=== PATIENT | female | born 1945 | race Caucasian/White ===

== ENCOUNTER → 2018-02-10 10:39 | Outpatient (CLI) | payer MEDICARE, SELFPAY ==
--- NOTE | 2018-02-10 10:42 | DI.RAD.S_ITS ---
PROCEDURE: XR HIP W PEL IF DONE RT 2V INDICATIONS: right hip pain TECHNIQUE: AP pelvis with lateral view(s) of the right hip(s). COMPARISON: [facility], CR, ABD ACUTE SERIES, 11/08/2012, 10:49. FINDINGS: Bones: No fractures or dislocations. Pelvic ring appears intact. No suspicious bony lesions. There is degenerative hip joint disease bilaterally, right greater than left, initiated with sclerosis, mild marginal lipping and subcortical cystic changes. Appearance is essentially unchanged from last study. Soft tissues: The visualized bowel gas pattern is normal. No suspicious soft tissue calcifications. IMPRESSION: 1. No acute bony abnormality. 2. Degenerative hip joint disease right greater than left. Dictated by: Nathaniel Livingston M.D. on 02/10/2018 at 10:58 Approved by: Nathaniel Livingston M.D. on 02/10/2018 at 11:01
== END ==
PROVIDERS: PCP Family Medicine
DX: M16.0 Bilateral primary osteoarthritis of hip (principal); M25.551 Pain in right hip
CPT/HCPCS: 73502

== ENCOUNTER → 2018-11-08 16:04 | Outpatient (CLI) | payer MEDICARE, SELFPAY ==
[2018-11-08 17:09] LABS: Hemoglobin 9.5 g/dL (12.0-16.0)
[2018-11-08 17:31] LABS: HEMOLYSIS < 15 (0-50); Iron 18 ug/dL (37-170)
[2018-11-08 17:41] LABS: Percent Iron Saturation 4 % (15-50); Total Iron Binding Capacity 454 ug/dL (265-497); Transferrin 369 mg/dL (206-381)
== END ==
PROVIDERS: PCP Physician Assistant; Visit Provider Physician Assistant
DX: R53.1 Weakness (principal); Z86.2 Personal history of diseases of the blood and blood-forming organs and certain disorders involving the immune mechanism
CPT/HCPCS: 36415; 83540; 83550; 85014; 85018

== ENCOUNTER → 2019-02-06 16:21 | Outpatient (CLI) | payer MEDICARE, SELFPAY | PROVIDERS: PCP Physician Assistant; Visit Provider Physician Assistant ==

== ENCOUNTER → 2019-02-08 09:57 | Outpatient (CLI) | payer MEDICARE, SELFPAY ==
[2019-02-08 10:20] LABS: Add Manual Diff / Slide Review NO; Basophils Absolute Auto 100 /uL (0-100); Basophils Percent Auto 1.4 % (0-2); Eosinophils Absolute Auto 300 /uL (0-450); Eosinophils Percent Auto 3.1 % (2-4); Hematocrit 31.1 % (36-46); Lymphocytes Absolute Auto 2500 /uL (1100-4500); Lymphocytes Percent Auto 27.4 % (25-40); Mean Corpuscular HGB Conc 32.1 % (30-36); Mean Corpuscular Hemoglobin 24.4 PG (26-34); Mean Corpuscular Volume 76.1 fL (80-100); Monocytes Absolute Auto 800 /uL (0-900); Monocytes Percent Auto 9.1 % (3-14); Neutrophils Absolute Auto 5400 /uL (1500-7000); Platelet Count 354 X10^3/uL (150-400); Red Blood Cell Count 4.09 X10^6/uL (4.0-5.2); Red Cell Distribution Width 17.6 % (11.6-14.8); White Blood Cell Count 9.2 X10^3/uL (4.5-11.0)
[2019-02-08 10:36] LABS: HEMOLYSIS < 15 (0-50); Iron 15 ug/dL (37-170)
[2019-02-08 10:38] LABS: Alanine Aminotransferase 18 IU/L (9-52); Albumin 4.4 g/dL (3.5-5.0); Albumin Globulin Ratio 1.4 (1.0-2.8); Alkaline Phosphatase 104 U/L (38-126); Aspartate Aminotransferase 24 IU/L (14-36); BUN Creatinine Ratio 23.3 (6-22); Bilirubin Total 0.3 mg/dL (0.2-1.3); Blood Urea Nitrogen 14 mg/dL (7-17); Carbon Dioxide 28 mmol/L (22-32); Chloride 104 mmol/L (98-107); Estimated Glomerular Filt Rate > 60.0 mL/min (>60); Globulin 3.2 g/dL (1.7-4.1); Glucose 118 mg/dL (80-110); HEMOLYSIS < 15 (0-50); Hemoglobin A1C% w Est Avg Glu 5.6 % (4.0-6.0); Potassium 4.1 mmol/L (3.4-5.1); Sodium 141 mmol/L (137-145); Total Protein 7.6 g/dL (6.3-8.2)
[2019-02-08 10:47] LABS: Percent Iron Saturation 3 % (15-50); Total Iron Binding Capacity 442 ug/dL (265-497); Transferrin 386 mg/dL (206-381)
[2019-02-08 10:55] LABS: Vitamin D 25 Hydroxy (D3) 27.9 ng/mL (30.0-100.0)
[2019-02-08 11:11] LABS: Thyroid Stimulating Hormone 2.78 uIU/mL (0.47-4.68)
[2019-02-08 11:12] LABS: Ferritin 5.7 ng/mL (11.1-264)
[2019-02-08 11:26] LABS: Vitamin B12 > 1000 pg/mL (239-931)
== END ==
PROVIDERS: PCP Physician Assistant; Visit Provider Physician Assistant
DX: D50.8 Other iron deficiency anemias (principal); K22.2 Esophageal obstruction; R11.2 Nausea with vomiting, unspecified; R26.89 Other abnormalities of gait and mobility; R53.83 Other fatigue; Z13.1 Encounter for screening for diabetes mellitus
CPT/HCPCS: 36415; 80053; 82306; 82607; 82728; 83036; 83540; 83550; 84443; 85025

== ENCOUNTER 2019-02-20 17:11 | Emergency (ER) | payer MEDICARE, SELFPAY ==
[2019-02-20 17:15] VITALS: BP 132/62; PULSE 79; RESP 18; TEMP 36.7; O2SAT 98
[2019-02-20 17:30] VITALS: BP 126/55; PULSE 77; RESP 17; O2SAT 96
[2019-02-20 17:41] LABS: Add Manual Diff / Slide Review NO; Basophils Absolute Auto 100 /uL (0-100); Basophils Percent Auto 0.7 % (0-2); Eosinophils Absolute Auto 200 /uL (0-450); Eosinophils Percent Auto 1.2 % (2-4); Hematocrit 31.4 % (36-46); Hemoglobin 9.9 g/dL (12.0-16.0); Lymphocytes Absolute Auto 2500 /uL (1100-4500); Lymphocytes Percent Auto 19.9 % (25-40); Mean Corpuscular HGB Conc 31.5 % (30-36); Mean Corpuscular Hemoglobin 23.5 PG (26-34); Mean Corpuscular Volume 74.7 fL (80-100); Monocytes Absolute Auto 1200 /uL (0-900); Monocytes Percent Auto 9.4 % (3-14); Neutrophils Absolute Auto 8700 /uL (1500-7000); Neutrophils Percent Auto 68.8 % (50-75); Platelet Count 346 X10^3/uL (150-400); Red Blood Cell Count 4.21 X10^6/uL (4.0-5.2); Red Cell Distribution Width 16.7 % (11.6-14.8); White Blood Cell Count 12.7 X10^3/uL (4.5-11.0)
[2019-02-20 17:51] LABS: PTT Partial Thromboplastin Tim 35 SECONDS (26.4-36.2)
[2019-02-20] MEDS: SODIUM CHLORIDE 0.9% 1,000 ML 1000 ML IV (18:00)
[2019-02-20 18:01] LABS: Alanine Aminotransferase 16 IU/L (9-52); Albumin 4.3 g/dL (3.5-5.0); Albumin Globulin Ratio 1.3 (1.0-2.8); Alkaline Phosphatase 102 U/L (38-126); Aspartate Aminotransferase 21 IU/L (14-36); Bilirubin Total 0.2 mg/dL (0.2-1.3); Blood Urea Nitrogen 21 mg/dL (7-17); Calcium 9.9 mg/dL (8.4-10.2); Carbon Dioxide 26 mmol/L (22-32); Chloride 102 mmol/L (98-107); Creatine Kinase 50 U/L (30-135); Estimated Glomerular Filt Rate > 60.0 mL/min (>60); Globulin 3.3 g/dL (1.7-4.1); Glucose 92 mg/dL (80-110); HEMOLYSIS < 15 (0-50); Lipase 91 U/L (23-300); Potassium 4.6 mmol/L (3.4-5.1); Sodium 137 mmol/L (137-145); Total Protein 7.6 g/dL (6.3-8.2)
[2019-02-20 18:12] LABS: Troponin I < 0.012 ng/mL (0.01-0.034)
[2019-02-20 18:49] LABS: Iron 18 ug/dL (37-170)
[2019-02-20 18:58] LABS: Percent Iron Saturation 4 % (15-50); Total Iron Binding Capacity 446 ug/dL (265-497)
--- NOTE | 2019-02-20 19:09 | CM.MNRNOTE ---
Per verbal order from provider, only infuse 500mL NaCl.
[2019-02-20 19:26] LABS: Ferritin 5.3 ng/mL (11.1-264)
[2019-02-20 19:50] VITALS: BP 122/60; PULSE 70; RESP 13; O2SAT 96
--- NOTE | 2019-02-20 21:45 | ED_ITS ---
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 Patient and daughter states the patient has frequent knee unable to tolerate p.o. and has frequent emesis due to duodenal stenosis. The daughter reports that patient had several surgical procedures to dilate the stenosis in the past but had complications and ended up having GI bleed. The daughter reports she had a gastric ulcer in 1985 and had an surgical intervention by removing 1.5 ft of duodenum. When the small intestine was anastomosis, the duodenum stenosis occurred. She reports she feels fatigued, feels dizzy, disoriented (meant slower to converse), and generalized body aches. She denies chest pain, breathing difficulty. According to daughter the patient has been taking small intakes of milk, chicken broth. Add last solid food of pasta and mashed potato 3 days ago. Patient is scheduled for IV iron infusion on 02/26/19 and has on appointment with GI specialist on 03/01/19. The patient and mother states something needs to be done today for her symptoms such as IV iron infusion since her iron count is very low as 15. Related Data Home Medications Medication Instructions Recorded Confirmed cholecalciferol (vitamin D3) 1 tab PO DAILY #0 12/16/16 02/20/19 [Vitamin D3] melatonin 5 mg tablet 5 mg PO BEDTIME PRN 11/08/18 02/20/19 multivitamin tablet 1 tab PO DAILY 11/08/18 02/20/19 CBD Oil See Rx Instructions .ROUTE .COMPLEX 02/06/19 02/20/19 Potassium See Rx Instructions .ROUTE .COMPLEX 02/06/19 02/20/19 Vitamin E 1 cap PO DAILY 02/06/19 02/20/19 cyanocobalamin (vitamin B-12) 2,500 mcg PO DAILY 02/06/19 02/20/19 2,500 mcg tablet loratadine 10 mg tablet 10 mg PO DAILY PRN 02/06/19 02/20/19 wwyguha-czvxskqfnefrs-biexwvns 1 dose PO PRN PRN 02/20/19 02/20/19 [Excedrin Extra Strength] gabapentin 100 - 300 mg PO TID 02/20/19 02/20/19 lidocaine HCl-menthol 1 patch TOPICAL DAILY 02/20/19 02/20/19 Allergies Allergy/AdvReac Type Severity Reaction Status Date / Time aspirin [ASPIRIN] AdvReac Severe bleeding Verified 02/20/19 17:29 stomach codeine [CODEINE] AdvReac Severe Hallucinati Verified 02/20/19 17:29 ons fluconazole [From Diflucan] AdvReac Severe I threw Verified 02/20/19 17:29 up all night long. morphine [MORPHINE] AdvReac Severe Hallucinati Verified 02/20/19 17:29 ons oxycodone [OXYCODONE] AdvReac Severe Hallucinations Verified 02/20/19 17:29 and itchy skin prednisone [PREDNISONE] AdvReac Severe Feels Verified 02/20/19 17:29 high and gets very angry zolpidem [ZOLPIDEM] AdvReac Severe turned me Verified 02/20/19 17:29 into a night walker and felt really high. Review of Systems <LUDY Castrejon - Last Filed: 02/20/19 22:25> Review of Systems General: See HPI HEENT: Denies sinus pain, ear pain, sore throat, difficulty swallowing, dizziness. Respiratory: Denies dyspnea, cough, wheezing, hemoptysis, sputum. Cardiovascular: Denies chest pain, palpitations, orthopnea, edema. Gastrointestinal: See HPI : Denies dysuria, frequency, incontinence, hematuria, urinary retention. Musculoskeletal: See HPI Skin: Denies rash, skin lesions, or other. Neurologic: Reports weakness and disorientation. Denies headache, numbness, confusion, seizures, incoordination. Psychiatric: No concerning psychosocial issues. 12-point review of systems is negative except for those stated above. PFSH <LUDY Castrejon - Last Filed: 02/20/19 22:25> Medical History Cataracts, bilateral (Acute 2010) Peptic ulcer disease (Acute 1979) Allergic rhinitis (Chronic 1959) Chronic back pain (Chronic) Fibromyalgia (Chronic ~1989) Generalized headaches (Chronic) Lupus (Chronic 1989) Migraines (Chronic) Shoulder pain (Chronic) Tinnitus of both ears (Chronic 2005) Vertigo (Chronic 2010) Anemia (Resolved 2013) Chickenpox (Resolved) Fibroids (Resolved) Foot pain (Resolved 2000) Fractures (Resolved 1999) Heavy menstrual period (Resolved) Mumps (Resolved) Ovarian cyst (Resolved) Painful menstrual periods (Resolved) Rheumatic fever (Resolved 1966) Surgical History History of surgery on arm (Resolved) Hx of abdominal surgery (Resolved ~1985) Hx of appendectomy (Resolved 1958) Status post cholecystectomy Status post hysterectomy (1988) Family History (Updated 03/20/18 @ 11:54 by Марина Resendiz LPN) Father Cancer Mother No problems noted. Grandfather No problems noted. Grandmother No problems noted. Social History Smoking Status: Former smoker Tobacco: How many years used: 30 (off and on. I quit for 10 years and then started up again.) second hand exposure: No alcohol intake: former (I only drank socially, but I don't anymore. I drank a glass of wine once in a while.) substance use type: does not use Family History Father Cancer Mother No problems noted. Grandfather No problems noted. Grandmother No problems noted. Social History Smoking Status: Former smoker Tobacco: How many years used: 30 (off and on. I quit for 10 years and then started up again.) second hand exposure: No alcohol intake: former (I only drank socially, but I don't anymore. I drank a glass of wine once in a while.) substance use type: does not use Exam <LUDY Castrejon - Last Filed: 02/20/19 22:25> Narrative Exam Narrative: GEN: Alert, oriented x 3, well appearing and nourished, and in no acute distress. Head: Normal cephalic, atraumatic. No scalp or temporal tenderness, palpable mass or rash. EYES: Pupils are equal, round, and reactive to light and accommodation. Extraocular muscles are intact bilaterally. There is no subconjunctival hemorrhage, exudate and sclera non-icteric. Palpebral conjunctiva with mild pink. ENT: Hearing grossly intact. Nose without bleeding, purulent discharge. Mucous membrane moist, no mucosal lesion. Throat without erythema, tonsillar hypertrophy or exudate. Uvula in midline, airway patent. Neck: Trachea in midline. No JVD, non-tender without lymphadenopathy. No masses or thyroid megaly. Supple, non-tender and no meningeal signs. CARDIAC: Normal regular rate and rhythm without murmurs, gallops, or rubs. No chest wall tenderness. No peripheral edema, cyanosis or pallor. Capillary refill is less than 2 seconds. RESPIRATORY: Lungs are cleat to auscultate bilaterally. No cough, wheezes, rales, or rhonchi. No stridor, respiratory distress, increase work of breathing, or accessary muscle used. ABD: Abdomen soft, nontender and non-distended. No guarding or rebound tenderness to palpate. Bowel sounds are normal in all 4 quadrants. There is no palpable masses or organomegaly. EXT: Full painless ROM of all extremities with no loss of sensation, strength, effusion or edema. Patient was able to move herself from bedside commode to bed independently. SKIN: Warm, dry, normal color for patient. No erythema, lesions or rash over visible areas. BACK: Nontender without deformity or crepitance. No flank tenderness. NEUROLOGICAL: Alert and oriented to place, time and person. Sensation and motor function intact bilaterally. No facial droops, dysphasia. PSYCHIATRIC: Good judgement and reason, without hallucinations, abnormal affect or abnormal behaviors during the examination. Initial Vital Signs Initial Vital Signs: Vital Signs Temperature 98.1 F 02/20/19 17:15 Pulse Rate 79 02/20/19 17:15 Respiratory Rate 18 02/20/19 17:15 Blood Pressure 132/62 02/20/19 17:15 Pulse Oximetry 98 02/20/19 17:15 <Ben Webb, DO - Last Filed: 02/20/19 23:56> Initial Vital Signs Initial Vital Signs: Vital Signs Temperature 98.1 F 02/20/19 17:15 Pulse Rate 79 02/20/19 17:15 Respiratory Rate 18 02/20/19 17:15 Blood Pressure 132/62 02/20/19 17:15 Pulse Oximetry 98 02/20/19 17:15 Course <LUDY Castrejon - Last Filed: 02/20/19 22:25> Orders Ordered: ED Orders 02/20/19 17:34 Complete Blood Count AUTO DIFF Stat Comprehensive Metabolic Panel Stat Ferritin Stat Iron Stat Lipase Stat Partial Thromboplastin Time Stat Prothrombin Time INR Stat Total Iron Binding Capacity Stat Troponin & CK Cardiac Panel Stat Type and Screen Stat Discontinued Medications Sodium Chloride (Normal Saline 0.9%) 1,000 mls @ 1,000 mls/hr IV BOLUS ONE Stop: 02/20/19 18:52 Last Infusion: 02/20/19 18:30 Dose: 0 mls/hr Admin: 02/20/19 18:00 Dose: 1,000 mls/hr Vital Signs - 8 hr 02/20/19 17:15 02/20/19 17:30 02/20/19 19:50 Temperature 98.1 F Pulse Rate 79 77 70 Respiratory Rate 18 17 13 Blood Pressure 132/62 Blood Pressure [Right Arm] 126/55 L 122/60 Pulse Oximetry 98 96 96 <Ben Webb DO - Last Filed: 02/20/19 23:56> Orders Ordered: ED Orders 02/20/19 17:34 Complete Blood Count AUTO DIFF Stat Comprehensive Metabolic Panel Stat Ferritin Stat Iron Stat Lipase Stat Partial Thromboplastin Time Stat Prothrombin Time INR Stat Total Iron Binding Capacity Stat Troponin & CK Cardiac Panel Stat Type and Screen Stat Discontinued Medications Sodium Chloride (Normal Saline 0.9%) 1,000 mls @ 1,000 mls/hr IV BOLUS ONE Stop: 02/20/19 18:52 Last Infusion: 02/20/19 18:30 Dose: 0 mls/hr Admin: 02/20/19 18:00 Dose: 1,000 mls/hr Vital Signs - 8 hr 02/20/19 17:15 02/20/19 17:30 02/20/19 19:50 Temperature 98.1 F Pulse Rate 79 77 70 Respiratory Rate 18 17 13 Blood Pressure 132/62 Blood Pressure [Right Arm] 126/55 L 122/60 Pulse Oximetry 98 96 96 MDM - Weakness <LUDY Castrejon Last Filed: 02/20/19 22:25> Differential Diagnosis Differential diagnosis: Likely anemia and dehydration Medical Records Attestation: I reviewed the patient's medical records. Lab Data Attestation: I reviewed the patient's lab results. Result diagrams: 02/20/19 17:34 02/20/19 17:34 Lab Results 02/20/19 02/20/19 02/20/19 Range/Units 17:34 17:34 17:34 WBC 12.7 H (4.5-11.0) X10^3/uL RBC 4.21 (4.0-5.2) X10^6/uL Hgb 9.9 L (12.0-16.0) g/dL Hct 31.4 L (36-46) % MCV 74.7 L (80-100) fL MCH 23.5 L (26-34) PG MCHC 31.5 (30-36) % RDW 16.7 H (11.6-14.8) % Plt Count 346 (150-400) X10^3/uL Neut % (Auto) 68.8 (50-75) % Lymph % (Auto) 19.9 L (25-40) % [place] % (Auto) 9.4 (3-14) % Eos % (Auto) 1.2 L (2-4) % Baso % (Auto) 0.7 (0-2) % Neut # (Auto) 8700 H (4912-9487) /uL Lymph # (Auto) 2500 (6318-6436) /uL [place] # (Auto) 1200 H (0-900) /uL Eos # (Auto) 200 (0-450) /uL Baso # (Auto) 100 (0-100) /uL PT 12.0 (10.1-12.7) SECONDS INR 1.0 (0.9-1.3) APTT 35 (26.4-36.2) SECONDS Sodium 137 (137-145) mmol/L Potassium 4.6 (3.4-5.1) mmol/L Chloride 102 (98-107) mmol/L Carbon Dioxide 26 (22-32) mmol/L BUN 21 H (7-17) mg/dL Creatinine 0.70 (0.52-1.04) mg/dL Estimated GFR > 60.0 (>60) mL/min BUN/Creatinine Ratio 30.0 H (6-22) Glucose 92 (80-110) mg/dL Calcium 9.9 (8.4-10.2) mg/dL Iron (37-170) ug/dL TIBC (265-497) ug/dL % Saturation (15-50) % Ferritin (11.1-264) ng/mL Total Bilirubin 0.2 (0.2-1.3) mg/dL AST 21 (14-36) IU/L ALT 16 (9-52) IU/L Alkaline Phosphatase 102 (38-126) U/L Total Creatine Kinase 50 (30-135) U/L CK-MB (CK-2) TNP CK-MB (CK-2) Rel Index TNP Troponin I < 0.012 (0.01-0.034) ng/mL Total Protein 7.6 (6.3-8.2) g/dL Albumin 4.3 (3.5-5.0) g/dL Globulin 3.3 (1.7-4.1) g/dL Albumin/Globulin Ratio 1.3 (1.0-2.8) Lipase 91 (23-300) U/L Blood Type Antibody Screen 02/20/19 02/20/19 02/20/19 Range/Units 17:34 17:34 17:34 WBC (4.5-11.0) X10^3/uL RBC (4.0-5.2) X10^6/uL Hgb (12.0-16.0) g/dL Hct (36-46) % MCV (80-100) fL MCH (26-34) PG MCHC (30-36) % RDW (11.6-14.8) % Plt Count (150-400) X10^3/uL Neut % (Auto) (50-75) % Lymph % (Auto) (25-40) % [place] % (Auto) (3-14) % Eos % (Auto) (2-4) % Baso % (Auto) (0-2) % Neut # (Auto) (7783-8211) /uL Lymph # (Auto) (4321-7925) /uL [place] # (Auto) (0-900) /uL Eos # (Auto) (0-450) /uL Baso # (Auto) (0-100) /uL PT (10.1-12.7) SECONDS INR (0.9-1.3) APTT (26.4-36.2) SECONDS Sodium (137-145) mmol/L Potassium (3.4-5.1) mmol/L Chloride (98-107) mmol/L Carbon Dioxide (22-32) mmol/L BUN (7-17) mg/dL Creatinine (0.52-1.04) mg/dL Estimated GFR (>60) mL/min BUN/Creatinine Ratio (6-22) Glucose (80-110) mg/dL Calcium (8.4-10.2) mg/dL Iron 18 L (37-170) ug/dL TIBC 446 (265-497) ug/dL % Saturation 4 L (15-50) % Ferritin 5.3 L (11.1-264) ng/mL Total Bilirubin (0.2-1.3) mg/dL AST (14-36) IU/L ALT (9-52) IU/L Alkaline Phosphatase (38-126) U/L Total Creatine Kinase (30-135) U/L CK-MB (CK-2) CK-MB (CK-2) Rel Index Troponin I (0.01-0.034) ng/mL Total Protein (6.3-8.2) g/dL Albumin (3.5-5.0) g/dL Globulin (1.7-4.1) g/dL Albumin/Globulin Ratio (1.0-2.8) Lipase (23-300) U/L Blood Type O Positive Antibody Screen Negative Urine Dip Bedside Urine Glucose Negative Bedside Urine Bilirubin - Negative Bedside Urine Ketone - Negative Urine Specific [place] 1.010 Bedside Urine Occult Blood - Negative Bedside Urine pH 7.0 Bedside Urine Protein - Negative Bedside Urine Urobilinogen - Negative Bedside Urine Nitrite - Negative Bedside Urine Leukocytes - Negative Esterase MDM Narrative Medical decision making narrative: This is a 74-year-old female who presents wi th her daughter with chief complain of chronic iron deficiency anemia from poor nutrition due to pre-existing duodenal stenosis. The patient and daughter are requesting iron infusion should be done today due to patient's symptoms such as fatigue, generalized body aches, and dizziness. Patient and daughter shared extensive her medical history such as gastric also, duodenal stenosis with multiple dilation procedure via EGD which have been resulted in further GI bleed and possible perforation. The daughter states patient goes through stage of not being able to tolerate p.o. intake adequately with nausea and vomiting. The patient reports she is unable to tolerate iron supplements due to her stomach irritation. The patient reports she declines to take Reglan despite this medication helps with her symptoms due to her neighbor had tremors as its side effects. The patient has a follow-up appointment with infusion clinic of IV iron infusion on 02/26 and with the GI specialist on 03/01 to consider another dilation of her duodenum. The blood test shows no significant changes in her H&H as 9.9/31.4 today as compared to the last blood drawn on 02/08/19. When the findings were shared with the patient and the daughter, they both got upset and states I'm done with this Hospital and I'm gonna go to [place]. The daughter and patient strongly and repeatedly expressed that something has to be done today such as IV infusion tonight to help patient with symptoms. The patient and the daughter assured repeatedly that the lab test does not indicate transfusion tonight. The iron level, TIBC, and saturation have actually was improved from last time. Patient was hydrated with normal saline 500 mL her DC to home as requested for dehydration and consistent with elevated BUN result. I re-evaluated patient several times during her stay in ED. I discussed in length of return precautions. Informed the patient and daughter that [facility] will be contacted tomorrow morning to inform the patient's visit to assist expedite her next appointment with lorena Barker and possible IV iron infusion at [facility]. The patient and the daughter agree with the treatment plan and no further questions were expressed at this time. <Ben Webb, DO - Last Filed: 02/20/19 23:56> Lab Data Lab Results 02/20/19 02/20/19 02/20/19 Range/Units 17:34 17:34 17:34 WBC 12.7 H (4.5-11.0) X10^3/uL RBC 4.21 (4.0-5.2) X10^6/uL Hgb 9.9 L (12.0-16.0) g/dL Hct 31.4 L (36-46) % MCV 74.7 L (80-100) fL MCH 23.5 L (26-34) PG MCHC 31.5 (30-36) % RDW 16.7 H (11.6-14.8) % Plt Count 346 (150-400) X10^3/uL Neut % (Auto) 68.8 (50-75) % Lymph % (Auto) 19.9 L (25-40) % [place] % (Auto) 9.4 (3-14) % Eos % (Auto) 1.2 L (2-4) % Baso % (Auto) 0.7 (0-2) % Neut # (Auto) 8700 H (0349-6349) /uL Lymph # (Auto) 2500 (7481-4693) /uL [place] # (Auto) 1200 H (0-900) /uL Eos # (Auto) 200 (0-450) /uL Baso # (Auto) 100 (0-100) /uL PT 12.0 (10.1-12.7) SECONDS INR 1.0 (0.9-1.3) APTT 35 (26.4-36.2) SECONDS Sodium 137 (137-145) mmol/L Potassium 4.6 (3.4-5.1) mmol/L Chloride 102 (98-107) mmol/L Carbon Dioxide 26 (22-32) mmol/L BUN 21 H (7-17) mg/dL Creatinine 0.70 (0.52-1.04) mg/dL Estimated GFR > 60.0 (>60) mL/min BUN/Creatinine Ratio 30.0 H (6-22) Glucose 92 (80-110) mg/dL Calcium 9.9 (8.4-10.2) mg/dL Iron (37-170) ug/dL TIBC (265-497) ug/dL % Saturation (15-50) % Ferritin (11.1-264) ng/mL Total Bilirubin 0.2 (0.2-1.3) mg/dL AST 21 (14-36) IU/L ALT 16 (9-52) IU/L Alkaline Phosphatase 102 (38-126) U/L Total Creatine Kinase 50 (30-135) U/L CK-MB (CK-2) TNP CK-MB (CK-2) Rel Index TNP Troponin I < 0.012 (0.01-0.034) ng/mL Total Protein 7.6 (6.3-8.2) g/dL Albumin 4.3 (3.5-5.0) g/dL Globulin 3.3 (1.7-4.1) g/dL Albumin/Globulin Ratio 1.3 (1.0-2.8) Lipase 91 (23-300) U/L Blood Type Antibody Screen 02/20/19 02/20/19 02/20/19 Range/Units 17:34 17:34 17:34 WBC (4.5-11.0) X10^3/uL RBC (4.0-5.2) X10^6/uL Hgb (12.0-16.0) g/dL Hct (36-46) % MCV (80-100) fL MCH (26-34) PG MCHC (30-36) % RDW (11.6-14.8) % Plt Count (150-400) X10^3/uL Neut % (Auto) (50-75) % Lymph % (Auto) (25-40) % [place] % (Auto) (3-14) % Eos % (Auto) (2-4) % Baso % (Auto) (0-2) % Neut # (Auto) (1368-2698) /uL Lymph # (Auto) (3326-3069) /uL [place] # (Auto) (0-900) /uL Eos # (Auto) (0-450) /uL Baso # (Auto) (0-100) /uL PT (10.1-12.7) SECONDS INR (0.9-1.3) APTT (26.4-36.2) SECONDS Sodium (137-145) mmol/L Potassium (3.4-5.1) mmol/L Chloride (98-107) mmol/L Carbon Dioxide (22-32) mmol/L BUN (7-17) mg/dL Creatinine (0.52-1.04) mg/dL Estimated GFR (>60) mL/min BUN/Creatinine Ratio (6-22) Glucose (80-110) mg/dL Calcium (8.4-10.2) mg/dL Iron 18 L (37-170) ug/dL TIBC 446 (265-497) ug/dL % Saturation 4 L (15-50) % Ferritin 5.3 L (11.1-264) ng/mL Total Bilirubin (0.2-1.3) mg/dL AST (14-36) IU/L ALT (9-52) IU/L Alkaline Phosphatase (38-126) U/L Total Creatine Kinase (30-135) U/L CK-MB (CK-2) CK-MB (CK-2) Rel Index Troponin I (0.01-0.034) ng/mL Total Protein (6.3-8.2) g/dL Albumin (3.5-5.0) g/dL Globulin (1.7-4.1) g/dL Albumin/Globulin Ratio (1.0-2.8) Lipase (23-300) U/L Blood Type O Positive Antibody Screen Negative Urine Dip Bedside Urine Glucose Negative Bedside Urine Bilirubin - Negative Bedside Urine Ketone - Negative Urine Specific [place] 1.010 Bedside Urine Occult Blood - Negative Bedside Urine pH 7.0 Bedside Urine Protein - Negative Bedside Urine Urobilinogen - Negative Bedside Urine Nitrite - Negative Bedside Urine Leukocytes - Negative Esterase Discharge Plan Departure Patient Disposition: Home Clinical Impression: Iron deficiency anemia due to dietary causes Discharge Date/Time: 02/20/19 20:02 Interventions: ED Discharge Assessment Last Done: 02/20/19 20:01 Instructions: DI for Anemia of Chronic Disease Activity Restrictions/Additional Instructions: You have been diagnosed with [chronic iron-deficiency anemia. Despite your symptoms such as fatigue, dizziness, generalized body aches, the blood tests such as H&H, iron level is either same or improved since last blood draw on 02/08/19. She had these findings are ensuring us that you do not need emergent blood tranfusion at this time and could probably follow the iron infusion via outpatient. I will leave a message to our charge nurse to contact [facility] tomorrow if they can expedite you're appointment with LULU Garcia and possibly could arrange sooner appointment at [facility]fusion [facility].]. What to do: *Take your medications as directed. Please continue doing a great job with oral hydration, small and frequent p.o. intake with iron rich foods. *Follow up with your primary care provider in next 1-2 days, call for an appointment. Let them know you were seen in the ED and that we asked you to be seen in follow up. *Return to ED if you have any new, worsening, or concerning symptoms, such as [chest pain, breathing difficulty, increasing dizziness, fainting, fever/chills, unable to tolerate fluids, any acute concerns]. Prescriptions: No Action cholecalciferol (vitamin D3) [Vitamin D3] 2,000 UNIT tablet 1 tab PO DAILY Qty: 0 RF: 0 multivitamin tablet 1 tab PO DAILY RF: 0 melatonin 5 mg tablet 5 mg PO BEDTIME PRN (Reason: Sleep) RF: 0 cyanocobalamin (vitamin B-12) 2,500 mcg tablet 2,500 mcg PO DAILY RF: 0 CBD Oil See Patient Comments .ROUTE .COMPLEX RF: 0 Potassium See Patient Comments .ROUTE .COMPLEX RF: 0 Vitamin E 1 cap PO DAILY RF: 0 loratadine [Claritin] 10 mg tablet 10 mg PO DAILY PRN (Reason: Allergy Symptoms) RF: 0 gabapentin 100 mg capsule 100 - 300 mg PO TID RF: 0 Excedrin Extra Strength 250-250-65 mg Tablet 1 dose PO PRN PRN (Reason: pain) RF: 0 lidocaine HCl-menthol 4-1 % Adhesive Patch,Medicated 1 patch topical DAILY RF: 0 Referrals: Gianna Barker PA-C [Primary Care Provider] - <Ben Webb DO - Last Filed: 02/20/19 23:56> Cosign ED Attending Cosignature Attestation: I was available for consultation during this patient's emergency department encounter
== END 2019-02-20 20:02 | disposition home or self-care (01) ==
PROVIDERS: Emergency Medicine; Emergency Provider Nurse Practitioner Family; Family Provider Physician Assistant; PCP Physician Assistant
DX: D50.8 Other iron deficiency anemias (principal)
CPT/HCPCS: 36591; 80053; 81003; 82550; 82728; 83540; 83550; 83690; 84484; 85025; 85610; 85730; 86850; 86900; 86901; 99283; 99284

== ENCOUNTER 2019-02-22 05:39 | Inpatient (IN) | payer MEDICARE, SELFPAY ==
[2019-02-22] VITALS (11 sets, daily range): BP systolic 117–151; BP diastolic 52–74; PULSE 84–109; RESP 12–24; TEMP 36.8–37.7; O2SAT 93–99; BMI 29.0
--- NOTE | 2019-02-22 05:49 | ED.GENADULT ---
HPI - General Adult <Ben Webb DO - Last Filed: 02/22/19 19:09> General Chief complaint: Abdominal Pain Stated complaint: Abd pain, N/V/D Time Seen by Provider: 02/22/19 05:42 Source: patient and EMS Mode of arrival: EMS Limitations: no limitations History of Present Illness HPI narrative: Patient is a 74-year-old female here for evaluation of nausea and vomiting and diarrhea and abdominal pain. She was seen here in the emergency department several days ago for vomiting. She states that she has ?duodenal stenosis ?however some of the notes that I have reviewed also lists ?esophageal stenosis patient was given fluids the last time she was here. Unsure if she was sent home with nausea medication. She stated that she needed an iron infusion during that visit however this was not performed as this is not an emergent procedure. She does have a scheduled appointment with [facility] in a couple days to have this done. She also states that she has an appointment to the end of the month with the GI provider to discuss of potential dilation for her stenosis. She is now having diarrhea. EMS brought her in. They stated that she was sitting on the toilet when they arrived at the patient's house. They stated that she did ambulate to the EMS gurney without problems. Was talkative and alert oriented. Related Data Home Medications Medication Instructions Recorded Confirmed cholecalciferol (vitamin D3) 1 tab PO DAILY #0 12/16/16 02/22/19 [Vitamin D3] melatonin 5 mg tablet 5 mg PO BEDTIME PRN 11/08/18 02/22/19 multivitamin tablet 1 tab PO DAILY 11/08/18 02/22/19 CBD Oil See Rx Instructions .ROUTE .COMPLEX 02/06/19 02/22/19 Potassium See Rx Instructions .ROUTE .COMPLEX 02/06/19 02/22/19 Vitamin E 1 cap PO DAILY 02/06/19 02/22/19 cyanocobalamin (vitamin B-12) 2,500 mcg PO DAILY 02/06/19 02/22/19 2,500 mcg tablet loratadine 10 mg tablet 10 mg PO DAILY PRN 02/06/19 02/22/19 gljcesy-obfaklweyngxn-oqnbajai 1 dose PO PRN PRN 02/20/19 02/22/19 [Excedrin Extra Strength] gabapentin 100 - 300 mg PO TID 02/20/19 02/22/19 lidocaine HCl-menthol 1 patch TOPICAL DAILY 02/20/19 02/22/19 Allergies Allergy/AdvReac Type Severity Reaction Status Date / Time aspirin [ASPIRIN] AdvReac Severe bleeding Verified 02/20/19 17:29 stomach codeine [CODEINE] AdvReac Severe Hallucinati Verified 02/20/19 17:29 ons fluconazole [From Diflucan] AdvReac Severe I threw Verified 02/20/19 17:29 up all night long. morphine [MORPHINE] AdvReac Severe Hallucinati Verified 02/20/19 17:29 ons oxycodone [OXYCODONE] AdvReac Severe Hallucinations Verified 02/20/19 17:29 and itchy skin prednisone [PREDNISONE] AdvReac Severe Feels Verified 02/20/19 17:29 high and gets very angry zolpidem [ZOLPIDEM] AdvReac Severe turned me Verified 02/20/19 17:29 into a night walker and felt really high. Review of Systems <Ben Webb DO - Last Filed: 02/22/19 19:09> Review of Systems Very difficult to obtain review of systems from the patient due to her willingness to answer questions. She kept answering ?tunnel feel good? 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) IBS (irritable bowel syndrome) (Acute) Iron deficiency anemia (Acute) Legg-Perthes disease (Acute) Osteoarthritis (Acute) Perforated ulcer (Acute) Fibromyalgia (Chronic ~1989) Cataracts, bilateral (Acute 2010) Peptic ulcer disease (Acute 1979) Allergic rhinitis (Chronic 1959) Chronic back pain (Chronic) Generalized headaches (Chronic) Lupus (Chronic 1989) Migraines (Chronic) Shoulder pain (Chronic) Tinnitus of both ears (Chronic 2005) Vertigo (Chronic 2010) Anemia (Resolved 2013) Chickenpox (Resolved) Fibroids (Resolved) Foot pain (Resolved 2000) Fractures (Resolved 1999) Heavy menstrual period (Resolved) Mumps (Resolved) Ovarian cyst (Resolved) Painful menstrual periods (Resolved) Rheumatic fever (Resolved 1966) Surgical History S/P BSO (bilateral salpingo-oophorectomy) (Acute) History of surgery on arm (Resolved) Hx of abdominal surgery (Resolved ~1985) Hx of appendectomy (Resolved 1958) Status post cholecystectomy Status post hysterectomy (1988) Family History (Updated 02/22/19 @ 16:39 by Shavon Wolf DO) Father Cancer Mother Diabetes mellitus Osteoarthritis Grandfather No problems noted. Grandmother No problems noted. Social History household members: children Smoking Status: Former smoker Tobacco: How many years used: 30 (off and on. I quit for 10 years and then started up again.) second hand exposure: No alcohol intake: former substance use type: does not use Social History household members: children Smoking Status: Former smoker Tobacco: How many years used: 30 (off and on. I quit for 10 years and then started up again.) second hand exposure: No alcohol intake: former substance use type: does not use Exam <Ben Webb DO - Last Filed: 02/22/19 19:09> Initial Vital Signs Initial Vital Signs: Vital Signs Temperature 98.6 F 02/22/19 05:52 Pulse Rate 109 H 02/22/19 05:52 Respiratory Rate 24 02/22/19 05:52 Blood Pressure 148/53 H 02/22/19 05:52 Pulse Oximetry 96 02/22/19 05:52 Const General: No acute distress Orientation: alert and awake Other: Patient limited in her willingness to participate in the exam Resp Effort & Inspection: normal respiratory effort Cardio Rate: tachycardic GI Inspection: non-distended Palpation: soft and tender (Diffusely tender) Neuro Other: Patient with her eyes closed. Did move all 4 extremities spontaneously. Extrem General: capillary refill normal and No edema Psych Appearance: grossly normal and well kempt Speech and Movement: agitated and restless Affect: blunted Attitude: cooperative (Minimally cooperative) Other: Flat affect, <Mally C Yuriyleslie, DO - Last Filed: 02/22/19 19:09> Initial Vital Signs Initial Vital Signs: Vital Signs Temperature 98.6 F 02/22/19 05:52 Pulse Rate 109 H 02/22/19 05:52 Respiratory Rate 24 02/22/19 05:52 Blood Pressure 148/53 H 02/22/19 05:52 Pulse Oximetry 96 02/22/19 05:52 Course <Ben Webb, DO - Last Filed: 02/22/19 19:09> Orders Ordered: ED Orders 02/22/19 10:48 MRSA PCR Stat 02/22/19 10:58 Urine Microscopic Stat 02/22/19 11:00 Urinalysis and Microscopic Stat Urine Culture Stat 02/22/19 15:00 GI Panel (Film Array) Stat 02/22/19 17:20 Lactate (Lactic Acid) Stat 02/23/19 05:00 CMP [Comprehensive Metabolic Panel] Routine Complete Blood Count AUTO DIFF Routine Magnesium Routine Procalcitonin Routine Acetaminophen (Tylenol) 650 mg PO Q6HR PRN PRN Reason: As Needed for Fever/Mild Pain Last Admin: 02/22/19 12:42 Dose: 650 mg Bisacodyl (Dulcolax) 10 mg [place] DAILY PRN PRN Reason: Constipation Calcium Carbonate (Tums) 1,000 mg PO Q4HR PRN PRN Reason: Dyspepsia Docusate Sodium (Colace) 100 mg PO BID JOSE Gabapentin (Neurontin) 300 mg PO TID [facility] Heparin Sodium (Porcine) (Heparin) 5,000 unit SUBCUT BID [facility] Sodium Chloride (Normal Saline 0.9%) 1,000 mls @ 100 mls/hr IV CONT [facility] Last Admin: 02/22/19 12:43 Dose: 100 mls/hr Ceftriaxone Sodium/Dextrose (Rocephin) 2 gm in 50 mls @ 100 mls/hr IV Q24H [facility] Magnesium Citrate (Magnesium Citrate) 150 ml PO DAILY JOSE Magnesium Hydroxide (Milk Of Magnesia) 30 ml PO DAILY PRN PRN Reason: Constipation Melatonin (Melatonin) 6 mg PO BEDTIME PRN PRN Reason: Sleep Ondansetron HCl (Zofran) 4 mg IV Q4HR PRN PRN Reason: Nausea And Vomiting Sennosides (Senna) 17.2 mg PO DAILY PRN PRN Reason: Constipation Discontinued Medications Sodium Chloride (Normal Saline 0.9%) 1,000 mls @ 1,000 mls/hr IV BOLUS ONE Stop: 02/22/19 06:45 Last Infusion: 02/22/19 10:56 Dose: 0 mls/hr Admin: 02/22/19 06:01 Dose: 1,000 mls/hr Sodium Chloride (Normal Saline 0.9%) 1,000 mls @ 150 mls/hr IV CONT JOSE Last Admin: 02/22/19 10:55 Dose: Not Given Ceftriaxone Sodium/Dextrose (Rocephin) 1 gm in 50 mls @ 100 mls/hr IV NOW ONE Stop: 02/22/19 07:08 Last Infusion: 02/22/19 07:10 Dose: 0 mls/hr Admin: 02/22/19 06:42 Dose: 100 mls/hr Ceftriaxone Sodium/Dextrose (Rocephin) 1 gm in 50 mls @ 100 mls/hr IV NOW ONE Stop: 02/22/19 16:59 Last Admin: 02/22/19 17:33 Dose: 100 mls/hr Metoclopramide HCl (Reglan) 10 mg IV NOW ONE Stop: 02/22/19 06:31 Last Admin: 02/22/19 06:34 Dose: 10 mg Ondansetron HCl (Zofran) 4 mg IV NOW ONE Stop: 02/22/19 05:47 Last Admin: 02/22/19 06:13 Dose: 4 mg Vital Signs - 8 hr 02/22/19 13:11 02/22/19 15:23 Temperature 99.8 F H 99.0 F Pulse Rate 92 H 86 Respiratory Rate 12 12 Blood Pressure 135/71 117/52 L Pulse Oximetry 99 93 <Mally Davalos, - Last Filed: 02/22/19 19:09> Orders Ordered: ED Orders 02/22/19 10:48 MRSA PCR Stat 02/22/19 10:58 Urine Microscopic Stat 02/22/19 11:00 Urinalysis and Microscopic Stat Urine Culture Stat 02/22/19 15:00 GI Panel (Film Array) Stat 02/22/19 17:20 Lactate (Lactic Acid) Stat 02/23/19 05:00 CMP [Comprehensive Metabolic Panel] Routine Complete Blood Count AUTO DIFF Routine Magnesium Routine Procalcitonin Routine Acetaminophen (Tylenol) 650 mg PO Q6HR PRN PRN Reason: As Needed for Fever/Mild Pain Last Admin: 02/22/19 12:42 Dose: 650 mg Bisacodyl (Dulcolax) 10 mg [place] DAILY PRN PRN Reason: Constipation Calcium Carbonate (Tums) 1,000 mg PO Q4HR PRN PRN Reason: Dyspepsia Docusate Sodium (Colace) 100 mg PO BID [facility] Gabapentin (Neurontin) 300 mg PO TID [facility] Heparin Sodium (Porcine) (Heparin) 5,000 unit SUBCUT BID JOSE Sodium Chloride (Normal Saline 0.9%) 1,000 mls @ 100 mls/hr IV CONT JOSE Last Admin: 02/22/19 12:43 Dose: 100 mls/hr Ceftriaxone Sodium/Dextrose (Rocephin) 2 gm in 50 mls @ 100 mls/hr IV Q24H JOSE Magnesium Citrate (Magnesium Citrate) 150 ml PO DAILY JOSE Magnesium Hydroxide (Milk Of Magnesia) 30 ml PO DAILY PRN PRN Reason: Constipation Melatonin (Melatonin) 6 mg PO BEDTIME PRN PRN Reason: Sleep Ondansetron HCl (Zofran) 4 mg IV Q4HR PRN PRN Reason: Nausea And Vomiting Sennosides (Senna) 17.2 mg PO DAILY PRN PRN Reason: Constipation Discontinued Medications Sodium Chloride (Normal Saline 0.9%) 1,000 mls @ 1,000 mls/hr IV BOLUS ONE Stop: 02/22/19 06:45 Last Infusion: 02/22/19 10:56 Dose: 0 mls/hr Admin: 02/22/19 06:01 Dose: 1,000 mls/hr Sodium Chloride (Normal Saline 0.9%) 1,000 mls @ 150 mls/hr IV CONT JOSE Last Admin: 02/22/19 10:55 Dose: Not Given Ceftriaxone Sodium/Dextrose (Rocephin) 1 gm in 50 mls @ 100 mls/hr IV NOW ONE Stop: 02/22/19 07:08 Last Infusion: 02/22/19 07:10 Dose: 0 mls/hr Admin: 02/22/19 06:42 Dose: 100 mls/hr Ceftriaxone Sodium/Dextrose (Rocephin) 1 gm in 50 mls @ 100 mls/hr IV NOW ONE Stop: 02/22/19 16:59 Last Admin: 02/22/19 17:33 Dose: 100 mls/hr Metoclopramide HCl (Reglan) 10 mg IV NOW ONE Stop: 02/22/19 06:31 Last Admin: 02/22/19 06:34 Dose: 10 mg Ondansetron HCl (Zofran) 4 mg IV NOW ONE Stop: 02/22/19 05:47 Last Admin: 02/22/19 06:13 Dose: 4 mg Vital Signs - 8 hr 02/22/19 13:11 02/22/19 15:23 Temperature 99.8 F H 99.0 F Pulse Rate 92 H 86 Respiratory Rate 12 12 Blood Pressure 135/71 117/52 L Pulse Oximetry 99 93 Medical Decision Making <Ben Webb DO - Last Filed: 02/22/19 19:09> Medical Records Medical records reviewed: Yes I reviewed the patient's medical records. Lab Data Lab results reviewed: Yes I reviewed the patient's lab results. Result diagrams: 02/22/19 06:05 02/22/19 06:05 Lab Results 02/22/19 02/22/19 02/22/19 Range/Units 05:45 06:05 06:05 WBC 22.5 H D (4.5-11.0) X10^3/uL RBC 4.17 (4.0-5.2) X10^6/uL Hgb 9.9 L (12.0-16.0) g/dL Hct 30.7 L (36-46) % MCV 73.6 L (80-100) fL MCH 23.7 L (26-34) PG MCHC 32.2 (30-36) % RDW 16.5 H (11.6-14.8) % Plt Count 361 (150-400) X10^3/uL Neut % (Auto) 79.4 H (50-75) % Lymph % (Auto) 8.6 L (25-40) % Kimble % (Auto) 10.9 (3-14) % Eos % (Auto) 0.5 L (2-4) % Baso % (Auto) 0.6 (0-2) % Neut # (Auto) 29184 H (1043-2933) /uL Lymph # (Auto) 1900 (2888-3880) /uL Kimble # (Auto) 2500 H (0-900) /uL Eos # (Auto) 100 (0-450) /uL Baso # (Auto) 100 (0-100) /uL Sodium 141 (137-145) mmol/L Potassium 3.7 (3.4-5.1) mmol/L Chloride 98 (98-107) mmol/L Carbon Dioxide 27 (22-32) mmol/L BUN 29 H (7-17) mg/dL Creatinine 1.20 H (0.52-1.04) mg/dL Estimated GFR 43.8 L (>60) mL/min BUN/Creatinine Ratio 24.2 H (6-22) Glucose 150 H (80-110) mg/dL Lactate (0.7-2.1) mmol/L Calcium 10.3 H (8.4-10.2) mg/dL Magnesium 2.1 (1.6-2.3) mg/dL Total Bilirubin 0.4 (0.2-1.3) mg/dL AST 27 (14-36) IU/L ALT 14 (9-52) IU/L Alkaline Phosphatase 117 (38-126) U/L Total Protein 7.9 (6.3-8.2) g/dL Albumin 4.6 (3.5-5.0) g/dL Globulin 3.3 (1.7-4.1) g/dL Albumin/Globulin Ratio 1.4 (1.0-2.8) Lipase 82 (23-300) U/L Procalcitonin (<0.5) ng/mL Urine Color Urine Appearance Urine pH (4.5-8.0) Ur Specific [place] (1.000-1.035) Urine Protein (Negative) Urine Glucose (UA) (Negative) g/dL Urine Ketones (NEGATIVE) Urine Occult Blood (Negative) Urine Nitrate (Negative) Urine Bilirubin (NEGATIVE) Urine Urobilinogen (0.2) E.U./dL Ur Leukocyte Esterase (NEGATIVE) Urine RBC (0-5/HPF) Urine WBC (0-5/HPF) Ur Squamous Epith Cells (0-5/HPF) Amorphous Sediment Urine Bacteria (None) Ur Culture Indicated? Nasal Screen MRSA (PCR) (Negative) Stl C. cayetanensis PCR (Not Detect) Stool Rotavirus (PCR) (Not Detect) Stool Adenovirus (PCR) (Not Detect) Stool Astrovirus (PCR) (Not Detect) Stool Cryptosporidium PCR (Not Detect) Stl E.coli Shiga Tox PCR (Not Detect) St Sh/Enteroin Ecoli PCR (Not Detect) Stool E coli O157 PCR (Not Detect) Stl Enterotoxigenic E PCR (Not Detect) Stool EPEC (PCR) (Not Detect) Stl E. histolytica PCR (Not Detect) Stool Giardia Lamblia PCR (Not Detect) Stl P. shigelloides PCR (Not Detect) St Y.enterocolitica PCR (Not Detect) Stool Vibrio (PCR) (Not Detect) Stl Vibrio cholerae PCR (Not Detect) Stl Enteroaggr Ecoli PCR (Not Detect) Stl Norovirus GI/GII PCR (Not Detect) Campylobacter (PCR) (Not Detect) C. difficile Tox (PCR) (Not Detect) Salmonella (PCR) (Not Detect) 02/22/19 02/22/19 02/22/19 Range/Units 06:05 06:05 08:35 WBC (4.5-11.0) X10^3/uL RBC (4.0-5.2) X10^6/uL Hgb (12.0-16.0) g/dL Hct (36-46) % MCV (80-100) fL MCH (26-34) PG MCHC (30-36) % RDW (11.6-14.8) % Plt Count (150-400) X10^3/uL Neut % (Auto) (50-75) % Lymph % (Auto) (25-40) % Kimble % (Auto) (3-14) % Eos % (Auto) (2-4) % Baso % (Auto) (0-2) % Neut # (Auto) (0086-1309) /uL Lymph # (Auto) (6700-1478) /uL Kimble # (Auto) (0-900) /uL Eos # (Auto) (0-450) /uL Baso # (Auto) (0-100) /uL Sodium (137-145) mmol/L Potassium (3.4-5.1) mmol/L Chloride (98-107) mmol/L Carbon Dioxide (22-32) mmol/L BUN (7-17) mg/dL Creatinine (0.52-1.04) mg/dL Estimated GFR (>60) mL/min BUN/Creatinine Ratio (6-22) Glucose (80-110) mg/dL Lactate 3.1 H 2.6 H (0.7-2.1) mmol/L Calcium (8.4-10.2) mg/dL Magnesium (1.6-2.3) mg/dL Total Bilirubin (0.2-1.3) mg/dL AST (14-36) IU/L ALT (9-52) IU/L Alkaline Phosphatase (38-126) U/L Total Protein (6.3-8.2) g/dL Albumin (3.5-5.0) g/dL Globulin (1.7-4.1) g/dL Albumin/Globulin Ratio (1.0-2.8) Lipase (23-300) U/L Procalcitonin < 0.05 (<0.5) ng/mL Urine Color Urine Appearance Urine pH (4.5-8.0) Ur Specific [place] (1.000-1.035) Urine Protein (Negative) Urine Glucose (UA) (Negative) g/dL Urine Ketones (NEGATIVE) Urine Occult Blood (Negative) Urine Nitrate (Negative) Urine Bilirubin (NEGATIVE) Urine Urobilinogen (0.2) E.U./dL Ur Leukocyte Esterase (NEGATIVE) Urine RBC (0-5/HPF) Urine WBC (0-5/HPF) Ur Squamous Epith Cells (0-5/HPF) Amorphous Sediment Urine Bacteria (None) Ur Culture Indicated? Nasal Screen MRSA (PCR) (Negative) Stl C. cayetanensis PCR (Not Detect) Stool Rotavirus (PCR) (Not Detect) Stool Adenovirus (PCR) (Not Detect) Stool Astrovirus (PCR) (Not Detect) Stool Cryptosporidium PCR (Not Detect) Stl E.coli Shiga Tox PCR (Not Detect) St Sh/Enteroin Ecoli PCR (Not Detect) Stool E coli O157 PCR (Not Detect) Stl Enterotoxigenic E PCR (Not Detect) Stool EPEC (PCR) (Not Detect) Stl E. histolytica PCR (Not Detect) Stool Giardia Lamblia PCR (Not Detect) Stl P. shigelloides PCR (Not Detect) St Y.enterocolitica PCR (Not Detect) Stool Vibrio (PCR) (Not Detect) Stl Vibrio cholerae PCR (Not Detect) Stl Enteroaggr Ecoli PCR (Not Detect) Stl Norovirus GI/GII PCR (Not Detect) Campylobacter (PCR) (Not Detect) C. difficile Tox (PCR) (Not Detect) Salmonella (PCR) (Not Detect) 02/22/19 02/22/19 02/22/19 Range/Units 10:48 10:58 11:00 WBC (4.5-11.0) X10^3/uL RBC (4.0-5.2) X10^6/uL Hgb (12.0-16.0) g/dL Hct (36-46) % MCV (80-100) fL MCH (26-34) PG MCHC (30-36) % RDW (11.6-14.8) % Plt Count (150-400) X10^3/uL Neut % (Auto) (50-75) % Lymph % (Auto) (25-40) % Kimble % (Auto) (3-14) % Eos % (Auto) (2-4) % Baso % (Auto) (0-2) % Neut # (Auto) (9004-4337) /uL Lymph # (Auto) (8429-5351) /uL Kimble # (Auto) (0-900) /uL Eos # (Auto) (0-450) /uL Baso # (Auto) (0-100) /uL Sodium (137-145) mmol/L Potassium (3.4-5.1) mmol/L Chloride (98-107) mmol/L Carbon Dioxide (22-32) mmol/L BUN (7-17) mg/dL Creatinine (0.52-1.04) mg/dL Estimated GFR (>60) mL/min BUN/Creatinine Ratio (6-22) Glucose (80-110) mg/dL Lactate (0.7-2.1) mmol/L Calcium (8.4-10.2) mg/dL Magnesium (1.6-2.3) mg/dL Total Bilirubin (0.2-1.3) mg/dL AST (14-36) IU/L ALT (9-52) IU/L Alkaline Phosphatase (38-126) U/L Total Protein (6.3-8.2) g/dL Albumin (3.5-5.0) g/dL Globulin (1.7-4.1) g/dL Albumin/Globulin Ratio (1.0-2.8) Lipase (23-300) U/L Procalcitonin (<0.5) ng/mL Urine Color Yellow Urine Appearance Clear Urine pH 7.5 (4.5-8.0) Ur Specific [place] <=1.005 (1.000-1.035) Urine Protein Negative (Negative) Urine Glucose (UA) Negative (Negative) g/dL Urine Ketones Negative (NEGATIVE) Urine Occult Blood 3+ H (Negative) Urine Nitrate Negative (Negative) Urine Bilirubin Negative (NEGATIVE) Urine Urobilinogen 0.2 (0.2) E.U./dL Ur Leukocyte Esterase Negative (NEGATIVE) Urine RBC 0-1/hpf 0-1/hpf (0-5/HPF) Urine WBC None seen 0-1/hpf (0-5/HPF) Ur Squamous Epith Cells 0-1 /hpf (0-5/HPF) Amorphous Sediment 1+ 2+ Urine Bacteria None seen Moderate (10-30) H (None) Ur Culture Indicated? Cult not indicated Specimen cultured Nasal Screen MRSA (PCR) Negative for mrsa (Negative) Stl C. cayetanensis PCR (Not Detect) Stool Rotavirus (PCR) (Not Detect) Stool Adenovirus (PCR) (Not Detect) Stool Astrovirus (PCR) (Not Detect) Stool Cryptosporidium PCR (Not Detect) Stl E.coli Shiga Tox PCR (Not Detect) St Sh/Enteroin Ecoli PCR (Not Detect) Stool E coli O157 PCR (Not Detect) Stl Enterotoxigenic E PCR (Not Detect) Stool EPEC (PCR) (Not Detect) Stl E. histolytica PCR (Not Detect) Stool Giardia Lamblia PCR (Not Detect) Stl P. shigelloides PCR (Not Detect) St Y.enterocolitica PCR (Not Detect) Stool Vibrio (PCR) (Not Detect) Stl Vibrio cholerae PCR (Not Detect) Stl Enteroaggr Ecoli PCR (Not Detect) Stl Norovirus GI/GII PCR (Not Detect) Campylobacter (PCR) (Not Detect) C. difficile Tox (PCR) (Not Detect) Salmonella (PCR) (Not Detect) 02/22/19 02/22/19 Range/Units 15:00 17:20 WBC (4.5-11.0) X10^3/uL RBC (4.0-5.2) X10^6/uL Hgb (12.0-16.0) g/dL Hct (36-46) % MCV (80-100) fL MCH (26-34) PG MCHC (30-36) % RDW (11.6-14.8) % Plt Count (150-400) X10^3/uL Neut % (Auto) (50-75) % Lymph % (Auto) (25-40) % Kimble % (Auto) (3-14) % Eos % (Auto) (2-4) % Baso % (Auto) (0-2) % Neut # (Auto) (0621-6558) /uL Lymph # (Auto) (9406-4404) /uL Kimble # (Auto) (0-900) /uL Eos # (Auto) (0-450) /uL Baso # (Auto) (0-100) /uL Sodium (137-145) mmol/L Potassium (3.4-5.1) mmol/L Chloride (98-107) mmol/L Carbon Dioxide (22-32) mmol/L BUN (7-17) mg/dL Creatinine (0.52-1.04) mg/dL Estimated GFR (>60) mL/min BUN/Creatinine Ratio (6-22) Glucose (80-110) mg/dL Lactate 2.5 H (0.7-2.1) mmol/L Calcium (8.4-10.2) mg/dL Magnesium (1.6-2.3) mg/dL Total Bilirubin (0.2-1.3) mg/dL AST (14-36) IU/L ALT (9-52) IU/L Alkaline Phosphatase (38-126) U/L Total Protein (6.3-8.2) g/dL Albumin (3.5-5.0) g/dL Globulin (1.7-4.1) g/dL Albumin/Globulin Ratio (1.0-2.8) Lipase (23-300) U/L Procalcitonin (<0.5) ng/mL Urine Color Urine Appearance Urine pH (4.5-8.0) Ur Specific [place] (1.000-1.035) Urine Protein (Negative) Urine Glucose (UA) (Negative) g/dL Urine Ketones (NEGATIVE) Urine Occult Blood (Negative) Urine Nitrate (Negative) Urine Bilirubin (NEGATIVE) Urine Urobilinogen (0.2) E.U./dL Ur Leukocyte Esterase (NEGATIVE) Urine RBC (0-5/HPF) Urine WBC (0-5/HPF) Ur Squamous Epith Cells (0-5/HPF) Amorphous Sediment Urine Bacteria (None) Ur Culture Indicated? Nasal Screen MRSA (PCR) (Negative) Stl C. cayetanensis PCR Not detected (Not Detect) Stool Rotavirus (PCR) Not detected (Not Detect) Stool Adenovirus (PCR) Not detected (Not Detect) Stool Astrovirus (PCR) Not detected (Not Detect) Stool Cryptosporidium PCR Not detected (Not Detect) Stl E.coli Shiga Tox PCR Not detected (Not Detect) St Sh/Enteroin Ecoli PCR Not detected (Not Detect) Stool E coli O157 PCR Not detected (Not Detect) Stl Enterotoxigenic E PCR Not detected (Not Detect) Stool EPEC (PCR) Not detected (Not Detect) Stl E. histolytica PCR Not detected (Not Detect) Stool Giardia Lamblia PCR Not detected (Not Detect) Stl P. shigelloides PCR Not detected (Not Detect) St Y.enterocolitica PCR Not detected (Not Detect) Stool Vibrio (PCR) Not detected (Not Detect) Stl Vibrio cholerae PCR Not detected (Not Detect) Stl Enteroaggr Ecoli PCR Not detected (Not Detect) Stl Norovirus GI/GII PCR Not detected (Not Detect) Campylobacter (PCR) Not detected (Not Detect) C. difficile Tox (PCR) Not detected (Not Detect) Salmonella (PCR) Not detected (Not Detect) Urine Dip Bedside Urine Glucose Negative Bedside Urine Bilirubin - Negative Bedside Urine Ketone - Negative Urine Specific [place] 1.010 Bedside Urine Occult Blood +/- Bedside Urine pH 8.0 Bedside Urine Protein +/- 15 Bedside Urine Urobilinogen - Negative Bedside Urine Nitrite - Negative Bedside Urine Leukocytes - Negative Esterase Point of care testing: Urine Dip Bedside Urine Glucose Negative Bedside Urine Bilirubin - Negative Bedside Urine Ketone - Negative Urine Specific [place] 1.010 Bedside Urine Occult Blood +/- Bedside Urine pH 8.0 Bedside Urine Protein +/- 15 Bedside Urine Urobilinogen - Negative Bedside Urine Nitrite - Negative Bedside Urine Leukocytes - Negative Esterase Imaging Data Chest x-ray: Radiologist's impression: Patient: Nohemy Nunes TMR#: [id number] : 4Acct:[id number] Age/Sex: 74 / FDate of Service: 02/22/19 Loc: ED Accession Number: [id number] Procedure: XR chest 1V Ordering Provider: Ben Webb D.O. PROCEDURE: XR CHEST 1V INDICATIONS: vomiting, possible sepsis TECHNIQUE: One view of the chest was acquired. COMPARISON: [facility], CHEST 1 VIEW, 12/08/2016, 20:44. FINDINGS: Surgical changes and devices: None. Lungs and pleura: Lungs are clear. No pleural effusions or pneumothorax. Mediastinum: Mediastinal contours appear normal. Heart size is normal. Bones and chest wall: No suspicious bony lesions. Overlying soft tissues appear unremarkable. IMPRESSION: Source of sepsis syndrome not seen. MDM Narrative Medical decision making narrative: Patient looks like she does not feel well. Has an elevated white blood cell count with a left shift. Has an elevated lactate. Negative procalcitonin. Has generalized abdominal tenderness. patient was given Rocephin. Blood cultures were ordered. Care turned over to Dr. davalos to follow up on CT scan to evaluate for potential surgical pathology. Anticipate admission to the hospital. <Mally Davalos, DO - Last Filed: 02/22/19 19:09> Lab Data Lab results reviewed: Yes I reviewed the patient's lab results. Lab Results 02/22/19 02/22/19 02/22/19 Range/Units 05:45 06:05 06:05 WBC 22.5 H D (4.5-11.0) X10^3/uL RBC 4.17 (4.0-5.2) X10^6/uL Hgb 9.9 L (12.0-16.0) g/dL Hct 30.7 L (36-46) % MCV 73.6 L (80-100) fL MCH 23.7 L (26-34) PG MCHC 32.2 (30-36) % RDW 16.5 H (11.6-14.8) % Plt Count 361 (150-400) X10^3/uL Neut % (Auto) 79.4 H (50-75) % Lymph % (Auto) 8.6 L (25-40) % [place] % (Auto) 10.9 (3-14) % Eos % (Auto) 0.5 L (2-4) % Baso % (Auto) 0.6 (0-2) % Neut # (Auto) 40547 H (8836-8194) /uL Lymph # (Auto) 1900 (5293-5832) /uL Kimble # (Auto) 2500 H (0-900) /uL Eos # (Auto) 100 (0-450) /uL Baso # (Auto) 100 (0-100) /uL Sodium 141 (137-145) mmol/L Potassium 3.7 (3.4-5.1) mmol/L Chloride 98 (98-107) mmol/L Carbon Dioxide 27 (22-32) mmol/L BUN 29 H (7-17) mg/dL Creatinine 1.20 H (0.52-1.04) mg/dL Estimated GFR 43.8 L (>60) mL/min BUN/Creatinine Ratio 24.2 H (6-22) Glucose 150 H (80-110) mg/dL Lactate (0.7-2.1) mmol/L Calcium 10.3 H (8.4-10.2) mg/dL Magnesium 2.1 (1.6-2.3) mg/dL Total Bilirubin 0.4 (0.2-1.3) mg/dL AST 27 (14-36) IU/L ALT 14 (9-52) IU/L Alkaline Phosphatase 117 (38-126) U/L Total Protein 7.9 (6.3-8.2) g/dL Albumin 4.6 (3.5-5.0) g/dL Globulin 3.3 (1.7-4.1) g/dL Albumin/Globulin Ratio 1.4 (1.0-2.8) Lipase 82 (23-300) U/L Procalcitonin (<0.5) ng/mL Urine Color Urine Appearance Urine pH (4.5-8.0) Ur Specific [place] (1.000-1.035) Urine Protein (Negative) Urine Glucose (UA) (Negative) g/dL Urine Ketones (NEGATIVE) Urine Occult Blood (Negative) Urine Nitrate (Negative) Urine Bilirubin (NEGATIVE) Urine Urobilinogen (0.2) E.U./dL Ur Leukocyte Esterase (NEGATIVE) Urine RBC (0-5/HPF) Urine WBC (0-5/HPF) Ur Squamous Epith Cells (0-5/HPF) Amorphous Sediment Urine Bacteria (None) Ur Culture Indicated? Nasal Screen MRSA (PCR) (Negative) Stl C. cayetanensis PCR (Not Detect) Stool Rotavirus (PCR) (Not Detect) Stool Adenovirus (PCR) (Not Detect) Stool Astrovirus (PCR) (Not Detect) Stool Cryptosporidium PCR (Not Detect) Stl E.coli Shiga Tox PCR (Not Detect) St Sh/Enteroin Ecoli PCR (Not Detect) Stool E coli O157 PCR (Not Detect) Stl Enterotoxigenic E PCR (Not Detect) Stool EPEC (PCR) (Not Detect) Stl E. histolytica PCR (Not Detect) Stool Giardia Lamblia PCR (Not Detect) Stl P. shigelloides PCR (Not Detect) St Y.enterocolitica PCR (Not Detect) Stool Vibrio (PCR) (Not Detect) Stl Vibrio cholerae PCR (Not Detect) Stl Enteroaggr Ecoli PCR (Not Detect) Stl Norovirus GI/GII PCR (Not Detect) Campylobacter (PCR) (Not Detect) C. difficile Tox (PCR) (Not Detect) Salmonella (PCR) (Not Detect) 02/22/19 02/22/19 02/22/19 Range/Units 06:05 06:05 08:35 WBC (4.5-11.0) X10^3/uL RBC (4.0-5.2) X10^6/uL Hgb (12.0-16.0) g/dL Hct (36-46) % MCV (80-100) fL MCH (26-34) PG MCHC (30-36) % RDW (11.6-14.8) % Plt Count (150-400) X10^3/uL Neut % (Auto) (50-75) % Lymph % (Auto) (25-40) % Kimble % (Auto) (3-14) % Eos % (Auto) (2-4) % Baso % (Auto) (0-2) % Neut # (Auto) (0396-0284) /uL Lymph # (Auto) (3461-5331) /uL Kimble # (Auto) (0-900) /uL Eos # (Auto) (0-450) /uL Baso # (Auto) (0-100) /uL Sodium (137-145) mmol/L Potassium (3.4-5.1) mmol/L Chloride (98-107) mmol/L Carbon Dioxide (22-32) mmol/L BUN (7-17) mg/dL Creatinine (0.52-1.04) mg/dL Estimated GFR (>60) mL/min BUN/Creatinine Ratio (6-22) Glucose (80-110) mg/dL Lactate 3.1 H 2.6 H (0.7-2.1) mmol/L Calcium (8.4-10.2) mg/dL Magnesium (1.6-2.3) mg/dL Total Bilirubin (0.2-1.3) mg/dL AST (14-36) IU/L ALT (9-52) IU/L Alkaline Phosphatase (38-126) U/L Total Protein (6.3-8.2) g/dL Albumin (3.5-5.0) g/dL Globulin (1.7-4.1) g/dL Albumin/Globulin Ratio (1.0-2.8) Lipase (23-300) U/L Procalcitonin < 0.05 (<0.5) ng/mL Urine Color Urine Appearance Urine pH (4.5-8.0) Ur Specific [place] (1.000-1.035) Urine Protein (Negative) Urine Glucose (UA) (Negative) g/dL Urine Ketones (NEGATIVE) Urine Occult Blood (Negative) Urine Nitrate (Negative) Urine Bilirubin (NEGATIVE) Urine Urobilinogen (0.2) E.U./dL Ur Leukocyte Esterase (NEGATIVE) Urine RBC (0-5/HPF) Urine WBC (0-5/HPF) Ur Squamous Epith Cells (0-5/HPF) Amorphous Sediment Urine Bacteria (None) Ur Culture Indicated? Nasal Screen MRSA (PCR) (Negative) Stl C. cayetanensis PCR (Not Detect) Stool Rotavirus (PCR) (Not Detect) Stool Adenovirus (PCR) (Not Detect) Stool Astrovirus (PCR) (Not Detect) Stool Cryptosporidium PCR (Not Detect) Stl E.coli Shiga Tox PCR (Not Detect) St Sh/Enteroin Ecoli PCR (Not Detect) Stool E coli O157 PCR (Not Detect) Stl Enterotoxigenic E PCR (Not Detect) Stool EPEC (PCR) (Not Detect) Stl E. histolytica PCR (Not Detect) Stool Giardia Lamblia PCR (Not Detect) Stl P. shigelloides PCR (Not Detect) St Y.enterocolitica PCR (Not Detect) Stool Vibrio (PCR) (Not Detect) Stl Vibrio cholerae PCR (Not Detect) Stl Enteroaggr Ecoli PCR (Not Detect) Stl Norovirus GI/GII PCR (Not Detect) Campylobacter (PCR) (Not Detect) C. difficile Tox (PCR) (Not Detect) Salmonella (PCR) (Not Detect) 02/22/19 02/22/19 02/22/19 Range/Units 10:48 10:58 11:00 WBC (4.5-11.0) X10^3/uL RBC (4.0-5.2) X10^6/uL Hgb (12.0-16.0) g/dL Hct (36-46) % MCV (80-100) fL MCH (26-34) PG MCHC (30-36) % RDW (11.6-14.8) % Plt Count (150-400) X10^3/uL Neut % (Auto) (50-75) % Lymph % (Auto) (25-40) % Kimble % (Auto) (3-14) % Eos % (Auto) (2-4) % Baso % (Auto) (0-2) % Neut # (Auto) (4629-7506) /uL Lymph # (Auto) (6482-9163) /uL Kimble # (Auto) (0-900) /uL Eos # (Auto) (0-450) /uL Baso # (Auto) (0-100) /uL Sodium (137-145) mmol/L Potassium (3.4-5.1) mmol/L Chloride (98-107) mmol/L Carbon Dioxide (22-32) mmol/L BUN (7-17) mg/dL Creatinine (0.52-1.04) mg/dL Estimated GFR (>60) mL/min BUN/Creatinine Ratio (6-22) Glucose (80-110) mg/dL Lactate (0.7-2.1) mmol/L Calcium (8.4-10.2) mg/dL Magnesium (1.6-2.3) mg/dL Total Bilirubin (0.2-1.3) mg/dL AST (14-36) IU/L ALT (9-52) IU/L Alkaline Phosphatase (38-126) U/L Total Protein (6.3-8.2) g/dL Albumin (3.5-5.0) g/dL Globulin (1.7-4.1) g/dL Albumin/Globulin Ratio (1.0-2.8) Lipase (23-300) U/L Procalcitonin (<0.5) ng/mL Urine Color Yellow Urine Appearance Clear Urine pH 7.5 (4.5-8.0) Ur Specific [place] <=1.005 (1.000-1.035) Urine Protein Negative (Negative) Urine Glucose (UA) Negative (Negative) g/dL Urine Ketones Negative (NEGATIVE) Urine Occult Blood 3+ H (Negative) Urine Nitrate Negative (Negative) Urine Bilirubin Negative (NEGATIVE) Urine Urobilinogen 0.2 (0.2) E.U./dL Ur Leukocyte Esterase Negative (NEGATIVE) Urine RBC 0-1/hpf 0-1/hpf (0-5/HPF) Urine WBC None seen 0-1/hpf (0-5/HPF) Ur Squamous Epith Cells 0-1 /hpf (0-5/HPF) Amorphous Sediment 1+ 2+ Urine Bacteria None seen Moderate (10-30) H (None) Ur Culture Indicated? Cult not indicated Specimen cultured Nasal Screen MRSA (PCR) Negative for mrsa (Negative) Stl C. cayetanensis PCR (Not Detect) Stool Rotavirus (PCR) (Not Detect) Stool Adenovirus (PCR) (Not Detect) Stool Astrovirus (PCR) (Not Detect) Stool Cryptosporidium PCR (Not Detect) Stl E.coli Shiga Tox PCR (Not Detect) St Sh/Enteroin Ecoli PCR (Not Detect) Stool E coli O157 PCR (Not Detect) Stl Enterotoxigenic E PCR (Not Detect) Stool EPEC (PCR) (Not Detect) Stl E. histolytica PCR (Not Detect) Stool Giardia Lamblia PCR (Not Detect) Stl P. shigelloides PCR (Not Detect) St Y.enterocolitica PCR (Not Detect) Stool Vibrio (PCR) (Not Detect) Stl Vibrio cholerae PCR (Not Detect) Stl Enteroaggr Ecoli PCR (Not Detect) Stl Norovirus GI/GII PCR (Not Detect) Campylobacter (PCR) (Not Detect) C. difficile Tox (PCR) (Not Detect) Salmonella (PCR) (Not Detect) 08/22/19 08/22/19 Range/Units 15:00 17:20 WBC (4.5-11.0) X10^3/uL RBC (4.0-5.2) X10^6/uL Hgb (12.0-16.0) g/dL Hct (36-46) % MCV (80-100) fL MCH (26-34) PG MCHC (30-36) % RDW (11.6-14.8) % Plt Count (150-400) X10^3/uL Neut % (Auto) (50-75) % Lymph % (Auto) (25-40) % Kimble % (Auto) (3-14) % Eos % (Auto) (2-4) % Baso % (Auto) (0-2) % Neut # (Auto) (4062-2190) /uL Lymph # (Auto) (9527-7827) /uL Kimble # (Auto) (0-900) /uL Eos # (Auto) (0-450) /uL Baso # (Auto) (0-100) /uL Sodium (137-145) mmol/L Potassium (3.4-5.1) mmol/L Chloride (98-107) mmol/L Carbon Dioxide (22-32) mmol/L BUN (7-17) mg/dL Creatinine (0.52-1.04) mg/dL Estimated GFR (>60) mL/min BUN/Creatinine Ratio (6-22) Glucose (80-110) mg/dL Lactate 2.5 H (0.7-2.1) mmol/L Calcium (8.4-10.2) mg/dL Magnesium (1.6-2.3) mg/dL Total Bilirubin (0.2-1.3) mg/dL AST (14-36) IU/L ALT (9-52) IU/L Alkaline Phosphatase (38-126) U/L Total Protein (6.3-8.2) g/dL Albumin (3.5-5.0) g/dL Globulin (1.7-4.1) g/dL Albumin/Globulin Ratio (1.0-2.8) Lipase (23-300) U/L Procalcitonin (<0.5) ng/mL Urine Color Urine Appearance Urine pH (4.5-8.0) Ur Specific [place] (1.000-1.035) Urine Protein (Negative) Urine Glucose (UA) (Negative) g/dL Urine Ketones (NEGATIVE) Urine Occult Blood (Negative) Urine Nitrate (Negative) Urine Bilirubin (NEGATIVE) Urine Urobilinogen (0.2) E.U./dL Ur Leukocyte Esterase (NEGATIVE) Urine RBC (0-5/HPF) Urine WBC (0-5/HPF) Ur Squamous Epith Cells (0-5/HPF) Amorphous Sediment Urine Bacteria (None) Ur Culture Indicated? Nasal Screen MRSA (PCR) (Negative) Stl C. cayetanensis PCR Not detected (Not Detect) Stool Rotavirus (PCR) Not detected (Not Detect) Stool Adenovirus (PCR) Not detected (Not Detect) Stool Astrovirus (PCR) Not detected (Not Detect) Stool Cryptosporidium PCR Not detected (Not Detect) Stl E.coli Shiga Tox PCR Not detected (Not Detect) St Sh/Enteroin Ecoli PCR Not detected (Not Detect) Stool E coli O157 PCR Not detected (Not Detect) Stl Enterotoxigenic E PCR Not detected (Not Detect) Stool EPEC (PCR) Not detected (Not Detect) Stl E. histolytica PCR Not detected (Not Detect) Stool Giardia Lamblia PCR Not detected (Not Detect) Stl P. shigelloides PCR Not detected (Not Detect) St Y.enterocolitica PCR Not detected (Not Detect) Stool Vibrio (PCR) Not detected (Not Detect) Stl Vibrio cholerae PCR Not detected (Not Detect) Stl Enteroaggr Ecoli PCR Not detected (Not Detect) Stl Norovirus GI/GII PCR Not detected (Not Detect) Campylobacter (PCR) Not detected (Not Detect) C. difficile Tox (PCR) Not detected (Not Detect) Salmonella (PCR) Not detected (Not Detect) Urine Dip Bedside Urine Glucose Negative Bedside Urine Bilirubin - Negative Bedside Urine Ketone - Negative Urine Specific [place] 1.010 Bedside Urine Occult Blood +/- Bedside Urine pH 8.0 Bedside Urine Protein +/- 15 Bedside Urine Urobilinogen - Negative Bedside Urine Nitrite - Negative Bedside Urine Leukocytes - Negative Esterase Point of care testing: Urine Dip Bedside Urine Glucose Negative Bedside Urine Bilirubin - Negative Bedside Urine Ketone - Negative Urine Specific [place] 1.010 Bedside Urine Occult Blood +/- Bedside Urine pH 8.0 Bedside Urine Protein +/- 15 Bedside Urine Urobilinogen - Negative Bedside Urine Nitrite - Negative Bedside Urine Leukocytes - Negative Esterase Imaging Data CT scan - abdomen: Radiologist's impression: [address] [address] [address] Scan Report Signed Patient: Nohemy Nunes TMR#: [id number] : 4Acct:[id number] Age/Sex: 74 / FDate of Service: 02/22/19 Loc: ED Accession Number: [id number] Procedure: CT abdomen pelvis w con Ordering Provider: Ben Webb D.O. PROCEDURE: CT ABDOMEN PELVIS W CON INDICATIONS: generalized abdominal pain TECHNIQUE: After the administration of intravenous contrast, 5 mm thick sections acquired from the diaphragm to the symphysis. 5 mm coronal and sagittal reformats were acquired. For radiation dose reduction, the following was used: automated exposure control, adjustment of mA and/or kV according to patient size. COMPARISON: [facility], CT, ABDOMEN/PELVIS WITH CONTRAST, 12/13/2012, 18:55. [facility], CT, CT ABD PELVIS W CON, 09/26/2016, 16:47. [facility], CT, ABDOMEN/PELVIS WITH CONTRAST, 09/17/2016, 12:39. FINDINGS: Image quality: Excellent. ABDOMEN: Lung bases: Lung bases are clear. Heart size is normal. Solid organs: Evaluation of the liver demonstrates no focal hepatic lesions. The gallbladder is surgically absent. There is minimal intrahepatic biliary ductal dilatation. The extrahepatic ducts are within normal limits in caliber. There is mild generalized atrophy of the pancreas. No pancreatic duct dilatation. No peripancreatic fat stranding or fluid. There is heterogeneous enhancement within the pancreatic tail with indistinct areas of hyperattenuation. This may have been present on the prior studies but were not well evaluated due to mass effect from marked gastric distention. Spleen is normal in size and enhancement. No adrenal nodules. There is bilateral mildly decreased enhancement of the kidneys with new perinephric fluid and fat stranding. No hydronephrosis or discrete renal stones. No discrete perinephric or intrarenal fluid collections. Peritoneum and bowel: There are post surgical changes redemonstrated consistent with prior partial gastric resection with gastrojejunostomy. There is mild wall thickening of the visualized distal esophagus as well as suggestion of mild wall thickening in the stomach although evaluation is limited by incomplete distention. There is mild wall thickening also noted in the jejunum at the anastomosis. Remaining small bowel loops demonstrate normal wall thickness and caliber. Moderate colonic stool distention is noted suggestive of constipation. No intraperitoneal free fluid. No free air. Nodes and vessels: No retroperitoneal or mesenteric adenopathy by size criteria. Aorta and inferior vena cava are normal in size. Miscellaneous: No ventral hernias. PELVIS: Genitourinary: Bladder wall thickness is normal. Miscellaneous: No inguinal hernias or adenopathy. Bones: No suspicious bony lesions. No vertebral body compression fractures. IMPRESSION: 1. Bilateral hypoenhancement of the kidneys with new paranephric fluid and fat stranding. In absence the of hydronephrosis or obstructing stones, the findings are suggestive of pyelonephritis. Correlation is recommended clinically. No evidence of intrarenal or perinephric abscess. 2. Postsurgical changes redemonstrated consistent with prior partial gastrectomy and gastrojejunostomy without evidence of obstruction. 3. Mild wall thickening in the distal esophagus, stomach, and jejunum at the anastomosis may reflect a mild infectious or inflammatory process. 4. Moderate colonic stool distention suggestive of constipation. Dictated by: Bret Montano M.D. on 02/22/2019 at 8:08 Approved by: Bret Montano M.D. on 02/22/2019 at 8:21 MDM Narrative Medical decision making narrative: Patient was signed out to myself by Dr. Webb, shows elevated white count of 22, hemoglobin is 9.9 but appears stable to most recent comparison. Electrolytes do not show any major abnormalities, patient appears to be dehydrated with acute kidney injury with elevated BUN of 29 and creatinine 1.2 which is up from her baseline. Lactate showed 3.1 with normal LFTs and lipase. Procalcitonin was negative but patient's CT scan shows changes that could be consistent with pyelonephritis as well as thickening of the esophagus which could be irritation versus infectious. Patient had 1 blood culture obtained but after multiple attempts has not been able to obtain a 2nd. She is giving some IV fluids as she is slightly tachycardic. She has not given a urine sample yet but plan for admission for SIRS criteria with suspected pyelo versus intra-abdominal cause of her infection. Patient has received a L of saline and the 2nd was ordered, she received Zofran, Reglan as well as a dose of Rocephin from the overnight provider. Patient was not able to give urine sample was contaminated by stool. We did discuss doing a catheter but she had just had urination bowel movements will give some additional fluids before checking. CT shows thickening of the esophagus, stomach as well as to the jejunum it is unclear if this is part of her stricture versus a new finding. Patient also has fat stranding and changes of the kidneys consistent with a pyelonephritis. Patient has been able to tolerate a small amount of orals but she does meet SIRS criteria and feel that she would benefit from inpatient admission. Patient is receiving a 2nd L of fluids, she is feeling a little bit better. Spoke with Dr. Wolf who accepts for admission. Information was relayed about delay in blood culture and urine sample. Discharge Plan Departure Patient Disposition: Admitted As Inpatient Clinical Impression: SIRS (systemic inflammatory response syndrome), Abdominal pain, vomiting, and diarrhea, Fibromyalgia Discharge Date/Time: 02/22/19 10:10 Interventions: ED Discharge Assessment Last Done: 02/22/19 10:12 Referrals: Gianna Barker PA-C [Primary Care Provider] - Admit Date/Time: 02/22/19 09:47 Admit Provider: Shavon Wolf
[2019-02-22] MEDS: SODIUM CHLORIDE 0.9% 1,000 ML 1000 ML IV (06:01)
[2019-02-22] MEDS: ONDANSETRON 4 MG/2 ML INJ IV (06:13)
[2019-02-22 06:16] LABS: Add Manual Diff / Slide Review NO; Basophils Absolute Auto 100 /uL (0-100); Basophils Percent Auto 0.6 % (0-2); Eosinophils Absolute Auto 100 /uL (0-450); Eosinophils Percent Auto 0.5 % (2-4); Hematocrit 30.7 % (36-46); Hemoglobin 9.9 g/dL (12.0-16.0); Lymphocytes Absolute Auto 1900 /uL (1100-4500); Lymphocytes Percent Auto 8.6 % (25-40); Mean Corpuscular HGB Conc 32.2 % (30-36); Mean Corpuscular Hemoglobin 23.7 PG (26-34); Mean Corpuscular Volume 73.6 fL (80-100); Monocytes Absolute Auto 2500 /uL (0-900); Monocytes Percent Auto 10.9 % (3-14); Neutrophils Absolute Auto 17900 /uL (1500-7000); Neutrophils Percent Auto 79.4 % (50-75); Platelet Count 361 X10^3/uL (150-400); Red Blood Cell Count 4.17 X10^6/uL (4.0-5.2); Red Cell Distribution Width 16.5 % (11.6-14.8); White Blood Cell Count 22.5 X10^3/uL (4.5-11.0)
[2019-02-22 06:26] LABS: Alanine Aminotransferase 14 IU/L (9-52); Albumin 4.6 g/dL (3.5-5.0); Albumin Globulin Ratio 1.4 (1.0-2.8); Alkaline Phosphatase 117 U/L (38-126); Aspartate Aminotransferase 27 IU/L (14-36); BUN Creatinine Ratio 24.2 (6-22); Bilirubin Total 0.4 mg/dL (0.2-1.3); Blood Urea Nitrogen 29 mg/dL (7-17); Calcium 10.3 mg/dL (8.4-10.2); Carbon Dioxide 27 mmol/L (22-32); Chloride 98 mmol/L (98-107); Estimated Glomerular Filt Rate 43.8 mL/min (>60); Globulin 3.3 g/dL (1.7-4.1); Glucose 150 mg/dL (80-110); HEMOLYSIS < 15 (0-50); Lactate (Lactic Acid) 3.1 mmol/L (0.7-2.1); Lipase 82 U/L (23-300); Potassium 3.7 mmol/L (3.4-5.1); Sodium 141 mmol/L (137-145); Total Protein 7.9 g/dL (6.3-8.2)
--- NOTE | 2019-02-22 06:33 | DI.RAD.S_ITS ---
PROCEDURE: XR CHEST 1V INDICATIONS: vomiting, possible sepsis TECHNIQUE: One view of the chest was acquired. COMPARISON: [facility], , CHEST 1 VIEW, 12/08/2016, 20:44. FINDINGS: Surgical changes and devices: None. Lungs and pleura: Lungs are clear. No pleural effusions or pneumothorax. Mediastinum: Mediastinal contours appear normal. Heart size is normal. Bones and chest wall: No suspicious bony lesions. Overlying soft tissues appear unremarkable. IMPRESSION: Source of sepsis syndrome not seen. Dictated by: Srini Macias M.D. on 02/22/2019 at 7:33 Approved by: Srini Macias M.D. on 02/22/2019 at 7:34
[2019-02-22] MEDS: METOCLOPRAMIDE 10 MG/2 ML INJ IV (06:34)
[2019-02-22] MEDS: CEFTRIAXONE 1 GM/50 ML FROZ.PIGGY IV ×2 (06:42→17:33)
--- NOTE | 2019-02-22 06:50 | PC.NURSE ---
PT reports abdominal pain with N/V/D and denies fever. Pt recently seen in ER for vomiting. She was seen here in the emergency department several days ago for vomiting. 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 Pt has an appointment at the end of the month for GI follow up for potential dilation for stenosis. EMS reports pt was on toilet at home and ambulated to [facility] without problems. Pt alert oriented x 3.
[2019-02-22 06:51] LABS: Procalcitonin < 0.05 ng/mL (<0.5)
--- NOTE | 2019-02-22 07:08 | DI.CT.S_ITS ---
PROCEDURE: CT ABDOMEN PELVIS W CON INDICATIONS: generalized abdominal pain TECHNIQUE: After the administration of intravenous contrast, 5 mm thick sections acquired from the diaphragm to the symphysis. 5 mm coronal and sagittal reformats were acquired. For radiation dose reduction, the following was used: automated exposure control, adjustment of mA and/or kV according to patient size. COMPARISON: [facility], CT, ABDOMEN/PELVIS WITH CONTRAST, 12/13/2012, 18:55. [facility], CT, CT ABD PELVIS W CON, 09/26/2016, 16:47. [facility], CT, ABDOMEN/PELVIS WITH CONTRAST, 09/17/2016, 12:39. FINDINGS: Image quality: Excellent. ABDOMEN: Lung bases: Lung bases are clear. Heart size is normal. Solid organs: Evaluation of the liver demonstrates no focal hepatic lesions. The gallbladder is surgically absent. There is minimal intrahepatic biliary ductal dilatation. The extrahepatic ducts are within normal limits in caliber. There is mild generalized atrophy of the pancreas. No pancreatic duct dilatation. No peripancreatic fat stranding or fluid. There is heterogeneous enhancement within the pancreatic tail with indistinct areas of hyperattenuation. This may have been present on the prior studies but were not well evaluated due to mass effect from marked gastric distention. Spleen is normal in size and enhancement. No adrenal nodules. There is bilateral mildly decreased enhancement of the kidneys with new perinephric fluid and fat stranding. No hydronephrosis or discrete renal stones. No discrete perinephric or intrarenal fluid collections. Peritoneum and bowel: There are post surgical changes redemonstrated consistent with prior partial gastric resection with gastrojejunostomy. There is mild wall thickening of the visualized distal esophagus as well as suggestion of mild wall thickening in the stomach although evaluation is limited by incomplete distention. There is mild wall thickening also noted in the jejunum at the anastomosis. Remaining small bowel loops demonstrate normal wall thickness and caliber. Moderate colonic stool distention is noted suggestive of constipation. No intraperitoneal free fluid. No free air. Nodes and vessels: No retroperitoneal or mesenteric adenopathy by size criteria. Aorta and inferior vena cava are normal in size. Miscellaneous: No ventral hernias. PELVIS: Genitourinary: Bladder wall thickness is normal. Miscellaneous: No inguinal hernias or adenopathy. Bones: No suspicious bony lesions. No vertebral body compression fractures. IMPRESSION: 1. Bilateral hypoenhancement of the kidneys with new paranephric fluid and fat stranding. In absence the of hydronephrosis or obstructing stones, the findings are suggestive of pyelonephritis. Correlation is recommended clinically. No evidence of intrarenal or perinephric abscess. 2. Postsurgical changes redemonstrated consistent with prior partial gastrectomy and gastrojejunostomy without evidence of obstruction. 3. Mild wall thickening in the distal esophagus, stomach, and jejunum at the anastomosis may reflect a mild infectious or inflammatory process. 4. Moderate colonic stool distention suggestive of constipation. Dictated by: Bret Montano M.D. on 02/22/2019 at 8:08 Approved by: Bret Montano M.D. on 02/22/2019 at 8:21
[2019-02-22 08:12] LABS: Reflexed Lactate in 2 Hours Y
[2019-02-22 08:54] LABS: Lactate 2HR (Lactic Acid Rflx) 2.6 mmol/L (0.7-2.1)
[2019-02-22 09:38] LABS: Magnesium 2.1 mg/dL (1.6-2.3)
[2019-02-22 11:01] LABS: Bacteria Urine None Seen; WBC Urine None Seen (0-5/HPF)
[2019-02-22 11:12] LABS: Amorphous Sediment Urine 1+; Culture Indicated Urine Cult Not Indicated; RBC Urine 0-1/HPF (0-5/HPF); Squamous Epithelial Cell Urine 0-1 /HPF (0-5/HPF)
[2019-02-22 12:36] LABS: Appearance Urine UA CLEAR; Bilirubin Urine UA NEGATIVE (NEGATIVE); Color Urine UA YELLOW; Glucose Urine UA NEGATIVE (Negative); Ketones Urine UA NEGATIVE (NEGATIVE); Leukocyte Esterase Urine UA NEGATIVE (NEGATIVE); Nitrite Urine UA NEGATIVE (Negative); Occult Blood Urine UA 3+ (Negative); Protein Urine UA NEGATIVE (Negative); Specific Gravity Urine UA <=1.005 (1.000-1.035); Urobilinogen Urine UA 0.2 E.U./dL (0.2); pH Urine UA 7.5 (4.5-8.0)
[2019-02-22] MEDS: ACETAMINOPHEN 325 MG TABLET 650 MG PO ×2 (12:42→20:11)
[2019-02-22] MEDS: SODIUM CHLORIDE 0.9% 1,000 ML 100 ML IV ×2 (12:43→20:12)
[2019-02-22 12:49] LABS: Amorphous Sediment Urine 2+; RBC Urine 0-1/HPF (0-5/HPF); WBC Urine 0-1/HPF (0-5/HPF)
[2019-02-22 12:50] LABS: Bacteria Urine Moderate (10-30); Culture Indicated Urine Specimen Cultured
--- NOTE | 2019-02-22 16:22 | PM.HP.1 ---
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 The patient reports that she has been dealing with a yeast infection on and off for the past several weeks. She recently tried [place] yogurt applied to her vagina which she reports ?worked.She endorses vaginal burning, pruritus, increased urinary frequency and urgency, suprapubic fullness and pressure, and dribbling. She reports due to her history of duodenal stenosis, she assumed that her nausea and vomiting were due to this condition. She also had associated headache, fever and chills for the last several days. She has chronic severe constipation but had 1 episode of diarrhea yesterday. She has dealt with vaginal burning for some time, at least 6 months, which is likely due to atopic vaginitis but she is not on treatment as she has tried several medications without relief and the medication she had relief from for which she is unsure of the name was not covered by Medicare. She has no other complaints. Upon arrival to the ED she had a CT abdomen and pelvis with contrast which demonstrated bilateral hypoenhancement of the kidneys with new paranephric fluid and fat stranding suggestive of bilateral pyelonephritis and mild thickening of esophagus, stomach, and jejunum anastomosis likely reactive and inflammatory due to nausea and vomiting. Blood culture x1 was performed. She was given ceftriaxone 1 g IV x1. A urinalysis and 2nd blood culture were not collected until after antibiotics were administered. The patient was admitted for further management of acute sepsis and acute pyelonephritis. PCP Ni Barker. Patient History Medical History (Updated 02/22/19 @ 16:41 by Shavon Wolf DO) Cutaneous lupus erythematosus (Acute) Duodenal stenosis (Acute) IBS (irritable bowel syndrome) (Acute) Iron deficiency anemia (Acute) Legg-Perthes disease (Acute) Osteoarthritis (Acute) Perforated ulcer (Acute) Fibromyalgia (Chronic ~1989) Cataracts, bilateral (Acute 2010) Peptic ulcer disease (Acute 1979) Allergic rhinitis (Chronic 1959) Chronic back pain (Chronic) Generalized headaches (Chronic) Lupus (Chronic 1989) Migraines (Chronic) Shoulder pain (Chronic) Tinnitus of both ears (Chronic 2005) Vertigo (Chronic 2010) Anemia (Resolved 2013) Chickenpox (Resolved) Fibroids (Resolved) Foot pain (Resolved 2000) Fractures (Resolved 1999) Heavy menstrual period (Resolved) Mumps (Resolved) Ovarian cyst (Resolved) Painful menstrual periods (Resolved) Rheumatic fever (Resolved 1966) Surgical History S/P BSO (bilateral salpingo-oophorectomy) (Acute) History of surgery on arm (Resolved) Hx of abdominal surgery (Resolved ~1985) Hx of appendectomy (Resolved 1958) Status post cholecystectomy Status post hysterectomy (1988) Family History (Updated 02/22/19 @ 16:39 by Shavon Wolf DO) Father Cancer Mother Diabetes mellitus Osteoarthritis Grandfather No problems noted. Grandmother No problems noted. Social History household members: children Smoking Status: Former smoker Tobacco: How many years used: 30 (off and on. I quit for 10 years and then started up again.) second hand exposure: No alcohol intake: former substance use type: does not use Family & Social History Family History (Updated 02/22/19 @ 16:39 by Shavon Wolf DO) Father Cancer Mother Diabetes mellitus Osteoarthritis Grandfather No problems noted. Grandmother No problems noted. Social History: household members children Prior Living Arrangements House Safety & Behavioral: Feels Safe in Current Yes Environment Been Physically Hurt or No Threatened By a Person Suicidal Ideation Description None Suicide Plan Description No Plan Tobacco & Substance use: Tobacco type cigarettes Smoking Status Former smoker, 1 ppd x 30 years alcohol intake former alcohol intake frequency other Substance Use Type does not use Meds Home Medications Medication Instructions Recorded Confirmed Type cholecalciferol (vitamin D3) 1 tab PO DAILY #0 12/16/16 02/22/19 History [Vitamin D3] melatonin 5 mg tablet 5 mg PO BEDTIME PRN 11/08/18 02/22/19 History multivitamin tablet 1 tab PO DAILY 11/08/18 02/22/19 History CBD Oil See Rx Instructions .ROUTE .COMPLEX 02/06/19 02/22/19 History Potassium See Rx Instructions .ROUTE .COMPLEX 02/06/19 02/22/19 History Vitamin E 1 cap PO DAILY 02/06/19 02/22/19 History cyanocobalamin (vitamin B-12) 2,500 mcg PO DAILY 02/06/19 02/22/19 History 2,500 mcg tablet loratadine 10 mg tablet 10 mg PO DAILY PRN 02/06/19 02/22/19 History jyzyckg-zypvxpzqjfoyj-bhshmauh 1 dose PO PRN PRN 02/20/19 02/22/19 History [Excedrin Extra Strength] gabapentin 100 - 300 mg PO TID 02/20/19 02/22/19 History lidocaine HCl-menthol 1 patch TOPICAL DAILY 02/20/19 02/22/19 History Allergies Allergy/AdvReac Type Severity Reaction Status Date / Time aspirin [ASPIRIN] AdvReac Severe bleeding Verified 02/20/19 17:29 stomach codeine [CODEINE] AdvReac Severe Hallucinati Verified 02/20/19 17:29 ons fluconazole [From Diflucan] AdvReac Severe I threw Verified 02/20/19 17:29 up all night long. morphine [MORPHINE] AdvReac Severe Hallucinati Verified 02/20/19 17:29 ons oxycodone [OXYCODONE] AdvReac Severe Hallucinations Verified 02/20/19 17:29 and itchy skin prednisone [PREDNISONE] AdvReac Severe Feels Verified 02/20/19 17:29 high and gets very angry zolpidem [ZOLPIDEM] AdvReac Severe turned me Verified 02/20/19 17:29 into a night walker and felt really high. Review of Systems Review of Systems A 10 system comprehensive review of systems was conducted with the patient and found to be negative except as above in the History of Present Illness. Exam Vital Signs (past 8 hours): - 02/22/19 08:53 02/22/19 09:18 02/22/19 10:05 Temperature Pulse Rate 106 H 93 H 92 H Respiratory Rate 18 16 16 Blood Pressure Blood Pressure [Left Arm] 140/54 L 125/59 L 120/58 L Pulse Oximetry 94 94 93 02/22/19 10:15 02/22/19 13:11 02/22/19 15:23 Temperature 100 F H 99.8 F H 99.0 F Pulse Rate 101 H 92 H 86 Respiratory Rate 20 12 12 Blood Pressure 151/62 H 135/71 117/52 L Blood Pressure [Left Arm] Pulse Oximetry 97 99 93 Oxygen Delivery Method Room Air Oxygen Flow Rate 0 Narrative Exam Narrative: General: Elderly female lying in bed and in no acute distress, pale, appears acutely ill, well-developed, well-nourished, appropriately interactive. HEENT: Normocephalic, atraumatic. External ears without defect. Pupils equal, round, and reactive to light. Anicteric sclerae, moist conjunctivae, and no lid lag. Oropharynx free of erythema and cobble stoning with moist mucosa. Neck: Supple with full range of motion. No jugular venous distension. No lymphadenopathy or thyromegaly. Cardiovascular: Regular rate and rhythm without murmurs, rubs, or gallops appreciated. Pulmonary: Clear to auscultation bilaterally without crackles, wheezes, or rhonchi. Normal respiratory effort with no use of accessory muscles. Abdomen: Soft, bowel sounds present, mild tenderness to palpation in epigastrium, moderate bilateral CVA tenderness, nondistended. No suprapubic tenderness. No hepatosplenomegaly or masses appreciated. Extremities: No clubbing, cyanosis, or edema. Skin: Normal temperature, turgor, and texture; no rash, ulcers, or subcutaneous nodules appreciated. Neurological: Cranial nerves grossly intact. Psychiatric: Normal mood and affect. Alert and oriented to person, place, and time. Objective Labs Result Diagrams: 02/22/19 06:05 02/22/19 06:05 Labs: Laboratory Results - last 24 hr 02/22/19 02/22/19 02/22/19 05:45 06:05 06:05 WBC 22.5 H D RBC 4.17 Hgb 9.9 L Hct 30.7 L MCV 73.6 L MCH 23.7 L MCHC 32.2 RDW 16.5 H Plt Count 361 Neut % (Auto) 79.4 H Lymph % (Auto) 8.6 L [place] % (Auto) 10.9 Eos % (Auto) 0.5 L Baso % (Auto) 0.6 Neut # (Auto) 09443 H Lymph # (Auto) 1900 [place] # (Auto) 2500 H Eos # (Auto) 100 Baso # (Auto) 100 Sodium 141 Potassium 3.7 Chloride 98 Carbon Dioxide 27 BUN 29 H Creatinine 1.20 H Estimated GFR 43.8 L BUN/Creatinine Ratio 24.2 H Glucose 150 H Lactate Calcium 10.3 H Magnesium 2.1 Total Bilirubin 0.4 AST 27 ALT 14 Alkaline Phosphatase 117 Total Protein 7.9 Albumin 4.6 Globulin 3.3 Albumin/Globulin Ratio 1.4 Lipase 82 Procalcitonin Urine Color Urine Appearance Urine pH Ur Specific [place] Urine Protein Urine Glucose (UA) Urine Ketones Urine Occult Blood Urine Nitrate Urine Bilirubin Urine Urobilinogen Ur Leukocyte Esterase Urine RBC Urine WBC Ur Squamous Epith Cells Amorphous Sediment Urine Bacteria Ur Culture Indicated? Nasal Screen MRSA (PCR) 02/22/19 02/22/19 02/22/19 06:05 06:05 08:35 WBC RBC Hgb Hct MCV MCH MCHC RDW Plt Count Neut % (Auto) Lymph % (Auto) [place] % (Auto) Eos % (Auto) Baso % (Auto) Neut # (Auto) Lymph # (Auto) [place] # (Auto) Eos # (Auto) Baso # (Auto) Sodium Potassium Chloride Carbon Dioxide BUN Creatinine Estimated GFR BUN/Creatinine Ratio Glucose Lactate 3.1 H 2.6 H Calcium Magnesium Total Bilirubin AST ALT Alkaline Phosphatase Total Protein Albumin Globulin Albumin/Globulin Ratio Lipase Procalcitonin < 0.05 Urine Color Urine Appearance Urine pH Ur Specific [place] Urine Protein Urine Glucose (UA) Urine Ketones Urine Occult Blood Urine Nitrate Urine Bilirubin Urine Urobilinogen Ur Leukocyte Esterase Urine RBC Urine WBC Ur Squamous Epith Cells Amorphous Sediment Urine Bacteria Ur Culture Indicated? Nasal Screen MRSA (PCR) 02/22/19 02/22/19 02/22/19 10:48 10:58 11:00 WBC RBC Hgb Hct MCV MCH MCHC RDW Plt Count Neut % (Auto) Lymph % (Auto) [place] % (Auto) Eos % (Auto) Baso % (Auto) Neut # (Auto) Lymph # (Auto) [place] # (Auto) Eos # (Auto) Baso # (Auto) Sodium Potassium Chloride Carbon Dioxide BUN Creatinine Estimated GFR BUN/Creatinine Ratio Glucose Lactate Calcium Magnesium Total Bilirubin AST ALT Alkaline Phosphatase Total Protein Albumin Globulin Albumin/Globulin Ratio Lipase Procalcitonin Urine Color Yellow Urine Appearance Clear Urine pH 7.5 Ur Specific [place] <=1.005 Urine Protein Negative Urine Glucose (UA) Negative Urine Ketones Negative Urine Occult Blood 3+ H Urine Nitrate Negative Urine Bilirubin Negative Urine Urobilinogen 0.2 Ur Leukocyte Esterase Negative Urine RBC 0-1/hpf 0-1/hpf Urine WBC None seen 0-1/hpf Ur Squamous Epith Cells 0-1 /hpf Amorphous Sediment 1+ 2+ Urine Bacteria None seen Moderate (10-30) H Ur Culture Indicated? 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 1. Acute severe sepsis, present on admission. Active. -Sepsis criteria met including: Tachycardic (HR 109), leukocytosis (WBC 22.5), lactic acidosis (LA 3.1), end-organ damage with acute kidney injury and source bilateral pyelonephritis. -Early goal-directed therapy met including: IV fluid resuscitation and broad-spectrum antibiotics. -Trend lactic acid until under 2.0. 2. Acute bilateral pyelonephritis, present on admission. Active. -Patient presented with several days of nausea, vomiting, fever, chills, urinary frequency and urgency, vaginal burning and pruritus, and suprapubic fullness. -Blood culture x1 was obtained prior to antibiotic administration with 2nd blood culture collected after antibiotic administration. -Urinalysis was a clean catch demonstrated moderate amount of bacteria and reflexed for culture. Of note, the urine culture was collected after antibiotic administration and less likely to grow bacteria. -CT abdomen and pelvis with contrast demonstrated bilateral hypoenhancement of the kidneys with new paranephric fluid and fat stranding and esophageal, gastric, and jejunum anastomotic thickening likely reactive and secondary to nausea and vomiting in bilateral nephric inflammation. -Received 2 L NS boluses in ED. Continue normal saline at 100 mL/hr. -Received ceftriaxone 1 g IV in ED. Continue ceftriaxone 2 g IV daily pending urine culture and sensitivities. 3. Acute kidney injury, present on admission. Active. -Baseline creatinine 0.7. Initial creatinine 1.2. -Avoid nephrotoxic agents. -Continue IV fluids with normal saline at 100 mL/hr. -Continue to monitor renal function daily. 4. Duodenal stenosis, chronic, present on admission. Presumed stable. 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 -Patient has planned EGD on 03/[address] Delacruz of [facility]. -CT abdomen and pelvis demonstrated esophageal, gastric, and jejunum anastomotic thickening likely reactive and secondary to nausea and vomiting. Do not feel this is secondary to duodenal stenosis and bilateral nephric inflammation. 5. Constipation predominant IBS, chronic, present on admission. Stable. -Likely slow transit type. -Home bowel regimen includes senna tea, senna tablet, stool softener and most recent addition of Mag citrate. -Discussed chronic senna use leading to melanosis coli and further worsening of her constipation. Recommend did discuss bowel regimen with her GI physician. -Continue Colace 100 mg twice daily and magnesium citrate daily. 6. Fibromyalgia and osteoarthritis, chronic, present on admission. Stable. -Continue home gabapentin 300 mg 3 times daily. Code status: DNR/DNI. DVT prophylaxis: SubQ Heparin Patient is admitted under inpatient status with expected length of stay greater than 2 midnights due to severity of presenting symptoms, risk of adverse event, and complexity of treatment plan.
[2019-02-22 17:26] LABS: Campylobacter Not Detected (Not Detect); Clostridium difficile toxin AB Not Detected (Not Detect); Plesiomonsa shigelloides Not Detected (Not Detect); Salmonella Not Detected (Not Detect); Vibrio Not Detected (Not Detect); Vibrio cholerae Not Detected (Not Detect)
[2019-02-22 17:27] LABS: Adenovirus F 40/41 Not Detected (Not Detect); Astrovirus Not Detected (Not Detect); Cryptosporidium Not Detected (Not Detect); Cyclospora cayetanensis Not Detected (Not Detect); Entamoeba histolytica Not Detected (Not Detect); Enteroaggregative E.coli Not Detected (Not Detect); Enteropathogenic E.coli Not Detected (Not Detect); Enterotoxigenic E.coli It/st Not Detected (Not Detect); Giardia lamblia Not Detected (Not Detect); Norovirus GI/GII Not Detected (Not Detect); Rotavirus A Not Detected (Not Detect); Shiga-like toxin-prod E.coli Not Detected (Not Detect); Shigella/Enteroinvasive E.coli Not Detected (Not Detect); Yersinia enterocolitica Not Detected (Not Detect)
[2019-02-22 17:43] LABS: Lactate (Lactic Acid) 2.5 mmol/L (0.7-2.1)
[2019-02-22 19:24] LABS: Reflexed Lactate in 2 Hours Y
[2019-02-22 19:56] LABS: Lactate 2HR (Lactic Acid Rflx) 1.2 mmol/L (0.7-2.1)
[2019-02-22] MEDS: GABAPENTIN 300 MG CAPSULE PO (20:32)
[2019-02-22] MEDS: HEPARIN 5,000 UNIT/ML VIAL 5000 UNIT SUBCUT (20:32)
[2019-02-22] MEDS: DOCUSATE 100 MG CAPSULE PO (20:32)
[2019-02-23] VITALS (9 sets, daily range): BP systolic 128–153; BP diastolic 61–80; PULSE 66–91; RESP 15–18; TEMP 36.2–37.4; O2SAT 93–98
[2019-02-23] MEDS: ACETAMINOPHEN 325 MG TABLET 975 MG PO (03:15)
[2019-02-23 05:09] LABS: Add Manual Diff / Slide Review NO; Basophils Absolute Auto 100 /uL (0-100); Eosinophils Absolute Auto 100 /uL (0-450); Eosinophils Percent Auto 1.1 % (2-4); Hematocrit 24.3 % (36-46); Hemoglobin 7.8 g/dL (12.0-16.0); Lymphocytes Absolute Auto 2000 /uL (1100-4500); Lymphocytes Percent Auto 18.7 % (25-40); Mean Corpuscular HGB Conc 32.2 % (30-36); Mean Corpuscular Volume 74.3 fL (80-100); Monocytes Absolute Auto 1400 /uL (0-900); Monocytes Percent Auto 12.5 % (3-14); Neutrophils Absolute Auto 7300 /uL (1500-7000); Neutrophils Percent Auto 66.7 % (50-75); Platelet Count 244 X10^3/uL (150-400); Red Blood Cell Count 3.27 X10^6/uL (4.0-5.2); Red Cell Distribution Width 16.4 % (11.6-14.8); White Blood Cell Count 10.9 X10^3/uL (4.5-11.0)
[2019-02-23 05:12] LABS: Lactate (Lactic Acid) 1.2 mmol/L (0.7-2.1)
[2019-02-23 05:23] LABS: HEMOLYSIS < 15 (0-50); Sodium 140 mmol/L (137-145)
[2019-02-23 05:25] LABS: Alanine Aminotransferase 15 IU/L (9-52); Albumin 3.3 g/dL (3.5-5.0); Albumin Globulin Ratio 1.2 (1.0-2.8); Alkaline Phosphatase 75 U/L (38-126); Aspartate Aminotransferase 24 IU/L (14-36); BUN Creatinine Ratio 19.1 (6-22); Bilirubin Total 0.2 mg/dL (0.2-1.3); Blood Urea Nitrogen 21 mg/dL (7-17); Calcium 8.9 mg/dL (8.4-10.2); Carbon Dioxide 28 mmol/L (22-32); Chloride 105 mmol/L (98-107); Estimated Glomerular Filt Rate 48.4 mL/min (>60); Globulin 2.7 g/dL (1.7-4.1); Glucose 109 mg/dL (80-110); Magnesium 2.1 mg/dL (1.6-2.3)
[2019-02-23 05:36] LABS: Procalcitonin 0.17 ng/mL (<0.5)
[2019-02-23] MEDS: SODIUM CHLORIDE 0.9% 1,000 ML 100 ML IV (06:13)
[2019-02-23] MEDS: EXCEDRIN EXTRA STRENGTH PO ×2 (09:18→20:15)
[2019-02-23] MEDS: ASA PO ×2 (09:18→20:15)
[2019-02-23] MEDS: CAFF PO ×2 (09:18→20:15)
[2019-02-23] MEDS: MAGNESIUM CITRATE 300 ML SOLUTION 150 ML PO (09:19)
[2019-02-23] MEDS: HEPARIN 5,000 UNIT/ML VIAL 5000 UNIT SUBCUT ×2 (09:25→20:16)
[2019-02-23] MEDS: DOCUSATE 100 MG CAPSULE PO ×2 (09:25→20:16)
[2019-02-23] MEDS: GABAPENTIN 300 MG CAPSULE PO ×3 (09:26→20:16)
[2019-02-23] MEDS: CEFTRIAXONE 2 GM/50 ML FROZ.PIGGY IV (09:29)
--- NOTE | 2019-02-23 12:55 | PT.IIE ---
Current Diagnoses Sepsis, unspecified organism (02/22/19) Surgical History (Last Reviewed 02/22/19 @ 16:38 by Shavon Wolf DO) S/P BSO (bilateral salpingo-oophorectomy) (Acute) History of surgery on arm (Resolved) Hx of abdominal surgery (Resolved ~1985) Hx of appendectomy (Resolved 1958) Status post cholecystectomy Status post hysterectomy (1988) Medical History (Last Updated 02/22/19 @ 16:41 by Shavon Wolf DO) Cutaneous lupus erythematosus (Acute) Duodenal stenosis (Acute) IBS (irritable bowel syndrome) (Acute) Iron deficiency anemia (Acute) Legg-Perthes disease (Acute) Osteoarthritis (Acute) Perforated ulcer (Acute) Fibromyalgia (Chronic ~1989) Cataracts, bilateral (Acute 2010) Peptic ulcer disease (Acute 1979) Allergic rhinitis (Chronic 1959) Chronic back pain (Chronic) Generalized headaches (Chronic) Lupus (Chronic 1989) Migraines (Chronic) Shoulder pain (Chronic) Tinnitus of both ears (Chronic 2005) Vertigo (Chronic 2010) Anemia (Resolved 2013) Chickenpox (Resolved) Fibroids (Resolved) Foot pain (Resolved 2000) Fractures (Resolved 1999) Heavy menstrual period (Resolved) Mumps (Resolved) Ovarian cyst (Resolved) Painful menstrual periods (Resolved) Rheumatic fever (Resolved 1966) Physical Therapy Inpatient Evaluation/Re-Eval M1 PT/OT-IP Prior Functional Status Start: 02/23/19 13:59 Freq: NEEDED Status: Active Protocol: Document 02/23/19 12:55 AB (Rec: 02/23/19 14:17 AB [id number]) Medical Review Prior Functional Status Medical History Reviewed Yes Diet/Fluid Consistency Regular Communication able to make needs known Mobility and Gait pt stated that she is independent with all mobilities and ambulation without AD. stated that she walks ~ 1 1/2 miles twice a day Social History Household Members children Living Arrangements House Number of Floors (Floors) One Floor Number of Stairs To Enter/Railing? 2 steps with R rail Home Environment Standard Height Toilet Tub/Shower Employment Status Retired Additional Social History Comment pt lives with her disabled daughter but stated that her daughter will be able to assist her if needed M2 PT-IP Current Condition Start: 02/23/19 13:59 Freq: NEEDED Status: Active Protocol: Document 02/23/19 12:55 AB (Rec: 02/23/19 14:17 AB [id number]) Physical Therapy Current Condition Current Condition Evaluation Date 02/23/19 Treatment Diagnosis sepsis; generalized weakness Onset Date 02/22/19 M3 PT-IP Subjective Start: 02/23/19 13:59 Freq: NEEDED Status: Active Protocol: Document 02/23/19 12:55 AB (Rec: 02/23/19 14:17 AB [id number]) Subjective Physical Therapy Visit Type Type Initial Evaluation Visit Start Time 12:55 Visit Stop Time 13:15 Total Visit Minutes 20 Number of BUTTER GRADER Visits 0 Physical Therapy Visit Comments Patient Comments pt agreeable to do PT Therapy Pain Assessment Pain When Pain Assessed At Rest Pain Present Pain Present Pain Reported Location Head Intensity 6 Scale Used c/o migraine headache M4 PT-IP Mobility and Gait Start: 02/23/19 13:59 Freq: NEEDED Status: Active Protocol: Document 02/23/19 12:55 AB (Rec: 02/23/19 14:17 AB [id number]) PT-Bed Mobility Assessment Supine to Sit Supine to Sit Independent Sit to Supine Sit to Supine Independent PT-Transfer Assessment Sit to and From Stand Sit to and from Stand Independent Equipment Transfer Assistive Device None Gait Belt Transfers Transfer Destination Bed Transfer Ability Level of Assist Standby Assistance Comments Mobility Comments pt found sitting on bedside commode. completed hygiene care and transfer back to bed without AD SBA. Gait Assessment Gait Gait Assistance Required: Standby Assistance Distance (Feet) 150 Able to Maintain Weight Bearing Status Yes During Gait Assistive Devices Assistive Device Gait Belt Orthotic/Prosthetic Devices or Brace: No Factors Limiting Gait Function Factors Limiting Gait Function Pain Stair Climbing Assessment Evaluation Level of Assist On Stairs Standby Assistance Devices Stair Climbing Assistive Devices Right Railing Technique/Endurance Stair Climbing Direction Ascend and Descend Stair Climbing Technique Step to Step Number of Steps Climbed 1 Query Text: Stair Climbing Set # Repetitions (reps) 2 Comments Stair Climbing Comments pt completed up/down step stool with R rail ascending x 2 reps requiring SBA. PT-Balance Assessment Sitting Balance and Reactions Static Sitting Balance Ability Normal Dynamic Sitting Balance Ability Normal Standing Balance and Reactions Static Standing Balance Ability Good Dynamic Standing Balance Ability Good Device Used without AD Comments Other Balance Tests/Deviations/Treatment Tinetti balance assessment: : balance score 16/16 gait score 11/12 total score 27/28 which relates to low fall risk M5 PT-IP Objective Assessments Start: 02/23/19 13:59 Freq: NEEDED Status: Active Protocol: Document 02/23/19 12:55 AB (Rec: 02/23/19 14:17 AB [id number]) Orientation Orientation/Cognition Level of Alertness Alert Orientation Name Age Birthday Month Date Year Day of Week Place Situation Language Function Ability No Deficits Noted Safety Awareness Understands Safety Issues Memory Description No Deficits Noted Gross Range of Motion Lower Extremity ROM Assessment Within Functional Limits Strength Lower Extremity Strength Assessment Bilaterally Impaired Hip 4-/5 Knee 4-/5 Coordination Assessment Gross Coordination Gross Coordination WNL Sensation Assessment Sensation Gross Sensation WNL Muscle Tone Muscle Tone WNL Yes M6 PT-IP Treatment Start: 02/23/19 13:59 Freq: NEEDED Status: Active Protocol: Document 02/23/19 12:55 AB (Rec: 02/23/19 14:17 AB [id number]) Physical Therapy Treatment Education Education Provided Safety M7 PT-IP Assessment and Plan Start: 02/23/19 13:59 Freq: NEEDED Status: Active Protocol: Document 02/23/19 12:55 AB (Rec: 02/23/19 14:17 AB [id number]) PT Summary Assessment and Plan Potential Rehabilitation Potential Good Status of Condition at Evaluation Stable Summary Impairments Gait Activity Tolerance Assessment Summary PT eval completed. Pt is modified independent with bed mobility and only requires supervision for mobility and ambulation for for safety due to ongoing sepsis and still has decrease activity tolerance. informed nurse to ambulate with pt as needed and no further PT intervention indicated. nurse understood and agreed. Tinetti balance assessment completed and pt has 27/28 score that relates to low fall risk. pt has other chronic medical issues( fibromyalgia) affecting mobility and activity tolerance Frequency of Treatment Frequency Of Treatment Discharge Treatment Plan Physical Therapy Treatment Plan Bed Mobility Training Transfer Training Gait Training Therapeutic Exercise Balance Retraining Post Op Education Discharge Planning Hot or Cold Pack Neuromuscular Re-ed Coordination Retraining Manual Therapy Recommendations To Nursing Amount of Assist Needed Standby Assistance Discharge Recommendations PT Discharge Recommendations Home with Assistance
--- NOTE | 2019-02-23 16:00 | PM.PN.1 ---
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 The patient is resting in bed comfortably. She endorses migraine headache this morning that is only relieved with Excedrin for which she received and she reports her headache is now resolving. Of note, did not give patient Excedrin overnight due to low blood counts and history of duodenal stenosis with high propensity for gastric injury. Recommended with continual Excedrin use that she take famotidine or ranitidine in future. She continues to have urinary frequency likely related to IV fluids and oral fluid intake. She reports that her urinary urgency, burning, pruritus, suprapubic fullness and pressure, and dribbling have all improved. She has had no nausea or vomiting since admission. She reports a subjective fever overnight. She has no other complaints and denies shortness of breath, chest pain, abdominal pain, nausea, vomiting, fever, chills, dysuria, diarrhea or constipation. She is voiding and eliminating without difficulty. She is up ambulating without assistance. Exam Vital Signs (past 8 hours): - 02/23/19 09:55 02/23/19 12:00 Temperature 98.5 F Pulse Rate 66 Respiratory Rate 16 Blood Pressure 140/74 Pulse Oximetry 97 93 Oxygen Delivery Method Room Air Oxygen Flow Rate 0 Narrative Exam Narrative: General: Elderly female lying in bed and in no acute distress, pale, appears acutely ill, well-developed, well-nourished, appropriately interactive. HEENT: Normocephalic, atraumatic. External ears without defect. Pupils equal, round, and reactive to light. Anicteric sclerae, moist conjunctivae, and no lid lag. Oropharynx free of erythema and cobble stoning with moist mucosa. Neck: Supple with full range of motion. No jugular venous distension. No lymphadenopathy or thyromegaly. Cardiovascular: Regular rate and rhythm without murmurs, rubs, or gallops appreciated. Pulmonary: Clear to auscultation bilaterally without crackles, wheezes, or rhonchi. Normal respiratory effort with no use of accessory muscles. Abdomen: Soft, hypoactive bowel sounds, mild distention, epigastrium and CVA tenderness resolved. No suprapubic tenderness. No hepatosplenomegaly or masses appreciated. Extremities: No clubbing, cyanosis, or edema. Skin: Normal temperature, turgor, and texture; no rash, ulcers, or subcutaneous nodules appreciated. Neurological: Cranial nerves grossly intact. Psychiatric: Normal mood and affect. Alert and oriented to person, place, and time. Objective Labs Result Diagrams: 02/23/19 04:30 02/23/19 04:30 Labs: Laboratory Results - last 24 hr 02/22/19 02/22/19 02/22/19 15:00 17:20 19:35 WBC RBC Hgb Hct MCV MCH MCHC RDW Plt Count Neut % (Auto) Lymph % (Auto) [place] % (Auto) Eos % (Auto) Baso % (Auto) Neut # (Auto) Lymph # (Auto) [place] # (Auto) Eos # (Auto) Baso # (Auto) Sodium Potassium Chloride Carbon Dioxide BUN Creatinine Estimated GFR BUN/Creatinine Ratio Glucose Lactate 2.5 H 1.2 Calcium Magnesium Total Bilirubin AST ALT Alkaline Phosphatase Total Protein Albumin Globulin Albumin/Globulin Ratio Procalcitonin Stl C. cayetanensis PCR Not detected Stool Rotavirus (PCR) Not detected Stool Adenovirus (PCR) Not detected Stool Astrovirus (PCR) Not detected Stool Cryptosporidium PCR Not detected Stl E.coli Shiga Tox PCR Not detected St Sh/Enteroin Ecoli PCR Not detected Stool E coli O157 PCR Not detected Stl Enterotoxigenic E PCR Not detected Stool EPEC (PCR) Not detected Stl E. histolytica PCR Not detected Stool Giardia Lamblia PCR Not detected Stl P. shigelloides PCR Not detected St Y.enterocolitica PCR Not detected Stool Vibrio (PCR) Not detected Stl Vibrio cholerae PCR Not detected Stl Enteroaggr Ecoli PCR Not detected Stl Norovirus GI/GII PCR Not detected Campylobacter (PCR) Not detected C. difficile Tox (PCR) Not detected Salmonella (PCR) Not detected 02/23/19 02/23/19 02/23/19 04:30 04:30 04:30 WBC 10.9 D RBC 3.27 L Hgb 7.8 L Hct 24.3 L MCV 74.3 L MCH 24.0 L MCHC 32.2 RDW 16.4 H Plt Count 244 Neut % (Auto) 66.7 Lymph % (Auto) 18.7 L [place] % (Auto) 12.5 Eos % (Auto) 1.1 L Baso % (Auto) 1.0 Neut # (Auto) 7300 H Lymph # (Auto) 2000 [place] # (Auto) 1400 H Eos # (Auto) 100 Baso # (Auto) 100 Sodium 140 Potassium 4.0 Chloride 105 Carbon Dioxide 28 BUN 21 H Creatinine 1.10 H Estimated GFR 48.4 L BUN/Creatinine Ratio 19.1 Glucose 109 Lactate Calcium 8.9 Magnesium 2.1 Total Bilirubin 0.2 AST 24 ALT 15 Alkaline Phosphatase 75 Total Protein 6.0 L Albumin 3.3 L Globulin 2.7 Albumin/Globulin Ratio 1.2 Procalcitonin 0.17 Stl C. cayetanensis PCR Stool Rotavirus (PCR) Stool Adenovirus (PCR) Stool Astrovirus (PCR) Stool Cryptosporidium PCR Stl E.coli Shiga Tox PCR St Sh/Enteroin Ecoli PCR Stool E coli O157 PCR Stl Enterotoxigenic E PCR Stool EPEC (PCR) Stl E. histolytica PCR Stool Giardia Lamblia PCR Stl P. shigelloides PCR St Y.enterocolitica PCR Stool Vibrio (PCR) Stl Vibrio cholerae PCR Stl Enteroaggr Ecoli PCR Stl Norovirus GI/GII PCR Campylobacter (PCR) C. difficile Tox (PCR) Salmonella (PCR) 02/23/19 04:30 WBC RBC Hgb Hct MCV MCH MCHC RDW Plt Count Neut % (Auto) Lymph % (Auto) [place] % (Auto) Eos % (Auto) Baso % (Auto) Neut # (Auto) Lymph # (Auto) [place] # (Auto) Eos # (Auto) Baso # (Auto) Sodium Potassium Chloride Carbon Dioxide BUN Creatinine Estimated GFR BUN/Creatinine Ratio Glucose Lactate 1.2 Calcium Magnesium Total Bilirubin AST ALT Alkaline Phosphatase Total Protein Albumin Globulin Albumin/Globulin Ratio Procalcitonin Stl C. cayetanensis PCR Stool Rotavirus (PCR) Stool Adenovirus (PCR) Stool Astrovirus (PCR) Stool Cryptosporidium PCR Stl E.coli Shiga Tox PCR St Sh/Enteroin Ecoli PCR Stool E coli O157 PCR Stl Enterotoxigenic E PCR Stool EPEC (PCR) Stl E. histolytica PCR Stool Giardia Lamblia PCR Stl P. shigelloides PCR St Y.enterocolitica PCR Stool Vibrio (PCR) Stl Vibrio cholerae PCR Stl Enteroaggr Ecoli PCR Stl Norovirus GI/GII PCR Campylobacter (PCR) C. 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 1. Acute severe sepsis, present on admission. Resolved. -Sepsis criteria met including: Tachycardic (HR 109), leukocytosis (WBC 22.5), lactic acidosis (LA 3.1), end-organ damage with acute kidney injury and source bilateral pyelonephritis. -Early goal-directed therapy met including: IV fluid resuscitation and broad-spectrum antibiotics. -Trended lactic acid until under 2.0. 2. Acute bilateral pyelonephritis, present on admission. Resolving. -Patient presented with several days of nausea, vomiting, fever, chills, urinary frequency and urgency, vaginal burning and pruritus, and suprapubic fullness. -Blood culture x1 was obtained prior to antibiotic administration with 2nd blood culture collected after antibiotic administration. -Urinalysis was a clean catch demonstrated moderate amount of bacteria and reflexed for culture, however, the urine culture was collected after antibiotic administration, therefore, unlikely to grow bacteria. -CT abdomen and pelvis with contrast demonstrated bilateral hypoenhancement of the kidneys with new paranephric fluid and fat stranding and esophageal, gastric, and jejunum anastomotic thickening likely reactive and secondary to nausea and vomiting in bilateral nephric inflammation. -Initial WBC 22.5 and procalcitonin < 0.05. WBC now normalized and procalcitonin only slightly elevated at 0.017. Continue to monitor WBC and procalcitonin daily. -Received 2 L NS boluses in ED. Continued IV fluids until adequately hydrated then discontinued. -Received ceftriaxone 1 g IV in ED. Continue ceftriaxone 2 g IV daily pending urine culture and sensitivities which are unlikely to grow bacteria due to antibiotic administration prior to urine collection and in that case would discharge on cefdinir to complete 5 day course. 3. Acute kidney injury, present on admission. Resolving. -Baseline creatinine 0.7. Initial creatinine 1.2. -Avoid nephrotoxic agents. -Continued IV fluids until adequately hydrated than discontinued. -Continue to monitor renal function daily. 4. Duodenal stenosis, chronic, present on admission. Presumed stable. -Patient has longstanding history of duodenal stenosis secondary to perforated ulcer status post repair, several resections and over 43 endoscopies for duodenal dilatation. -Patient has planned EGD rescheduled for mid March with Dr. Delacruz of [facility]. -CT abdomen and pelvis demonstrated esophageal, gastric, and jejunum anastomotic thickening likely reactive and secondary to nausea and vomiting and/or perinephric inflammation. Do not feel this is secondary to duodenal stenosis. 5. Iron deficiency anemia, chronic, present on admission. Stable. -Initial hemoglobin 9.9. Hemoglobin now 7.8 and likely dilutional due to IV fluid administration. -No overt signs of bleeding but occult blood present on microscopic analysis of urine. -Patient has appointment with Dr. Ndiaye of hematology on 02/26 to start iron infusions due to intolerability of oral iron. Recommend defer all of iron infusion until acute infection has completely resolved. -Continue to monitor blood counts closely. Transfusion goal Hgb < 7.0. 6. Acute migraine headache, not present on admission. Resolving. -Patient usually takes Excedrin several times a week for her migraine headaches. 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 7. Constipation predominant IBS, chronic, present on admission. Stable. -Likely slow transit type. -Home bowel regimen includes senna tea, senna tablet, stool softener and most recent addition of Mag citrate. She also reports that at times she needs to digitally disimpact herself. -Discussed chronic senna use leading to melanosis coli and further worsening of her constipation. Recommend she discuss her bowel regimen with her GI physician and consider Linzess. -Continue Colace 100 mg twice daily and magnesium citrate daily. Unable to take MiraLax due to nausea/vomiting and duodenal stenosis. -Plan to give Bisacodyl suppository. 8. Fibromyalgia and osteoarthritis, chronic, present on admission. Stable. -Continue home gabapentin 300 mg 3 times daily. Disposition: Patient likely to discharge home tomorrow once urine culture and sensitivities have resulted.
--- NOTE | 2019-02-23 16:12 | CM.DANOTE ---
Addendum entered by Geno Monge LPN 02/23/19 16:17: JANETTE Queen now confirms: Admission status: INPT. Original Note: Discharge Planning/Care Management DCP: assessment: initiated. Case received, EMR reviewed. Discussed in Team Rounds and at Dr. Wolf's direction PT order is put in place. PT Shey did see pt today. Pt is a 74 year old female who admitted yesterday to care of hospitalist team. Payer: Medicare PCP: Gianna aBrker Admission status: in review: per UR ALEX Queen. Due to lateness of hour will plan to continue the assessment process in the morning. CM Discharge Assessment Start: 02/23/19 16:10 Freq: Status: Active Protocol: Document 02/23/19 16:10 ITV (Rec: 02/23/19 16:12 ITV [id number]) Discharge Planning Assessment Advance Directives? Yes History Provided By Medical Record Prior Living Arrangements House Household Members children Comment per PT note today pt lives with her disabled daughter who is able to provide supportive assist. will talk more with pt re this tomorrow. Independent with ADL's Yes Is patient alert and oriented? Yes Caregiver for Another unclear at this time. Review Status In Process
[2019-02-23] MEDS: BISACODYL 10 MG SUPP PR (17:54)
[2019-02-24 04:58] VITALS: BP 134/75; PULSE 80; RESP 16; TEMP 36.9; O2SAT 94
[2019-02-24] MEDS: EXCEDRIN EXTRA STRENGTH PO (05:01)
[2019-02-24] MEDS: ASA PO (05:01)
[2019-02-24] MEDS: CAFF PO (05:01)
[2019-02-24 05:24] LABS: Add Manual Diff / Slide Review NO; Basophils Absolute Auto 100 /uL (0-100); Basophils Percent Auto 1.1 % (0-2); Eosinophils Absolute Auto 200 /uL (0-450); Eosinophils Percent Auto 2.3 % (2-4); Hematocrit 26.7 % (36-46); Hemoglobin 8.6 g/dL (12.0-16.0); Lymphocytes Absolute Auto 2300 /uL (1100-4500); Mean Corpuscular HGB Conc 32.3 % (30-36); Mean Corpuscular Volume 74.4 fL (80-100); Monocytes Absolute Auto 1100 /uL (0-900); Monocytes Percent Auto 11.7 % (3-14); Neutrophils Absolute Auto 5400 /uL (1500-7000); Neutrophils Percent Auto 59.9 % (50-75); Platelet Count 264 X10^3/uL (150-400); Red Blood Cell Count 3.58 X10^6/uL (4.0-5.2); Red Cell Distribution Width 16.3 % (11.6-14.8); White Blood Cell Count 9.1 X10^3/uL (4.5-11.0)
[2019-02-24 05:48] LABS: BUN Creatinine Ratio 16.3 (6-22); Blood Urea Nitrogen 13 mg/dL (7-17); Calcium 9.8 mg/dL (8.4-10.2); Carbon Dioxide 29 mmol/L (22-32); Chloride 102 mmol/L (98-107); Estimated Glomerular Filt Rate > 60.0 mL/min (>60); Glucose 111 mg/dL (80-110); HEMOLYSIS < 15 (0-50); Potassium 4.5 mmol/L (3.4-5.1); Sodium 139 mmol/L (137-145)
[2019-02-24 06:36] LABS: Procalcitonin 0.05 ng/mL (<0.5)
[2019-02-24 07:00] VITALS: O2SAT 99
[2019-02-24 08:00] VITALS: BP 136/69; PULSE 75; RESP 16; TEMP 37.1; O2SAT 94
[2019-02-24] MEDS: CEFTRIAXONE 2 GM/50 ML FROZ.PIGGY IV (10:21)
[2019-02-24] MEDS: GABAPENTIN 300 MG CAPSULE PO (10:22)
[2019-02-24] MEDS: SENNOSIDES 8.6 MG TABLET 17.2 MG PO (10:22)
[2019-02-24] MEDS: DOCUSATE 100 MG CAPSULE PO (10:23)
[2019-02-24] MEDS: HEPARIN 5,000 UNIT/ML VIAL 5000 UNIT SUBCUT (10:24)
--- NOTE | 2019-02-24 10:33 | PC.NURSE ---
Addendum entered by Jana Hsieh R.N. 02/24/19 14:08: [id number]-Pt out to private vehicle via w/c. All questions reviewed with daughter and Pt. Addendum entered by Jana Hsieh R.N. 02/24/19 13:35: Pt reports no further nausea or ABD discomfort. PO meds given without GI upset. Attempts to reach daughter x3, no answer, left VMOM. Per daughter, She is probably screening calls. Options provided for cab ride and removed IV. Pt expressed gratitude. Call light in reach. Original Note: Am shift Pt is A/o x3, c/o bloating and nausea Pt has not had significant BM, even after multiple bowel interventions. Pt enc to ambulate in unit this AM, will hold AM meds until Pt feeling better, I frequently make my self vomit, I have to evacuate my stomach, this is fairy normal Pt encouraged to update staff with output, as education re: safety of self induced emesis vs management of symptoms. Pt shows no readiness for education at this time. Indep in room Denies dizzinss . Pt updated staff ofoutput and x1 emesis of partially digested vu k IV ABO infusing at this time, SL between dosing.
--- NOTE | 2019-02-24 12:03 | CM.DPC ---
DCP: continued: met with pt as planned. Introduced self and role. Pt has been ok'd for a d/c to home today and says she feels very comfortable with this. She clarifies her home situation. Her POA is her daughter Stacy Head and she is POA for Stacy. Stacy has some physical disabilities that make it difficult for her to mobilize well although she is very supportive and is able to drive. Pt says she rarely drives as her vision is impaired and Stacy is much better overall at driving. Stacy will pick her up today. They have lived together for 20 years and also help each other to survice financially. They live in a rental home and thus she says there are limits to what they can do to fix the home up to support them going into the future. [facility] and thus is aware of many of the resources for seniors in [place]. P: home today. PCP followup.
--- NOTE | 2019-02-24 13:15 | PM.DS.1 ---
History of Present Illness Date Patient Seen: 02/24/19 Time Patient Seen: 08:15 Chief complaint: Abd pain, N/V/D Narrative: As per Dr. 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 The patient reports that she has been dealing with a yeast infection on and off for the past several weeks. She recently tried [place] yogurt applied to her vagina which she reports ?worked.She endorses vaginal burning, pruritus, increased urinary frequency and urgency, suprapubic fullness and pressure, and dribbling. She reports due to her history of duodenal stenosis, she assumed that her nausea and vomiting were due to this condition. She also had associated headache, fever and chills for the last several days. She has chronic severe constipation but had 1 episode of diarrhea yesterday. She has dealt with vaginal burning for some time, at least 6 months, which is likely due to atopic vaginitis but she is not on treatment as she has tried several medications without relief and the medication she had relief from for which she is unsure of the name was not covered by Medicare. She has no other complaints. Upon arrival to the ED she had a CT abdomen and pelvis with contrast which demonstrated bilateral hypoenhancement of the kidneys with new paranephric fluid and fat stranding suggestive of bilateral pyelonephritis and mild thickening of esophagus, stomach, and jejunum anastomosis likely reactive and inflammatory due to nausea and vomiting. Blood culture x1 was performed. She was given ceftriaxone 1 g IV x1. A urinalysis and 2nd blood culture were not collected until after antibiotics were administered. The patient was admitted for further management of acute sepsis and acute pyelonephritis. Discharge Providers Date of admission: 02/22/19 09:47 Discharge Date: 02/24/19 Primary care physician: Gianna Barker PA-C Consults: 02/22/19 09:17 Consult to Discharge Planning Routine Comment: 02/23/19 11:26 Consult to Physical Therapy Evaluate & Treat Comment: Physician Instructions: Evaluate and Treat Discharge provider: Brandyn Oconnell DO Summary Discharge Diagnosis: 1. Acute severe sepsis, present on admission. Resolved. 2. Acute bilateral pyelonephritis, present on admission. Resolving. 3. Acute kidney injury, present on admission. Resolved 4. Duodenal stenosis, chronic, present on admission. Presumed stable. 5. Iron deficiency anemia, chronic, present on admission. Stable. 6. Acute migraine headache, not present on admission. Resolved. 7. Constipation predominant IBS, chronic, present on admission. Stable. 8. Fibromyalgia and osteoarthritis, chronic, present on admission. 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 She is hemodynamically stable and ready for discharge home today on an oral cephalosporin. 1. Acute severe sepsis, present on admission. Resolved. -Sepsis criteria met including: Tachycardic (HR 109), leukocytosis (WBC 22.5), lactic acidosis (LA 3.1), end-organ damage with acute kidney injury and source bilateral pyelonephritis. -Early goal-directed therapy met including: IV fluid resuscitation and broad-spectrum antibiotics. -Trended lactic acid until under 2.0. - discharge home with oral cefdinir to complete 10 day total course of antibiotics. 2. Acute bilateral pyelonephritis, present on admission. Resolving. -Blood culture x1 was obtained prior to antibiotic administration with 2nd blood culture collected after antibiotic administration. No growth currently. -Urinalysis was a clean catch demonstrated moderate amount of bacteria and reflexed for culture, however, the urine culture was collected after antibiotic administration, therefore, unlikely to grow bacteria. -CT abdomen and pelvis with contrast demonstrated bilateral hypoenhancement of the kidneys with new paranephric fluid and fat stranding and esophageal, gastric, and jejunum anastomotic thickening likely reactive and secondary to nausea and vomiting in bilateral nephric inflammation. -Initial WBC 22.5 and procalcitonin < 0.05. WBC now normalized. -Received 2 L NS boluses in ED. Continued IV fluids until adequately hydrated then discontinued. -Received ceftriaxone 1 g IV in ED and 2g while inpatient. She is being discharged home on cefdinir to complete 10 day total course of therapy. 3. Acute kidney injury, present on admission. Resolved -Baseline creatinine 0.7. Initial creatinine 1.2 now 0.8 on day of discharge. 4. Duodenal stenosis, chronic, present on admission. Presumed stable. -Patient has longstanding history of duodenal stenosis secondary to perforated ulcer status post repair, several resections and over 43 endoscopies for duodenal dilatation. -Patient has planned EGD rescheduled for mid March with Dr. Delacruz of [facility]. -CT abdomen and pelvis demonstrated esophageal, gastric, and jejunum anastomotic thickening likely reactive and secondary to nausea and vomiting and/or perinephric inflammation. Do not feel this is secondary to duodenal stenosis. 5. Iron deficiency anemia, chronic, present on admission. Stable. -Initial hemoglobin 9.9. Hemoglobin to 7.8 likely with hydration, improved on day of discharge to 8.2. -No overt signs of bleeding but occult blood present on microscopic analysis of urine. -Patient has appointment with Dr. Ndiaye of hematology on 02/26 to start iron infusions due to intolerability of oral iron. Recommend defer all of iron infusion until acute infection has completely resolved. 6. Acute migraine headache, not present on admission. Resolved. -Patient usually takes Excedrin several times a week for her migraine headaches. 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 7. Constipation predominant IBS, chronic, present on admission. Stable. -Likely slow transit type. -Home bowel regimen includes senna tea, senna tablet, stool softener and most recent addition of Mag citrate. She also reports that at times she needs to digitally disimpact herself. -Discussed chronic senna use leading to melanosis coli and further worsening of her constipation. Recommend she discuss her bowel regimen with her GI physician and consider Linzess. 8. Fibromyalgia and osteoarthritis, chronic, present on admission. Stable. -Continue home gabapentin 300 mg 3 times daily. Exam Vital Signs (past 8 hours): - 02/24/19 07:00 02/24/19 08:00 Temperature 98.8 F Pulse Rate 75 Respiratory Rate 16 Blood Pressure 136/69 Pulse Oximetry 99 94 Oxygen Delivery Method Room Air Oxygen Flow Rate 0 Narrative Exam Narrative: GENERAL APPEARANCE: Well developed, well nourished, in no acute distress. SKIN: Inspection of the skin reveals no rashes, ulcerations or petechiae. HEENT: The sclerae were anicteric and conjunctivae were pink and moist. Extraocular movements were intact and pupils were equal, round with normal accommodation. External inspection of the ears and nose showed no scars, lesions, or masses. Lips, teeth, and gums showed normal mucosa. The oral mucosa, hard and soft palate, tongue and posterior pharynx were unremarkable. NECK: Supple and symmetric. There was no thyroid enlargement, and no tenderness, or masses were felt. CHEST: Normal AP diameter and normal contour without any kyphoscoliosis. LUNGS: Auscultation of the lungs revealed no wheezes, rhonchi, or rales. CARDIOVASCULAR: There was a regular rate and rhythm without any murmurs, gallops, rubs. Peripheral pulses were 2+ and symmetric. ABDOMEN: Soft and nontender with normal bowel sounds. No ascites was noted. MUSCULOSKELETAL: There was no tenderness or effusions noted. Muscle strength and tone were normal. EXTREMITIES: No cyanosis, clubbing or edema. NEUROLOGIC: Alert and oriented x 3. Normal affect. Gait was normal. Strength is +5/5 in the Upper Extremities and Lower Extremities Bilaterally. Sensation to touch was normal. Objective Labs Result Diagrams: 02/24/19 04:47 02/24/19 04:47 Labs: Laboratory Results - last 24 hr 02/22/19 02/24/19 02/24/19 11:00 04:47 04:47 WBC 9.1 RBC 3.58 L Hgb 8.6 L Hct 26.7 L MCV 74.4 L MCH 24.0 L MCHC 32.3 RDW 16.3 H Plt Count 264 Neut % (Auto) 59.9 Lymph % (Auto) 25.0 [place] % (Auto) 11.7 Eos % (Auto) 2.3 Baso % (Auto) 1.1 Neut # (Auto) 5400 Lymph # (Auto) 2300 [place] # (Auto) 1100 H Eos # (Auto) 200 Baso # (Auto) 100 Sodium Potassium Chloride Carbon Dioxide BUN Creatinine Estimated GFR BUN/Creatinine Ratio Glucose Calcium Procalcitonin 0.05 Urine Yeast None seen 02/24/19 04:47 WBC RBC Hgb Hct MCV MCH MCHC RDW Plt Count Neut % (Auto) Lymph % (Auto) [place] % (Auto) Eos % (Auto) Baso % (Auto) Neut # (Auto) Lymph # (Auto) [place] # (Auto) Eos # (Auto) Baso # (Auto) Sodium 139 Potassium 4.5 Chloride 102 Carbon Dioxide 29 BUN 13 Creatinine 0.80 Estimated GFR > 60.0 BUN/Creatinine Ratio 16.3 Glucose 111 H Calcium 9.8 Procalcitonin Urine Yeast Discharge Plan Discharge Plan Patient Disposition: Home Discharge comment: You're being discharged home. Please follow-up with your PCP, Ni Barker, at your scheduled appointment regarding your hospitalization. You have been prescribed cefdinir 300 mg twice daily for 7 additional days to complete a total 10 day course of antibiotics. If you continue taking Excedrin you should take this medication with ranitidine or famotidine to protect your stomach lining especially or scar tissue around your duodenal stenosis. Appointment with Ni Barker at [facility] on at 3:00PM Discharge Med Rec/Prescriptions Prescriptions: New sennosides [senna] 8.6 mg Tablet 17.2 mg PO DAILY PRN (Reason: Constipation) 1 Days Qty: 1 RF: 0 acetaminophen 325 mg Tablet 650 mg PO Q6HR PRN (Reason: As Needed For Fever/Mild Pain) 30 Days Qty: 60 RF: 0 docusate sodium [DOK] 100 mg Capsule 100 mg PO BID 1 Days Qty: 2 RF: 0 cefdinir 300 mg capsule 300 mg PO BID 7 Days Qty: 14 RF: 0 Continued cholecalciferol (vitamin D3) [Vitamin D3] 2,000 UNIT tablet 1 tab PO DAILY Qty: 0 RF: 0 multivitamin tablet 1 tab PO DAILY RF: 0 melatonin 5 mg tablet 5 mg PO BEDTIME PRN (Reason: Sleep) RF: 0 cyanocobalamin (vitamin B-12) 2,500 mcg tablet 2,500 mcg PO DAILY RF: 0 CBD Oil See Patient Comments .ROUTE .COMPLEX RF: 0 Potassium See Patient Comments .ROUTE .COMPLEX RF: 0 Vitamin E 1 cap PO DAILY RF: 0 loratadine [Claritin] 10 mg tablet 10 mg PO DAILY PRN (Reason: Allergy Symptoms) RF: 0 gabapentin 100 mg capsule 100 - 300 mg PO TID RF: 0 Excedrin Extra Strength 250-250-65 mg Tablet 1 dose PO PRN PRN (Reason: pain) RF: 0 lidocaine HCl-menthol 4-1 % Adhesive Patch,Medicated 1 patch topical DAILY RF: 0 Follow up/Referrals: Mj,Gianna, PA-C [Primary Care Provider] - 1 Week Provider Discharge Instructions Diet: Diet as Tolerated Visit Report/Discharge Packet Instructions: DI for Kidney Infection Discharge Data Primary Care Provider: Gianna Barker Attending Provider: Shavon Wolf Admit Date/Time: 02/22/19 09:47
== END 2019-02-24 14:22 | disposition home or self-care (01) | DRG 689 ==
LOC: ED 09:31 → AC 09:47 → ICU 10:27
PROVIDERS: Emergency Medicine; Nurse Practitioner Adult Health; Admitting Provider Internal Medicine; Emergency Provider Emergency Medicine; Family Provider Physician Assistant; PCP Physician Assistant; Visit Provider Internal Medicine
DX: N10 Acute pyelonephritis (principal); R65.20 Severe sepsis without septic shock; K31.5 Obstruction of duodenum; N17.9 Acute kidney failure, unspecified; D50.9 Iron deficiency anemia, unspecified; K58.1 Irritable bowel syndrome with constipation; M79.7 Fibromyalgia; Z87.891 Personal history of nicotine dependence
CPT/HCPCS: 36415; 36591; 71045; 74177; 80048; 80053; 81001; 81003; 81015; 82550; 82728; 83540; 83550; 83605; 83690; 83735; 84145; 84484; 85025; 85610; 85730; 86850; 86900; 86901; 87040; 87086; 87507; 87797; 96361; 96365; 96375; 97161; 99283; 99284; 99285; J0696; J1644; J2405; J2765; Q9967

== ENCOUNTER → 2019-03-06 16:23 | Outpatient (CLI) | payer MEDICARE, SELFPAY ==
[2019-02-22 09:57] VITALS: BMI 29.0
[2019-03-06 17:19] LABS: Appearance Urine UA CLEAR; Bilirubin Urine UA NEGATIVE (NEGATIVE); Color Urine UA YELLOW; Glucose Urine UA NEGATIVE (Negative); Ketones Urine UA TRACE (NEGATIVE); Leukocyte Esterase Urine UA NEGATIVE (NEGATIVE); Nitrite Urine UA NEGATIVE (Negative); Occult Blood Urine UA NEGATIVE (Negative); Protein Urine UA NEGATIVE (Negative); Specific Gravity Urine UA 1.025 (1.000-1.035); Urobilinogen Urine UA 0.2 E.U./dL (0.2)
[2019-03-06 17:30] LABS: Bacteria Urine Occasional (0-1); Culture Indicated Urine Cult Not Indicated; Mucus Urine 2+ (Negative); RBC Urine 1-5/HPF (0-5/HPF); Squamous Epithelial Cell Urine 1-5 /HPF (0-5/HPF); WBC Urine 1-5/HPF (0-5/HPF)
== END ==
PROVIDERS: Family Provider Physician Assistant; PCP Physician Assistant; Visit Provider Physician Assistant
DX: M54.5 Low back pain (principal); R35.0 Frequency of micturition
CPT/HCPCS: 81001

== ENCOUNTER → 2019-03-28 15:14 | Outpatient (CLI) | payer MEDICARE, SELFPAY ==
[2019-03-28 12:26] VITALS: BMI 29.0
[2019-03-28 15:29] LABS: Add Manual Diff / Slide Review NO; Basophils Absolute Auto 100 /uL (0-100); Eosinophils Absolute Auto 200 /uL (0-450); Eosinophils Percent Auto 1.6 % (2-4); Hematocrit 32.8 % (36-46); Hemoglobin 10.3 g/dL (12.0-16.0); Lymphocytes Absolute Auto 1800 /uL (1100-4500); Mean Corpuscular HGB Conc 31.3 % (30-36); Mean Corpuscular Hemoglobin 24.2 PG (26-34); Mean Corpuscular Volume 77.3 fL (80-100); Monocytes Absolute Auto 800 /uL (0-900); Monocytes Percent Auto 8.3 % (3-14); Neutrophils Absolute Auto 6700 /uL (1500-7000); Neutrophils Percent Auto 70.1 % (50-75); Platelet Count 258 X10^3/uL (150-400); Red Blood Cell Count 4.24 X10^6/uL (4.0-5.2); Red Cell Distribution Width 22.7 % (11.6-14.8); White Blood Cell Count 9.6 X10^3/uL (4.5-11.0)
[2019-03-28 15:46] LABS: Anisocytosis 2+; Poikilocytosis 1+
[2019-03-28 18:21] LABS: Bacteria Urine None Seen; RBC Urine None Seen (0-5/HPF)
[2019-03-28 18:50] LABS: Appearance Urine UA CLEAR; Bilirubin Urine UA NEGATIVE (NEGATIVE); Color Urine UA YELLOW; Glucose Urine UA NEGATIVE (Negative); Ketones Urine UA NEGATIVE (NEGATIVE); Leukocyte Esterase Urine UA NEGATIVE (NEGATIVE); Nitrite Urine UA NEGATIVE (Negative); Occult Blood Urine UA NEGATIVE (Negative); Protein Urine UA NEGATIVE (Negative); Urobilinogen Urine UA 0.2 E.U./dL (0.2)
[2019-03-28 18:57] LABS: WBC Urine 0-1/HPF (0-5/HPF)
[2019-03-28 18:58] LABS: Amorphous Sediment Urine 1+; Calcium Oxalate Crystals Urine Few; Culture Indicated Urine Cult Not Indicated; Mucus Urine 2+ (Negative); Squamous Epithelial Cell Urine 0-1 /HPF (0-5/HPF)
== END ==
PROVIDERS: Hospitalist; Family Provider Physician Assistant; PCP Physician Assistant; Visit Provider Internal Medicine
DX: R10.9 Unspecified abdominal pain (principal); M54.9 Dorsalgia, unspecified
CPT/HCPCS: 36415; 81001; 85025

== ENCOUNTER → 2019-04-03 12:23 | Outpatient (CLI) | payer MEDICARE, SELFPAY ==
[2019-03-28 12:26] VITALS: BMI 29.0
--- NOTE | 2019-04-03 12:27 | DI.US.S_ITS ---
PROCEDURE: US RENAL COMPLETE INDICATIONS: LEFT KIDNEY PAIN TECHNIQUE: Real-time scanning was performed of the kidneys and bladder, with image documentation. COMPARISON: [facility], CT, CT ABDOMEN PELVIS W CON, 02/22/2019, 6:58. FINDINGS: Kidneys: Kidneys are normal in size. Right kidney measures 9.7 cm long; left kidney measures 9.9 cm long. Right renal cortical thickness is 1.0 cm; left renal cortical thickness is 1.1 cm. Renal cortical echotexture is normal. No hydronephrosis or nephrolithiasis. No suspicious solid mass lesions. Liver is diffusely increased in echogenicity. No focal hepatic abnormalities identified. Normal hepatic size. Bladder: Pre-void bladder volume is 95 mL. Post-void residual is 7 mL. Pre-void images demonstrate no intraluminal masses or stones. On pre-void images, bilateral ureteral jets are noted with color Doppler interrogation. (Of note, ureteral jets may not be detectable in up to 25% of cases due to insufficient differences in specific gravity between ureteral and bladder urine). Miscellaneous: No free pelvic fluid. IMPRESSION: Normal appearance the kidneys bilaterally. Increased hepatic echogenicity noted possibly related to hepatic steatosis but other sources of hepatocellular disease cannot be excluded. Recommend clinical correlation. Dictated by: Deonte MESSINA Interpreted: Fabricio Benites MD on 04/03/2019 at 13:13 Approved by: Fabricio Benites M.D. on 04/03/2019 at 16:10
== END ==
PROVIDERS: Family Provider Internal Medicine Gastroenterology; PCP Physician Assistant; Visit Provider Hospitalist
DX: N23 Unspecified renal colic (principal)
CPT/HCPCS: 76770

== ENCOUNTER → 2019-05-09 15:04 | Outpatient (CLI) | payer MEDICARE, SELFPAY ==
[2019-03-28 12:26] VITALS: BMI 29.0
== END ==
PROVIDERS: Family Provider Internal Medicine Gastroenterology; PCP Physician Assistant; Visit Provider Physician Assistant
DX: M85.852 Other specified disorders of bone density and structure, left thigh (principal); Z78.0 Asymptomatic menopausal state; Z90.722 Acquired absence of ovaries, bilateral
CPT/HCPCS: 77080; 77081

== ENCOUNTER 2019-06-09 21:18 | Emergency (ER) | payer MEDICARE, SELFPAY ==
[2019-03-28 12:26] VITALS: BMI 29.0
[2019-06-09 21:48] VITALS: BP 112/70; PULSE 93; RESP 18; TEMP 36.7; O2SAT 96
[2019-06-09] MEDS: SODIUM CHLORIDE 0.9% 1,000 ML 1000 ML IV (22:23)
[2019-06-09] MEDS: ONDANSETRON 4 MG/2 ML INJ IV (22:24)
[2019-06-09 22:30] VITALS: BP 128/51; PULSE 74; RESP 15; O2SAT 98
[2019-06-09 22:36] LABS: Add Manual Diff / Slide Review NO; Basophils Absolute Auto 0 /uL (0-100); Basophils Percent Auto 0.4 % (0-2); Eosinophils Absolute Auto 100 /uL (0-450); Eosinophils Percent Auto 0.4 % (2-4); Hematocrit 41.9 % (36-46); Lymphocytes Absolute Auto 1800 /uL (1100-4500); Mean Corpuscular HGB Conc 33.5 % (30-36); Mean Corpuscular Hemoglobin 27.5 PG (26-34); Mean Corpuscular Volume 82.2 fL (80-100); Monocytes Absolute Auto 1300 /uL (0-900); Monocytes Percent Auto 10.3 % (3-14); Neutrophils Absolute Auto 9700 /uL (1500-7000); Neutrophils Percent Auto 74.9 % (50-75); Platelet Count 288 X10^3/uL (150-400); Red Cell Distribution Width 16.3 % (11.6-14.8); White Blood Cell Count 12.9 X10^3/uL (4.5-11.0)
[2019-06-09 22:37] LABS: INR 1.1 (0.9-1.3); Prothrombin Time 12.5 SECONDS (10.1-12.7)
[2019-06-09 22:39] LABS: PTT Partial Thromboplastin Tim 32 SECONDS (26.4-36.2)
[2019-06-09 22:41] LABS: Alanine Aminotransferase 52 IU/L (<35); Albumin 4.8 g/dL (3.5-5.0); Albumin Globulin Ratio 1.4 (1.0-2.8); Alkaline Phosphatase 111 U/L (38-126); Aspartate Aminotransferase 47 IU/L (14-36); BUN Creatinine Ratio 34.4 (6-22); Bilirubin Total 0.6 mg/dL (0.2-1.3); Blood Urea Nitrogen 31 mg/dL (7-17); Chloride 79 mmol/L (98-107); Estimated Glomerular Filt Rate > 60.0 mL/min (>60); Globulin 3.5 g/dL (1.7-4.1); Glucose 150 mg/dL (80-110); HEMOLYSIS 20 (0-50); Lipase 133 U/L (23-300); Sodium 134 mmol/L (137-145); Total Protein 8.3 g/dL (6.3-8.2)
[2019-06-09 22:44] LABS: Potassium 2.2 mmol/L (3.4-5.1)
--- NOTE | 2019-06-09 22:47 | PC.NURSE ---
MANUELA Hoffmann was notified [id number] of the low potassium.
--- NOTE | 2019-06-09 22:48 | ED_ITS ---
HPI - Nausea/Vomiting/Diarrhea <Mally Hoffmann, DO - Last Filed: 06/10/19 21:16> General Chief complaint: Nausea/Vomiting/Diarrhea Stated complaint: not eating, not feeling well Time Seen by Provider: 06/09/19 22:45 Source: patient and family Mode of arrival: Wheelchair Limitations: no limitations History of Present Illness HPI Narrative: 74-year-old female comes emergency department with complaint of vomiting and increasing weakness. Patient and family state that she has a stricture, they states she has had multiple dilations but they have had bleeding status post dilations and she has had to be in the hospital so her endoscopist does not wish to do this. She states they have talked about what like a NG tube, on do not feel this would be helpful. It is unclear if they had a disc ussion about PEG tubes. Patient family states that is not does not seem to be something that is available to the patient because of her medical status. Daughter states that she has been vomiting for the last several weeks in sometimes keeps fluid down for a couple hours but then vomits it up again. She states she has not had bowel movements in several weeks. Patient thinks it is probably been 2 weeks since she had 1 maybe a week with a very small amount. She is normally quite talkative and states that she has been much lower, not really passing out but sort of decreased mental status. States she has been urinating some she has felt dizzy and increasingly weak this week. Patient does get iron fusions via Dr. Ndiaye Related Data Home Medications Medication Instructions Recorded Confirmed cholecalciferol (vitamin D3) 1 tab PO DAILY #0 12/16/16 05/10/19 [Vitamin D3] melatonin 5 mg tablet 5 mg PO BEDTIME PRN 11/08/18 05/10/19 multivitamin 1 tab PO DAILY 11/08/18 05/10/19 CBD Oil See Rx Instructions .ROUTE .COMPLEX 02/06/19 05/10/19 Vitamin E 1 cap PO DAILY 02/06/19 05/10/19 cyanocobalamin (vitamin B-12) 2,500 mcg PO DAILY 02/06/19 05/10/19 2,500 mcg tablet loratadine 10 mg tablet 10 mg PO DAILY PRN 02/06/19 05/10/19 Excedrin Extra Strength 1 dose PO PRN PRN 02/20/19 05/10/19 lidocaine HCl-menthol 1 patch TOPICAL DAILY 02/20/19 05/10/19 Magnesium Citrate See Rx Instructions .ROUTE .COMPLEX 02/28/19 05/10/19 docusate sodium 100 mg tablet 100 mg PO BID 02/28/19 05/10/19 lactobacillus combination no.4 3 3,000 mmu cells PO DAILY 03/28/19 05/10/19 billion cell capsule metoclopramide HCl 10 mg tablet 10 mg PO QAC 03/28/19 05/10/19 Previous Rx's Medication Instructions Recorded omeprazole 20 mg capsule,delayed 20 mg PO DAILY #90 cap 03/22/19 release Allergies Allergy/AdvReac Type Severity Reaction Status Date / Time aspirin [ASPIRIN] AdvReac Severe bleeding Verified 06/09/19 21:54 stomach codeine [CODEINE] AdvReac Severe Hallucinati Verified 06/09/19 21:54 ons fluconazole [From Diflucan] AdvReac Severe I threw Verified 06/09/19 21:54 up all night long. morphine [MORPHINE] AdvReac Severe Hallucinati Verified 06/09/19 21:54 ons oxycodone [OXYCODONE] AdvReac Severe Hallucinations Verified 06/09/19 21:54 and itchy skin prednisone [PREDNISONE] AdvReac Severe Feels Verified 06/09/19 21:54 high and gets very angry zolpidem [ZOLPIDEM] AdvReac Severe turned me Verified 06/09/19 21:54 into a night walker and felt really high. 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) Fibroids (Resolved) Fibromyalgia (Chronic ~1989) Foot pain (Resolved 2000) Fractures (Resolved 1999) Generalized headaches (Chronic) Heavy menstrual period (Resolved) IBS (irritable bowel syndrome) (Acute) Iron deficiency anemia (Acute) Legg-Perthes disease (Acute) Lupus (Chronic 1989) Migraines (Chronic) Mumps (Resolved) Osteoarthritis (Acute) Ovarian cyst (Resolved) Painful menstrual periods (Resolved) Peptic ulcer disease (Acute 1979) Perforated ulcer (Acute) Rheumatic fever (Resolved 1966) Shoulder pain (Chronic) Tinnitus of both ears (Chronic 2005) Vertigo (Chronic 2010) Surgical History History of surgery on arm (Resolved) Hx of abdominal surgery (Resolved ~1985) Hx of appendectomy (Resolved 1958) S/P BSO (bilateral salpingo-oophorectomy) (Acute) Status post cholecystectomy Status post hysterectomy (1988) Family History Father Cancer Mother Diabetes mellitus Osteoarthritis Grandfather No problems noted. Grandmother No problems noted. Social History household members: children Smoking Status: Former smoker Tobacco: How many years used: 30 second hand exposure: No alcohol intake: never substance use type: other Smoking Status: Former smoker alcohol intake frequency: other Substance Use Type: does not use Exam <Mally Hoffmann, - Last Filed: 06/10/19 21:16> Narrative Exam Narrative: GENERAL: Alert and oriented x three, pale female in moderate distress. Patient seems like she is unconscious but if you ask her to perform a task such as stand up from her wheelchair or answer a question she will. HEENT: Head normocephalic, atraumatic, EOMI, pupils reactive, face symmetric, moist mucous membranes, no facial droop NECK: Supple, full range of motion CARDIOVASCULAR: Regular rate and rhythm without murmurs, rubs or gallops. RESPIRATORY: Breath sounds equal bilaterally, no wheezes rales or rhonchi. ABDOMEN: Soft, nontender. Normoactive bowel sounds all 4 quadrants. No guarding or rebound, rigidity, no mass : No CVA tenderness EXTREMITIES: Normal range of motion, no clubbing or edema. Neurovascularly intact NEUROLOGICAL: Cranial nerves II through XII grossly intact. Moving all extremities SKIN: Warm, dry, no petechiae, no rashes or lesions. Initial Vital Signs Initial Vital Signs: Vital Signs Temperature 98.1 F 06/09/19 21:48 Pulse Rate 93 H 06/09/19 21:48 Respiratory Rate 18 06/09/19 21:48 Blood Pressure 112/70 06/09/19 21:48 Pulse Oximetry 96 06/09/19 21:48 <Nanette Peraza MD - Last Filed: 06/10/19 20:05> Initial Vital Signs Initial Vital Signs: Vital Signs Temperature 98.1 F 06/09/19 21:48 Pulse Rate 93 H 06/09/19 21:48 Respiratory Rate 18 06/09/19 21:48 Blood Pressure 112/70 06/09/19 21:48 Pulse Oximetry 96 06/09/19 21:48 Course <Mally Hoffmann DO - Last Filed: 06/10/19 21:16> Orders Ordered: Discontinued Medications Sodium Chloride (Normal Saline 0.9%) 1,000 mls @ 1,000 mls/hr IV BOLUS ONE Stop: 06/09/19 23:15 Last Infusion: 06/09/19 23:21 Dose: 0 mls/hr Documented by: Admin: 06/09/19 22:23 Dose: 1,000 mls/hr Documented by: ABRIL Potassium Chloride 40 meq/ (Sodium Chloride) 520 mls @ 130 mls/hr IV NOW ONE Stop: 06/10/19 02:51 Last Infusion: 06/10/19 04:49 Dose: 0 mls/hr Documented by: ABRIL Cosigned by: ROULA Infusion: 06/10/19 00:00 Dose: 100 mls/hr Documented by: ABRIL Cosigned by: ROULA Admin: 06/09/19 23:10 Dose: 130 mls/hr Documented by: ABRIL Cosigned by: ROULA Sodium Chloride (Normal Saline 0.9%) 1,000 mls @ 150 mls/hr IV CONT JOSE Last Infusion: 06/10/19 10:13 Dose: 0 mls/hr Documented by: Admin: 06/10/19 00:55 Dose: 150 mls/hr Documented by: ABRIL Potassium Chloride 40 meq/ (Sodium Chloride) 520 mls @ 130 mls/hr IV NOW ONE Stop: 06/10/19 08:18 Last Infusion: 06/10/19 10:39 Dose: 0 mls/hr Documented by: LORY Cosigned by: AMI Admin: 06/10/19 04:50 Dose: 100 mls/hr Documented by: ABRIL Cosigned by: ROULA Ondansetron HCl (Zofran) 4 mg IV NOW ONE Stop: 06/09/19 22:11 Last Admin: 06/09/19 22:24 Dose: 4 mg Documented by: ABRIL Vital Signs Vital signs: Vital Signs - 8 hr 06/09/19 21:48 06/09/19 22:30 06/09/19 23:30 Temperature 98.1 F Pulse Rate 93 H 74 85 Respiratory Rate 18 15 14 Blood Pressure 112/70 Blood Pressure [Right Arm] 128/51 L 111/90 Pulse Oximetry 96 98 96 06/10/19 00:30 06/10/19 00:45 06/10/19 01:26 Temperature Pulse Rate 81 81 74 Respiratory Rate 14 13 11 L Blood Pressure Blood Pressure [Right Arm] 100/53 L 113/58 L 112/60 Pulse Oximetry 97 97 97 06/10/19 01:30 06/10/19 02:00 06/10/19 02:30 Temperature Pulse Rate 78 79 80 Respiratory Rate 15 17 14 Blood Pressure Blood Pressure [Right Arm] 131/59 L 98/47 L 97/54 L Pulse Oximetry 99 97 96 06/10/19 05:33 Temperature Pulse Rate 75 Respiratory Rate 14 Blood Pressure Blood Pressure [Right Arm] 110/45 L Pulse Oximetry 94 <Nanette Peraza MD - Last Filed: 06/10/19 20:05> Course Course Narrative: Stu note: Patient was signed out to me by Dr. Hoffmann after an extended stay in the emergency department and multiple unsuccessful attempts to either transfer or admit the patient. The patient had ultimately decided that she preferred symptomatic treatment and treatment of her hypokalemia and just to go home after that. The patient had already received 1 infusion of potassium prior to my arrival on shift, and had demonstrated improved potassium level on her repeat BMP. The patient was just starting a 2nd K rider when I arrived. The patient received this 40 mEq dose of potassium over several hours by the end of which she had ambulated around the emergency department with a walker several times without difficulty. The patient did have another repeat BMP drawn and this time, her potassium was normal. I discussed all these things with the patient and she stated that she would like to go home. She stated she was feeling much better and she had tolerated p.o. in the emergency department. She was steady on her feet with her walker and family is agreeable to taking her home. We have discussed home management of her symptoms, as well as the usual indications for return. Orders Ordered: Discontinued Medications Sodium Chloride (Normal Saline 0.9%) 1,000 mls @ 1,000 mls/hr IV BOLUS ONE Stop: 06/09/19 23:15 Last Infusion: 06/09/19 23:21 Dose: 0 mls/hr Documented by: Admin: 06/09/19 22:23 Dose: 1,000 mls/hr Documented by: ABRIL Potassium Chloride 40 meq/ (Sodium Chloride) 520 mls @ 130 mls/hr IV NOW ONE Stop: 06/10/19 02:51 Last Infusion: 06/10/19 04:49 Dose: 0 mls/hr Documented by: ABRIL Cosigned by: ROULA Infusion: 06/10/19 00:00 Dose: 100 mls/hr Documented by: ABRIL Cosigned by: ROULA Admin: 06/09/19 23:10 Dose: 130 mls/hr Documented by: ABRIL Cosigned by: ROULA Sodium Chloride (Normal Saline 0.9%) 1,000 mls @ 150 mls/hr IV CONT JOSE Last Infusion: 06/10/19 10:13 Dose: 0 mls/hr Documented by: Admin: 06/10/19 00:55 Dose: 150 mls/hr Documented by: ABRIL Potassium Chloride 40 meq/ (Sodium Chloride) 520 mls @ 130 mls/hr IV NOW ONE Stop: 06/10/19 08:18 Last Infusion: 06/10/19 10:39 Dose: 0 mls/hr Documented by: LORY Cosigned by: AMI Admin: 06/10/19 04:50 Dose: 100 mls/hr Documented by: ABRIL Cosigned by: ROULA Ondansetron HCl (Zofran) 4 mg IV NOW ONE Stop: 06/09/19 22:11 Last Admin: 06/09/19 22:24 Dose: 4 mg Documented by: ABRIL Vital Signs Vital signs: Vital Signs - 8 hr 06/09/19 21:48 06/09/19 22:30 06/09/19 23:30 Temperature 98.1 F Pulse Rate 93 H 74 85 Respiratory Rate 18 15 14 Blood Pressure 112/70 Blood Pressure [Right Arm] 128/51 L 111/90 Pulse Oximetry 96 98 96 06/10/19 00:30 06/10/19 00:45 06/10/19 01:26 Temperature Pulse Rate 81 81 74 Respiratory Rate 14 13 11 L Blood Pressure Blood Pressure [Right Arm] 100/53 L 113/58 L 112/60 Pulse Oximetry 97 97 97 06/10/19 01:30 06/10/19 02:00 06/10/19 02:30 Temperature Pulse Rate 78 79 80 Respiratory Rate 15 17 14 Blood Pressure Blood Pressure [Right Arm] 131/59 L 98/47 L 97/54 L Pulse Oximetry 99 97 96 06/10/19 05:33 Temperature Pulse Rate 75 Respiratory Rate 14 Blood Pressure Blood Pressure [Right Arm] 110/45 L Pulse Oximetry 94 MDM - Nausea/Vomiting/Diarrhea <Mally Hoffmann, - Last Filed: 06/10/19 21:16> Lab Data Attestation: I reviewed the patient's lab results. Result diagrams: 06/10/19 03:35 06/10/19 10:55 Labs: Lab Results 06/09/19 06/09/19 06/09/19 Range/Units 22:20 22:20 22:20 WBC 12.9 H (4.5-11.0) X10^3/uL RBC 5.10 (4.0-5.2) X10^6/uL Hgb 14.0 (12.0-16.0) g/dL Hct 41.9 (36-46) % MCV 82.2 (80-100) fL MCH 27.5 (26-34) PG MCHC 33.5 (30-36) % RDW 16.3 H (11.6-14.8) % Plt Count 288 (150-400) X10^3/uL Neut % (Auto) 74.9 (50-75) % Lymph % (Auto) 14.0 L (25-40) % Cotton % (Auto) 10.3 (3-14) % Eos % (Auto) 0.4 L (2-4) % Baso % (Auto) 0.4 (0-2) % Neut # (Auto) 9700 H (3831-4714) /uL Lymph # (Auto) 1800 (4473-7181) /uL Cotton # (Auto) 1300 H (0-900) /uL Eos # (Auto) 100 (0-450) /uL Baso # (Auto) 0 (0-100) /uL PT 12.5 (10.1-12.7) SECONDS INR 1.1 (0.9-1.3) APTT 32 D (26.4-36.2) SECONDS ABG pH (7.35-7.45) ABG pCO2 (35-45) mmHg ABG pO2 (80-100) mmHg ABG HCO3 (22-26) mmol/L ABG Total CO2 (21-31) mmol/L ABG O2 Saturation (95-100) % ABG Base Excess (-2-2) mmol/L FiO2 Sodium 134 L (137-145) mmol/L Potassium 2.2 L* (3.4-5.1) mmol/L Chloride 79 L (98-107) mmol/L Carbon Dioxide 42 H* (22-32) mmol/L BUN 31 H (7-17) mg/dL Creatinine 0.90 (0.52-1.04) mg/dL Estimated GFR > 60.0 (>60) mL/min BUN/Creatinine Ratio 34.4 H (6-22) Glucose 150 H (80-110) mg/dL Calcium 10.0 (8.4-10.2) mg/dL Total Bilirubin 0.6 (0.2-1.3) mg/dL AST 47 H (14-36) IU/L ALT 52 H (<35) IU/L Alkaline Phosphatase 111 (38-126) U/L Total Creatine Kinase (30-135) U/L CK-MB (CK-2) CK-MB (CK-2) Rel Index Troponin I (0.01-0.034) ng/mL B-Natriuretic Peptide (<100) Total Protein 8.3 H (6.3-8.2) g/dL Albumin 4.8 (3.5-5.0) g/dL Globulin 3.5 (1.7-4.1) g/dL Albumin/Globulin Ratio 1.4 (1.0-2.8) Lipase 133 (23-300) U/L Urine Color Urine Appearance Urine pH (4.5-8.0) Ur Specific [place] (1.000-1.035) Urine Protein (Negative) Urine Glucose (UA) (Negative) g/dL Urine Ketones (NEGATIVE) Urine Occult Blood (Negative) Urine Nitrate (Negative) Urine Bilirubin (NEGATIVE) Urine Urobilinogen (0.2) E.U./dL Ur Leukocyte Esterase (NEGATIVE) Urine RBC (0-5/HPF) Urine WBC (0-5/HPF) Urine Bacteria (None) Ur Culture Indicated? Micro UA Comment 06/09/19 06/10/19 06/10/19 Range/Units 23:05 00:38 01:43 WBC (4.5-11.0) X10^3/uL RBC (4.0-5.2) X10^6/uL Hgb (12.0-16.0) g/dL Hct (36-46) % MCV (80-100) fL MCH (26-34) PG MCHC (30-36) % RDW (11.6-14.8) % Plt Count (150-400) X10^3/uL Neut % (Auto) (50-75) % Lymph % (Auto) (25-40) % Cotton % (Auto) (3-14) % Eos % (Auto) (2-4) % Baso % (Auto) (0-2) % Neut # (Auto) (0500-6906) /uL Lymph # (Auto) (9941-4611) /uL Cotton # (Auto) (0-900) /uL Eos # (Auto) (0-450) /uL Baso # (Auto) (0-100) /uL PT (10.1-12.7) SECONDS INR (0.9-1.3) APTT (26.4-36.2) SECONDS ABG pH 7.47 H (7.35-7.45) ABG pCO2 48.2 H (35-45) mmHg ABG pO2 89 (80-100) mmHg ABG HCO3 35 H (22-26) mmol/L ABG Total CO2 37 H (21-31) mmol/L ABG O2 Saturation 97 (95-100) % ABG Base Excess 12.0 H (-2-2) mmol/L FiO2 24 Sodium (137-145) mmol/L Potassium (3.4-5.1) mmol/L Chloride (98-107) mmol/L Carbon Dioxide (22-32) mmol/L BUN (7-17) mg/dL Creatinine (0.52-1.04) mg/dL Estimated GFR (>60) mL/min BUN/Creatinine Ratio (6-22) Glucose (80-110) mg/dL Calcium (8.4-10.2) mg/dL Total Bilirubin (0.2-1.3) mg/dL AST (14-36) IU/L ALT (<35) IU/L Alkaline Phosphatase (38-126) U/L Total Creatine Kinase 54 (30-135) U/L CK-MB (CK-2) TNP CK-MB (CK-2) Rel Index TNP Troponin I < 0.012 (0.01-0.034) ng/mL B-Natriuretic Peptide (<100) Total Protein (6.3-8.2) g/dL Albumin (3.5-5.0) g/dL Globulin (1.7-4.1) g/dL Albumin/Globulin Ratio (1.0-2.8) Lipase (23-300) U/L Urine Color Yellow Urine Appearance Clear Urine pH 8.5 H (4.5-8.0) Ur Specific [place] <=1.005 (1.000-1.035) Urine Protein Trace H (Negative) Urine Glucose (UA) Negative (Negative) g/dL Urine Ketones 1+ H (NEGATIVE) Urine Occult Blood Negative (Negative) Urine Nitrate Negative (Negative) Urine Bilirubin Negative (NEGATIVE) Urine Urobilinogen 0.2 (0.2) E.U./dL Ur Leukocyte Esterase Negative (NEGATIVE) Urine RBC None seen (0-5/HPF) Urine WBC None seen (0-5/HPF) Urine Bacteria None seen (None) Ur Culture Indicated? Cult not indicated Micro UA Comment Microscopic normal 06/10/19 06/10/19 06/10/19 Range/Units 03:35 03:35 10:55 WBC 11.6 H (4.5-11.0) X10^3/uL RBC 4.22 (4.0-5.2) X10^6/uL Hgb 11.6 L (12.0-16.0) g/dL Hct 34.9 L (36-46) % MCV 82.7 (80-100) fL MCH 27.4 (26-34) PG MCHC 33.1 (30-36) % RDW 16.3 H (11.6-14.8) % Plt Count 252 (150-400) X10^3/uL Neut % (Auto) 71.0 (50-75) % Lymph % (Auto) 18.2 L (25-40) % Cotton % (Auto) 10.0 (3-14) % Eos % (Auto) 0.4 L (2-4) % Baso % (Auto) 0.4 (0-2) % Neut # (Auto) 8200 H (3282-3190) /uL Lymph # (Auto) 2100 (0687-2766) /uL Cotton # (Auto) 1200 H (0-900) /uL Eos # (Auto) 0 (0-450) /uL Baso # (Auto) 0 (0-100) /uL PT (10.1-12.7) SECONDS INR (0.9-1.3) APTT (26.4-36.2) SECONDS ABG pH (7.35-7.45) ABG pCO2 (35-45) mmHg ABG pO2 (80-100) mmHg ABG HCO3 (22-26) mmol/L ABG Total CO2 (21-31) mmol/L ABG O2 Saturation (95-100) % ABG Base Excess (-2-2) mmol/L FiO2 Sodium 134 L (137-145) mmol/L Potassium 2.8 L (3.4-5.1) mmol/L Chloride 91 L (98-107) mmol/L Carbon Dioxide 38 H (22-32) mmol/L BUN 24 H (7-17) mg/dL Creatinine 0.70 (0.52-1.04) mg/dL Estimated GFR > 60.0 (>60) mL/min BUN/Creatinine Ratio 34.3 H (6-22) Glucose 108 (80-110) mg/dL Calcium 8.6 (8.4-10.2) mg/dL Total Bilirubin (0.2-1.3) mg/dL AST (14-36) IU/L ALT (<35) IU/L Alkaline Phosphatase (38-126) U/L Total Creatine Kinase (30-135) U/L CK-MB (CK-2) CK-MB (CK-2) Rel Index Troponin I (0.01-0.034) ng/mL B-Natriuretic Peptide < 100 (<100) Total Protein (6.3-8.2) g/dL Albumin (3.5-5.0) g/dL Globulin (1.7-4.1) g/dL Albumin/Globulin Ratio (1.0-2.8) Lipase (23-300) U/L Urine Color Urine Appearance Urine pH (4.5-8.0) Ur Specific [place] (1.000-1.035) Urine Protein (Negative) Urine Glucose (UA) (Negative) g/dL Urine Ketones (NEGATIVE) Urine Occult Blood (Negative) Urine Nitrate (Negative) Urine Bilirubin (NEGATIVE) Urine Urobilinogen (0.2) E.U./dL Ur Leukocyte Esterase (NEGATIVE) Urine RBC (0-5/HPF) Urine WBC (0-5/HPF) Urine Bacteria (None) Ur Culture Indicated? Micro UA Comment 06/10/19 Range/Units 10:55 WBC (4.5-11.0) X10^3/uL RBC (4.0-5.2) X10^6/uL Hgb (12.0-16.0) g/dL Hct (36-46) % MCV (80-100) fL MCH (26-34) PG MCHC (30-36) % RDW (11.6-14.8) % Plt Count (150-400) X10^3/uL Neut % (Auto) (50-75) % Lymph % (Auto) (25-40) % Cotton % (Auto) (3-14) % Eos % (Auto) (2-4) % Baso % (Auto) (0-2) % Neut # (Auto) (1784-0900) /uL Lymph # (Auto) (0135-7213) /uL Cotton # (Auto) (0-900) /uL Eos # (Auto) (0-450) /uL Baso # (Auto) (0-100) /uL PT (10.1-12.7) SECONDS INR (0.9-1.3) APTT (26.4-36.2) SECONDS ABG pH (7.35-7.45) ABG pCO2 (35-45) mmHg ABG pO2 (80-100) mmHg ABG HCO3 (22-26) mmol/L ABG Total CO2 (21-31) mmol/L ABG O2 Saturation (95-100) % ABG Base Excess (-2-2) mmol/L FiO2 Sodium 139 (137-145) mmol/L Potassium 3.9 (3.4-5.1) mmol/L Chloride 102 (98-107) mmol/L Carbon Dioxide 28 (22-32) mmol/L BUN 22 H (7-17) mg/dL Creatinine 0.70 (0.52-1.04) mg/dL Estimated GFR > 60.0 (>60) mL/min BUN/Creatinine Ratio 31.4 H (6-22) Glucose 101 (80-110) mg/dL Calcium 8.9 (8.4-10.2) mg/dL Total Bilirubin (0.2-1.3) mg/dL AST (14-36) IU/L ALT (<35) IU/L Alkaline Phosphatase (38-126) U/L Total Creatine Kinase (30-135) U/L CK-MB (CK-2) CK-MB (CK-2) Rel Index Troponin I (0.01-0.034) ng/mL B-Natriuretic Peptide (<100) Total Protein (6.3-8.2) g/dL Albumin (3.5-5.0) g/dL Globulin (1.7-4.1) g/dL Albumin/Globulin Ratio (1.0-2.8) Lipase (23-300) U/L Urine Color Urine Appearance Urine pH (4.5-8.0) Ur Specific [place] (1.000-1.035) Urine Protein (Negative) Urine Glucose (UA) (Negative) g/dL Urine Ketones (NEGATIVE) Urine Occult Blood (Negative) Urine Nitrate (Negative) Urine Bilirubin (NEGATIVE) Urine Urobilinogen (0.2) E.U./dL Ur Leukocyte Esterase (NEGATIVE) Urine RBC (0-5/HPF) Urine WBC (0-5/HPF) Urine Bacteria (None) Ur Culture Indicated? Micro UA Comment Point of Care Testing Glucose POC [address] scan - abdomen: Radiologist's impression: Dependent subsegmental atelectasis. Fat of the infiltration. Marked colonic stool loading which may manifest clinically is constipation. Moderate generalized small bowel enteritis. No evidence suggesting enteritis or colitis. Gastric postoperative changes. Marked osteoporosis. Appendix is not visualized on exam and does not exclude presence of acute appendicitis however lack of idalmis cecal inflammation makes appendicitis extremely unlikely. Chest x-ray: My impression: nap ECG Data Attestation: I personally reviewed and interpreted this ECG as follows: Prior ECG tracings: available for review Interpretation: EKG 1. Shows a sinus rhythm rate 81 P are 196 QRS 97 QTC of 429. On Q-wave in 3. No elevation. Nonspecific change patient has prior from 12/09/2016 parents similar. Sinus rhythm 1st degree AV block, rate of 76. Two hundred thirty-four QRS of 94 and QTC of 416. Nonspecific change. There is some artifact making EKG little difficult to evaluate. MDM Narrative Medical decision making narrative: Patient comes in not feeling well. she does appear unwell. Labs show a slight leukocytosis, she has hypokalemia with hypoc hloremia and a elevated CO2 and appears to have a primary metabolic acidosis with respiratory compensation on her ABG. This seems fitting with her history of chronic vomiting. Patient states she has not had in several weeks CT does show some possible enteritis and stool in the colon but no signs of obstruction. Troponin was included based on patient's age. EKG did not know show new findings. Chest x-ray did not show any clear changes. Patient has had a complicated gastric history and after speaking with the Gastroenterology team she has been treated for partial gastric outlet obstruction. It appears that her last EGD was in 2017. I spoke with Dr. Franklin who is covering for patient's senior risk manager Dr. Delacruz. He states patient needs scope to transfer to the hospitalist service and they will see the patient. Patient does not wish to transfer and is reluctant for EGD secondary to prior complications. Patient did confirm that she is DNR/DNI with no heroic interventions, daughter at bedside and also confirmed. Case discussed with Hospitalist BENNY Araya, she asks for general surgery input. Spoke with Dr. Beaulieu who feels patient would benefit from seeing her own GI, especially if she is reluctant for our surgeon's to perform EGD. Patient is reluctant but willing to go. No beds at [facility] or [facility]. Patient is not willing to transfer to other facility. There has been discussion of and [facility] for surgical intervention. Patient is clear that she does not want surgery and that she would prefer to . Spoke with BENNY Araya and she asks for repeat labs, will consult on patient. Updated patient and daughter on current situation. BENNY Araya saw patient in ED. She is reluctant to observe as we do not have a has not plan for scope. We did recontact telling him they state they do not believe they will have any fell beds tomorrow. We discussed plan for patient care, will continue to the place potassium. Patient is motivated and willing to go home if she can feel better and we discussed repeating potassium, rechecking lytes and if patient is ambulatory and appears to be safe and appropriate potentially discharged from the ED. Patient was signed out to Dr. Perzaa while awaiting 2nd dose of potassium and plan for repeat lytes afterwards. They also repeat an H&H as patient did have a drop although this may be secondary to dilution from fluids as she has received almost 2 L of IV fluids this evening. He we discussed patient's wishes, her disinterest in transfer to anywhere that is not her current GI. And patient's goals of care. <Nanette Peraza MD - Last Filed: 06/10/19 20:05> Medical Records Attestation: I reviewed the patient's medical records. Lab Data Attestation: I reviewed the patient's lab results. Labs: Lab Results 06/09/19 06/09/19 06/09/19 Range/Units 22:20 22:20 22:20 WBC 12.9 H (4.5-11.0) X10^3/uL RBC 5.10 (4.0-5.2) X10^6/uL Hgb 14.0 (12.0-16.0) g/dL Hct 41.9 (36-46) % MCV 82.2 (80-100) fL MCH 27.5 (26-34) PG MCHC 33.5 (30-36) % RDW 16.3 H (11.6-14.8) % Plt Count 288 (150-400) X10^3/uL Neut % (Auto) 74.9 (50-75) % Lymph % (Auto) 14.0 L (25-40) % Cotton % (Auto) 10.3 (3-14) % Eos % (Auto) 0.4 L (2-4) % Baso % (Auto) 0.4 (0-2) % Neut # (Auto) 9700 H (0896-5755) /uL Lymph # (Auto) 1800 (4091-7218) /uL Cotton # (Auto) 1300 H (0-900) /uL Eos # (Auto) 100 (0-450) /uL Baso # (Auto) 0 (0-100) /uL PT 12.5 (10.1-12.7) SECONDS INR 1.1 (0.9-1.3) APTT 32 D (26.4-36.2) SECONDS ABG pH (7.35-7.45) ABG pCO2 (35-45) mmHg ABG pO2 (80-100) mmHg ABG HCO3 (22-26) mmol/L ABG Total CO2 (21-31) mmol/L ABG O2 Saturation (95-100) % ABG Base Excess (-2-2) mmol/L FiO2 Sodium 134 L (137-145) mmol/L Potassium 2.2 L* (3.4-5.1) mmol/L Chloride 79 L (98-107) mmol/L Carbon Dioxide 42 H* (22-32) mmol/L BUN 31 H (7-17) mg/dL Creatinine 0.90 (0.52-1.04) mg/dL Estimated GFR > 60.0 (>60) mL/min BUN/Creatinine Ratio 34.4 H (6-22) Glucose 150 H (80-110) mg/dL Calcium 10.0 (8.4-10.2) mg/dL Total Bilirubin 0.6 (0.2-1.3) mg/dL AST 47 H (14-36) IU/L ALT 52 H (<35) IU/L Alkaline Phosphatase 111 (38-126) U/L Total Creatine Kinase (30-135) U/L CK-MB (CK-2) CK-MB (CK-2) Rel Index Troponin I (0.01-0.034) ng/mL B-Natriuretic Peptide (<100) Total Protein 8.3 H (6.3-8.2) g/dL Albumin 4.8 (3.5-5.0) g/dL Globulin 3.5 (1.7-4.1) g/dL Albumin/Globulin Ratio 1.4 (1.0-2.8) Lipase 133 (23-300) U/L Urine Color Urine Appearance Urine pH (4.5-8.0) Ur Specific [place] (1.000-1.035) Urine Protein (Negative) Urine Glucose (UA) (Negative) g/dL Urine Ketones (NEGATIVE) Urine Occult Blood (Negative) Urine Nitrate (Negative) Urine Bilirubin (NEGATIVE) Urine Urobilinogen (0.2) E.U./dL Ur Leukocyte Esterase (NEGATIVE) Urine RBC (0-5/HPF) Urine WBC (0-5/HPF) Urine Bacteria (None) Ur Culture Indicated? Micro UA Comment 06/09/19 06/10/19 06/10/19 Range/Units 23:05 00:38 01:43 WBC (4.5-11.0) X10^3/uL RBC (4.0-5.2) X10^6/uL Hgb (12.0-16.0) g/dL Hct (36-46) % MCV (80-100) fL MCH (26-34) PG MCHC (30-36) % RDW (11.6-14.8) % Plt Count (150-400) X10^3/uL Neut % (Auto) (50-75) % Lymph % (Auto) (25-40) % Cotton % (Auto) (3-14) % Eos % (Auto) (2-4) % Baso % (Auto) (0-2) % Neut # (Auto) (5094-6275) /uL Lymph # (Auto) (1232-2006) /uL Cotton # (Auto) (0-900) /uL Eos # (Auto) (0-450) /uL Baso # (Auto) (0-100) /uL PT (10.1-12.7) SECONDS INR (0.9-1.3) APTT (26.4-36.2) SECONDS ABG pH 7.47 H (7.35-7.45) ABG pCO2 48.2 H (35-45) mmHg ABG pO2 89 (80-100) mmHg ABG HCO3 35 H (22-26) mmol/L ABG Total CO2 37 H (21-31) mmol/L ABG O2 Saturation 97 (95-100) % ABG Base Excess 12.0 H (-2-2) mmol/L FiO2 24 Sodium (137-145) mmol/L Potassium (3.4-5.1) mmol/L Chloride (98-107) mmol/L Carbon Dioxide (22-32) mmol/L BUN (7-17) mg/dL Creatinine (0.52-1.04) mg/dL Estimated GFR (>60) mL/min BUN/Creatinine Ratio (6-22) Glucose (80-110) mg/dL Calcium (8.4-10.2) mg/dL Total Bilirubin (0.2-1.3) mg/dL AST (14-36) IU/L ALT (<35) IU/L Alkaline Phosphatase (38-126) U/L Total Creatine Kinase 54 (30-135) U/L CK-MB (CK-2) TNP CK-MB (CK-2) Rel Index TNP Troponin I < 0.012 (0.01-0.034) ng/mL B-Natriuretic Peptide (<100) Total Protein (6.3-8.2) g/dL Albumin (3.5-5.0) g/dL Globulin (1.7-4.1) g/dL Albumin/Globulin Ratio (1.0-2.8) Lipase (23-300) U/L Urine Color Yellow Urine Appearance Clear Urine pH 8.5 H (4.5-8.0) Ur Specific [place] <=1.005 (1.000-1.035) Urine Protein Trace H (Negative) Urine Glucose (UA) Negative (Negative) g/dL Urine Ketones 1+ H (NEGATIVE) Urine Occult Blood Negative (Negative) Urine Nitrate Negative (Negative) Urine Bilirubin Negative (NEGATIVE) Urine Urobilinogen 0.2 (0.2) E.U./dL Ur Leukocyte Esterase Negative (NEGATIVE) Urine RBC None seen (0-5/HPF) Urine WBC None seen (0-5/HPF) Urine Bacteria None seen (None) Ur Culture Indicated? Cult not indicated Micro UA Comment Microscopic normal 06/10/19 06/10/19 06/10/19 Range/Units 03:35 03:35 10:55 WBC 11.6 H (4.5-11.0) X10^3/uL RBC 4.22 (4.0-5.2) X10^6/uL Hgb 11.6 L (12.0-16.0) g/dL Hct 34.9 L (36-46) % MCV 82.7 (80-100) fL MCH 27.4 (26-34) PG MCHC 33.1 (30-36) % RDW 16.3 H (11.6-14.8) % Plt Count 252 (150-400) X10^3/uL Neut % (Auto) 71.0 (50-75) % Lymph % (Auto) 18.2 L (25-40) % Cotton % (Auto) 10.0 (3-14) % Eos % (Auto) 0.4 L (2-4) % Baso % (Auto) 0.4 (0-2) % Neut # (Auto) 8200 H (9119-9396) /uL Lymph # (Auto) 2100 (7043-4989) /uL Cotton # (Auto) 1200 H (0-900) /uL Eos # (Auto) 0 (0-450) /uL Baso # (Auto) 0 (0-100) /uL PT (10.1-12.7) SECONDS INR (0.9-1.3) APTT (26.4-36.2) SECONDS ABG pH (7.35-7.45) ABG pCO2 (35-45) mmHg ABG pO2 (80-100) mmHg ABG HCO3 (22-26) mmol/L ABG Total CO2 (21-31) mmol/L ABG O2 Saturation (95-100) % ABG Base Excess (-2-2) mmol/L FiO2 Sodium 134 L (137-145) mmol/L Potassium 2.8 L (3.4-5.1) mmol/L Chloride 91 L (98-107) mmol/L Carbon Dioxide 38 H (22-32) mmol/L BUN 24 H (7-17) mg/dL Creatinine 0.70 (0.52-1.04) mg/dL Estimated GFR > 60.0 (>60) mL/min BUN/Creatinine Ratio 34.3 H (6-22) Glucose 108 (80-110) mg/dL Calcium 8.6 (8.4-10.2) mg/dL Total Bilirubin (0.2-1.3) mg/dL AST (14-36) IU/L ALT (<35) IU/L Alkaline Phosphatase (38-126) U/L Total Creatine Kinase (30-135) U/L CK-MB (CK-2) CK-MB (CK-2) Rel Index Troponin I (0.01-0.034) ng/mL B-Natriuretic Peptide < 100 (<100) Total Protein (6.3-8.2) g/dL Albumin (3.5-5.0) g/dL Globulin (1.7-4.1) g/dL Albumin/Globulin Ratio (1.0-2.8) Lipase (23-300) U/L Urine Color Urine Appearance Urine pH (4.5-8.0) Ur Specific [place] (1.000-1.035) Urine Protein (Negative) Urine Glucose (UA) (Negative) g/dL Urine Ketones (NEGATIVE) Urine Occult Blood (Negative) Urine Nitrate (Negative) Urine Bilirubin (NEGATIVE) Urine Urobilinogen (0.2) E.U./dL Ur Leukocyte Esterase (NEGATIVE) Urine RBC (0-5/HPF) Urine WBC (0-5/HPF) Urine Bacteria (None) Ur Culture Indicated? Micro UA Comment 06/10/19 Range/Units 10:55 WBC (4.5-11.0) X10^3/uL RBC (4.0-5.2) X10^6/uL Hgb (12.0-16.0) g/dL Hct (36-46) % MCV (80-100) fL MCH (26-34) PG MCHC (30-36) % RDW (11.6-14.8) % Plt Count (150-400) X10^3/uL Neut % (Auto) (50-75) % Lymph % (Auto) (25-40) % Cotton % (Auto) (3-14) % Eos % (Auto) (2-4) % Baso % (Auto) (0-2) % Neut # (Auto) (9597-0815) /uL Lymph # (Auto) (4491-4428) /uL [place] # (Auto) (0-900) /uL Eos # (Auto) (0-450) /uL Baso # (Auto) (0-100) /uL PT (10.1-12.7) SECONDS INR (0.9-1.3) APTT (26.4-36.2) SECONDS ABG pH (7.35-7.45) ABG pCO2 (35-45) mmHg ABG pO2 (80-100) mmHg ABG HCO3 (22-26) mmol/L ABG Total CO2 (21-31) mmol/L ABG O2 Saturation (95-100) % ABG Base Excess (-2-2) mmol/L FiO2 Sodium 139 (137-145) mmol/L Potassium 3.9 (3.4-5.1) mmol/L Chloride 102 (98-107) mmol/L Carbon Dioxide 28 (22-32) mmol/L BUN 22 H (7-17) mg/dL Creatinine 0.70 (0.52-1.04) mg/dL Estimated GFR > 60.0 (>60) mL/min BUN/Creatinine Ratio 31.4 H (6-22) Glucose 101 (80-110) mg/dL Calcium 8.9 (8.4-10.2) mg/dL Total Bilirubin (0.2-1.3) mg/dL AST (14-36) IU/L ALT (<35) IU/L Alkaline Phosphatase (38-126) U/L Total Creatine Kinase (30-135) U/L CK-MB (CK-2) CK-MB (CK-2) Rel Index Troponin I (0.01-0.034) ng/mL B-Natriuretic Peptide (<100) Total Protein (6.3-8.2) g/dL Albumin (3.5-5.0) g/dL Globulin (1.7-4.1) g/dL Albumin/Globulin Ratio (1.0-2.8) Lipase (23-300) U/L Urine Color Urine Appearance Urine pH (4.5-8.0) Ur Specific [place] (1.000-1.035) Urine Protein (Negative) Urine Glucose (UA) (Negative) g/dL Urine Ketones (NEGATIVE) Urine Occult Blood (Negative) Urine Nitrate (Negative) Urine Bilirubin (NEGATIVE) Urine Urobilinogen (0.2) E.U./dL Ur Leukocyte Esterase (NEGATIVE) Urine RBC (0-5/HPF) Urine WBC (0-5/HPF) Urine Bacteria (None) Ur Culture Indicated? Micro UA Comment Point of Care Testing Glucose POC 141 Discharge Plan Departure Patient Disposition: Home Clinical Impression: Hypokalemia Vomiting Qualifiers: Vomiting type: unspecified Vomiting Intractability: non-intractable Nausea presence: with nausea Qualified Code(s): R11.2 - Nausea with vomiting, unspecified Discharge Date/Time: 06/10/19 13:02 Activity Restrictions/Additional Instructions: Your potassium is now normal. You have also done a very good job walking around the emergency department. Please see your primary care physician and your GI specialist to follow up on your symptoms from today. Prescriptions: No Action cholecalciferol (vitamin D3) [Vitamin D3] 2,000 UNIT tablet 1 tab PO DAILY Qty: 0 RF: 0 omeprazole 20 mg capsule,delayed release(DR/EC) 20 mg PO DAILY Qty: 90 RF: 0 multivitamin tablet 1 tab PO DAILY RF: 0 melatonin 5 mg tablet 5 mg PO BEDTIME PRN (Reason: Sleep) RF: 0 cyanocobalamin (vitamin B-12) 2,500 mcg tablet 2,500 mcg PO DAILY RF: 0 CBD Oil See Rx Instructions .ROUTE .COMPLEX RF: 0 Vitamin E 1 cap PO DAILY RF: 0 loratadine [Claritin] 10 mg tablet 10 mg PO DAILY PRN (Reason: Allergy Symptoms) RF: 0 docusate sodium [Stool Softener] 100 mg tablet 100 mg PO BID RF: 0 Magnesium Citrate See Rx Instructions .ROUTE .COMPLEX RF: 0 metoclopramide HCl [Reglan] 10 mg tablet 10 mg PO QAC RF: 0 Probiotic 3 billion cell capsule 3,000 mmu cells PO DAILY RF: 0 Excedrin Extra Strength 250-250-65 mg Tablet 1 dose PO PRN PRN (Reason: pain) RF: 0 lidocaine HCl-menthol 4-1 % Adhesive Patch,Medicated 1 patch topical DAILY RF: 0 Referrals: Kassidy Allison, [Primary Care Provider] -
[2019-06-09 22:49] LABS: Carbon Dioxide 42 mmol/L (22-32)
[2019-06-09] MEDS: POTASSIUM CHLORIDE 40 MEQ in SODIUM CHLORIDE 0.9% 500 ML 130 ML IV (23:10)
--- NOTE | 2019-06-09 23:14 | DI.CT.S_ITS ---
PROCEDURE: CT ABDOMEN PELVIS W CON INDICATIONS: vomiting, no BM for several weeks per patient, low K TECHNIQUE: After the administration of intravenous contrast, 5 mm thick sections acquired from the diaphragm to the symphysis. 5 mm coronal and sagittal reformats were acquired. For radiation dose reduction, the following was used: automated exposure control, adjustment of mA and/or kV according to patient size. COMPARISON: None. FINDINGS: Image quality: Excellent. ABDOMEN: Lung bases: Lung bases are clear. Heart size is normal. Solid organs: Liver is normal in size and enhancement. Gallbladder surgically absent. Biliary system is non dilated. Pancreas enhances normally. Spleen is normal in size and enhancement. No adrenal nodules. Kidneys demonstrate normal size and enhancement, without hydronephrosis. Peritoneum and bowel: Numerous surgical clips noted adjacent to the stomach. Stomach is distended and fluid-filled. Mild circumferential wall thickening involving multiple proximal loops of small bowel. No free fluid or air. The appendix is not visualized, however no free fluid or inflammatory changes are noted adjacent to the cecum. Nodes and vessels: No retroperitoneal or mesenteric adenopathy by size criteria. Aorta and inferior vena cava are normal in size. Scattered atherosclerotic calcifications involving the abdominal and pelvic vasculature. Miscellaneous: No ventral hernias. PELVIS: Genitourinary: Bladder wall thickness is normal. Miscellaneous: No inguinal hernias or adenopathy. Bones: No suspicious bony lesions. No vertebral body compression fractures. Spine degenerative disc disease and facet arthropathy. IMPRESSION: 1. Status post partial gastrectomy. 2. Mildly distended, fluid-filled stomach. Early or partial gastric obstruction cannot be excluded. Please correlate clinically. 3. Mild circumferential wall thickening involving multiple proximal loops of small bowel without dilatation compatible with nonspecific enteritis. 3. Moderate colonic fecal loading. Dictated by: Katie Dodson MD, PhD on 06/10/2019 at 7:38 Approved by: Katie Dodson MD, PhD on 06/10/2019 at 7:44
[2019-06-09 23:22] LABS: Creatine Kinase 54 U/L (30-135)
[2019-06-09 23:30] VITALS: BP 111/90; PULSE 85; RESP 14; O2SAT 96
[2019-06-09 23:35] LABS: Troponin I < 0.012 ng/mL (0.01-0.034)
[2019-06-10] VITALS (11 sets, daily range): BP systolic 94–131; BP diastolic 45–60; PULSE 73–81; RESP 11–17; O2SAT 92–99
--- NOTE | 2019-06-10 00:48 | DI.RAD.S_ITS ---
PROCEDURE: XR CHEST 1V INDICATIONS: recent vomiting, low O2 TECHNIQUE: One view of the chest was acquired. COMPARISON: [facility], CR, XR CHEST 1V, 02/22/2019, 6:38. FINDINGS: Surgical changes and devices: None. Lungs and pleura: Lungs are clear. No pleural effusions or pneumothorax. Mediastinum: Mediastinal contours appear normal. Heart size is normal. Bones and chest wall: No suspicious bony lesions. Overlying soft tissues appear unremarkable. IMPRESSION: 1. No acute cardiopulmonary disease. Dictated by: Bret Montano M.D. on 06/10/2019 at 6:52 Approved by: Bret Montano M.D. on 06/10/2019 at 6:53
[2019-06-10 00:51] LABS: Fractionated Inspired Oxygen 24; HCO3 ABG 35 mmol/L (22-26); Oxygen Saturation ABG 97 % (95-100); PCO2 ABG 48.2 mmHg (35-45); PO2 ABG 89 mmHg (80-100); TCO2 ABG 37 mmol/L (21-31); pH ABG 7.47 (7.35-7.45)
[2019-06-10] MEDS: SODIUM CHLORIDE 0.9% 1,000 ML 150 ML IV (00:55)
[2019-06-10 01:47] LABS: Bacteria Urine None Seen; RBC Urine None Seen (0-5/HPF); WBC Urine None Seen (0-5/HPF)
[2019-06-10 01:48] LABS: Appearance Urine UA CLEAR; Bilirubin Urine UA NEGATIVE (NEGATIVE); Color Urine UA YELLOW; Glucose Urine UA NEGATIVE (Negative); Ketones Urine UA 1+ (NEGATIVE); Leukocyte Esterase Urine UA NEGATIVE (NEGATIVE); Nitrite Urine UA NEGATIVE (Negative); Occult Blood Urine UA NEGATIVE (Negative); Protein Urine UA TRACE (Negative); Specific Gravity Urine UA <=1.005 (1.000-1.035); Urobilinogen Urine UA 0.2 E.U./dL (0.2)
[2019-06-10 01:51] LABS: pH Urine UA 8.5 (4.5-8.0)
[2019-06-10 02:01] LABS: Culture Indicated Urine Cult Not Indicated; Urine Comments Microscopic Normal
[2019-06-10 03:49] LABS: Add Manual Diff / Slide Review NO; Basophils Absolute Auto 0 /uL (0-100); Basophils Percent Auto 0.4 % (0-2); Eosinophils Absolute Auto 0 /uL (0-450); Eosinophils Percent Auto 0.4 % (2-4); Hematocrit 34.9 % (36-46); Hemoglobin 11.6 g/dL (12.0-16.0); Lymphocytes Absolute Auto 2100 /uL (1100-4500); Lymphocytes Percent Auto 18.2 % (25-40); Mean Corpuscular HGB Conc 33.1 % (30-36); Mean Corpuscular Hemoglobin 27.4 PG (26-34); Mean Corpuscular Volume 82.7 fL (80-100); Monocytes Absolute Auto 1200 /uL (0-900); Neutrophils Absolute Auto 8200 /uL (1500-7000); Platelet Count 252 X10^3/uL (150-400); Red Blood Cell Count 4.22 X10^6/uL (4.0-5.2); Red Cell Distribution Width 16.3 % (11.6-14.8); White Blood Cell Count 11.6 X10^3/uL (4.5-11.0)
[2019-06-10 03:53] LABS: BUN Creatinine Ratio 34.3 (6-22); Blood Urea Nitrogen 24 mg/dL (7-17); Calcium 8.6 mg/dL (8.4-10.2); Carbon Dioxide 38 mmol/L (22-32); Chloride 91 mmol/L (98-107); Estimated Glomerular Filt Rate > 60.0 mL/min (>60); Glucose 108 mg/dL (80-110); HEMOLYSIS < 15 (0-50); Potassium 2.8 mmol/L (3.4-5.1); Sodium 134 mmol/L (137-145)
[2019-06-10] MEDS: POTASSIUM CHLORIDE 40 MEQ in SODIUM CHLORIDE 0.9% 500 ML 100 ML IV (04:50)
--- NOTE | 2019-06-10 04:52 | P.CONS_ITS ---
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 Patient with underlying duodenal stenosis with multiple strictures requiring over 40 endoscopies and dilatiations. Her most recent endoscopies have resulted with bleeding associated complications. Patient herself states she is a high risk. Given fragility of patient's condition patient does not wish to entrust her care or be scoped by another provider. She verbalizes awareness of needing an endoscopy, which she has been trying to avoid. Patient follows with Dr. Delacruz. Patient states that she has been vomiting for at least 3 weeks. She is unable to tolerate food. She has not eaten in weeks. She has not had a bowel movement in weeks. Reports 7 episodes of vomiting of reported clear liquid on day if presentation to the ED. Reports associated weight loss, but unable to quantify. Patient states that she has progressively become weak and somnolent. Reports dizziness and lightheadedness. Denies falls and syncopal events. Patient is known to have underlying anemia, which in the past has been attributed to multiple causes such as malabsorption, chronic blood loss, and iron deficiency. She is known to receive periodic iron infusions. Her last infusion was in May of 2019. Patient tells me her next infusion is scheduled for August of 2019. On presentation to the ED patient has slight leukocytosis w/o associated left shift. Labs remarkable for volume depletion and acute electrolyte abnormalities, NA 134 Cl 79, which have significantly improved and normalized with IV hydration. She also had a mild ALEJANDRO, which resolved. ABG revealed metabolic acidosis with adequate respiratory compensation. Patient was hypokalemic with K of 2.2 and 2.8 after 40 mEq use of IV KCl. At present time she is being started on her 2nd 40 mEq KCL. Case was discussed with the ED provider Dr. Hoffmann. Request was made to discuss patient's case with general surgery. Per feedback from general surgery, Dr. Beaulieu, it was felt that patient would benefit from seeing her own GI provider. Patient has verbalized on number of occasions to me that she extremely high risk for endoscopy and will not allow or wish to see another provider who has not worked with her before and or is unfamiliar with her case. Typically she follows with Dr. Delacruz who I'm being told services [facility] or [facility]. although reluctant, she notes a desire to be scoped one more time. She is reluctant to transfer due to cost associated with the ambulance ride , but will do it if it is absolutely necessary. At present time patient's goal is to be hydrated, electrolytes repelted and released home. She verbalized minimal desire for inpatient hospital admission. Patient lives at home with her daughter. Patient appears to be realistic about her situation. She notes her code status as DNR. [facility] Medical History Allergic rhinitis (Chronic 1959) Anemia (Resolved 2013) Cataracts, bilateral (Acute 2010) Chickenpox (Resolved) Chronic back pain (Chronic) Cutaneous lupus erythematosus (Acute) Duodenal stenosis (Acute) Fibroids (Resolved) Fibromyalgia (Chronic ~1989) Foot pain (Resolved 2000) Fractures (Resolved 1999) Generalized headaches (Chronic) Heavy menstrual period (Resolved) IBS (irritable bowel syndrome) (Acute) Iron deficiency anemia (Acute) Legg-Perthes disease (Acute) Lupus (Chronic 1989) Migraines (Chronic) Mumps (Resolved) Osteoarthritis (Acute) Ovarian cyst (Resolved) Painful menstrual periods (Resolved) Peptic ulcer disease (Acute 1979) Perforated ulcer (Acute) Rheumatic fever (Resolved 1966) Shoulder pain (Chronic) Tinnitus of both ears (Chronic 2005) Vertigo (Chronic 2010) Surgical History History of surgery on arm (Resolved) Hx of abdominal surgery (Resolved ~1985) Hx of appendectomy (Resolved 1958) S/P BSO (bilateral salpingo-oophorectomy) (Acute) Status post cholecystectomy Status post hysterectomy (1988) Family History Father Cancer Mother Diabetes mellitus Osteoarthritis Grandfather No problems noted. Grandmother No problems noted. Social History household members: children Smoking Status: Former smoker Tobacco: How many years used: 30 second hand exposure: No alcohol intake: never substance use type: other Meds Home Medications and Allergies Home Medications Medication Instructions Recorded Confirmed Type cholecalciferol (vitamin D3) 1 tab PO DAILY #0 12/16/16 05/10/19 History [Vitamin D3] melatonin 5 mg tablet 5 mg PO BEDTIME PRN 11/08/18 05/10/19 History multivitamin 1 tab PO DAILY 11/08/18 05/10/19 History CBD Oil See Rx Instructions .ROUTE .COMPLEX 02/06/19 05/10/19 History Vitamin E 1 cap PO DAILY 02/06/19 05/10/19 History cyanocobalamin (vitamin B-12) 2,500 mcg PO DAILY 02/06/19 05/10/19 History 2,500 mcg tablet loratadine 10 mg tablet 10 mg PO DAILY PRN 02/06/19 05/10/19 History Excedrin Extra Strength 1 dose PO PRN PRN 02/20/19 05/10/19 History lidocaine HCl-menthol 1 patch TOPICAL DAILY 02/20/19 05/10/19 History Magnesium Citrate See Rx Instructions .ROUTE .COMPLEX 02/28/19 05/10/19 History docusate sodium 100 mg tablet 100 mg PO BID 02/28/19 05/10/19 History omeprazole 20 mg capsule,delayed 20 mg PO DAILY #90 cap 03/22/19 05/10/19 Rx release lactobacillus combination no.4 3 3,000 mmu cells PO DAILY 03/28/19 05/10/19 History billion cell capsule metoclopramide HCl 10 mg tablet 10 mg PO QAC 03/28/19 05/10/19 History Allergies Allergy/AdvReac Type Severity Reaction Status Date / Time aspirin [ASPIRIN] AdvReac Severe bleeding Verified 06/09/19 21:54 stomach codeine [CODEINE] AdvReac Severe Hallucinati Verified 06/09/19 21:54 ons fluconazole [From Diflucan] AdvReac Severe I threw Verified 06/09/19 21:54 up all night long. morphine [MORPHINE] AdvReac Severe Hallucinati Verified 06/09/19 21:54 ons oxycodone [OXYCODONE] AdvReac Severe Hallucinations Verified 06/09/19 21:54 and itchy skin prednisone [PREDNISONE] AdvReac Severe Feels Verified 06/09/19 21:54 high and gets very angry zolpidem [ZOLPIDEM] AdvReac Severe turned me Verified 06/09/19 21:54 into a night walker and felt really high. Review of Systems Review of Systems ROS Unobtainable: All systems reviewed & are unremarkable except as noted in HPI and below Exam Vital Signs (past 8 hours): - 06/09/19 21:48 06/09/19 22:30 06/09/19 23:30 Temperature 98.1 F Pulse Rate 93 H 74 85 Respiratory Rate 18 15 14 Blood Pressure 112/70 Blood Pressure [Right Arm] 128/51 L 111/90 Pulse Oximetry 96 98 96 06/10/19 00:30 06/10/19 00:45 06/10/19 01:26 Temperature Pulse Rate 81 81 74 Respiratory Rate 14 13 11 L Blood Pressure Blood Pressure [Right Arm] 100/53 L 113/58 L 112/60 Pulse Oximetry 97 97 97 06/10/19 01:30 06/10/19 02:00 06/10/19 02:30 Temperature Pulse Rate 78 79 80 Respiratory Rate 15 17 14 Blood Pressure Blood Pressure [Right Arm] 131/59 L 98/47 L 97/54 L Pulse Oximetry 99 97 96 Oxygen Delivery Method Room Air Oxygen Flow Rate 2 Narrative Exam Narrative: Patient seen in the ED Elderly, frail-appearing female, no acute distress. Patient reports feeling significantly better since her arrival Patient is alert and oriented to person, place, and reason for hospital admission. She is able to provide a good account for well-being over the last several weeks. Neurologically intact w/o focal deficits Head normocephalic, atraumatic Neck is supple. No JVD. Heart tones S1-S2, no murmurs. No ectopic beats. Denies chest pain and palpitations. Breath sounds are clear, diminished in the bases. She is noted to have unlabored respiratory effort. On supplemental oxygen. Abdomen is soft, nontender, non-distended Extremities without evidence of edema, by pedal pulses palpable, sensation intact There is a degree of generalized weakness Pale in appearance. No overt bruising / eccymosis. Objective Labs Result Diagrams: 06/10/19 03:35 06/10/19 03:35 Labs: Laboratory Results - last 24 hr 06/09/19 06/09/19 06/09/19 22:20 22:20 22:20 WBC 12.9 H RBC 5.10 Hgb 14.0 Hct 41.9 MCV 82.2 MCH 27.5 MCHC 33.5 RDW 16.3 H Plt Count 288 Neut % (Auto) 74.9 Lymph % (Auto) 14.0 L [place] % (Auto) 10.3 Eos % (Auto) 0.4 L Baso % (Auto) 0.4 Neut # (Auto) 9700 H Lymph # (Auto) 1800 [place] # (Auto) 1300 H Eos # (Auto) 100 Baso # (Auto) 0 PT 12.5 INR 1.1 APTT 32 D ABG pH ABG pCO2 ABG pO2 ABG HCO3 ABG Total CO2 ABG O2 Saturation ABG Base Excess FiO2 Sodium 134 L Potassium 2.2 L* Chloride 79 L Carbon Dioxide 42 H* BUN 31 H Creatinine 0.90 Estimated GFR > 60.0 BUN/Creatinine Ratio 34.4 H Glucose 150 H Calcium 10.0 Total Bilirubin 0.6 AST 47 H ALT 52 H Alkaline Phosphatase 111 Total Creatine Kinase CK-MB (CK-2) CK-MB (CK-2) Rel Index Troponin I Total Protein 8.3 H Albumin 4.8 Globulin 3.5 Albumin/Globulin Ratio 1.4 Lipase 133 Urine Color Urine Appearance Urine pH Ur Specific [place] Urine Protein Urine Glucose (UA) Urine Ketones Urine Occult Blood Urine Nitrate Urine Bilirubin Urine Urobilinogen Ur Leukocyte Esterase Urine RBC Urine WBC Urine Bacteria Ur Culture Indicated? Micro UA Comment 06/09/19 06/10/19 06/10/19 23:05 00:40 01:43 WBC RBC Hgb Hct MCV MCH MCHC RDW Plt Count Neut % (Auto) Lymph % (Auto) [place] % (Auto) Eos % (Auto) Baso % (Auto) Neut # (Auto) Lymph # (Auto) [place] # (Auto) Eos # (Auto) Baso # (Auto) PT INR APTT ABG pH 7.47 H ABG pCO2 48.2 H ABG pO2 89 ABG HCO3 35 H ABG Total CO2 37 H ABG O2 Saturation 97 ABG Base Excess 12.0 H FiO2 24 Sodium Potassium Chloride Carbon Dioxide BUN Creatinine Estimated GFR BUN/Creatinine Ratio Glucose Calcium Total Bilirubin AST ALT Alkaline Phosphatase Total Creatine Kinase 54 CK-MB (CK-2) TNP CK-MB (CK-2) Rel Index TNP Troponin I < 0.012 Total Protein Albumin Globulin Albumin/Globulin Ratio Lipase Urine Color Yellow Urine Appearance Clear Urine pH 8.5 H Ur Specific [place] <=1.005 Urine Protein Trace H Urine Glucose (UA) Negative Urine Ketones 1+ H Urine Occult Blood Negative Urine Nitrate Negative Urine Bilirubin Negative Urine Urobilinogen 0.2 Ur Leukocyte Esterase Negative Urine RBC None seen Urine WBC None seen Urine Bacteria None seen Ur Culture Indicated? Cult not indicated Micro UA Comment Microscopic normal 06/10/19 06/10/19 03:35 03:35 WBC 11.6 H RBC 4.22 Hgb 11.6 L Hct 34.9 L MCV 82.7 MCH 27.4 MCHC 33.1 RDW 16.3 H Plt Count 252 Neut % (Auto) 71.0 Lymph % (Auto) 18.2 L [place] % (Auto) 10.0 Eos % (Auto) 0.4 L Baso % (Auto) 0.4 Neut # (Auto) 8200 H Lymph # (Auto) 2100 [place] # (Auto) 1200 H Eos # (Auto) 0 Baso # (Auto) 0 PT INR APTT ABG pH ABG pCO2 ABG pO2 ABG HCO3 ABG Total CO2 ABG O2 Saturation ABG Base Excess FiO2 Sodium 134 L Potassium 2.8 L Chloride 91 L Carbon Dioxide 38 H BUN 24 H Creatinine 0.70 Estimated GFR > 60.0 BUN/Creatinine Ratio 34.3 H Glucose 108 Calcium 8.6 Total Bilirubin AST ALT Alkaline Phosphatase Total Creatine Kinase CK-MB (CK-2) CK-MB (CK-2) Rel Index Troponin I Total Protein Albumin Globulin Albumin/Globulin Ratio Lipase Urine Color Urine Appearance Urine pH Ur Specific [place] Urine Protein Urine Glucose (UA) Urine Ketones Urine Occult Blood Urine Nitrate Urine Bilirubin Urine Urobilinogen Ur Leukocyte Esterase Urine RBC Urine WBC Urine Bacteria Ur Culture Indicated? Micro UA Comment Assessment & Plan Assessment & Plan narrative: Recurrent duodenal stricture, acute on chronic condition, active - Patient needs to be seen by a GI, service not available at this facility. - Patient will likely need an endoscopy, which she is not willing to do unless done by Dr. Delacruz. - At present time there is no bed availability at [facility] or [place] Hypovolemia, acute, in the setting of GI losses, active - improved w/ IVF given in ED Hypokalemia, acute, int he setting GI losses and decreased intake, active - improving w/ IV KCl given in ED ALEJANDRO, mild, resolved Nausea and vomiting, acute on chronic, active - treated w/ 4 mg of zofran in ED on 06/09 w/o further recurrence Normocytic anemia, likely chronic, active - presented w/ Hgb of 14, not her baseline, likely reflecting hypovolemic state. On repeat lab Hgb down to 11.6 - no active s/s of bleeding at this time Patient would not benefit from inpatient admission at this facility as she is unwilling to have an evaluation or any endoscopy procedure completed by a provider other than Dr. Delacruz. Her acute abnormalities have essentially resolved w/ IVF and K repletion. She will have f/u labs ordered by ED providers w/ anticipated pending discharge from the ED. Recommend immediate (ie Monday 06/11 follow up w/ her GI provider)
[2019-06-10 11:39] LABS: BUN Creatinine Ratio 31.4 (6-22); Blood Urea Nitrogen 22 mg/dL (7-17); Calcium 8.9 mg/dL (8.4-10.2); Carbon Dioxide 28 mmol/L (22-32); Chloride 102 mmol/L (98-107); Estimated Glomerular Filt Rate > 60.0 mL/min (>60); Glucose 101 mg/dL (80-110); HEMOLYSIS 32 (0-50); Potassium 3.9 mmol/L (3.4-5.1); Sodium 139 mmol/L (137-145)
[2019-06-10 11:47] LABS: B Type Natriuretic Peptide < 100 (<100)
--- NOTE | 2019-06-10 11:49 | PC.NURSE ---
Pt got out of bed on own and walked 2 rounds around department with a FWW as a SBA denied dizziness when walking, Pt went to [facility] Indp and back into bed Indp.
== END 2019-06-10 13:02 | disposition home or self-care (01) ==
PROVIDERS: Emergency Medicine; Emergency Provider Emergency Medicine; Family Provider Internal Medicine Gastroenterology; PCP Family Medicine
DX: E87.6 Hypokalemia (principal); R11.2 Nausea with vomiting, unspecified
CPT/HCPCS: 36415; 36600; 71045; 74177; 80048; 80053; 81001; 82550; 82805; 82962; 83690; 83880; 84484; 85025; 85610; 85730; 93005; 93010; 96361; 96365; 96366; 96375; 99285; J2405; J3480; Q9967

== ENCOUNTER → 2019-08-09 13:40 | Oncology outpatient (ONC) | payer MEDICARE, SELFPAY ==
--- NOTE | 2019-02-20 07:35 | PC.NURSE ---
Patient called in at 0900 on 02/19/19 stating that her iron lel is 15 and iron saturation 3% concerned that this will be taken care of before her upper GI on 03/01. She has an appt scheduled with Dr. Day on 02/26. 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 Also reports a sore throat. This nurse asked if these were new developments since she recently saw her PCP and patient stated no. She reports no black stool or blood in stool. Hgb level is 10. She has been referred by Ni Barker to Dr. Day due to anemia. This nurse asked patient to try to see Ni Barker again today as Dr. Day has no availabitlity today and if that not possible to go to walk in clinic today. This nurse had communication with Ni Barker's triage nurse Emmie in which she stated that outside providers do order iron infusions here. Emmie informed that Ni Barker or others in their office do not do this. Emmie told patient to go to ER.
--- NOTE | 2019-02-20 18:05 | PC.NURSE ---
Nohemy Nunes and her daughter left messages on triage phone today asking for appt to be moved up for iron infusion. Patient was informed per this nurse that an earlier appt with Dr. Leary or Dr. Day is not possible. We will keep her appt on 02/[address] Day. She was instructed per answering machine to go to ER if increased vomiting or bleeding (she had reported a small amount in her vomit at last call), SOB or chest pain.
[2019-02-22 09:57] VITALS: BMI 29.0
[2019-02-26 09:34] VITALS: BP 114/66; PULSE 87; RESP 16; TEMP 36.9; O2SAT 98
--- NOTE | 2019-02-26 09:58 | P.CONONC_ITS ---
History of Present Illness - Data of Consult Patient: new to practice Consult date: 02/26/19 Requesting Physician: Gianna Barker PA-C Primary Care Provider: Gianna Barker PA-C - Consult Narrative Reason for consult: Anemia, Iron deficient. Narrative: Nohemy Nunes is a 74 year old female. She was referred by Gianna Barker PA-C for evaluation of iron deficiency anemia. Patient said that she has been anemic most of her life. She does not known the reason. She was told to be iron deficient and needing iron supplementation. However, she has tried irons multiple times in the past. The iron pills cause significant nausea and vomiting. On 02/08/2019, she was evaluated by leny Barker. Patient said that she felt horrible and barely dragging around. She said that her blood iron was only 15. She was referred here for iron infusion. Recently, patient was also hospitalized briefly because of ?septic kidney infection?. Patient was taken to the emergency room by ambulance. Patient stating Hospital from Tuesday through Tuesday. Patient currently still using antibiotics cefdinir 300 mg twice daily. While in the hospital, Dr. acevedo recommended that iron infusion be delayed until after the infection has been controlled. Of note, according to her, she has a history of duodenum ulcer with perforation. She had surgical repair in 1985. Since then patient has had several episodes of black tarry stool. She has been followed by laboratory assistant with regular upper and lower endoscopy. The next scheduled endoscopy was towards the end of March [address] Juan Ceron. She also had history of gallbladder ruptures and underwent cholecystectomy in 2011. CC: Storm Day MD Home Medications and Allergies Home Medications Medication Instructions Recorded Confirmed Type cholecalciferol (vitamin D3) 1 tab PO DAILY #0 12/16/16 02/22/19 History [Vitamin D3] melatonin 5 mg tablet 5 mg PO BEDTIME PRN 11/08/18 02/22/19 History multivitamin tablet 1 tab PO DAILY 11/08/18 02/22/19 History CBD Oil See Rx Instructions .ROUTE .COMPLEX 02/06/19 02/22/19 History Potassium See Rx Instructions .ROUTE .COMPLEX 02/06/19 02/22/19 History Vitamin E 1 cap PO DAILY 02/06/19 02/22/19 History cyanocobalamin (vitamin B-12) 2,500 mcg PO DAILY 02/06/19 02/22/19 History 2,500 mcg tablet loratadine 10 mg tablet 10 mg PO DAILY PRN 02/06/19 02/22/19 History Excedrin Extra Strength 1 dose PO PRN PRN 02/20/19 02/22/19 History gabapentin 100 - 300 mg PO TID 02/20/19 02/22/19 History lidocaine HCl-menthol 1 patch TOPICAL DAILY 02/20/19 02/22/19 History cefdinir 300 mg PO BID 7 Days #14 cap 02/24/19 Rx Allergies Allergy/AdvReac Type Severity Reaction Status Date / Time aspirin [ASPIRIN] AdvReac Severe bleeding Verified 02/20/19 17:29 stomach codeine [CODEINE] AdvReac Severe Hallucinati Verified 02/20/19 17:29 ons fluconazole [From Diflucan] AdvReac Severe I threw Verified 02/20/19 17:29 up all night long. morphine [MORPHINE] AdvReac Severe Hallucinati Verified 02/20/19 17:29 ons oxycodone [OXYCODONE] AdvReac Severe Hallucinations Verified 02/20/19 17:29 and itchy skin prednisone [PREDNISONE] AdvReac Severe Feels Verified 02/20/19 17:29 high and gets very angry zolpidem [ZOLPIDEM] AdvReac Severe turned me Verified 02/20/19 17:29 into a night walker and felt really high. Medical History - Medical, Surgical, Family History Medical History: Medical History (Updated 02/26/19 @ 10:29 by Storm Day MD) Cataracts, bilateral Onset Date: 2010 Cutaneous lupus erythematosus Duodenal stenosis IBS (irritable bowel syndrome) Iron deficiency anemia Legg-Perthes disease Osteoarthritis Peptic ulcer disease Onset Date: 1979 Perforated ulcer Allergic rhinitis Onset Date: 1959 Chronic back pain Fibromyalgia Onset Date: ~1989 Generalized headaches Lupus Onset Date: 1989 Migraines Shoulder pain Tinnitus of both ears Onset Date: 2005 Vertigo Onset Date: 2010 Anemia Onset Date: 2013 Chickenpox Fibroids Foot pain Onset Date: 2000 Fractures Onset Date: 1999 Heavy menstrual period Mumps Ovarian cyst Painful menstrual periods Rheumatic fever Onset Date: 1966 Surgical History: Surgical History (Updated 02/26/19 @ 10:29 by Storm Day MD) S/P BSO (bilateral salpingo-oophorectomy) History of surgery on arm Hx of abdominal surgery Onset Date: ~1985 Hx of appendectomy Onset Date: 1958 Status post cholecystectomy Status post hysterectomy Onset Date: 1988 Family History: Family History (Updated 02/22/19 @ 16:39 by Shavon Wolf DO) Father Cancer Mother Diabetes mellitus Osteoarthritis Grandfather No problems noted. Grandmother No problems noted. - Social History Smoking Status: Former smoker Substance Use Type: other (CBC oil for pain (fibromyalgia)) Alcohol Intake: never Review of Systems - Patient Self-Reported Symptoms SR Constitution: Fever, Fatigue/Malaise SR eye issues: Double vision SR ears, nose, mouth, throat issues: Nose bleeds, Mouth sores, Bleeding gums SR Skin issues: Blistering or peeling, Nail changes SR Gastrointestinal issues: Poor or no appetite, Nausea, Vomiting, Diarrhea, Constipation, Heartburn SR Genitourinary issues: Frequent urination SR Musculoskeletal issues: Joint pain or swelling, Muscle pain or cramps, Back or neck pain, Bone pain SR Neuro issues: Headache, Numbness or tingling, Difficulty balancing SR Endocrine issues: Cold intolerance Exam Vital signs: Vital Signs Temp Pulse Resp BP Pulse Ox 02/26/19 09:34 98.5 F 87 16 114/66 98 Intake and Output 02/25/19 02/26/19 02/26/19 23:59 07:59 15:59 Other: Weight 69.8 kg Patient Weight 02/26/19 23:59 Weight 69.8 kg - Constitutional positive no acute distress, positive average body habitus, positive cooperative - Routine HEENT Exam Head: Present: normocephalic, atraumatic, cushingoid faces Eye: Present: EOMI, PERRL, normal accommodation. Absent: conjunctival icterus - Routine Neck Exam Present: supple. Absent: lymphadenopathy, thyromegaly - Routine Chest/Breast/Axilla Exam Axillae: Absent: lymphadenopathy - Routine Respiratory Exam Present: Clear to auscultation bilaterally - Routine Cardiovascular Exam Present: RRR, S1, S2. Absent: murmur, gallop, rubs - Routine Abdominal Exam Present: soft, normoactive bowel sounds. Absent: tenderness, distended Palpation/Percussion: Absent: hepatomegaly, splenomegaly - Routine Extremities Exam Absent: edema, calf tenderness - Routine Neurological Exam Present: alert, oriented X3, CN II-XII intact. Absent: sensory deficit, motor deficit - Routine Psychiatric Exam Present: normal affect, cooperative Assessment and Plan (1) Iron deficiency anemia due to dietary causes Overview: 74 year old with iron deficiency anemia like due to malabsortion, chronic blood loss, or dietary reason. She has remote history of duodenum ulcer with rupture status post surgical repair in the past. Assessment: I reviewed the lab tests from 02/20/2019. It showed clearly severe iron deficiency anemia. I recommended intravenous iron infusion. Patient will follow-up with Dr. Juan brown for continued endoscopic surveillance. Plan: Venofer 200 mg iv x5 RTC in 2 months, CBC, CMP, Iron Panel, Ferritin, B12 and Folate
[2019-03-12] MEDS: IRON SUCROSE 200 MG in SODIUM CHLORIDE 0.9% 100 ML 220 ML IV (14:26)
[2019-03-12 14:30] VITALS: BP 142/68; PULSE 78; RESP 20; TEMP 36.8; O2SAT 97
[2019-03-19] MEDS: IRON SUCROSE 200 MG in SODIUM CHLORIDE 0.9% 100 ML 220 ML IV (14:26)
[2019-03-19 14:30] VITALS: BP 142/66; PULSE 73; RESP 16; TEMP 36.7; O2SAT 97
[2019-03-26] MEDS: IRON SUCROSE 200 MG in SODIUM CHLORIDE 0.9% 100 ML 220 ML IV (14:43)
[2019-03-26 15:10] VITALS: BP 118/69; PULSE 75; RESP 20; TEMP 36.7; O2SAT 98
[2019-04-02] MEDS: IRON SUCROSE 200 MG in SODIUM CHLORIDE 0.9% 100 ML 220 ML IV (14:45)
[2019-04-02 14:46] VITALS: BP 127/71; PULSE 79; RESP 16; TEMP 36.9; O2SAT 95
[2019-04-09] MEDS: IRON SUCROSE 200 MG in SODIUM CHLORIDE 0.9% 100 ML 220 ML IV (14:19)
[2019-05-07 13:31] LABS: Add Manual Diff / Slide Review NO; Basophils Absolute Auto 100 /uL (0-100); Basophils Percent Auto 1.4 % (0-2); Eosinophils Absolute Auto 300 /uL (0-450); Eosinophils Percent Auto 3.3 % (2-4); Hematocrit 37.7 % (36-46); Hemoglobin 12.4 g/dL (12.0-16.0); Lymphocytes Absolute Auto 2500 /uL (1100-4500); Lymphocytes Percent Auto 29.2 % (25-40); Mean Corpuscular HGB Conc 32.9 % (30-36); Mean Corpuscular Hemoglobin 27.1 PG (26-34); Mean Corpuscular Volume 82.4 fL (80-100); Monocytes Absolute Auto 800 /uL (0-900); Monocytes Percent Auto 9.2 % (3-14); Neutrophils Absolute Auto 4900 /uL (1500-7000); Neutrophils Percent Auto 56.9 % (50-75); Platelet Count 248 X10^3/uL (150-400); Red Blood Cell Count 4.58 X10^6/uL (4.0-5.2); White Blood Cell Count 8.6 X10^3/uL (4.5-11.0)
[2019-05-07 13:37] LABS: Alanine Aminotransferase 17 IU/L (<35); Albumin 4.6 g/dL (3.5-5.0); Albumin Globulin Ratio 1.6 (1.0-2.8); Alkaline Phosphatase 91 U/L (38-126); Aspartate Aminotransferase 26 IU/L (14-36); Bilirubin Total 0.2 mg/dL (0.2-1.3); Blood Urea Nitrogen 18 mg/dL (7-17); Calcium 9.7 mg/dL (8.4-10.2); Carbon Dioxide 22 mmol/L (22-32); Chloride 106 mmol/L (98-107); Estimated Glomerular Filt Rate > 60.0 mL/min (>60); Globulin 2.9 g/dL (1.7-4.1); Glucose 105 mg/dL (80-110); HEMOLYSIS < 15 (0-50); Potassium 4.4 mmol/L (3.4-5.1); Sodium 139 mmol/L (137-145); Total Protein 7.5 g/dL (6.3-8.2)
[2019-05-07 13:44] LABS: HEMOLYSIS 17 (0-50); Iron 81 ug/dL (37-170)
[2019-05-07 13:50] LABS: Poikilocytosis 1+
[2019-05-07 13:51] LABS: Anisocytosis 3+
[2019-05-07 13:54] LABS: Percent Iron Saturation 23 % (15-50); Total Iron Binding Capacity 357 ug/dL (265-497); Transferrin 312 mg/dL (206-381)
[2019-05-07 14:12] LABS: Ferritin 40.2 ng/mL (11.1-264)
[2019-05-07 14:43] LABS: Folate 15.1 ng/mL (2.76-20.0); Vitamin B12 985 pg/mL (239-931)
[2019-05-10 14:28] VITALS: BP 133/79; PULSE 72; RESP 18; TEMP 36.3; O2SAT 98
--- NOTE | 2019-05-10 14:31 | P.PNONC_ITS ---
PN -Subjective Interval history: ID/CC: Nohemy Nunes is a 74 year old female with iron iron deficiency anemia. Hematology History: Nohemy said that she has been anemic most of her life. She does not know the reason. She was told to be iron deficient and needing iron supplementation. However, she has tried irons multiple times in the past. The iron pills cause significant nausea and vomiting. She endorsed a history of duodenum ulcer with perforation status post surgical repair in 1985. Since then patient has had several episodes of black tarry stool. She has been followed by nitrating acid mixer with regular upper and lower endoscopy. She also had history of gallbladder ruptures and underwent cholecystectomy in 2011. Interim Events: Patient completed intravenous iron infusion with Venofer 200 mg x5 in March and early April of 2019. Patient tolerated the infusion very well. She presents here today for scheduled follow-up visit. Patient said that the pica symptoms, i.e. craving for ice and popsicle has completely resolved. However she is still feeling tired. She is scheduled to see Dr. Ceron tomorrow. Osmany. - Patient Self-Reported Symptoms SR Constitution: Weight loss/gain, Fatigue/Malaise SR eye issues: Double vision SR ears, nose, mouth, throat issues: Nose bleeds, Mouth sores, Bleeding gums SR respiratory issues: Mucous SR Skin issues: Dry skin, Nail changes SR Gastrointestinal issues: Poor or no appetite, Nausea, Vomiting, Blood in stool, Heartburn SR Genitourinary issues: Frequent urination SR Musculoskeletal issues: Joint pain or swelling, Muscle pain or cramps, Back or neck pain, Bone pain SR Neuro issues: Headache, Numbness or tingling, Difficulty balancing SR Endocrine issues: Cold intolerance - Additional ROS All systems PM: reviewed and no additional remarkable complaints except as stated Home Medications and Allergies Home Medications Medication Instructions Recorded Confirmed Type cholecalciferol (vitamin D3) 1 tab PO DAILY #0 12/16/16 04/18/19 History [Vitamin D3] melatonin 5 mg tablet 5 mg PO BEDTIME PRN 11/08/18 04/18/19 History multivitamin 1 tab PO DAILY 11/08/18 04/18/19 History CBD Oil See Rx Instructions .ROUTE .COMPLEX 02/06/19 04/18/19 History Vitamin E 1 cap PO DAILY 02/06/19 04/18/19 History cyanocobalamin (vitamin B-12) 2,500 mcg PO DAILY 02/06/19 04/18/19 History 2,500 mcg tablet loratadine 10 mg tablet 10 mg PO DAILY PRN 02/06/19 04/18/19 History Excedrin Extra Strength 1 dose PO PRN PRN 02/20/19 04/18/19 History lidocaine HCl-menthol 1 patch TOPICAL DAILY 02/20/19 04/18/19 History Magnesium Citrate See Rx Instructions .ROUTE .COMPLEX 02/28/19 04/18/19 History docusate sodium 100 mg tablet 100 mg PO BID 02/28/19 04/18/19 History omeprazole 20 mg capsule,delayed 20 mg PO DAILY #90 cap 03/22/19 04/18/19 Rx release lactobacillus combination no.4 3 3,000 mmu cells PO DAILY 03/28/19 04/18/19 History billion cell capsule metoclopramide HCl 10 mg tablet 10 mg PO QAC 03/28/19 04/18/19 History Allergies Allergy/AdvReac Type Severity Reaction Status Date / Time aspirin [ASPIRIN] AdvReac Severe bleeding Verified 04/18/19 15:00 stomach codeine [CODEINE] AdvReac Severe Hallucinati Verified 04/18/19 15:00 ons fluconazole [From Diflucan] AdvReac Severe I threw Verified 04/18/19 15:00 up all night long. morphine [MORPHINE] AdvReac Severe Hallucinati Verified 04/18/19 15:00 ons oxycodone [OXYCODONE] AdvReac Severe Hallucinations Verified 04/18/19 15:00 and itchy skin prednisone [PREDNISONE] AdvReac Severe Feels Verified 04/18/19 15:00 high and gets very angry zolpidem [ZOLPIDEM] AdvReac Severe turned me Verified 04/18/19 15:00 into a night walker and felt really high. Exam Vital signs: Vital Signs Temp Pulse Resp BP Pulse Ox 05/10/19 14:28 97.3 F L 72 18 133/79 98 Intake and Output 05/09/19 05/10/19 05/10/19 23:59 07:59 15:59 Other: Weight 68.6 kg Patient Weight 05/10/19 23:59 Weight 68.6 kg Narrative: Gen: WDWN, NAD, pleasant and cooperative. HEENT: NCAT, EOMI, PERRLA, anicteric sclera. Neck: Supple, No palpable thyromegaly or lymphadenopathy. Respiratory: CTAB, no wheezes audible. No JVD Cardiovascular: RRR, S1 and S2 normal, no M/G/R. Abdomen: Soft, NTND, BS normal, no palpable organomegaly Extremities: No LE pitting edema. Lymphatic: no palpable lymph nodes in the neck, axillae Neurological: AOx3, CN II-XII grossly intact. No focal motor or sensory deficit. Psychiatric: Normal affect. Results - Labs Laboratory Last Values WBC 8.6 X10^3/uL (4.5-11.0) 05/07/19 13:08 RBC 4.58 X10^6/uL (4.0-5.2) 05/07/19 13:08 Hgb 12.4 g/dL (12.0-16.0) 05/07/19 13:08 Hct 37.7 % (36-46) 05/07/19 13:08 MCV 82.4 fL (80-100) 05/07/19 13:08 MCH 27.1 PG (26-34) 05/07/19 13:08 MCHC 32.9 % (30-36) 05/07/19 13:08 RDW 23.0 % (11.6-14.8) H 05/07/19 13:08 Plt Count 248 X10^3/uL (150-400) 05/07/19 13:08 Neut % (Auto) 56.9 % (50-75) 05/07/19 13:08 Lymph % (Auto) 29.2 % (25-40) 05/07/19 13:08 Vilas % (Auto) 9.2 % (3-14) 05/07/19 13:08 Eos % (Auto) 3.3 % (2-4) 05/07/19 13:08 Baso % (Auto) 1.4 % (0-2) 05/07/19 13:08 Neut # (Auto) 4900 /uL (2774-9643) 05/07/19 13:08 Lymph # (Auto) 2500 /uL (1634-6469) 05/07/19 13:08 Vilas # (Auto) 800 /uL (0-900) 05/07/19 13:08 Eos # (Auto) 300 /uL (0-450) 05/07/19 13:08 Baso # (Auto) 100 /uL (0-100) 05/07/19 13:08 RBC Morphology See below 05/07/19 13:08 Poikilocytosis 1+ H 05/07/19 13:08 Anisocytosis 3+ H 05/07/19 13:08 Sodium 139 mmol/L (137-145) 05/07/19 13:08 Potassium 4.4 mmol/L (3.4-5.1) 05/07/19 13:08 Chloride 106 mmol/L (98-107) 05/07/19 13:08 Carbon Dioxide 22 mmol/L (22-32) 05/07/19 13:08 BUN 18 mg/dL (7-17) H 05/07/19 13:08 Creatinine 0.50 mg/dL (0.52-1.04) L 05/07/19 13:08 Estimated GFR > 60.0 mL/min (>60) 05/07/19 13:08 BUN/Creatinine Ratio 36.0 (6-22) H 05/07/19 13:08 Glucose 105 mg/dL (80-110) 05/07/19 13:08 Calcium 9.7 mg/dL (8.4-10.2) 05/07/19 13:08 Iron 81 ug/dL (37-170) 05/07/19 13:08 TIBC 357 ug/dL (265-497) 05/07/19 13:08 % Saturation 23 % (15-50) 05/07/19 13:08 Transferrin 312 mg/dL (206-381) 05/07/19 13:08 Ferritin 40.2 ng/mL (11.1-264) 05/07/19 13:08 Total Bilirubin 0.2 mg/dL (0.2-1.3) 05/07/19 13:08 AST 26 IU/L (14-36) 05/07/19 13:08 ALT 17 IU/L (<35) 05/07/19 13:08 Alkaline Phosphatase 91 U/L (38-126) 05/07/19 13:08 Total Protein 7.5 g/dL (6.3-8.2) 05/07/19 13:08 Albumin 4.6 g/dL (3.5-5.0) 05/07/19 13:08 Globulin 2.9 g/dL (1.7-4.1) 05/07/19 13:08 Albumin/Globulin Ratio 1.6 (1.0-2.8) 05/07/19 13:08 Vitamin B12 985 pg/mL (239-931) H 05/07/19 13:08 Folate 15.1 ng/mL (2.76-20.0) 05/07/19 13:08 Assessment and Plan (1) Iron deficiency anemia due to dietary causes Overview: 74 year old with iron deficiency anemia like due to malabsortion, chronic blood loss, or dietary reason. She has remote history of duodenum ulcer with rupture status post surgical repair in the past. Assessment: I reviewed the lab tests from 05/07/2019. I explained to her that the h emoglobin level, hematocrit and MCV all have improved and normalized. As far as iron deficiency is concerned, the plan is to monitor regularly and to give her intravenous iron on as needed basis. Patient voiced understanding. Plan: Follow up with Dr. Ceron as scheduled for tomorrow RTC in 3 months, CBC, CMP, Iron Panel, Ferritin, B12 and Folate
[2019-08-03 15:24] LABS: Add Manual Diff / Slide Review NO; Basophils Absolute Auto 100 /uL (0-100); Eosinophils Absolute Auto 200 /uL (0-450); Eosinophils Percent Auto 2.2 % (2-4); Hematocrit 36.5 % (36-46); Hemoglobin 12.1 g/dL (12.0-16.0); Lymphocytes Absolute Auto 2800 /uL (1100-4500); Mean Corpuscular HGB Conc 33.1 % (30-36); Mean Corpuscular Volume 84.5 fL (80-100); Monocytes Absolute Auto 900 /uL (0-900); Monocytes Percent Auto 9.3 % (3-14); Neutrophils Absolute Auto 5700 /uL (1500-7000); Neutrophils Percent Auto 58.5 % (50-75); Platelet Count 256 X10^3/uL (150-400); Red Blood Cell Count 4.32 X10^6/uL (4.0-5.2); Red Cell Distribution Width 16.1 % (11.6-14.8); White Blood Cell Count 9.8 X10^3/uL (4.5-11.0)
[2019-08-03 16:11] LABS: Alanine Aminotransferase 14 IU/L (<35); Albumin 4.3 g/dL (3.5-5.0); Albumin Globulin Ratio 1.4 (1.0-2.8); Alkaline Phosphatase 90 U/L (38-126); Aspartate Aminotransferase 22 IU/L (14-36); Bilirubin Total 0.3 mg/dL (0.2-1.3); Blood Urea Nitrogen 18 mg/dL (7-17); Calcium 10.3 mg/dL (8.4-10.2); Carbon Dioxide 25 mmol/L (22-32); Chloride 102 mmol/L (98-107); Estimated Glomerular Filt Rate > 60.0 mL/min (>60); Glucose 95 mg/dL (80-110); HEMOLYSIS < 15 (0-50); Potassium 4.4 mmol/L (3.4-5.1); Sodium 138 mmol/L (137-145); Total Protein 7.3 g/dL (6.3-8.2)
[2019-08-03 16:46] LABS: Ferritin 14.4 ng/mL (11.1-264)
[2019-08-03 17:17] LABS: Folate 19.1 ng/mL (2.76-20.0); Vitamin B12 945 pg/mL (239-931)
[2019-08-09 14:09] VITALS: BP 135/78; PULSE 81; RESP 20; TEMP 36.3; O2SAT 98
--- NOTE | 2019-08-09 14:19 | ONC.PN ---
PN -Subjective Interval history: ID/CC: Nohemy Nunes is a 74 year old female with iron iron deficiency anemia. Hematology History: Nohemy said that she has been anemic most of her life. She does not know the reason. She was told to be iron deficient and needing iron supplementation. However, she has tried irons multiple times in the past. The iron pills cause significant nausea and vomiting. She endorsed a history of duodenum ulcer with perforation status post surgical repair in 1985. Since then patient has had several episodes of black tarry stool. She has been followed by geographic information systems analyst with regular upper and lower endoscopy. She also had history of gallbladder ruptures and underwent cholecystectomy in 2011. Patient completed intravenous iron infusion with Venofer 200 mg x5 in March and early April of 2019. Interim Events: She presents for scheduled follow up visit. In Jun 2019, she had episode of worsening vomiting due to duodenum stenosis. She visited ER with findings of K 2.2. Patient received potassium replacement. There after patient was referred and transferred to [place]. Patient said that at [place] where she underwent endoscopic dilation of the duodenum stenosis. Since then patient has been doing well. Recently she said she the use that probably the stenosis seems to be coming back again. She has been followed by Dr. Delacruz. - Patient Self-Reported Symptoms SR Constitution: Fatigue/Malaise, Night Sweats SR eye issues: Double vision SR ears, nose, mouth, throat issues: Nose bleeds, Mouth sores, Bleeding gums SR respiratory issues: Mucous SR Skin issues: Dry skin, Nail changes SR Gastrointestinal issues: Poor or no appetite, Change in bowel pattern, Nausea, Vomiting, Constipation SR Genitourinary issues: Frequent urination SR Musculoskeletal issues: Joint pain or swelling, Muscle pain or cramps, Back or neck pain, Bone pain SR Neuro issues: Headache, Difficulty balancing SR Endocrine issues: Cold intolerance - Additional ROS All systems PM: reviewed and no additional remarkable complaints except as stated Home Medications and Allergies Home Medications Medication Instructions Recorded Confirmed Type cholecalciferol (vitamin D3) 1 tab PO DAILY #0 12/16/16 05/10/19 History [Vitamin D3] melatonin 5 mg tablet 5 mg PO BEDTIME PRN 11/08/18 05/10/19 History multivitamin 1 tab PO DAILY 11/08/18 05/10/19 History CBD Oil See Rx Instructions .ROUTE .COMPLEX 02/06/19 05/10/19 History Vitamin E 1 cap PO DAILY 02/06/19 05/10/19 History cyanocobalamin (vitamin B-12) 2,500 mcg PO DAILY 02/06/19 05/10/19 History 2,500 mcg tablet loratadine 10 mg tablet 10 mg PO DAILY PRN 02/06/19 05/10/19 History Excedrin Extra Strength 1 dose PO PRN PRN 02/20/19 05/10/19 History lidocaine HCl-menthol 1 patch TOPICAL DAILY 02/20/19 05/10/19 History Magnesium Citrate See Rx Instructions .ROUTE .COMPLEX 02/28/19 05/10/19 History docusate sodium 100 mg tablet 100 mg PO BID 02/28/19 05/10/19 History omeprazole 20 mg capsule,delayed 20 mg PO DAILY #90 cap 03/22/19 05/10/19 Rx release lactobacillus combination no.4 3 3,000 mmu cells PO DAILY 03/28/19 05/10/19 History billion cell capsule metoclopramide HCl 10 mg tablet 10 mg PO QAC 03/28/19 05/10/19 History ondansetron 8 mg disintegrating 4 mg TRANSLINGUAL Q8H PRN #30 tab 06/13/19 Rx tablet Allergies Allergy/AdvReac Type Severity Reaction Status Date / Time aspirin [ASPIRIN] AdvReac Severe bleeding Verified 06/09/19 21:54 stomach codeine [CODEINE] AdvReac Severe Hallucinati Verified 06/09/19 21:54 ons fluconazole [From Diflucan] AdvReac Severe I threw Verified 06/09/19 21:54 up all night long. morphine [MORPHINE] AdvReac Severe Hallucinati Verified 06/09/19 21:54 ons oxycodone [OXYCODONE] AdvReac Severe Hallucinations Verified 06/09/19 21:54 and itchy skin prednisone [PREDNISONE] AdvReac Severe Feels Verified 06/09/19 21:54 high and gets very angry zolpidem [ZOLPIDEM] AdvReac Severe turned me Verified 06/09/19 21:54 into a night walker and felt really high. Exam Vital signs: Vital Signs Temp Pulse Resp BP Pulse Ox 08/09/19 14:09 97.3 F L 81 20 135/78 98 Intake and Output 08/08/19 08/09/19 08/09/19 23:59 07:59 15:59 Other: Weight 62 kg Patient Weight 08/09/19 23:59 Weight 62 kg Narrative: Gen: WDWN, NAD, pleasant and cooperative. HEENT: NCAT, EOMI, PERRLA, anicteric sclera. Neck: Supple, No palpable thyromegaly or lymphadenopathy. Respiratory: CTAB, no wheezes audible. No JVD Cardiovascular: RRR, S1 and S2 normal, no M/G/R. Abdomen: Soft, NTND, BS normal, no palpable organomegaly Extremities: No LE pitting edema. Lymphatic: no palpable lymph nodes in the neck, axillae Neurological: AOx3, CN II-XII grossly intact. No focal motor or sensory deficit. Psychiatric: Normal affect. Results - Labs Laboratory Last Values WBC 9.8 X10^3/uL (4.5-11.0) 08/03/19 14:12 RBC 4.32 X10^6/uL (4.0-5.2) 08/03/19 14:12 Hgb 12.1 g/dL (12.0-16.0) 08/03/19 14:12 Hct 36.5 % (36-46) 08/03/19 14:12 MCV 84.5 fL (80-100) 08/03/19 14:12 MCH 28.0 PG (26-34) 08/03/19 14:12 MCHC 33.1 % (30-36) 08/03/19 14:12 RDW 16.1 % (11.6-14.8) H 08/03/19 14:12 Plt Count 256 X10^3/uL (150-400) 08/03/19 14:12 Neut % (Auto) 58.5 % (50-75) 08/03/19 14:12 Lymph % (Auto) 29.0 % (25-40) 08/03/19 14:12 [place] % (Auto) 9.3 % (3-14) 08/03/19 14:12 Eos % (Auto) 2.2 % (2-4) 08/03/19 14:12 Baso % (Auto) 1.0 % (0-2) 08/03/19 14:12 Neut # (Auto) 5700 /uL (7742-2839) 08/03/19 14:12 Lymph # (Auto) 2800 /uL (5012-4076) 08/03/19 14:12 [place] # (Auto) 900 /uL (0-900) 08/03/19 14:12 Eos # (Auto) 200 /uL (0-450) 08/03/19 14:12 Baso # (Auto) 100 /uL (0-100) 08/03/19 14:12 RBC Morphology See below 05/07/19 13:08 Poikilocytosis 1+ H 05/07/19 13:08 Anisocytosis 3+ H 05/07/19 13:08 Sodium 138 mmol/L (137-145) 08/03/19 14:12 Potassium 4.4 mmol/L (3.4-5.1) 08/03/19 14:12 Chloride 102 mmol/L (98-107) 08/03/19 14:12 Carbon Dioxide 25 mmol/L (22-32) 08/03/19 14:12 BUN 18 mg/dL (7-17) H 08/03/19 14:12 Creatinine 0.60 mg/dL (0.52-1.04) 08/03/19 14:12 Estimated GFR > 60.0 mL/min (>60) 08/03/19 14:12 BUN/Creatinine Ratio 30.0 (6-22) H 08/03/19 14:12 Glucose 95 mg/dL (80-110) 08/03/19 14:12 Calcium 10.3 mg/dL (8.4-10.2) H 08/03/19 14:12 Iron 81 ug/dL (37-170) 05/07/19 13:08 TIBC 357 ug/dL (265-497) 05/07/19 13:08 % Saturation 23 % (15-50) 05/07/19 13:08 Transferrin 312 mg/dL (206-381) 05/07/19 13:08 Ferritin 14.4 ng/mL (11.1-264) 08/03/19 14:12 Total Bilirubin 0.3 mg/dL (0.2-1.3) 08/03/19 14:12 AST 22 IU/L (14-36) 08/03/19 14:12 ALT 14 IU/L (<35) 08/03/19 14:12 Alkaline Phosphatase 90 U/L (38-126) 08/03/19 14:12 Total Protein 7.3 g/dL (6.3-8.2) 08/03/19 14:12 Albumin 4.3 g/dL (3.5-5.0) 08/03/19 14:12 Globulin 3.0 g/dL (1.7-4.1) 08/03/19 14:12 Albumin/Globulin Ratio 1.4 (1.0-2.8) 08/03/19 14:12 Vitamin B12 945 pg/mL (239-931) H 08/03/19 14:12 Folate 19.1 ng/mL (2.76-20.0) 08/03/19 14:12 Assessment and Plan (1) Iron deficiency anemia due to dietary causes Overview: 74 year old with iron deficiency anemia like due to malabsortion, chronic blood loss, or dietary reason. She has remote history of duodenum ulcer with rupture status post surgical repair in the past. Assessment: I reviewed the lab tests from 08/03/2019. I explained to her that the hemoglobin level, hematocrit and MCV all are normal. As far as iron deficiency is concerned, the plan is to monitor regularly and to give her intravenous iron on as needed basis. Patient voiced understanding. Plan: Follow up with Dr. Ceron as scheduled RTC in 3 months, CBC, CMP, Iron Panel, Ferritin
--- NOTE | 2019-10-18 16:15 | PC.NURSE ---
PATIENT LEFT MESSAGE THAT SHE NEEDS A BLOOD DRAW BECAUSE SHE THINKS HER POTASSIUM HAS DROPPED. THIS NURSE WAS UNABLE TO REACH HER AND LEFT A MESSAGE THAT SHE CAN HAVE HER PRE-APPT LABS DRAWN ON TUESDAY FOR 10/31 F/U AND THAT SHE SHOULD CALL ONCOLOGIST KICK PRESS SETTER IF HAVING PROBLEMS AND TO GO TO ER FOR CHEST PAIN OR IRREGULAR HEARTBEAT/PALPITATIONS.
--- NOTE | 2019-10-23 11:28 | ONC.SCHED ---
Somehow patient didn't get scheduled for 10/31 apt. However, she called and said that she does not want to come at this time. She will call to reschedule.
== END ==
PROVIDERS: Family Provider Physician Assistant; PCP Physician Assistant; Visit Provider Internal Medicine Hematology & Oncology
DX: D50.8 Other iron deficiency anemias (principal)
CPT/HCPCS: 36415; 80053; 82607; 82728; 82746; 83540; 83550; 85025; 96365; 99204; 99214; J1756

== ENCOUNTER 2019-10-18 16:16 | Emergency (ER) | payer MEDICARE, SELFPAY ==
[2019-03-28 12:26] VITALS: BMI 29.0
--- NOTE | 2019-10-18 16:25 | DI.RAD.S_ITS ---
PROCEDURE: XR CHEST 1V INDICATIONS: chest pain TECHNIQUE: One view of the chest was acquired. COMPARISON: [facility], , CHEST 1 VIEW, 12/08/2016, 20:44. [facility], CR, XR CHEST 1V, 02/22/2019, 6:38. [facility], CR, XR CHEST 1V, 06/10/2019, 0:58. FINDINGS: Surgical changes and devices: Cholecystectomy clips are seen. Epigastric clips are also seen. Lungs and pleura: Lungs are clear. No pleural effusions or pneumothorax. Mediastinum: The cardiac contours are within normal limits. The aorta demonstrates calcification and tortuosity. Bones and chest wall: Age-appropriate bony degenerative changes are seen. No suspicious bony lesions. Overlying soft tissues appear unremarkable. IMPRESSION: No acute cardiopulmonary process is seen. Postoperative and degenerative changes are seen. Dictated by: Trent Loomis M.D. on 10/18/2019 at 15:50 Approved by: Trent Loomis M.D. on 10/18/2019 at 15:51
[2019-10-18 16:27] VITALS: BP 185/86; PULSE 87; RESP 21; TEMP 37; O2SAT 99; BMI 25.4
--- NOTE | 2019-10-18 16:47 | ED.WEAKNESS ---
HPI - Weakness <Mallydillan Hoffmann, DO - Last Filed: 10/19/19 07:13> General Chief complaint: Weakness Stated complaint: weakness, not feeling well, thinks potassium abnor Time Seen by Provider: 10/18/19 16:47 Source: patient and old records reviewed Mode of arrival: Wheelchair Limitations: no limitations History of Present Illness HPI Narrative: This is a 74-year-old female complaint of vomiting. Patient states she has been feeling increasingly weak over the last 2 weeks and had difficulty keeping down fluids and food. She denies fevers. She denies any chest pain, she denies abdominal pain. She states she has been constipated recently but did have a bowel movement after some MiraLax. She denies any black or bloody stools. She has been having output and denies a decrease in her urine output, dark urine or frequency, dysuria urgency. Patient denies any chest pain or shortness of breath she has a known hiatal hernia and has had strictures or narrowing of her GI tract. She most recently had what sounds like a dilation with Dr. Delacruz in [place] in June and had been doing better since then. Related Data Home Medications Medication Instructions Recorded Confirmed cholecalciferol (vitamin D3) 1 tab PO DAILY #0 12/16/16 05/10/19 [Vitamin D3] melatonin 5 mg tablet 5 mg PO BEDTIME PRN 11/08/18 05/10/19 multivitamin 1 tab PO DAILY 11/08/18 05/10/19 CBD Oil See Rx Instructions .ROUTE .COMPLEX 02/06/19 05/10/19 Vitamin E 1 cap PO DAILY 02/06/19 05/10/19 cyanocobalamin (vitamin B-12) 2,500 mcg PO DAILY 02/06/19 05/10/19 2,500 mcg tablet loratadine 10 mg tablet 10 mg PO DAILY PRN 02/06/19 05/10/19 Excedrin Extra Strength 1 dose PO PRN PRN 02/20/19 05/10/19 lidocaine HCl-menthol 1 patch TOPICAL DAILY 02/20/19 05/10/19 Magnesium Citrate See Rx Instructions .ROUTE .COMPLEX 02/28/19 05/10/19 docusate sodium 100 mg tablet 100 mg PO BID 02/28/19 05/10/19 lactobacillus combination no.4 3 3,000 mmu cells PO DAILY 03/28/19 05/10/19 billion cell capsule metoclopramide HCl 10 mg tablet 10 mg PO QAC 03/28/19 05/10/19 Previous Rx's Medication Instructions Recorded omeprazole 20 mg capsule,delayed 20 mg PO DAILY #90 cap 03/22/19 release ondansetron 8 mg disintegrating 4 mg TRANSLINGUAL Q8H PRN #30 tab 06/13/19 tablet Allergies Allergy/AdvReac Type Severity Reaction Status Date / Time aspirin [ASPIRIN] AdvReac Severe bleeding Verified 10/18/19 16:27 stomach codeine [CODEINE] AdvReac Severe Hallucinati Verified 10/18/19 16:27 ons fluconazole [From Diflucan] AdvReac Severe I threw Verified 10/18/19 16:27 up all night long. morphine [MORPHINE] AdvReac Severe Hallucinati Verified 10/18/19 16:27 ons oxycodone [OXYCODONE] AdvReac Severe Hallucinations Verified 10/18/19 16:27 and itchy skin prednisone [PREDNISONE] AdvReac Severe Feels Verified 10/18/19 16:27 high and gets very angry zolpidem [ZOLPIDEM] AdvReac Severe turned me Verified 10/18/19 16:27 into a night walker and felt really high. 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) Fibroids (Resolved) Fibromyalgia (Chronic ~1989) Foot pain (Resolved 2000) Fractures (Resolved 1999) Generalized headaches (Chronic) Heavy menstrual period (Resolved) IBS (irritable bowel syndrome) (Acute) Iron deficiency anemia (Acute) Legg-Perthes disease (Acute) Lupus (Chronic 1989) Migraines (Chronic) Mumps (Resolved) Osteoarthritis (Acute) Ovarian cyst (Resolved) Painful menstrual periods (Resolved) Peptic ulcer disease (Acute 1979) Perforated ulcer (Acute) Rheumatic fever (Resolved 1966) Shoulder pain (Chronic) Tinnitus of both ears (Chronic 2005) Vertigo (Chronic 2010) Surgical History History of surgery on arm (Resolved) Hx of abdominal surgery (Resolved ~1985) Hx of appendectomy (Resolved 1958) S/P BSO (bilateral salpingo-oophorectomy) (Acute) Status post cholecystectomy Status post hysterectomy (1988) Social History household members: children Smoking Status: Former smoker Tobacco: How many years used: 30 second hand exposure: No alcohol intake: never substance use type: other Smoking Status: Former smoker alcohol intake frequency: holidays/special occasions only Substance Use Type: does not use Exam <Mally Hoffmann DO - Last Filed: 10/19/19 07:13> Narrative Exam Narrative: GENERAL: Alert and oriented x three, pale female in mild distress. HEENT: Head normocephalic, atraumatic, EOMI, pupils reactive, face symmetric, moist mucous membranes NECK: Supple, full range of motion CARDIOVASCULAR: Regular rate and rhythm without murmurs, rubs or gallops. RESPIRATORY: Breath sounds equal bilaterally, no wheezes rales or rhonchi. ABDOMEN: Soft, nontender. Normoactive bowel sounds all 4 quadrants. No guarding or rebound, rigidity, no mass : No CVA tenderness EXTREMITIES: Normal range of motion, no clubbing or edema. Neurovascularly intact. NEUROLOGICAL: Cranial nerves II through XII grossly intact. Moving all extremities SKIN: Warm, dry, no petechiae, no rashes or lesions. Initial Vital Signs Initial Vital Signs: Vital Signs Temperature 98.6 F 10/18/19 16:27 Pulse Rate 87 10/18/19 16:27 Respiratory Rate 21 10/18/19 16:27 Blood Pressure 185/86 H 10/18/19 16:27 Pulse Oximetry 99 10/18/19 16:27 <Romelia Awad MD - Last Filed: 10/18/19 19:35> Initial Vital Signs Initial Vital Signs: Vital Signs Temperature 98.6 F 10/18/19 16:27 Pulse Rate 87 10/18/19 16:27 Respiratory Rate 21 10/18/19 16:27 Blood Pressure 185/86 H 10/18/19 16:27 Pulse Oximetry 99 10/18/19 16:27 Course <Mally Hoffmann DO - Last Filed: 10/19/19 07:13> Orders Ordered: Discontinued Medications Sodium Chloride (Normal Saline 0.9%) 1,000 mls @ 1,000 mls/hr IV BOLUS ONE Stop: 10/18/19 18:45 Last Infusion: 10/18/19 19:38 Dose: 0 mls/hr Documented by: Admin: 10/18/19 18:12 Dose: 1,000 mls/hr Documented by: Find Invest Grow (FIG) Vital Signs Vital signs: Vital Signs - 8 hr 10/18/19 16:27 10/18/19 17:30 10/18/19 18:38 Temperature 98.6 F Pulse Rate 87 72 69 Respiratory Rate 21 19 21 Blood Pressure 185/86 H Blood Pressure [Left Arm] 167/78 H 157/69 H Pulse Oximetry 99 98 97 <Romelia Awad MD - Last Filed: 10/18/19 19:35> Orders Ordered: Discontinued Medications Sodium Chloride (Normal Saline 0.9%) 1,000 mls @ 1,000 mls/hr IV BOLUS ONE Stop: 10/18/19 18:45 Last Infusion: 10/18/19 19:38 Dose: 0 mls/hr Documented by: Admin: 10/18/19 18:12 Dose: 1,000 mls/hr Documented by: [employer] (FIG) Vital Signs Vital signs: Vital Signs - 8 hr 10/18/19 16:27 10/18/19 17:30 10/18/19 18:38 Temperature 98.6 F Pulse Rate 87 72 69 Respiratory Rate 21 19 21 Blood Pressure 185/86 H Blood Pressure [Left Arm] 167/78 H 157/69 H Pulse Oximetry 99 98 97 MDM - Weakness <Mally Hoffmann DO - Last Filed: 10/19/19 07:13> Lab Data Attestation: I reviewed the patient's lab results. Result diagrams: 10/18/19 17:15 10/18/19 17:15 Labs: Lab Results 04/16/20 04/16/20 04/16/20 Range/Units 17:15 17:15 17:15 WBC 9.6 (4.5-11.0) X10^3/uL RBC 4.23 (4.0-5.2) X10^6/uL Hgb 11.7 L (12.0-16.0) g/dL Hct 35.4 L (36-46) % MCV 83.7 (80-100) fL MCH 27.6 (26-34) PG MCHC 32.9 (30-36) % RDW 14.6 (11.6-14.8) % Plt Count 165 (150-400) X10^3/uL Neut % (Auto) 73.2 (50-75) % Lymph % (Auto) 17.3 L (25-40) % [place] % (Auto) 7.2 (3-14) % Eos % (Auto) 1.6 L (2-4) % Baso % (Auto) 0.7 (0-2) % Neut # (Auto) 7000 (9461-5394) /uL Lymph # (Auto) 1700 (6799-2655) /uL [place] # (Auto) 700 (0-900) /uL Eos # (Auto) 200 (0-450) /uL Baso # (Auto) 100 (0-100) /uL PT 11.1 (10.1-12.7) SECONDS INR 1.0 (0.9-1.3) APTT 21 L D (26.4-36.2) SECONDS Sodium 138 (137-145) mmol/L Potassium 3.9 (3.4-5.1) mmol/L Chloride 106 (98-107) mmol/L Carbon Dioxide 26 (22-32) mmol/L BUN 13 (7-17) mg/dL Creatinine 0.56 (0.52-1.04) mg/dL Estimated GFR > 60.0 (>60) mL/min BUN/Creatinine Ratio 23.2 H (6-22) Glucose 103 (80-110) mg/dL Calcium 9.8 (8.4-10.2) mg/dL Magnesium 2.1 (1.6-2.3) mg/dL Total Bilirubin 0.4 (0.2-1.3) mg/dL AST 63 H (14-36) IU/L ALT 17 (<35) IU/L Alkaline Phosphatase 109 (38-126) U/L Total Creatine Kinase 68 (30-135) U/L CK-MB (CK-2) TNP CK-MB (CK-2) Rel Index TNP Troponin I < 0.012 (0.01-0.034) ng/mL NT-Pro-B Natriuret Pep 151 (<450) pg/mL Total Protein 8.1 (6.3-8.2) g/dL Albumin 4.7 (3.5-5.0) g/dL Globulin 3.4 (1.7-4.1) g/dL Albumin/Globulin Ratio 1.4 (1.0-2.8) Lipase 71 (23-300) U/L Urine Dip Bedside Urine Glucose Negative Bedside Urine Bilirubin - Negative Bedside Urine Ketone - Negative Urine Specific [place] 1.015 Bedside Urine Occult Blood - Negative Bedside Urine pH 8.0 Bedside Urine Protein - Negative Bedside Urine Urobilinogen - Negative Bedside Urine Nitrite - Negative Bedside Urine Leukocytes - Negative Esterase Imaging Data Chest x-ray: Radiologist Impression: [address] [address] XRay Report Signed Patient: Nohemy Nunes TMR#: [id number] : 1945Acct:[id number] Age/Sex: 74 / FDate of Service: 10/18/19 Loc: ED Accession Number: [id number] Procedure: XR chest 1V Ordering Provider: Mally Hoffmann D.O. PROCEDURE: XR CHEST 1V INDICATIONS: chest pain TECHNIQUE: One view of the chest was acquired. COMPARISON: [facility], , CHEST 1 VIEW, 12/08/2016, 20:44. [facility], , XR CHEST 1V, 02/22/2019, 6:38. [facility], , XR CHEST 1V, 06/10/2019, 0:58. FINDINGS: Surgical changes and devices: Cholecystectomy clips are seen. Epigastric clips are also seen. Lungs and pleura: Lungs are clear. No pleural effusions or pneumothorax. Mediastinum: The cardiac contours are within normal limits. The aorta demonstrates calcification and tortuosity. Bones and chest wall: Age-appropriate bony degenerative changes are seen. No suspicious bony lesions. Overlying soft tissues appear unremarkable. IMPRESSION: No acute cardiopulmonary process is seen. Postoperative and degenerative changes are seen. Dictated by: Trent Loomis M.D. on 10/18/2019 at 15:50 Approved by: Trent Loomis M.D. on 10/18/2019 at 15:51 ECG Data Attestation: I personally reviewed and interpreted this ECG as follows: Interpretation: Sinus rhythm rate 80 KS 194 QRS 87 QTC 388. No acute ST changes appreciated. Patient has a prior EKG from 06/09/2019 which appears similar. MDM Narrative Medical decision making narrative: Labs pending, initial renal function and potassium are normal. No major lab abnormalities. EKG shows no acute change. Plan for CT imaging as patient has had persistent vomiting she has had issues and dilations in the past. Attempting to get records from [place] with patient's most recent intervention. Fluids and patient signed out to Dr. Awad while awaiting imaging for final disposition. <Romelia Awad MD - Last Filed: 10/18/19 19:35> Lab Data Labs: Lab Results 10/18/19 10/18/19 10/18/19 Range/Units 17:15 17:15 17:15 WBC 9.6 (4.5-11.0) X10^3/uL RBC 4.23 (4.0-5.2) X10^6/uL Hgb 11.7 L (12.0-16.0) g/dL Hct 35.4 L (36-46) % MCV 83.7 (80-100) fL MCH 27.6 (26-34) PG MCHC 32.9 (30-36) % RDW 14.6 (11.6-14.8) % Plt Count 165 (150-400) X10^3/uL Neut % (Auto) 73.2 (50-75) % Lymph % (Auto) 17.3 L (25-40) % [place] % (Auto) 7.2 (3-14) % Eos % (Auto) 1.6 L (2-4) % Baso % (Auto) 0.7 (0-2) % Neut # (Auto) 7000 (0316-0610) /uL Lymph # (Auto) 1700 (5751-3472) /uL [place] # (Auto) 700 (0-900) /uL Eos # (Auto) 200 (0-450) /uL Baso # (Auto) 100 (0-100) /uL PT 11.1 (10.1-12.7) SECONDS INR 1.0 (0.9-1.3) APTT 21 L D (26.4-36.2) SECONDS Sodium 138 (137-145) mmol/L Potassium 3.9 (3.4-5.1) mmol/L Chloride 106 (98-107) mmol/L Carbon Dioxide 26 (22-32) mmol/L BUN 13 (7-17) mg/dL Creatinine 0.56 (0.52-1.04) mg/dL Estimated GFR > 60.0 (>60) mL/min BUN/Creatinine Ratio 23.2 H (6-22) Glucose 103 (80-110) mg/dL Calcium 9.8 (8.4-10.2) mg/dL Magnesium 2.1 (1.6-2.3) mg/dL Total Bilirubin 0.4 (0.2-1.3) mg/dL AST 63 H (14-36) IU/L ALT 17 (<35) IU/L Alkaline Phosphatase 109 (38-126) U/L Total Creatine Kinase 68 (30-135) U/L CK-MB (CK-2) TNP CK-MB (CK-2) Rel Index TNP Troponin I < 0.012 (0.01-0.034) ng/mL NT-Pro-B Natriuret Pep 151 (<450) pg/mL Total Protein 8.1 (6.3-8.2) g/dL Albumin 4.7 (3.5-5.0) g/dL Globulin 3.4 (1.7-4.1) g/dL Albumin/Globulin Ratio 1.4 (1.0-2.8) Lipase 71 (23-300) U/L Urine Dip Bedside Urine Glucose Negative Bedside Urine Bilirubin - Negative Bedside Urine Ketone - Negative Urine Specific [place] 1.015 Bedside Urine Occult Blood - Negative Bedside Urine pH 8.0 Bedside Urine Protein - Negative Bedside Urine Urobilinogen - Negative Bedside Urine Nitrite - Negative Bedside Urine Leukocytes - Negative Esterase Imaging Data CT scan - abdomen/pelvis: Radiologist Impression: IMPRESSION: 1. Status post partial gastrectomy. 2. Marked distention of the stomach compatible with gastric outlet obstruction at site of gastrectomy-small bowel anastomosis.. Dictated by: Katie Dodson MD, PhD on 10/18/2019 at 18:20 MDM Narrative Medical decision making narrative: Dr Awad,7pm care is assumed from Dr. Hoffmann. 74-year-old woman with increasing weakness and vomiting. CT scan has since returned and suggested a gastric outlet obstruction. Reportedly she had a gastric outlet dilation in June with Dr. Delacruz in telling him. We have not yet been able to obtain the records. Will contact [facility] group to discuss recommendations from this point Patient is status post gastrectomy and has had problems with gastric outlet obstruction previously. In June of 2019 she had significant vomiting that was complicated by severe hypokalemia in early June. She again had vomiting at the end of June and was admitted at [facility] and underwent gastric outlet dilation on June 23 as well as June 25. In discussing findings today and recommending that she allow is to transfer her to [facility] to arrange for inpatient dilation, she notes that she has a disabled adult daughter with a torn meniscus who is completely dependent on her. She absolutely completely declines any admission or transfer at this time. She understands that this kid could get worse to the point that she could actually . She still is unwilling to consider anything other than discharge. Her plan at this time is IV hydration currently going home, staying on a full liquid diet, seeing if there is anything she can do to arrange for care for her daughter and see what options are are for dilation on an outpatient basis. I have spoken with Dr. Graves, [facility] on-call for Dr. Delacruz. He is aware of the issue. Will have his office contact the patient and see what options they were able to the workout in this time when all outpatient procedures are being strictly limited due to Covid19. He has her name as well as her best contact phone number. 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 I understand the difficulty in being the only caregiver for your disabled adult daughter and your inability to follow through with recommendation for hospital admission to arrange for gastric dilation. You have been rehydrated today. Your potassium levels are safe. You have indicated that you will be going home and will follow a strict leave liquid diet. I have spoken with , automobile seat cover installer who is on-call for Dr. Delacruz. He has your name and your phone number and their office will be calling you to see what arrangements they can facilitate to help in light of the fact that you need to care for your daughter. If liquids are not going through, year going to need to return to the emergency department for recurrent hydration. In the meantime, has requested that you increase your omeprazole from 20 mg daily to 20 mg twice a day. I wish you the very best Prescriptions: No Action cholecalciferol (vitamin D3) [Vitamin D3] 2,000 UNIT tablet 1 tab PO DAILY Qty: 0 RF: 0 omeprazole 20 mg capsule,delayed release(DR/EC) 20 mg PO DAILY Qty: 90 RF: 0 ondansetron 8 mg tablet,disintegrating 4 mg translingual Q8H PRN (Reason: nausea and vomiting) Qty: 30 RF: 0 multivitamin tablet 1 tab PO DAILY RF: 0 melatonin 5 mg tablet 5 mg PO BEDTIME PRN (Reason: Sleep) RF: 0 cyanocobalamin (vitamin B-12) 2,500 mcg tablet 2,500 mcg PO DAILY RF: 0 CBD Oil See Rx Instructions .ROUTE .COMPLEX RF: 0 Vitamin E 1 cap PO DAILY RF: 0 loratadine [Claritin] 10 mg tablet 10 mg PO DAILY PRN (Reason: Allergy Symptoms) RF: 0 docusate sodium [Stool Softener] 100 mg tablet 100 mg PO BID RF: 0 Magnesium Citrate See Rx Instructions .ROUTE .COMPLEX RF: 0 metoclopramide HCl [Reglan] 10 mg tablet 10 mg PO QAC RF: 0 Probiotic 3 billion cell capsule 3,000 mmu cells PO DAILY RF: 0 Excedrin Extra Strength 250-250-65 mg Tablet 1 dose PO PRN PRN (Reason: pain) RF: 0 lidocaine HCl-menthol 4-1 % Adhesive Patch,Medicated 1 patch topical DAILY RF: 0 Referrals: Micheline Grey ARNP [Primary Care Provider] - Nathaniel Delacruz MD [Family Provider] -
--- NOTE | 2019-10-18 17:12 | PC.NURSE ---
Christiano RN tried 3 times for IV. This RN tried once. unable to establish IV. Cristal JOHNSON now trying.
--- NOTE | 2019-10-18 17:17 | PC.NURSE ---
Pt would like her daughter to be called and updated about her status. Her number is [phone]. She is her DPOA.
[2019-10-18 17:30] VITALS: BP 167/78; PULSE 72; RESP 19; O2SAT 98
[2019-10-18 17:39] LABS: Alanine Aminotransferase 17 IU/L (<35); Albumin 4.7 g/dL (3.5-5.0); Albumin Globulin Ratio 1.4 (1.0-2.8); Alkaline Phosphatase 109 U/L (38-126); Aspartate Aminotransferase 63 IU/L (14-36); BUN Creatinine Ratio 23.2 (6-22); Bilirubin Total 0.4 mg/dL (0.2-1.3); Blood Urea Nitrogen 13 mg/dL (7-17); Calcium 9.8 mg/dL (8.4-10.2); Carbon Dioxide 26 mmol/L (22-32); Chloride 106 mmol/L (98-107); Creatine Kinase 68 U/L (30-135); Estimated Glomerular Filt Rate > 60.0 mL/min (>60); Globulin 3.4 g/dL (1.7-4.1); Glucose 103 mg/dL (80-110); HEMOLYSIS 40 (0-50); Lipase 71 U/L (23-300); Magnesium 2.1 mg/dL (1.6-2.3); Potassium 3.9 mmol/L (3.4-5.1); Sodium 138 mmol/L (137-145); Total Protein 8.1 g/dL (6.3-8.2)
[2019-10-18 17:40] LABS: Prothrombin Time 11.1 SECONDS (10.1-12.7)
[2019-10-18 17:42] LABS: PTT Partial Thromboplastin Tim 21 SECONDS (26.4-36.2)
[2019-10-18 17:43] LABS: Add Manual Diff / Slide Review NO; Basophils Absolute Auto 100 /uL (0-100); Basophils Percent Auto 0.7 % (0-2); Eosinophils Absolute Auto 200 /uL (0-450); Eosinophils Percent Auto 1.6 % (2-4); Hematocrit 35.4 % (36-46); Hemoglobin 11.7 g/dL (12.0-16.0); Lymphocytes Absolute Auto 1700 /uL (1100-4500); Lymphocytes Percent Auto 17.3 % (25-40); Mean Corpuscular HGB Conc 32.9 % (30-36); Mean Corpuscular Hemoglobin 27.6 PG (26-34); Mean Corpuscular Volume 83.7 fL (80-100); Monocytes Absolute Auto 700 /uL (0-900); Monocytes Percent Auto 7.2 % (3-14); Neutrophils Absolute Auto 7000 /uL (1500-7000); Neutrophils Percent Auto 73.2 % (50-75); Platelet Count 165 X10^3/uL (150-400); Red Blood Cell Count 4.23 X10^6/uL (4.0-5.2); Red Cell Distribution Width 14.6 % (11.6-14.8); White Blood Cell Count 9.6 X10^3/uL (4.5-11.0)
--- NOTE | 2019-10-18 17:44 | DI.CT.S_ITS ---
PROCEDURE: CT ABDOMEN PELVIS W CON INDICATIONS: persistent vomiting TECHNIQUE: After the administration of intravenous contrast, 5 mm thick sections acquired from the diaphragm to the symphysis. 5 mm coronal and sagittal reformats were acquired. For radiation dose reduction, the following was used: automated exposure control, adjustment of mA and/or kV according to patient size. COMPARISON: [facility], CT, CT ABDOMEN PELVIS W CON, 06/09/2019, 23:38. FINDINGS: Image quality: Excellent. ABDOMEN: Lung bases: Lung bases are clear. Heart size is normal. Solid organs: Liver is normal in size and enhancement. Gallbladder is surgically absent. Biliary system is non dilated. Pancreas enhances normally. Spleen is normal in size and enhancement. No adrenal nodules. Kidneys demonstrate normal size and enhancement, without hydronephrosis. Peritoneum and bowel: Postsurgical changes compatible with partial gastrectomy are stable compared to prior examination. The stomach is markedly distended and gastric outlet obstruction. The stomach is distended to the gastric anastomotic site the small bowel. Bowel loops demonstrate normal wall thickness and caliber. No free fluid or air. Nodes and vessels: No retroperitoneal or mesenteric adenopathy by size criteria. Aorta and inferior vena cava are normal in size. Scattered atherosclerotic calcifications involving the abdominal and pelvic vasculature. Miscellaneous: No ventral hernias. PELVIS: Genitourinary: Bladder wall thickness is normal. Miscellaneous: No inguinal hernias or adenopathy. Bones: No suspicious bony lesions. No vertebral body compression fractures. Spine degenerative disc disease and facet arthropathy. IMPRESSION: 1. Status post partial gastrectomy. 2. Marked distention of the stomach compatible with gastric outlet obstruction at site of gastrectomy-small bowel anastomosis.. Dictated by: Katie Dodson MD, PhD on 10/18/2019 at 18:20 Approved by: Katie Dodson MD, PhD on 10/18/2019 at 18:25
[2019-10-18 17:50] LABS: NT-proBNP (BNP-Adult 18+) 151 pg/mL (<450); Troponin I < 0.012 ng/mL (0.01-0.034)
[2019-10-18] MEDS: SODIUM CHLORIDE 0.9% 1,000 ML 1000 ML IV (18:12)
[2019-10-18 18:38] VITALS: BP 157/69; PULSE 69; RESP 21; O2SAT 97
[2019-10-18 19:54] VITALS: BP 157/69; PULSE 80; RESP 21; O2SAT 98
== END 2019-10-18 20:10 | disposition home or self-care (01) ==
PROVIDERS: Emergency Medicine; Emergency Provider Emergency Medicine; Family Provider Internal Medicine Gastroenterology; PCP Nurse Practitioner
DX: K31.1 Adult hypertrophic pyloric stenosis (principal); R07.9 Chest pain, unspecified; R53.1 Weakness; R11.10 Vomiting, unspecified
CPT/HCPCS: 36415; 71045; 74177; 80053; 81003; 82550; 83690; 83735; 83880; 84484; 85025; 85610; 85730; 93005; 96360; 99284

== ENCOUNTER 2020-08-08 13:35 | Emergency (ER) | payer MEDICARE, SELFPAY ==
[2019-03-28 12:26] VITALS: BMI 29.0
[2020-08-08] VITALS (13 sets, daily range): BP systolic 148–167; BP diastolic 62–88; PULSE 68–95; RESP 15–17; TEMP 36.8–36.9; O2SAT 96–99; BMI 27.3
--- NOTE | 2020-08-08 14:09 | DI.CT.S_ITS ---
PROCEDURE: CT CHEST ABD PEL W CON INDICATIONS: ab pain with hx of duodenal stricture TECHNIQUE: After the administration of oral and intravenous contrast, 5 mm thick sections acquired from the lung apices to the symphysis. 5 mm coronal and sagittal reformats were performed, with additional 7 mm coronal MIP reformats through the lungs. For radiation dose reduction, the following was used: automated exposure control, adjustment of mA and/or kV according to patient size. COMPARISON: [facility], CT, CT ABDOMEN PELVIS W CON, 10/18/2019, 17:43. FINDINGS: Image quality: Excellent. CHEST: Lungs and pleura: No definite acute airspace opacities but there are 2 abnormalities within the right upper lobe that require follow-up. The 1st is located at the lateral right upper lobe seen on series 4, image 87 and measuring 1 cm in diameter, indistinctly marginated and sub solid in appearance. No comparison CT is available through this area to establish chronicity. There also is a 5 mm solid peripheral nodule at the posteromedial right upper lobe slightly more inferiorly seen on series 4, image 82. This abuts the pleural surface. . No pleural effusions or pneumothorax. Central and peripheral airways appear patent and normal in caliber. Mediastinum: Heart size is normal. No pericardial effusion. No mediastinal or hilar adenopathy by size criteria. Thoracic aorta and central pulmonary arteries are normal in size. Esophagus is normal in caliber. No hiatal hernia. Chest wall: No axillary or supraclavicular adenopathy by size criteria. Thyroid gland appears normal where well seen. ABDOMEN: Solid organs: Liver is normal in size and enhancement. Gallbladder is not seen and likely surgically absent given the clustering of surgical clips in this general area. . Biliary system is non dilated. Pancreas enhances normally. Spleen is normal in size and enhancement. No adrenal nodules. Kidneys demonstrate normal size and enhancement, without hydronephrosis. Peritoneum and bowel: Bowel loops demonstrate normal wall thickness and caliber. No free fluid or air. Nodes and vessels: No retroperitoneal or mesenteric adenopathy by size criteria. Aorta and inferior vena cava are normal in size. Miscellaneous: No ventral hernias. PELVIS: Genitourinary: Bladder wall thickness is normal. Miscellaneous: No inguinal hernias or adenopathy. Bones: No suspicious bony lesions. No vertebral body compression fractures. IMPRESSION: 1. Two lung nodules are identified at the right upper lobe requiring six-month follow-up noncontrast CT scanning. The 1st measures 1 cm and is subsolid, and the 2nd is 5 mm in diameter and is solid. Neither these have definite malignant appearances but require follow-up to confirm absence of record changer assembler time. 2. Extensive postsurgical clips over the epigastric, prior cholecystectomy, no acute disease. Mild gas prominence within the colon. Dictated by: Srini Macias M.D. on 08/08/2020 at 15:44 Approved by: Srini Macias M.D. on 08/08/2020 at 15:50
--- NOTE | 2020-08-08 14:24 | ED.HA ---
HPI - Headache General Chief Complaint: Headache Stated Complaint: dehydration Time Seen by Provider: 08/08/20 13:49 Mode of arrival: Wheelchair Limitations: no limitations History of Present Illness HPI Narrative: Patient is a 75-year-old female with history of duodenal stents. She states that she is dehydrated. She has been dehydrated in the past and she feels that she is again. She has no nausea vomiting or diarrhea. She has had decreased in oral intake. She currently of a duodenal stent which was removed and she is due to have it replaced in September. She is increasingly becoming weaker. She denies any specific abdominal pain chest pain dizziness or lightheadedness. She did have a bowel movement this morning was nonbloody. Related Data Home Medications Medication Instructions Recorded Confirmed cholecalciferol (vitamin D3) 1 tab PO DAILY #0 12/16/16 02/07/20 [Vitamin D3] melatonin 5 mg tablet 5 mg PO BEDTIME PRN 11/08/18 02/07/20 multivitamin 1 tab PO DAILY 11/08/18 02/07/20 CBD Oil See Rx Instructions .ROUTE .COMPLEX 02/06/19 02/07/20 Vitamin E 1 cap PO DAILY 02/06/19 02/07/20 cyanocobalamin (vitamin B-12) 2,500 mcg PO DAILY 02/06/19 02/07/20 2,500 mcg tablet loratadine 10 mg tablet 10 mg PO DAILY PRN 02/06/19 02/07/20 Excedrin Extra Strength 1 dose PO PRN PRN 02/20/19 02/07/20 Magnesium Citrate See Rx Instructions .ROUTE .COMPLEX 02/28/19 02/07/20 lactobacillus combination no.4 3 3,000 mmu cells PO DAILY 03/28/19 02/07/20 billion cell capsule docusate sodium 100 mg tablet 100 mg PO BID PRN 01/17/20 02/07/20 lidocaine HCl 4 %-menthol 1 % 1 patch TOPICAL DAILY PRN 01/17/20 02/07/20 topical patch omeprazole 20 mg capsule,delayed 20 mg PO DAILY cap 02/07/20 release Allergies Allergy/AdvReac Type Severity Reaction Status Date / Time aspirin [ASPIRIN] AdvReac Severe bleeding Verified 08/08/20 13:56 stomach codeine [CODEINE] AdvReac Severe Hallucinati Verified 08/08/20 13:56 ons fluconazole [From Diflucan] AdvReac Severe I threw Verified 08/08/20 13:56 up all night long. morphine [MORPHINE] AdvReac Severe Hallucinati Verified 08/08/20 13:56 ons oxycodone [OXYCODONE] AdvReac Severe Hallucinations Verified 08/08/20 13:56 and itchy skin prednisone [PREDNISONE] AdvReac Severe Feels Verified 08/08/20 13:56 high and gets very angry zolpidem [ZOLPIDEM] AdvReac Severe turned me Verified 08/08/20 13:56 into a night walker and felt really high. Review of Systems Review of Systems ROS Unobtainable: All systems reviewed & are unremarkable except as noted in HPI and below Constitutional Constitutional: Denies chills, Denies fever(s), Denies lethargy and Reports weakness Eyes Eyes: Denies change in vision, Denies eye discharge, Denies irritation and Denies loss of vision ENT Ears, Nose, Mouth, and Throat: Denies change in voice, Denies neck pain and Denies sore throat Cardiovascular Cardiovascular: Denies chest pain, Denies syncope, Denies irregular heart rhythm, Reports lightheadedness, Denies palpitations, Denies dyspnea, Denies dyspnea on exertion and Denies orthopnea Respiratory Respiratory: Denies cough, Denies dyspnea, Denies dyspnea on exertion and Denies wheezing Gastrointestinal Gastrointestinal: Reports as per HPI Musculoskeletal Musculoskeletal: Denies back pain and Denies neck pain Integumentary/Breasts Skin/Breast: Denies pruritus, Denies erythema, Denies rash and Denies wounds Neurologic Neurologic: Denies syncope, Denies loss of vision and Reports weakness Endocrine Endocrine: Denies palpitations Allergic/Immunologic Allergic/Immunologic: Denies wheezing Patient History Medical History Allergic rhinitis (1960) Anemia (2013) Cataracts, bilateral (2010) Chickenpox Chronic back pain Cutaneous lupus erythematosus Duodenal stenosis Epidermoid cyst Fibroids Fibromyalgia () Foot pain (2000) Fractures (1999) Generalized headaches Heavy menstrual period IBS (irritable bowel syndrome) Iron deficiency anemia Legg-Perthes disease Lupus (1989) Migraines Mumps Osteoarthritis Ovarian cyst Painful menstrual periods Peptic ulcer disease (1979) Perforated ulcer Rheumatic fever (1966) Seborrheic keratosis, inflamed Shoulder pain Tinnitus of both ears (2005) Vertigo (2010) Surgical History History of surgery on arm Hx of abdominal surgery (~1985) Hx of appendectomy (1958) S/P BSO (bilateral salpingo-oophorectomy) Status post cholecystectomy Status post hysterectomy (1988) Family History Father Cancer Mother Diabetes mellitus Osteoarthritis Grandfather No problems noted. Grandmother No problems noted. Social History household members: children Smoking Status: Former smoker Tobacco: How many years used: 30 second hand exposure: No alcohol intake: never substance use type: other Smoking Status: Former smoker alcohol intake frequency: holidays/special occasions only Substance Use Type: does not use Exam Initial Vital Signs Initial Vital Signs: Vital Signs Temperature 98.3 F 08/08/20 13:40 Pulse Rate 92 H 08/08/20 13:40 Respiratory Rate 15 08/08/20 13:40 Blood Pressure 159/75 H 08/08/20 13:40 Pulse Oximetry 99 08/08/20 13:40 GENERAL: Alert weak 75-year-old female and in no acute distress. HEENT: Head atraumatic,EOMI, pupils reactive, face symmetric, moist mucous membranes CARDIOVASCULAR: Regular rate and rhythm without murmurs, rubs or gallops. RESPIRATORY: Breath sounds equal bilaterally, no wheezes rales or rhonchi. ABDOMEN: Soft, nontender. Normoactive bowel sounds all 4 quadrants. No guarding or rebound. EXTREMITIES: Normal range of motion, no clubbing or edema. Neurovascularly intact NEUROLOGICAL: Alert and oriented x4.Normal gait and speech. Manager Consumer strength equal bilaterally SKIN: Warm, dry, no laceration, no petechiae, no rashes or lesions. Course Orders Ordered: ED Orders 08/08/20 14:09 CT chest abd pel w con Stat EKG-12 Lead Stat 08/08/20 14:30 Complete Blood Count AUTO DIFF Stat Comprehensive Metabolic Panel Stat Lipase Stat Troponin & CK Cardiac Panel Stat Discontinued Medications Sodium Chloride (Normal Saline 0.9%) 1,000 mls @ 150 mls/hr IV CONT JOSE Last Infusion: 08/08/20 18:01 Dose: 0 mls/hr Documented by: Admin: 08/08/20 14:36 Dose: 150 mls/hr Documented by: ZAIDA Ondansetron HCl (Ondansetron 4 Mg/2 Ml Inj) 4 mg IV NOW ONE Stop: 08/08/20 14:11 Last Admin: 08/08/20 14:35 Dose: 4 mg Documented by: ZAIDA Pantoprazole Sodium (Pantoprazole 40 Mg Vial) 40 mg IV NOW ONE Stop: 08/08/20 14:11 Last Admin: 08/08/20 14:36 Dose: 40 mg Documented by: ZAIDA Vital Signs Vital signs: Vital Signs - 8 hr 08/08/20 13:40 08/08/20 13:43 08/08/20 14:00 Temperature 98.3 F Pulse Rate 92 H 95 H 79 Respiratory Rate 15 Blood Pressure 159/75 H 159/75 H Pulse Oximetry 99 97 99 08/08/20 14:01 08/08/20 14:30 08/08/20 15:00 Temperature Pulse Rate 86 76 80 Respiratory Rate Blood Pressure 161/80 H 155/74 H 167/72 H Pulse Oximetry 99 98 98 08/08/20 15:31 08/08/20 15:32 08/08/20 16:00 Temperature Pulse Rate 78 78 68 Respiratory Rate Blood Pressure 166/62 H Pulse Oximetry 98 99 98 08/08/20 16:30 08/08/20 17:00 08/08/20 17:30 Temperature Pulse Rate 82 72 70 Respiratory Rate 17 16 16 Blood Pressure Pulse Oximetry 97 97 97 08/08/20 17:43 Temperature 98.4 F Pulse Rate 73 Respiratory Rate 16 Blood Pressure 148/88 H Pulse Oximetry 96 MDM - Headache Lab Data Attestation: I reviewed the patient's lab results. Result diagrams: 08/08/20 14:30 08/08/20 14:30 Labs: Lab Results 08/08/20 08/08/20 Range/Units 14:30 14:30 WBC 10.1 (4.5-11.0) X10^3/uL RBC 5.01 (4.0-5.2) X10^6/uL Hgb 13.5 (12.0-16.0) g/dL Hct 40.4 (36-46) % MCV 80.6 (80-100) fL MCH 27.0 (26-34) PG MCHC 33.5 (30-36) % RDW 17.6 H (11.6-14.8) % Plt Count 277 (150-400) X10^3/uL Neut % (Auto) 64.9 (50-75) % Lymph % (Auto) 22.2 L (25-40) % Carter % (Auto) 10.1 (3-14) % Eos % (Auto) 2.1 (2-4) % Baso % (Auto) 0.7 (0-2) % Neut # (Auto) 6600 (8123-5232) /uL Lymph # (Auto) 2200 (6550-8656) /uL Carter # (Auto) 1000 H (0-900) /uL Eos # (Auto) 200 (0-450) /uL Baso # (Auto) 100 (0-100) /uL Sodium 140 (137-145) mmol/L Potassium 3.7 (3.4-5.1) mmol/L Chloride 103 (98-107) mmol/L Carbon Dioxide 30 (22-32) mmol/L BUN 18 H (7-17) mg/dL Creatinine 0.62 (0.52-1.04) mg/dL Estimated GFR > 60.0 (>60) mL/min BUN/Creatinine Ratio 29.0 H (6-22) Glucose 116 H (80-110) mg/dL Calcium 10.3 H (8.4-10.2) mg/dL Total Bilirubin 0.2 (0.2-1.3) mg/dL AST 28 (14-36) IU/L ALT 23 (<35) IU/L Alkaline Phosphatase 123 (38-126) U/L Total Creatine Kinase 61 (30-135) U/L CK-MB (CK-2) TNP CK-MB (CK-2) Rel Index TNP Troponin I < 0.012 (0.01-0.034) ng/mL Total Protein 8.1 (6.3-8.2) g/dL Albumin 4.6 (3.5-5.0) g/dL Globulin 3.5 (1.7-4.1) g/dL Albumin/Globulin Ratio 1.3 (1.0-2.8) Lipase 109 (23-300) U/L Imaging Data CT scan - abdomen/pelvis: Radiologist's Impression: PROCEDURE: CT CHEST ABD PEL W CON INDICATIONS: ab pain with hx of duodenal stricture TECHNIQUE: After the administration of oral and intravenous contrast, 5 mm thick sections acquired from the lung apices to the symphysis. 5 mm coronal and sagittal reformats were performed, with additional 7 mm coronal MIP reformats through the lungs. For radiation dose reduction, the following was used: automated exposure control, adjustment of mA and/or kV according to patient size. COMPARISON: [facility], CT, CT ABDOMEN PELVIS W CON, 10/18/2019, 17:43. FINDINGS: Image quality: Excellent. CHEST: Lungs and pleura: No definite acute airspace opacities but there are 2 abnormalities within the right upper lobe that require follow-up. The 1st is located at the lateral right upper lobe seen on series 4, image 87 and measuring 1 cm in diameter, indistinctly marginated and sub solid in appearance. No comparison CT is available through this area to establish chronicity. There also is a 5 mm solid peripheral nodule at the posteromedial right upper lobe slightly more inferiorly seen on series 4, image 82. This abuts the pleural surface. . No pleural effusions or pneumothorax. Central and peripheral airways appear patent and normal in caliber. Mediastinum: Heart size is normal. No pericardial effusion. No mediastinal or hilar adenopathy by size criteria. Thoracic aorta and central pulmonary arteries are normal in size. Esophagus is normal in caliber. No hiatal hernia. Chest wall: No axillary or supraclavicular adenopathy by size criteria. Thyroid gland appears normal where well seen. ABDOMEN: Solid organs: Liver is normal in size and enhancement. Gallbladder is not seen and likely surgically absent given the clustering of surgical clips in this general area. . Biliary system is non dilated. Pancreas enhances normally. Spleen is normal in size and enhancement. No adrenal nodules. Kidneys demonstrate normal size and enhancement, without hydronephrosis. Peritoneum and bowel: Bowel loops demonstrate normal wall thickness and caliber. No free fluid or air. Nodes and vessels: No retroperitoneal or mesenteric adenopathy by size criteria. Aorta and inferior vena cava are normal in size. Miscellaneous: No ventral hernias. PELVIS: Genitourinary: Bladder wall thickness is normal. Miscellaneous: No inguinal hernias or adenopathy. Bones: No suspicious bony lesions. No vertebral body compression fractures. IMPRESSION: 1. Two lung nodules are identified at the right upper lobe requiring six-month follow-up noncontrast CT scanning. The 1st measures 1 cm and is subsolid, and the 2nd is 5 mm in diameter and is solid. Neither these have definite malignant appearances but require follow-up to confirm absence of tire changer aircraft time. 2. Extensive postsurgical clips over the epigastric, prior cholecystectomy, no acute disease. Mild gas prominence within the colon. Dictated by: Srini Macias M.D. on 08/08/2020 at 15:44 Approved by: Srini Macias M.D. on 08/08/2020 at 15:50 ECG Data Attestation: I personally reviewed and interpreted this ECG as follows: Prior ECG tracings: available for review Interpretation: Normal sinus rhythm rate 61 p.r. interval [address] changes or T-wave inversions similar to previous EKG MDM Narrative Medical decision making narrative: At this time patient seems weak but blood work and CT are overall reassuring. The patient is able to drink water here in the ED. She is feeling better. She received IV fluids. Discharge Plan Departure Patient Disposition: Home Clinical Impression: Weakness Instructions: Dehydration Activity Restrictions/Additional Instructions: *You have been diagnosed with weakness *What to do: Increase all water intake. If you are not able to eat food I recommend trying a boost or Ensure or protein shake *Continue to take medications as directed *Follow up with your primary care provider in 2-3 days *Return to ER if you should have vomiting, pain, fever or any new, worsening or concerning symptoms Prescriptions: No Action cholecalciferol (vitamin D3) [Vitamin D3] 2,000 UNIT tablet 1 tab PO DAILY Qty: 0 RF: 0 multivitamin tablet 1 tab PO DAILY RF: 0 melatonin 5 mg tablet 5 mg PO BEDTIME PRN (Reason: Sleep) RF: 0 cyanocobalamin (vitamin B-12) 2,500 mcg tablet 2,500 mcg PO DAILY RF: 0 CBD Oil See Rx Instructions .ROUTE .COMPLEX RF: 0 Vitamin E 1 cap PO DAILY RF: 0 loratadine [Claritin] 10 mg tablet 10 mg PO DAILY PRN (Reason: Allergy Symptoms) RF: 0 Magnesium Citrate See Rx Instructions .ROUTE .COMPLEX RF: 0 docusate sodium [Stool Softener] 100 mg tablet 100 mg PO BID PRNRF: 0 Probiotic 3 billion cell capsule 3,000 mmu cells PO DAILY RF: 0 omeprazole 20 mg capsule,delayed release(DR/EC) 20 mg PO DAILY RF: 0 Excedrin Extra Strength 250-250-65 mg Tablet 1 dose PO PRN PRN (Reason: pain) RF: 0 lidocaine HCl-menthol 4-1 % adhesive patch,medicated 1 patch topical DAILY PRNRF: 0 Referrals: Micheline Grey ARNP [Primary Care Provider] -
[2020-08-08] MEDS: ONDANSETRON 4 MG/2 ML INJ IV (14:35)
[2020-08-08] MEDS: SODIUM CHLORIDE 0.9% 1,000 ML 150 ML IV (14:36)
[2020-08-08] MEDS: PANTOPRAZOLE 40 MG VIAL IV (14:36)
[2020-08-08 14:44] LABS: Add Manual Diff / Slide Review NO; Basophils Absolute Auto 100 /uL (0-100); Basophils Percent Auto 0.7 % (0-2); Eosinophils Absolute Auto 200 /uL (0-450); Eosinophils Percent Auto 2.1 % (2-4); Hematocrit 40.4 % (36-46); Hemoglobin 13.5 g/dL (12.0-16.0); Lymphocytes Absolute Auto 2200 /uL (1100-4500); Lymphocytes Percent Auto 22.2 % (25-40); Mean Corpuscular HGB Conc 33.5 % (30-36); Mean Corpuscular Volume 80.6 fL (80-100); Monocytes Absolute Auto 1000 /uL (0-900); Monocytes Percent Auto 10.1 % (3-14); Neutrophils Absolute Auto 6600 /uL (1500-7000); Neutrophils Percent Auto 64.9 % (50-75); Platelet Count 277 X10^3/uL (150-400); Red Blood Cell Count 5.01 X10^6/uL (4.0-5.2); Red Cell Distribution Width 17.6 % (11.6-14.8); White Blood Cell Count 10.1 X10^3/uL (4.5-11.0)
[2020-08-08 14:56] LABS: Alanine Aminotransferase 23 IU/L (<35); Albumin 4.6 g/dL (3.5-5.0); Albumin Globulin Ratio 1.3 (1.0-2.8); Alkaline Phosphatase 123 U/L (38-126); Aspartate Aminotransferase 28 IU/L (14-36); Bilirubin Total 0.2 mg/dL (0.2-1.3); Blood Urea Nitrogen 18 mg/dL (7-17); Calcium 10.3 mg/dL (8.4-10.2); Carbon Dioxide 30 mmol/L (22-32); Chloride 103 mmol/L (98-107); Creatine Kinase 61 U/L (30-135); Estimated Glomerular Filt Rate > 60.0 mL/min (>60); Globulin 3.5 g/dL (1.7-4.1); Glucose 116 mg/dL (80-110); HEMOLYSIS < 15 (0-50); Lipase 109 U/L (23-300); Potassium 3.7 mmol/L (3.4-5.1); Sodium 140 mmol/L (137-145); Total Protein 8.1 g/dL (6.3-8.2)
[2020-08-08 15:07] LABS: Troponin I < 0.012 ng/mL (0.01-0.034)
--- NOTE | 2020-08-08 17:34 | PC.NURSE ---
Updated pt's daughter on the phone of pt's pending discharge. Daughter to lease picker pt when ready.
== END 2020-08-08 18:05 | disposition home or self-care (01) ==
PROVIDERS: Emergency Provider Emergency Medicine; Family Provider Internal Medicine Gastroenterology; PCP Nurse Practitioner
DX: R53.1 Weakness (principal); R42 Dizziness and giddiness; R10.9 Unspecified abdominal pain
CPT/HCPCS: 36415; 71260; 74177; 80053; 82550; 83690; 84484; 85025; 93005; 96361; 96374; 96375; 99283; 99285; C9113; J2405; Q9967

== ENCOUNTER 2021-01-06 20:01 | Emergency (ER) | payer MEDICARE, SELFPAY ==
[2019-03-28 12:26] VITALS: BMI 29.0
[2021-01-06 20:18] VITALS: BP 183/85; PULSE 88; RESP 22; TEMP 36.6; O2SAT 98
[2021-01-06 20:20] VITALS: PULSE 91; RESP 8; O2SAT 94
--- NOTE | 2021-01-06 20:21 | DI.RAD.S_ITS ---
PROCEDURE: XR CHEST 1V INDICATIONS: chest pain TECHNIQUE: One view of the chest was acquired. COMPARISON: [facility], , XR CHEST 1V, 10/18/2019, 16:31. FINDINGS: Surgical changes and devices: Partially imaged surgical clips in the upper abdomen. Lungs and pleura: Lungs are clear. No pleural effusions or pneumothorax. Mediastinum: Mediastinal contours appear normal. Heart size is normal. Bones and chest wall: No suspicious bony lesions. Overlying soft tissues appear unremarkable. IMPRESSION: Stable radiographic evaluation of the chest without acute cardiopulmonary abnormalities or focal airspace disease. Dictated by: Fabricio Benites M.D. on 01/06/2021 at 22:47 Approved by: Fabricio Benites M.D. on 01/06/2021 at 22:47
[2021-01-06 20:30] VITALS: PULSE 92; RESP 11; O2SAT 94
[2021-01-06 20:31] VITALS: BP 131/61; PULSE 92; RESP 17; O2SAT 95
[2021-01-06 20:46] LABS: Add Manual Diff / Slide Review NO; Basophils Absolute Auto 100 /uL (0-100); Eosinophils Absolute Auto 200 /uL (0-450); Eosinophils Percent Auto 1.3 % (2-4); Hematocrit 36.3 % (36-46); Hemoglobin 11.7 g/dL (12.0-16.0); Lymphocytes Absolute Auto 1800 /uL (1100-4500); Lymphocytes Percent Auto 15.6 % (25-40); Mean Corpuscular HGB Conc 32.3 % (30-36); Mean Corpuscular Hemoglobin 24.8 PG (26-34); Mean Corpuscular Volume 76.7 fL (80-100); Monocytes Absolute Auto 1000 /uL (0-900); Monocytes Percent Auto 8.3 % (3-14); Neutrophils Absolute Auto 8800 /uL (1500-7000); Neutrophils Percent Auto 73.8 % (50-75); Platelet Count 335 X10^3/uL (150-400); Red Blood Cell Count 4.73 X10^6/uL (4.0-5.2); Red Cell Distribution Width 17.9 % (11.6-14.8); White Blood Cell Count 11.9 X10^3/uL (4.5-11.0)
--- NOTE | 2021-01-06 20:50 | ED_ITS ---
HPI - Chest Pain General Chief Complaint: Chest Pain Stated Complaint: rapid heartrate Time Seen by Provider: 01/06/21 20:38 Source: patient Mode of arrival: Wheelchair Limitations: no limitations History of Present Illness HPI narrative: Patient is a 75-year-old female. She states that she recently was diagnosed with atrial fibrillation after having a esophageal procedure performed. States she has been in and out of atrial fibrillation since then. She is not currently on any medications for this. She recently finished a ZIO patch 2 weeks ago but has not received the results of this. States that earlier today she felt like her heart was beating fast and skipping beats. She was getting lightheaded at the time. Is also having some chest discomfort at the time. Normally when this happens she is able to control it at home by trying to calm herself down and meditating but today these actions do not seem to help. By the time I evaluated the patient states that she was no longer having the symptoms. Related Data Home Medications Medication Instructions Recorded Confirmed cholecalciferol (vitamin D3) 50 1 tab PO DAILY #0 12/16/16 02/07/20 mcg (2,000 unit) tablet (Vitamin D3) melatonin 5 mg tablet 5 mg PO BEDTIME PRN 11/08/18 02/07/20 multivitamin 1 tab PO DAILY 11/08/18 02/07/20 CBD Oil See Rx Instructions .ROUTE .COMPLEX 02/06/19 02/07/20 Vitamin E 1 cap PO DAILY 02/06/19 02/07/20 cyanocobalamin (vitamin B-12) 2,500 mcg PO DAILY 02/06/19 02/07/20 2,500 mcg tablet loratadine 10 mg tablet (Claritin) 10 mg PO DAILY PRN 02/06/19 02/07/20 [id number] 250 1 dose PO PRN PRN 02/20/19 02/07/20 mg-250 mg-65 mg tablet (Excedrin Extra Strength) Magnesium Citrate See Rx Instructions .ROUTE .COMPLEX 02/28/19 02/07/20 lactobacillus combination no.4 3 3,000 mmu cells PO DAILY 03/28/19 02/07/20 billion cell capsule (Probiotic) docusate sodium 100 mg tablet 100 mg PO BID PRN 01/17/20 02/07/20 (Stool Softener) lidocaine HCl 4 %-menthol 1 % 1 patch TOPICAL DAILY PRN 01/17/20 02/07/20 topical patch omeprazole 20 mg capsule,delayed 20 mg PO DAILY cap 02/07/20 release Allergies Allergy/AdvReac Type Severity Reaction Status Date / Time aspirin [ASPIRIN] AdvReac Severe bleeding Verified 08/08/20 13:56 stomach codeine [CODEINE] AdvReac Severe Hallucinati Verified 08/08/20 13:56 ons fluconazole [From Diflucan] AdvReac Severe I threw Verified 08/08/20 13:56 up all night long. morphine [MORPHINE] AdvReac Severe Hallucinati Verified 08/08/20 13:56 ons oxycodone [OXYCODONE] AdvReac Severe Hallucinations Verified 08/08/20 13:56 and itchy skin prednisone [PREDNISONE] AdvReac Severe Feels Verified 08/08/20 13:56 high and gets very angry zolpidem [ZOLPIDEM] AdvReac Severe turned me Verified 08/08/20 13:56 into a night walker and felt really high. Review of Systems Constitutional Constitutional: Reports system reviewed and no additional complaints, except as documented Cardiovascular Comments: Rapid heart rate, chest discomfort, irregular heart rate Respiratory Comments: Some shortness of breath at the time of the symptoms Gastrointestinal Gastrointestinal: Reports system reviewed and no additional complaints, except as documented Genitourinary Genitourinary: Reports system reviewed and no additional complaints, except as documented Musculoskeletal Musculoskeletal: Reports system reviewed and no additional complaints, except as documented Integumentary/Breasts Skin/Breast: Reports system reviewed and no additional complaints, except as documented Neurologic Neurologic: Reports system reviewed and no additional complaints, except as documented Hematologic/Lymphatic On Anticoagulants: No Allergic/Immunologic Allergic/Immunologic: Reports system reviewed and no additional complaints, except as documented Patient History Medical History Allergic rhinitis (1960) Anemia (2014) Cataracts, bilateral (2010) Chickenpox Chronic back pain Cutaneous lupus erythematosus Duodenal stenosis Epidermoid cyst Fibroids Fibromyalgia (~1989) Foot pain (2000) Fractures (1999) Generalized headaches Heavy menstrual period IBS (irritable bowel syndrome) Iron deficiency anemia Legg-Perthes disease Lupus (1989) Migraines Mumps Osteoarthritis Ovarian cyst Painful menstrual periods Peptic ulcer disease (1979) Perforated ulcer Rheumatic fever (1966) Seborrheic keratosis, inflamed Shoulder pain Tinnitus of both ears (2005) Vertigo (2010) Surgical History History of surgery on arm Hx of abdominal surgery (~1985) Hx of appendectomy (1958) S/P BSO (bilateral salpingo-oophorectomy) Status post cholecystectomy Status post hysterectomy (1988) Family History Father Cancer Mother Diabetes mellitus Osteoarthritis Grandfather No problems noted. Grandmother No problems noted. Social History household members: children Smoking Status: Former smoker Tobacco: How many years used: 30 second hand exposure: No alcohol intake: never substance use type: other Smoking Status: Former smoker alcohol intake frequency: holidays/special occasions only Substance Use Type: does not use Exam Initial Vital Signs Initial Vital Signs: Vital Signs Temperature 98 F 01/06/21 20:18 Pulse Rate 88 01/06/21 20:18 Respiratory Rate 22 01/06/21 20:18 Blood Pressure 183/85 H 01/06/21 20:18 Pulse Oximetry 98 01/06/21 20:18 Const General: cooperative and healthy appearing HENAK Head: normal to inspection and normocephalic Resp Auscultation: clear to auscultation bilaterally Cardio Rate: regular rate Rhythm: regular rhythm GI Inspection: normal to inspection Back/Spine/Pelvis Back: normal to inspection Skin General: no rashes or lesions noted Neuro General: patient alert, patient awake and patient oriented x3 Extrem General: normal to inspection and capillary refill normal Psych Appearance: grossly normal and well kempt Course Orders Ordered: ED Orders 01/06/21 20:21 XR chest 1V Stat EKG-12 Lead Stat 01/06/21 20:40 Complete Blood Count AUTO DIFF Stat Comprehensive Metabolic Panel Stat Lipase Stat Magnesium Stat TSH [Thyroid Stimulating Hormone] Stat Troponin & CK Cardiac Panel Stat Vital Signs Vital signs: Vital Signs - 8 hr 01/06/21 21:00 01/06/21 22:45 Pulse Rate 91 H 83 Respiratory Rate 22 Blood Pressure 122/66 Pulse Oximetry 95 95 MDM - Chest Pain Lab Data Attestation: I reviewed the patient's lab results. Result diagrams: 01/06/21 20:40 01/06/21 20:40 Labs: Lab Results 01/06/21 01/06/21 01/06/21 Range/Units 20:40 20:40 20:40 WBC 11.9 H (4.5-11.0) X10^3/uL RBC 4.73 (4.0-5.2) X10^6/uL Hgb 11.7 L (12.0-16.0) g/dL Hct 36.3 (36-46) % MCV 76.7 L (80-100) fL MCH 24.8 L (26-34) PG MCHC 32.3 (30-36) % RDW 17.9 H (11.6-14.8) % Plt Count 335 (150-400) X10^3/uL Neut % (Auto) 73.8 (50-75) % Lymph % (Auto) 15.6 L (25-40) % [place] % (Auto) 8.3 (3-14) % Eos % (Auto) 1.3 L (2-4) % Baso % (Auto) 1.0 (0-2) % Neut # (Auto) 8800 H (0730-7259) /uL Lymph # (Auto) 1800 (2299-8272) /uL [place] # (Auto) 1000 H (0-900) /uL Eos # (Auto) 200 (0-450) /uL Baso # (Auto) 100 (0-100) /uL Sodium 140 (137-145) mmol/L Potassium 3.9 (3.4-5.1) mmol/L Chloride 108 H (98-107) mmol/L Carbon Dioxide 23 (22-32) mmol/L BUN 18 H (7-17) mg/dL Creatinine 0.80 (0.52-1.04) mg/dL Estimated GFR > 60.0 (>60) mL/min BUN/Creatinine Ratio 22.5 H (6-22) Glucose 127 H (80-110) mg/dL Calcium 9.6 (8.4-10.2) mg/dL Magnesium (1.6-2.3) mg/dL Total Bilirubin 0.2 (0.2-1.3) mg/dL AST 24 (14-36) IU/L ALT 19 (<35) IU/L Alkaline Phosphatase 113 (38-126) U/L Total Creatine Kinase 59 (30-135) U/L CK-MB (CK-2) TNP CK-MB (CK-2) Rel Index TNP Troponin I < 0.012 (0.01-0.034) ng/mL Total Protein 7.6 (6.3-8.2) g/dL Albumin 4.4 (3.5-5.0) g/dL Globulin 3.2 (1.7-4.1) g/dL Albumin/Globulin Ratio 1.4 (1.0-2.8) Lipase 115 (23-300) U/L TSH 0.687 (0.47-4.68) uIU/mL 01/06/21 Range/Units 20:40 WBC (4.5-11.0) X10^3/uL RBC (4.0-5.2) X10^6/uL Hgb (12.0-16.0) g/dL Hct (36-46) % MCV (80-100) fL MCH (26-34) PG MCHC (30-36) % RDW (11.6-14.8) % Plt Count (150-400) X10^3/uL Neut % (Auto) (50-75) % Lymph % (Auto) (25-40) % [place] % (Auto) (3-14) % Eos % (Auto) (2-4) % Baso % (Auto) (0-2) % Neut # (Auto) (2060-9257) /uL Lymph # (Auto) (3090-1534) /uL [place] # (Auto) (0-900) /uL Eos # (Auto) (0-450) /uL Baso # (Auto) (0-100) /uL Sodium (137-145) mmol/L Potassium (3.4-5.1) mmol/L Chloride (98-107) mmol/L Carbon Dioxide (22-32) mmol/L BUN (7-17) mg/dL Creatinine (0.52-1.04) mg/dL Estimated GFR (>60) mL/min BUN/Creatinine Ratio (6-22) Glucose (80-110) mg/dL Calcium (8.4-10.2) mg/dL Magnesium 2.0 (1.6-2.3) mg/dL Total Bilirubin (0.2-1.3) mg/dL AST (14-36) IU/L ALT (<35) IU/L Alkaline Phosphatase (38-126) U/L Total Creatine Kinase (30-135) U/L CK-MB (CK-2) CK-MB (CK-2) Rel Index Troponin I (0.01-0.034) ng/mL Total Protein (6.3-8.2) g/dL Albumin (3.5-5.0) g/dL Globulin (1.7-4.1) g/dL Albumin/Globulin Ratio (1.0-2.8) Lipase (23-300) U/L TSH (0.47-4.68) uIU/mL Imaging Data Chest x-ray: Radiologist's Impression: [address] [id number] ReportSigned Patient: Nohemy Nunes TMR#: [id number]: 4Acct:[id number]/Sex: 75 / FDate of Service: 01/06/21Loc: EDAccession Number: [id number] Procedure: XR chest 1V Ordering Provider: Ben Webb D.O. PROCEDURE: XR CHEST 1V INDICATIONS: chest pain TECHNIQUE: One view of the chest was acquired. COMPARISON: [facility], , XR CHEST 1V, 10/18/2019, 16:31. FINDINGS: Surgical changes and devices: Partially imaged surgical clips in the upper abdomen. Lungs and pleura: Lungs are clear. No pleural effusions or pneumothorax. Mediastinum: Mediastinal contours appear normal. Heart size is normal. Bones and chest wall: No suspicious bony lesions. Overlying soft tissues appear unremarkable. IMPRESSION: Stable radiographic evaluation of the chest without acute cardiopulmonary abnormalities or focal airspace disease. Dictated by: Fabricio Benites M.D. on 01/06/2021 at 22:47 Approved by: Fabricio Benites M.D. on 01/06/2021 at 22:47 ECG Data Attestation: I personally reviewed and interpreted this ECG as follows: Interpretation: Sinus rhythm Ventricular rate 86 Normal axis Normal QRS Normal QTC Normal SC interval No ST T wave changes MDM Narrative Medical decision making narrative: Patient has been sinus rhythm since arrival here in the emergency department. Her labs are unremarkable. Exam is unremarkable. Had a discussion with her regarding her symptoms. Since she just completed the ZIO patch I did inform her that she should contact her doctor who ordered this in order to get the results to discuss potentially starting on medications if needed. I feel that we should hold on that for now. She was giv en return precautions and follow-up instructions. She expressed understanding and agreement. Discharge Plan Departure Patient Disposition: Home Clinical Impression: Palpitations Instructions: DI for Atrial Fibrillation, DI for Arrhythmias Activity Restrictions/Additional Instructions: I recommend that tomorrow you make contact with the provider who ordered the monitor so that you can discuss the results. You can also contact the health resource is coordinator here in the local area at [phone]. This individual can help you establish a primary provider. Return to the emergency department for any new or worsening symptoms. Continue all of your medications as directed Prescriptions: No Action cholecalciferol (vitamin D3) [Vitamin D3] 2,000 UNIT tablet 1 tab PO DAILY Qty: 0 RF: 0 multivitamin tablet 1 tab PO DAILY RF: 0 melatonin 5 mg tablet 5 mg PO BEDTIME PRN (Reason: Sleep) RF: 0 cyanocobalamin (vitamin B-12) 2,500 mcg tablet 2,500 mcg PO DAILY RF: 0 CBD Oil See Rx Instructions .ROUTE .COMPLEX RF: 0 Vitamin E 1 cap PO DAILY RF: 0 loratadine [Claritin] 10 mg tablet 10 mg PO DAILY PRN (Reason: Allergy Symptoms) RF: 0 Magnesium Citrate See Rx Instructions .ROUTE .COMPLEX RF: 0 docusate sodium [Stool Softener] 100 mg tablet 100 mg PO BID PRNRF: 0 Probiotic 3 billion cell capsule 3,000 mmu cells PO DAILY RF: 0 omeprazole 20 mg capsule,delayed release(DR/EC) 20 mg PO DAILY RF: 0 Excedrin Extra Strength 250-250-65 mg Tablet 1 dose PO PRN PRN (Reason: pain) RF: 0 lidocaine HCl-menthol 4-1 % adhesive patch,medicated 1 patch topical DAILY PRNRF: 0 Referrals: Micheline Grey ARNP [Primary Care Provider] -
[2021-01-06 21:00] VITALS: PULSE 91; RESP 22; O2SAT 95
[2021-01-06 21:00] LABS: Alanine Aminotransferase 19 IU/L (<35); Albumin 4.4 g/dL (3.5-5.0); Albumin Globulin Ratio 1.4 (1.0-2.8); Alkaline Phosphatase 113 U/L (38-126); Aspartate Aminotransferase 24 IU/L (14-36); BUN Creatinine Ratio 22.5 (6-22); Bilirubin Total 0.2 mg/dL (0.2-1.3); Blood Urea Nitrogen 18 mg/dL (7-17); Calcium 9.6 mg/dL (8.4-10.2); Carbon Dioxide 23 mmol/L (22-32); Chloride 108 mmol/L (98-107); Creatine Kinase 59 U/L (30-135); Estimated Glomerular Filt Rate > 60.0 mL/min (>60); Globulin 3.2 g/dL (1.7-4.1); Glucose 127 mg/dL (80-110); HEMOLYSIS < 15 (0-50); Lipase 115 U/L (23-300); Potassium 3.9 mmol/L (3.4-5.1); Sodium 140 mmol/L (137-145); Total Protein 7.6 g/dL (6.3-8.2)
[2021-01-06 21:12] LABS: Troponin I < 0.012 ng/mL (0.01-0.034)
[2021-01-06 22:35] LABS: Thyroid Stimulating Hormone 0.687 uIU/mL (0.47-4.68)
[2021-01-06 22:45] VITALS: BP 122/66; PULSE 83; O2SAT 95
== END 2021-01-06 22:49 | disposition home or self-care (01) ==
PROVIDERS: Emergency Provider Emergency Medicine; Family Provider Internal Medicine Gastroenterology; PCP Nurse Practitioner
DX: R00.2 Palpitations (principal); R07.9 Chest pain, unspecified
CPT/HCPCS: 36415; 71045; 80053; 82550; 83690; 83735; 84443; 84484; 85025; 93005; 99283; 99284

== ENCOUNTER 2021-08-17 02:32 | Emergency (ER) | payer MEDICARE, SELFPAY ==
[2019-03-28 12:26] VITALS: BMI 29.0
[2021-08-17] VITALS (26 sets, daily range): BP systolic 93–154; BP diastolic 56–97; PULSE 78–166; RESP 7–20; TEMP 36.3; O2SAT 91–98; BMI 30.2
--- NOTE | 2021-08-17 02:42 | ED.GENADULT ---
HPI - General Adult <Ben Webb DO - Last Filed: 08/17/21 07:06> General Chief complaint: Syncope Stated complaint: Syncope Time Seen by Provider: 08/17/21 02:35 Source: patient and EMS Mode of arrival: EMS Limitations: no limitations History of Present Illness HPI narrative: Patient is a 76-year-old female. Has an extensive GI history to include ulcers/perforated ulcer/gastrectomy and which she states is a duodenal stent. Over the past 24 hours she has had increasing vomiting and abdominal pain and vomiting black coffee-ground emesis. She contacted EMS because of the symptoms. She also has a history of AFib. She is not on anticoagulation because of her GI bleeding history. She denies any change in her stool habits. No fevers. No changes in her medicine recently. Related Data Home Medications Medication Instructions Recorded Confirmed cholecalciferol (vitamin D3) 50 1 tab PO DAILY #0 12/16/16 04/14/21 mcg (2,000 unit) tablet (Vitamin D3) melatonin 5 mg tablet 5 mg PO BEDTIME PRN 11/08/18 04/14/21 multivitamin 1 tab PO DAILY 11/08/18 04/14/21 Vitamin E 1 cap PO DAILY 02/06/19 04/14/21 cyanocobalamin (vitamin B-12) 2,500 mcg PO DAILY 02/06/19 04/14/21 2,500 mcg tablet loratadine 10 mg tablet (Claritin) 10 mg PO DAILY PRN 02/06/19 04/14/21 iacwdzf-ntlvbjnwjdtfe-farhnbyb 250 1 dose PO PRN PRN 02/20/19 04/14/21 mg-250 mg-65 mg tablet (Excedrin Extra Strength) lidocaine HCl 4 %-menthol 1 % 1 patch TOPICAL DAILY PRN 01/17/20 04/14/21 topical patch omeprazole 20 mg capsule,delayed 20 mg PO DAILY cap 02/07/20 04/14/21 release metoclopramide HCl 5 mg tablet 5 mg PO QACHS PRN 03/03/21 04/14/21 omega-3 fatty acids 1,000 mg 1,000 mg PO DAILY 03/03/21 04/14/21 capsule (Fish Oil Concentrate) CBD Hemp 1 tab PO DAILY PRN 04/14/21 Previous Rx's Medication Instructions Recorded gabapentin 100 mg capsule 200 mg PO BID #120 cap 08/17/21 sucralfate 1 gram tablet (Carafate) 1 g PO BID #60 tab 08/17/21 Allergies Allergy/AdvReac Type Severity Reaction Status Date / Time aspirin [ASPIRIN] AdvReac Severe bleeding Verified 04/14/21 15:02 stomach codeine [CODEINE] AdvReac Severe Hallucinati Verified 04/14/21 15:02 ons fluconazole [From Diflucan] AdvReac Severe I threw Verified 04/14/21 15:02 up all night long. morphine [MORPHINE] AdvReac Severe Hallucinati Verified 04/14/21 15:02 ons oxycodone [OXYCODONE] AdvReac Severe Hallucinations Verified 04/14/21 15:02 and itchy skin prednisone [PREDNISONE] AdvReac Severe Feels Verified 04/14/21 15:02 high and gets very angry zolpidem [ZOLPIDEM] AdvReac Severe turned me Verified 04/14/21 15:02 into a night walker and felt really high. Review of Systems <Ben Webb DO - Last Filed: 08/17/21 07:06> Constitutional Constitutional: Denies fever(s) and Denies headache(s) ENT Ears, Nose, Mouth, and Throat: Denies headache(s) Cardiovascular Cardiovascular: Denies chest pain and Denies dyspnea Respiratory Respiratory: Denies dyspnea Gastrointestinal Gastrointestinal: Reports abdominal pain, Denies melena, Reports bloating, Denies change in bowel habits, Reports coffee ground emesis, Reports nausea and Reports vomiting Genitourinary Genitourinary: Reports system reviewed and no additional complaints, except as documented Musculoskeletal Musculoskeletal: Reports system reviewed and no additional complaints, except as documented Integumentary/Breasts Skin/Breast: Reports system reviewed and no additional complaints, except as documented Neurologic Neurologic: Denies headache(s) Psychiatric Psychiatric: Reports system reviewed and no additional complaints, except as documented Hematologic/Lymphatic On Anticoagulants: No Allergic/Immunologic Allergic/Immunologic: Reports system reviewed and no additional complaints, except as documented Patient History <Ben Webb DO - Last Filed: 08/17/21 07:06> Medical History Allergic rhinitis (1959) Anemia, iron deficiency Cataracts, bilateral (2010) Chronic back pain Cutaneous lupus erythematosus Duodenal stenosis Fibroids Fibromyalgia (~1989) Foot pain (2000) Fractures (1999) Generalized headaches Heavy menstrual period IBS (irritable bowel syndrome) Iron deficiency anemia Legg-Perthes disease Migraines Osteoarthritis Ovarian cyst Painful menstrual periods Paroxysmal atrial fibrillation Peptic ulcer disease (1979) Perforated ulcer Rheumatic fever (1966) Shoulder pain Tinnitus of both ears (2005) Vertigo (2010) Surgical History History of surgery on arm Hx of abdominal surgery (~1985) Hx of appendectomy (1958) S/P BSO (bilateral salpingo-oophorectomy) Status post cholecystectomy Status post hysterectomy (1988) Family History Father Cancer Mother Diabetes mellitus Osteoarthritis Grandfather No problems noted. Grandmother No problems noted. Social History household members: children Smoking Status: Former smoker Tobacco: How many years used: 30 second hand exposure: No alcohol intake: never substance use type: other Smoking Status: Former smoker alcohol intake frequency: holidays/special occasions only Substance Use Type: does not use Exam <Ben Webb DO - Last Filed: 08/17/21 07:06> Initial Vital Signs Initial Vital Signs: Vital Signs Temperature 97.3 F L 08/17/21 02:35 Pulse Rate 155 H 08/17/21 02:35 Respiratory Rate 20 08/17/21 02:35 Blood Pressure 138/97 H 08/17/21 02:35 Pulse Oximetry 94 08/17/21 02:35 HENMT Head: normal to inspection and normocephalic Eyes General: appearance normal, both eyes and all related structures Chest Chest: normal inspection of the chest Resp Effort & Inspection: normal respiratory effort Auscultation: clear to auscultation bilaterally Cardio Rate: tachycardic Rhythm: abnormal rhythm GI Inspection: normal to inspection and non-distended Palpation: soft and No tender Back/Spine/Pelvis Back: normal to inspection Skin General: no rashes or lesions noted Other: Pale skin Neuro General: patient alert, patient awake, patient oriented x3 and moves all extremities Extrem General: normal to inspection and No capillary refill normal (Approximately 3 seconds) Psych Appearance: grossly normal and well kempt <Jhoana Angelo DO - Last Filed: 08/17/21 19:01> Initial Vital Signs Initial Vital Signs: Vital Signs Temperature 97.3 F L 08/17/21 02:35 Pulse Rate 155 H 08/17/21 02:35 Respiratory Rate 20 08/17/21 02:35 Blood Pressure 138/97 H 08/17/21 02:35 Pulse Oximetry 94 08/17/21 02:35 Scores <Ben Webb DO - Last Filed: 08/17/21 07:06> GCS [place] coma scale eye opening: Spontaneous [place]anne coma scale verbal response: Orientated [place] coma scale motor response: Obey commands Leanne coma scale total score: 15 <Jhoana Angelo DO - Last Filed: 08/17/21 19:01> GCS [place] coma scale total score: 15 Course <Ben Webb DO - Last Filed: 08/17/21 07:06> Orders Ordered: ED Orders 08/17/21 10:25 Hemoglobin and Hematocrit Stat Discontinued Medications Diphenhydramine HCl (Diphenhydramine 50 Mg/Ml Vial) 25 mg IV NOW ONE Stop: 08/17/21 07:14 Last Admin: 08/17/21 07:30 Dose: 25 mg Documented by: MARCELO Sodium Chloride (Normal Saline 0.9%) 1,000 mls @ 100 mls/hr IV CONT [facility] Last Infusion: 08/17/21 06:51 Dose: 0 mls/hr Documented by: Admin: 08/17/21 03:06 Dose: 100 mls/hr Documented by: SIVAKUMAR Sodium Chloride (Normal Saline 0.9%) 1,000 mls @ 100 mls/hr IV CONT [facility] Last Infusion: 08/17/21 11:35 Dose: 0 mls/hr Documented by: Admin: 08/17/21 06:55 Dose: 100 mls/hr Documented by: REGGIE Ondansetron HCl (Ondansetron 4 Mg/2 Ml Inj) 4 mg IV NOW ONE Stop: 08/17/21 02:36 Last Admin: 08/17/21 03:01 Dose: 4 mg Documented by: SIVAKUMAR Pantoprazole Sodium (Pantoprazole 40 Mg Vial) 80 mg IV NOW ONE Stop: 08/17/21 02:36 Last Admin: 08/17/21 02:56 Dose: 80 mg Documented by: SIVAKUMAR Pantoprazole Sodium (Pantoprazole 40 Mg Vial) 40 mg IV NOW ONE Stop: 08/17/21 03:01 Last Admin: 08/17/21 03:07 Dose: Not Given Documented by: SIVAKUMAR Prochlorperazine (Prochlorperazine 10 Mg/2 Ml Vial) 10 mg IV NOW ONE Stop: 08/17/21 07:14 Last Admin: 08/17/21 07:29 Dose: 10 mg Documented by: MARCELO Vital Signs Vital signs: Vital Signs - 8 hr 08/17/21 11:00 08/17/21 11:33 08/17/21 12:00 Pulse Rate 78 85 80 Respiratory Rate 12 18 Blood Pressure 117/56 L Pulse Oximetry 97 94 91 08/17/21 12:11 08/17/21 12:12 Pulse Rate 84 Respiratory Rate 17 Blood Pressure 121/58 L Pulse Oximetry 93 <Jhoana Angelo DO - Last Filed: 08/17/21 19:01> Orders Ordered: ED Orders 08/17/21 10:25 Hemoglobin and Hematocrit Stat Discontinued Medications Diphenhydramine HCl (Diphenhydramine 50 Mg/Ml Vial) 25 mg IV NOW ONE Stop: 08/17/21 07:14 Last Admin: 08/17/21 07:30 Dose: 25 mg Documented by: MARCELO Sodium Chloride (Normal Saline 0.9%) 1,000 mls @ 100 mls/hr IV CONT [facility] Last Infusion: 08/17/21 06:51 Dose: 0 mls/hr Documented by: Admin: 08/17/21 03:06 Dose: 100 mls/hr Documented by: SIVAKUMAR Sodium Chloride (Normal Saline 0.9%) 1,000 mls @ 100 mls/hr IV CONT [facility] Last Infusion: 08/17/21 11:35 Dose: 0 mls/hr Documented by: Admin: 08/17/21 06:55 Dose: 100 mls/hr Documented by: REGGIE Ondansetron HCl (Ondansetron 4 Mg/2 Ml Inj) 4 mg IV NOW ONE Stop: 08/17/21 02:36 Last Admin: 08/17/21 03:01 Dose: 4 mg Documented by: SIVAKUMAR Pantoprazole Sodium (Pantoprazole 40 Mg Vial) 80 mg IV NOW ONE Stop: 08/17/21 02:36 Last Admin: 08/17/21 02:56 Dose: 80 mg Documented by: SIVAKUMAR Pantoprazole Sodium (Pantoprazole 40 Mg Vial) 40 mg IV NOW ONE Stop: 08/17/21 03:01 Last Admin: 08/17/21 03:07 Dose: Not Given Documented by: SIVAKUMAR Prochlorperazine (Prochlorperazine 10 Mg/2 Ml Vial) 10 mg IV NOW ONE Stop: 08/17/21 07:14 Last Admin: 08/17/21 07:29 Dose: 10 mg Documented by: MARCELO Vital Signs Vital signs: Vital Signs - 8 hr 08/17/21 11:00 08/17/21 11:33 08/17/21 12:00 Pulse Rate 78 85 80 Respiratory Rate 12 18 Blood Pressure 117/56 L Pulse Oximetry 97 94 91 08/17/21 12:11 08/17/21 12:12 Pulse Rate 84 Respiratory Rate 17 Blood Pressure 121/58 L Pulse Oximetry 93 Medical Decision Making <Ben Webb, - Last Filed: 08/17/21 07:06> Medical Records Medical records reviewed: Yes I reviewed the patient's medical records. Lab Data Lab results reviewed: Yes I reviewed the patient's lab results. Result diagrams: 08/17/21 10:25 08/17/21 02:45 Labs: Lab Results 08/17/21 08/17/21 08/17/21 Range/Units 02:45 02:45 02:45 WBC 16.7 H (4.5-11.0) X10^3/uL RBC 5.27 H (4.0-5.2) X10^6/uL Hgb 15.4 (12.0-16.0) g/dL Hct 46.1 H (36-46) % MCV 87.4 (80-100) fL MCH 29.2 (26-34) PG MCHC 33.5 (30-36) % RDW 14.0 (11.6-14.8) % Plt Count 383 (150-400) X10^3/uL Neut % (Auto) 73.5 (50-75) % Lymph % (Auto) 17.2 L (25-40) % [place] % (Auto) 8.3 (3-14) % Eos % (Auto) 0.4 L (2-4) % Baso % (Auto) 0.6 (0-2) % Neut # (Auto) 71413 H (9297-9502) /uL Lymph # (Auto) 2900 (5509-3825) /uL [place] # (Auto) 1400 H (0-900) /uL Eos # (Auto) 100 (0-450) /uL Baso # (Auto) 100 (0-100) /uL PT 13.0 H (10.1-12.7) SECONDS INR 1.2 (0.9-1.3) APTT 36 D (26.4-36.2) SECONDS Sodium 142 (137-145) mmol/L Potassium 3.1 L (3.4-5.1) mmol/L Chloride 98 (98-107) mmol/L Carbon Dioxide 35 H (22-32) mmol/L BUN 20 H (7-17) mg/dL Creatinine 0.82 (0.52-1.04) mg/dL Estimated GFR > 60.0 (>60) mL/min BUN/Creatinine Ratio 24.4 H (6-22) Glucose 183 H (80-110) mg/dL Lactate (0.7-2.1) mmol/L Calcium 10.3 H (8.4-10.2) mg/dL Total Bilirubin 0.6 (0.2-1.3) mg/dL Conjugated Bilirubin 0.0 (0.0-0.3) md/dL Unconjugated Bilirubin 0.4 (0.0-1.1) mg/dL AST 29 (14-36) IU/L ALT 23 (<35) IU/L Alkaline Phosphatase 133 H (38-126) U/L Total Protein 8.6 H (6.3-8.2) g/dL Albumin 4.6 (3.5-5.0) g/dL Globulin 4.0 (1.7-4.1) g/dL Albumin/Globulin Ratio 1.2 (1.0-2.8) Urine Color Urine Appearance Urine pH (4.5-8.0) Ur Specific [place] (1.000-1.035) Urine Protein (Negative) Urine Glucose (UA) (Negative) g/dL Urine Ketones (NEGATIVE) Urine Occult Blood (Negative) Urine Nitrate (Negative) Urine Bilirubin (NEGATIVE) Urine Urobilinogen (0.2) E.U./dL Ur Leukocyte Esterase (NEGATIVE) Urine RBC (0-5/HPF) Urine WBC (0-5/HPF) Amorphous Sediment Urine Bacteria (None) Ur Culture Indicated? SARS-CoV-2 (PCR) (Negative) Blood Type Antibody Screen 08/17/21 08/17/21 08/17/21 Range/Units 02:45 02:45 04:20 WBC (4.5-11.0) X10^3/uL RBC (4.0-5.2) X10^6/uL Hgb (12.0-16.0) g/dL Hct (36-46) % MCV (80-100) fL MCH (26-34) PG MCHC (30-36) % RDW (11.6-14.8) % Plt Count (150-400) X10^3/uL Neut % (Auto) (50-75) % Lymph % (Auto) (25-40) % [place] % (Auto) (3-14) % Eos % (Auto) (2-4) % Baso % (Auto) (0-2) % Neut # (Auto) (2269-1764) /uL Lymph # (Auto) (0342-3989) /uL [place] # (Auto) (0-900) /uL Eos # (Auto) (0-450) /uL Baso # (Auto) (0-100) /uL PT (10.1-12.7) SECONDS INR (0.9-1.3) APTT (26.4-36.2) SECONDS Sodium (137-145) mmol/L Potassium (3.4-5.1) mmol/L Chloride (98-107) mmol/L Carbon Dioxide (22-32) mmol/L BUN (7-17) mg/dL Creatinine (0.52-1.04) mg/dL Estimated GFR (>60) mL/min BUN/Creatinine Ratio (6-22) Glucose (80-110) mg/dL Lactate 2.1 (0.7-2.1) mmol/L Calcium (8.4-10.2) mg/dL Total Bilirubin (0.2-1.3) mg/dL Conjugated Bilirubin (0.0-0.3) md/dL Unconjugated Bilirubin (0.0-1.1) mg/dL AST (14-36) IU/L ALT (<35) IU/L Alkaline Phosphatase (38-126) U/L Total Protein (6.3-8.2) g/dL Albumin (3.5-5.0) g/dL Globulin (1.7-4.1) g/dL Albumin/Globulin Ratio (1.0-2.8) Urine Color Yellow Urine Appearance Clear Urine pH 8.5 H (4.5-8.0) Ur Specific [place] 1.010 (1.000-1.035) Urine Protein Trace H (Negative) Urine Glucose (UA) Negative (Negative) g/dL Urine Ketones 2+ H (NEGATIVE) Urine Occult Blood Negative (Negative) Urine Nitrate Negative (Negative) Urine Bilirubin Negative (NEGATIVE) Urine Urobilinogen 0.2 (0.2) E.U./dL Ur Leukocyte Esterase Negative (NEGATIVE) Urine RBC None seen (0-5/HPF) Urine WBC None seen (0-5/HPF) Amorphous Sediment 2+ Urine Bacteria None seen (None) Ur Culture Indicated? Cult not indicated SARS-CoV-2 (PCR) (Negative) Blood Type O Positive Antibody Screen Negative 08/17/21 08/17/21 08/17/21 Range/Units 04:44 05:20 05:20 WBC (4.5-11.0) X10^3/uL RBC (4.0-5.2) X10^6/uL Hgb 14.0 (12.0-16.0) g/dL Hct 41.8 (36-46) % MCV (80-100) fL MCH (26-34) PG MCHC (30-36) % RDW (11.6-14.8) % Plt Count (150-400) X10^3/uL Neut % (Auto) (50-75) % Lymph % (Auto) (25-40) % [place] % (Auto) (3-14) % Eos % (Auto) (2-4) % Baso % (Auto) (0-2) % Neut # (Auto) (0466-1405) /uL Lymph # (Auto) (3464-8534) /uL [place] # (Auto) (0-900) /uL Eos # (Auto) (0-450) /uL Baso # (Auto) (0-100) /uL PT (10.1-12.7) SECONDS INR (0.9-1.3) APTT (26.4-36.2) SECONDS Sodium (137-145) mmol/L Potassium (3.4-5.1) mmol/L Chloride (98-107) mmol/L Carbon Dioxide (22-32) mmol/L BUN (7-17) mg/dL Creatinine (0.52-1.04) mg/dL Estimated GFR (>60) mL/min BUN/Creatinine Ratio (6-22) Glucose (80-110) mg/dL Lactate 1.3 (0.7-2.1) mmol/L Calcium (8.4-10.2) mg/dL Total Bilirubin (0.2-1.3) mg/dL Conjugated Bilirubin (0.0-0.3) md/dL Unconjugated Bilirubin (0.0-1.1) mg/dL AST (14-36) IU/L ALT (<35) IU/L Alkaline Phosphatase (38-126) U/L Total Protein (6.3-8.2) g/dL Albumin (3.5-5.0) g/dL Globulin (1.7-4.1) g/dL Albumin/Globulin Ratio (1.0-2.8) Urine Color Urine Appearance Urine pH (4.5-8.0) Ur Specific [place] (1.000-1.035) Urine Protein (Negative) Urine Glucose (UA) (Negative) g/dL Urine Ketones (NEGATIVE) Urine Occult Blood (Negative) Urine Nitrate (Negative) Urine Bilirubin (NEGATIVE) Urine Urobilinogen (0.2) E.U./dL Ur Leukocyte Esterase (NEGATIVE) Urine RBC (0-5/HPF) Urine WBC (0-5/HPF) Amorphous Sediment Urine Bacteria (None) Ur Culture Indicated? SARS-CoV-2 (PCR) Negative (Negative) Blood Type Antibody Screen 08/17/21 Range/Units 10:25 WBC (4.5-11.0) X10^3/uL RBC (4.0-5.2) X10^6/uL Hgb 13.3 (12.0-16.0) g/dL Hct 39.4 (36-46) % MCV (80-100) fL MCH (26-34) PG MCHC (30-36) % RDW (11.6-14.8) % Plt Count (150-400) X10^3/uL Neut % (Auto) (50-75) % Lymph % (Auto) (25-40) % [place] % (Auto) (3-14) % Eos % (Auto) (2-4) % Baso % (Auto) (0-2) % Neut # (Auto) (7210-7393) /uL Lymph # (Auto) (5096-5370) /uL [place] # (Auto) (0-900) /uL Eos # (Auto) (0-450) /uL Baso # (Auto) (0-100) /uL PT (10.1-12.7) SECONDS INR (0.9-1.3) APTT (26.4-36.2) SECONDS Sodium (137-145) mmol/L Potassium (3.4-5.1) mmol/L Chloride (98-107) mmol/L Carbon Dioxide (22-32) mmol/L BUN (7-17) mg/dL Creatinine (0.52-1.04) mg/dL Estimated GFR (>60) mL/min BUN/Creatinine Ratio (6-22) Glucose (80-110) mg/dL Lactate (0.7-2.1) mmol/L Calcium (8.4-10.2) mg/dL Total Bilirubin (0.2-1.3) mg/dL Conjugated Bilirubin (0.0-0.3) md/dL Unconjugated Bilirubin (0.0-1.1) mg/dL AST (14-36) IU/L ALT (<35) IU/L Alkaline Phosphatase (38-126) U/L Total Protein (6.3-8.2) g/dL Albumin (3.5-5.0) g/dL Globulin (1.7-4.1) g/dL Albumin/Globulin Ratio (1.0-2.8) Urine Color Urine Appearance Urine pH (4.5-8.0) Ur Specific [place] (1.000-1.035) Urine Protein (Negative) Urine Glucose (UA) (Negative) g/dL Urine Ketones (NEGATIVE) Urine Occult Blood (Negative) Urine Nitrate (Negative) Urine Bilirubin (NEGATIVE) Urine Urobilinogen (0.2) E.U./dL Ur Leukocyte Esterase (NEGATIVE) Urine RBC (0-5/HPF) Urine WBC (0-5/HPF) Amorphous Sediment Urine Bacteria (None) Ur Culture Indicated? SARS-CoV-2 (PCR) (Negative) Blood Type Antibody Screen Imaging Data CT scan - abdomen/pelvis: Radiologist's Impression: Findings suggest a nonspecific gastroenteritis. No indication of mechanical obstruction. Status post cholecystectomy, partial gastrectomy and hysterectomy. Stent like device present in the gastrojejunal anastomosis. No indication of bowel obstruction. Thickened stomach cohen. Fluid distension and mild thickening of the small bowel without transition point. Large bowel grossly unremarkable. ECG Data Attestation: I personally reviewed and interpreted this ECG as follows: Interpretation: Atrial fibrillation Ventricular rate 148 Normal QRS Normal axis Nonspecific ST T wave changes MDM Narrative Medical decision making narrative: Patient has extensive GI history to include surgeries, stents, ulcerations and perforated ulcers. Patient arrived with coffee-ground emesis somewhere between 500 cc and 1 L. Patient a-fib with RVR. Not hypotensive. This did resolve on its own without intervention. Patient was given gentle hydration. Initial labs show a normal lactate and a fairly unremarkable H&H. CT scan was ordered which shows a nonspecific gastritis. No signs of obstruction. Repeat H&H show no decrease. Patient currently sinus rhythm with a rate of 83 and a blood pressure of 125/58 with a MAP of 85. Given her presentation patient does require admission to the hospital for further evaluation and treatment. I did discuss the case with Dr. Borges with General surgery at this facility who recommended that placement be attempted at a facility that has Gastroenterology given her complex GI history. Patient is currently stable. Attempted to contact [facility], [facility], [facility] and [facility]. Patient is placed on a waiting list at [facility]. All other facilities are full. Did discuss the case with coordination Center who will help us with attempting placement. Patient will remain in the emergency department until placement is found. Care turned over to Dr. Angelo at change of shift to continue to evaluate and disposition. <Jhoana Angelo, - Last Filed: 08/17/21 19:01> Lab Data Labs: Lab Results 08/17/21 08/17/21 08/17/21 Range/Units 02:45 02:45 02:45 WBC 16.7 H (4.5-11.0) X10^3/uL RBC 5.27 H (4.0-5.2) X10^6/uL Hgb 15.4 (12.0-16.0) g/dL Hct 46.1 H (36-46) % MCV 87.4 (80-100) fL MCH 29.2 (26-34) PG MCHC 33.5 (30-36) % RDW 14.0 (11.6-14.8) % Plt Count 383 (150-400) X10^3/uL Neut % (Auto) 73.5 (50-75) % Lymph % (Auto) 17.2 L (25-40) % [place] % (Auto) 8.3 (3-14) % Eos % (Auto) 0.4 L (2-4) % Baso % (Auto) 0.6 (0-2) % Neut # (Auto) 26714 H (5070-3533) /uL Lymph # (Auto) 2900 (6240-6904) /uL [place] # (Auto) 1400 H (0-900) /uL Eos # (Auto) 100 (0-450) /uL Baso # (Auto) 100 (0-100) /uL PT 13.0 H (10.1-12.7) SECONDS INR 1.2 (0.9-1.3) APTT 36 D (26.4-36.2) SECONDS Sodium 142 (137-145) mmol/L Potassium 3.1 L (3.4-5.1) mmol/L Chloride 98 (98-107) mmol/L Carbon Dioxide 35 H (22-32) mmol/L BUN 20 H (7-17) mg/dL Creatinine 0.82 (0.52-1.04) mg/dL Estimated GFR > 60.0 (>60) mL/min BUN/Creatinine Ratio 24.4 H (6-22) Glucose 183 H (80-110) mg/dL Lactate (0.7-2.1) mmol/L Calcium 10.3 H (8.4-10.2) mg/dL Total Bilirubin 0.6 (0.2-1.3) mg/dL Conjugated Bilirubin 0.0 (0.0-0.3) md/dL Unconjugated Bilirubin 0.4 (0.0-1.1) mg/dL AST 29 (14-36) IU/L ALT 23 (<35) IU/L Alkaline Phosphatase 133 H (38-126) U/L Total Protein 8.6 H (6.3-8.2) g/dL Albumin 4.6 (3.5-5.0) g/dL Globulin 4.0 (1.7-4.1) g/dL Albumin/Globulin Ratio 1.2 (1.0-2.8) Urine Color Urine Appearance Urine pH (4.5-8.0) Ur Specific [place] (1.000-1.035) Urine Protein (Negative) Urine Glucose (UA) (Negative) g/dL Urine Ketones (NEGATIVE) Urine Occult Blood (Negative) Urine Nitrate (Negative) Urine Bilirubin (NEGATIVE) Urine Urobilinogen (0.2) E.U./dL Ur Leukocyte Esterase (NEGATIVE) Urine RBC (0-5/HPF) Urine WBC (0-5/HPF) Amorphous Sediment Urine Bacteria (None) Ur Culture Indicated? SARS-CoV-2 (PCR) (Negative) Blood Type Antibody Screen 08/17/21 08/17/21 08/17/21 Range/Units 02:45 02:45 04:20 WBC (4.5-11.0) X10^3/uL RBC (4.0-5.2) X10^6/uL Hgb (12.0-16.0) g/dL Hct (36-46) % MCV (80-100) fL MCH (26-34) PG MCHC (30-36) % RDW (11.6-14.8) % Plt Count (150-400) X10^3/uL Neut % (Auto) (50-75) % Lymph % (Auto) (25-40) % [place] % (Auto) (3-14) % Eos % (Auto) (2-4) % Baso % (Auto) (0-2) % Neut # (Auto) (0581-2291) /uL Lymph # (Auto) (6585-9143) /uL [place] # (Auto) (0-900) /uL Eos # (Auto) (0-450) /uL Baso # (Auto) (0-100) /uL PT (10.1-12.7) SECONDS INR (0.9-1.3) APTT (26.4-36.2) SECONDS Sodium (137-145) mmol/L Potassium (3.4-5.1) mmol/L Chloride (98-107) mmol/L Carbon Dioxide (22-32) mmol/L BUN (7-17) mg/dL Creatinine (0.52-1.04) mg/dL Estimated GFR (>60) mL/min BUN/Creatinine Ratio (6-22) Glucose (80-110) mg/dL Lactate 2.1 (0.7-2.1) mmol/L Calcium (8.4-10.2) mg/dL Total Bilirubin (0.2-1.3) mg/dL Conjugated Bilirubin (0.0-0.3) md/dL Unconjugated Bilirubin (0.0-1.1) mg/dL AST (14-36) IU/L ALT (<35) IU/L Alkaline Phosphatase (38-126) U/L Total Protein (6.3-8.2) g/dL Albumin (3.5-5.0) g/dL Globulin (1.7-4.1) g/dL Albumin/Globulin Ratio (1.0-2.8) Urine Color Yellow Urine Appearance Clear Urine pH 8.5 H (4.5-8.0) Ur Specific [place] 1.010 (1.000-1.035) Urine Protein Trace H (Negative) Urine Glucose (UA) Negative (Negative) g/dL Urine Ketones 2+ H (NEGATIVE) Urine Occult Blood Negative (Negative) Urine Nitrate Negative (Negative) Urine Bilirubin Negative (NEGATIVE) Urine Urobilinogen 0.2 (0.2) E.U./dL Ur Leukocyte Esterase Negative (NEGATIVE) Urine RBC None seen (0-5/HPF) Urine WBC None seen (0-5/HPF) Amorphous Sediment 2+ Urine Bacteria None seen (None) Ur Culture Indicated? Cult not indicated SARS-CoV-2 (PCR) (Negative) Blood Type O Positive Antibody Screen Negative 08/17/21 08/17/21 08/17/21 Range/Units 04:44 05:20 05:20 WBC (4.5-11.0) X10^3/uL RBC (4.0-5.2) X10^6/uL Hgb 14.0 (12.0-16.0) g/dL Hct 41.8 (36-46) % MCV (80-100) fL MCH (26-34) PG MCHC (30-36) % RDW (11.6-14.8) % Plt Count (150-400) X10^3/uL Neut % (Auto) (50-75) % Lymph % (Auto) (25-40) % [place] % (Auto) (3-14) % Eos % (Auto) (2-4) % Baso % (Auto) (0-2) % Neut # (Auto) (2521-6723) /uL Lymph # (Auto) (0267-4950) /uL [place] # (Auto) (0-900) /uL Eos # (Auto) (0-450) /uL Baso # (Auto) (0-100) /uL PT (10.1-12.7) SECONDS INR (0.9-1.3) APTT (26.4-36.2) SECONDS Sodium (137-145) mmol/L Potassium (3.4-5.1) mmol/L Chloride (98-107) mmol/L Carbon Dioxide (22-32) mmol/L BUN (7-17) mg/dL Creatinine (0.52-1.04) mg/dL Estimated GFR (>60) mL/min BUN/Creatinine Ratio (6-22) Glucose (80-110) mg/dL Lactate 1.3 (0.7-2.1) mmol/L Calcium (8.4-10.2) mg/dL Total Bilirubin (0.2-1.3) mg/dL Conjugated Bilirubin (0.0-0.3) md/dL Unconjugated Bilirubin (0.0-1.1) mg/dL AST (14-36) IU/L ALT (<35) IU/L Alkaline Phosphatase (38-126) U/L Total Protein (6.3-8.2) g/dL Albumin (3.5-5.0) g/dL Globulin (1.7-4.1) g/dL Albumin/Globulin Ratio (1.0-2.8) Urine Color Urine Appearance Urine pH (4.5-8.0) Ur Specific [place] (1.000-1.035) Urine Protein (Negative) Urine Glucose (UA) (Negative) g/dL Urine Ketones (NEGATIVE) Urine Occult Blood (Negative) Urine Nitrate (Negative) Urine Bilirubin (NEGATIVE) Urine Urobilinogen (0.2) E.U./dL Ur Leukocyte Esterase (NEGATIVE) Urine RBC (0-5/HPF) Urine WBC (0-5/HPF) Amorphous Sediment Urine Bacteria (None) Ur Culture Indicated? SARS-CoV-2 (PCR) Negative (Negative) Blood Type Antibody Screen 08/17/21 Range/Units 10:25 WBC (4.5-11.0) X10^3/uL RBC (4.0-5.2) X10^6/uL Hgb 13.3 (12.0-16.0) g/dL Hct 39.4 (36-46) % MCV (80-100) fL MCH (26-34) PG MCHC (30-36) % RDW (11.6-14.8) % Plt Count (150-400) X10^3/uL Neut % (Auto) (50-75) % Lymph % (Auto) (25-40) % [place] % (Auto) (3-14) % Eos % (Auto) (2-4) % Baso % (Auto) (0-2) % Neut # (Auto) (6388-8622) /uL Lymph # (Auto) (6645-9435) /uL [place] # (Auto) (0-900) /uL Eos # (Auto) (0-450) /uL Baso # (Auto) (0-100) /uL PT (10.1-12.7) SECONDS INR (0.9-1.3) APTT (26.4-36.2) SECONDS Sodium (137-145) mmol/L Potassium (3.4-5.1) mmol/L Chloride (98-107) mmol/L Carbon Dioxide (22-32) mmol/L BUN (7-17) mg/dL Creatinine (0.52-1.04) mg/dL Estimated GFR (>60) mL/min BUN/Creatinine Ratio (6-22) Glucose (80-110) mg/dL Lactate (0.7-2.1) mmol/L Calcium (8.4-10.2) mg/dL Total Bilirubin (0.2-1.3) mg/dL Conjugated Bilirubin (0.0-0.3) md/dL Unconjugated Bilirubin (0.0-1.1) mg/dL AST (14-36) IU/L ALT (<35) IU/L Alkaline Phosphatase (38-126) U/L Total Protein (6.3-8.2) g/dL Albumin (3.5-5.0) g/dL Globulin (1.7-4.1) g/dL Albumin/Globulin Ratio (1.0-2.8) Urine Color Urine Appearance Urine pH (4.5-8.0) Ur Specific [place] (1.000-1.035) Urine Protein (Negative) Urine Glucose (UA) (Negative) g/dL Urine Ketones (NEGATIVE) Urine Occult Blood (Negative) Urine Nitrate (Negative) Urine Bilirubin (NEGATIVE) Urine Urobilinogen (0.2) E.U./dL Ur Leukocyte Esterase (NEGATIVE) Urine RBC (0-5/HPF) Urine WBC (0-5/HPF) Amorphous Sediment Urine Bacteria (None) Ur Culture Indicated? SARS-CoV-2 (PCR) (Negative) Blood Type Antibody Screen Imaging Data CT scan - abdomen/pelvis: Radiologist's Impression: Findings suggest a nonspecific gastroenteritis. No indication of mechanical obstruction. Status post cholecystectomy, partial gastrectomy and hysterectomy. Stent like device present in the gastrojejunal anastomosis. No indication of bowel obstruction. Thickened stomach cohen. Fluid distension and mild thickening of the small bowel without transition point. Large bowel grossly unremarkable. [facility] Narrative Medical decision making narrative: Patient has extensive GI history to include surgeries, stents, ulcerations and perforated ulcers. Patient arrived with coffee-ground emesis somewhere between 500 cc and 1 L. Patient a-fib with RVR. Not hypotensive. This did resolve on its own without intervention. Patient was given gentle hydration. Initial labs show a normal lactate and a fairly unremarkable H&H. CT scan was ordered which shows a nonspecific gastritis. No signs of obstruction. Repeat H&H show no decrease. Patient currently sinus rhythm with a rate of 83 and a blood pressure of 125/58 with a MAP of 85. Given her presentation patient does require admission to the hospital for further evaluation and treatment. I did discuss the case with Dr. Borges with General surgery at this facility who recommended that placement be attempted at a facility that has Gastroenterology given her complex GI history. Patient is currently stable. [facility] Patient is placed on a waiting list at [facility]. All other facilities are full. Did discuss the case with coordination Center who will help us with attempting placement. Patient will remain in the emergency department until placement is found. Care turned over to Dr. Angelo at change of shift to continue to evaluate and disposition. Dr. Angelo-received sign-out from Dr. Webb. I have seen and evaluated patient myself. She seems to have stabilized a in sinus rhythm she has not been vomiting for the last 2 1-1/2 hours. Hemoglobin is also relatively stable. She is overall feeling better. She is getting slight headache is. She is followed by GI Dr. Tamez at [facility]. [id number] Dr. Morin, GI at he felt updated patient's symptoms test results. At this time he agrees with outpatient follow-up and to add Carafate. I have encouraged patient to return to the emergency department if she should have any new or worsening symptoms. Discharge Plan Departure Patient Disposition: Home Clinical Impression: Acute upper GI bleed, Atrial fibrillation with RVR Instructions: DI for Peptic Ulcer Activity Restrictions/Additional Instructions: *You have been diagnosed with gastric ulcer *What to do: At this time please monitor very closely. If at any time you have more vomiting or black stool return to emergency department immediately *Continue to take medications as directed Carafate 1 g twice a day SENT TO [facility] *Follow up with your primary care provider in 2-3 days or call [phone] Tamez today to schedule follow-up appointment *Return to ER if you should have [such as] [or] any new, worsening or concerning symptoms Prescriptions: New sucralfate [Carafate] 1 gram tablet 1 g PO BID Qty: 60 0RF No Action cholecalciferol (vitamin D3) [Vitamin D3] 2,000 UNIT tablet 1 tab PO DAILY Qty: 0 0RF Label Comments: takes when she can keep it down per daughter gabapentin 100 mg capsule 200 mg PO BID Qty: 120 3RF multivitamin tablet 1 tab PO DAILY 0RF melatonin 5 mg tablet 5 mg PO BEDTIME PRN (Reason: Sleep) 0RF cyanocobalamin (vitamin B-12) 2,500 mcg tablet 2,500 mcg PO DAILY 0RF Label Comments: takes when she can keep it down per daughter Vitamin E 1 cap PO DAILY 0RF Label Comments: patient states vitamin E level is fine so not currently taking. wants left on profile. 02/20/19 jh loratadine [Claritin] 10 mg tablet 10 mg PO DAILY PRN (Reason: Allergy Symptoms) 0RF CBD Hemp 20 mg 1 tab PO DAILY PRN (Reason: anxiety) 0RF omeprazole 20 mg capsule,delayed release(DR/EC) 20 mg PO DAILY 0RF Rx Instructions: Take one capsule by mouth once a day. omega-3 fatty acids [Fish Oil Concentrate] 1,000 mg capsule 1,000 mg PO DAILY 0RF metoclopramide HCl 5 mg tablet 5 mg PO QACHS PRN (Reason: nausea and vomiting) 0RF Excedrin Extra Strength 250-250-65 mg Tablet 1 dose PO PRN PRN (Reason: pain) 0RF lidocaine HCl-menthol 4-1 % adhesive patch,medicated 1 patch topical DAILY PRN0RF Referrals: Blake Oliver MD [Primary Care Provider] -
[2021-08-17] MEDS: PANTOPRAZOLE 40 MG VIAL 80 MG IV (02:56)
[2021-08-17] MEDS: ONDANSETRON 4 MG/2 ML INJ IV (03:01)
[2021-08-17 03:04] LABS: Add Manual Diff / Slide Review NO; Basophils Absolute Auto 100 /uL (0-100); Basophils Percent Auto 0.6 % (0-2); Eosinophils Absolute Auto 100 /uL (0-450); Eosinophils Percent Auto 0.4 % (2-4); Hematocrit 46.1 % (36-46); Hemoglobin 15.4 g/dL (12.0-16.0); Lymphocytes Absolute Auto 2900 /uL (1100-4500); Lymphocytes Percent Auto 17.2 % (25-40); Mean Corpuscular HGB Conc 33.5 % (30-36); Mean Corpuscular Hemoglobin 29.2 PG (26-34); Mean Corpuscular Volume 87.4 fL (80-100); Monocytes Absolute Auto 1400 /uL (0-900); Monocytes Percent Auto 8.3 % (3-14); Neutrophils Absolute Auto 12200 /uL (1500-7000); Neutrophils Percent Auto 73.5 % (50-75); Platelet Count 383 X10^3/uL (150-400); Red Blood Cell Count 5.27 X10^6/uL (4.0-5.2); White Blood Cell Count 16.7 X10^3/uL (4.5-11.0)
[2021-08-17] MEDS: SODIUM CHLORIDE 0.9% 1,000 ML 100 ML IV ×2 (03:06→06:55)
[2021-08-17 03:10] LABS: Lactate (Lactic Acid) 2.1 mmol/L (0.7-2.1)
[2021-08-17 03:11] LABS: Alanine Aminotransferase 23 IU/L (<35); Albumin 4.6 g/dL (3.5-5.0); Albumin Globulin Ratio 1.2 (1.0-2.8); Alkaline Phosphatase 133 U/L (38-126); Aspartate Aminotransferase 29 IU/L (14-36); BUN Creatinine Ratio 24.4 (6-22); Bilirubin Total 0.6 mg/dL (0.2-1.3); Bilirubin Unconjugated 0.4 mg/dL (0.0-1.1); Blood Urea Nitrogen 20 mg/dL (7-17); Calcium 10.3 mg/dL (8.4-10.2); Carbon Dioxide 35 mmol/L (22-32); Chloride 98 mmol/L (98-107); Estimated Glomerular Filt Rate > 60.0 mL/min (>60); Glucose 183 mg/dL (80-110); HEMOLYSIS < 15 (0-50); Potassium 3.1 mmol/L (3.4-5.1); Sodium 142 mmol/L (137-145); Total Protein 8.6 g/dL (6.3-8.2)
[2021-08-17 03:40] LABS: INR 1.2 (0.9-1.3)
[2021-08-17 03:42] LABS: PTT Partial Thromboplastin Tim 36 SECONDS (26.4-36.2)
--- NOTE | 2021-08-17 03:42 | DI.CT.S_ITS ---
PROCEDURE: CT ABDOMEN PELVIS W CON INDICATIONS: Vomiting, history of duodenal stent TECHNIQUE: After the administration of intravenous contrast, axial sections acquired from the lung bases to the pubic symphysis. Coronal and sagittal reformats were performed. For radiation dose reduction, the following was used: automated exposure control, adjustment of mA and/or kV according to patient size. COMPARISON: [facility], CT, CT CHEST ABD PEL W CON, 08/08/2020, 15:11. [facility], CT, CT ABDOMEN PELVIS W CON, 10/18/2019, 17:43. FINDINGS: Image quality: Excellent. Lung bases: Unremarkable. Heart: No significant findings. ABDOMEN: Liver: Unremarkable. Gallbladder: Surgically absent Biliary ducts: Unremarkable. Pancreas: Unremarkable. Spleen: Unremarkable. Adrenal Glands: Unremarkable. Kidneys and Ureters: Unremarkable. Stomach and Bowel: Remote partial gastrectomy. Interval placement of a metallic stent in the gastro jejunal anastomosis. The stent appears patent. The stomach is not distended. Question mild gastric wall thickening. Mildly prominent fluid-filled proximal small bowel without obstruction. Moderately large rectal fecal debris. Colon otherwise unremarkable. Peritoneum: No abnormal intraperitoneal fluid. No free air. Ventral Wall: No hernias. Abdominal Nodes: No retroperitoneal or mesenteric adenopathy by size criteria. Vessels: Aorta and inferior vena cava are normal in size. PELVIS: Pelvic Organs: Uterus is surgically absent. Bladder: Unremarkable. Pelvic Nodes: No enlarged lymph nodes. Miscellaneous: No hernias are seen. Bones: Unremarkable. IMPRESSION: 1. Remote partial gastrectomy, gastrojejunostomy, cholecystectomy, and hysterectomy. 2. Gastro jejunal anastomotic metallic stent is widely patent. 3. Nonspecific mild prominence of the proximal small bowel without bowel obstruction. Comment: Final report is concordant with preliminary interpretation provided by [facility]. Dictated by: Estrada Fatima M.D. on 08/17/2021 at 7:44 Approved by: Esrtada Fatima M.D. on 08/17/2021 at 7:51
[2021-08-17 04:31] LABS: Appearance Urine UA CLEAR; Bilirubin Urine UA NEGATIVE (NEGATIVE); Color Urine UA YELLOW; Glucose Urine UA NEGATIVE (Negative); Ketones Urine UA 2+ (NEGATIVE); Leukocyte Esterase Urine UA NEGATIVE (NEGATIVE); Nitrite Urine UA NEGATIVE (Negative); Occult Blood Urine UA NEGATIVE (Negative); Protein Urine UA TRACE (Negative); Urobilinogen Urine UA 0.2 E.U./dL (0.2)
[2021-08-17 04:33] LABS: pH Urine UA 8.5 (4.5-8.0)
[2021-08-17 04:51] LABS: Amorphous Sediment Urine 2+; Bacteria Urine None Seen; Culture Indicated Urine Cult Not Indicated; RBC Urine None Seen (0-5/HPF); WBC Urine None Seen (0-5/HPF)
[2021-08-17 04:56] LABS: Reflexed Lactate in 2 Hours Y
[2021-08-17 05:01] LABS: COVID19 -Nasal RAPID Negative (Negative)
[2021-08-17] MEDS: LIDOCAINE 2% INJ MDV 20 ML (05:06)
[2021-08-17 05:33] LABS: Hematocrit 41.8 % (36-46)
[2021-08-17 05:39] LABS: Lactate 2HR (Lactic Acid Rflx) 1.3 mmol/L (0.7-2.1)
[2021-08-17] MEDS: PROCHLORPERAZINE 10 MG/2 ML VIAL IV (07:29)
[2021-08-17] MEDS: diphenhydrAMINE 50 MG/ML VIAL 25 MG IV (07:30)
--- NOTE | 2021-08-17 08:04 | PC.NURSE ---
Called patient's daughter, Stacy Head, per patient request and gave full update on patient condition and plan of care to transfer. Stacy states she will be unable to pick patient up at time of discharge if she is transferred too far away from home.
[2021-08-17 10:33] LABS: Hematocrit 39.4 % (36-46); Hemoglobin 13.3 g/dL (12.0-16.0)
== END 2021-08-17 12:22 | disposition home or self-care (01) ==
PROVIDERS: Emergency Medicine; Emergency Provider Emergency Medicine; Family Provider Internal Medicine Gastroenterology; PCP Internal Medicine
DX: K92.2 Gastrointestinal hemorrhage, unspecified (principal); I48.20 Chronic atrial fibrillation, unspecified; Z20.822 Contact with and (suspected) exposure to COVID-19
CPT/HCPCS: 36415; 74177; 80048; 80076; 81001; 83605; 85014; 85018; 85025; 85610; 85730; 86850; 86900; 86901; 87635; 93005; 93010; 96361; 96374; 96375; 96376; 99284; 99285; C9803; C9113; J0780; J1200; J2405; Q9967

== ENCOUNTER → 2022-11-17 08:56 | Outpatient (CLI) | payer MEDICARE, SELFPAY ==
[2019-03-28 12:26] VITALS: BMI 29.0
[2022-11-17 10:15] LABS: Hematocrit 36.6 % (36-46); Hemoglobin 12.4 g/dL (12.0-16.0); Mean Corpuscular HGB Conc 34.1 % (30-36); Mean Corpuscular Hemoglobin 28.9 PG (26-34); Mean Corpuscular Volume 84.9 fL (80-100); Platelet Count 269 X10^3/uL (150-400); Red Cell Distribution Width 14.9 % (11.6-14.8); White Blood Cell Count 9.4 X10^3/uL (4.5-11.0)
[2022-11-17 10:19] LABS: Alanine Aminotransferase 24 IU/L (<35); Albumin 4.3 g/dL (3.5-5.0); Albumin Globulin Ratio 1.3 (1.0-2.8); Alkaline Phosphatase 115 U/L (38-126); Aspartate Aminotransferase 25 IU/L (14-36); BUN Creatinine Ratio 41.1 (6-22); Bilirubin Total 0.3 mg/dL (0.2-1.3); Blood Urea Nitrogen 23 mg/dL (7-17); Calcium 9.4 mg/dL (8.4-10.2); Carbon Dioxide 26 mmol/L (22-32); Chloride 104 mmol/L (98-107); Estimated Glomerular Filt Rate > 60 mL/min (>60); Globulin 3.2 g/dL (1.7-4.1); Glucose 108 mg/dL (80-110); HEMOLYSIS < 15 (0-50); Iron 66 ug/dL (37-170); Potassium 4.1 mmol/L (3.4-5.1); Sodium 138 mmol/L (137-145); Total Protein 7.5 g/dL (6.3-8.2)
[2022-11-17 10:30] LABS: Percent Iron Saturation 16 % (15-50); Total Iron Binding Capacity 404 ug/dL (265-497); Transferrin 336 mg/dL (206-381)
[2022-11-17 10:51] LABS: TSH w/ Reflex to FT4 1.62 uIU/mL (0.47-4.68)
[2022-11-17 10:54] LABS: Ferritin 11 ng/mL (11-264)
[2022-11-17 11:09] LABS: Vitamin B12 > 1000 pg/mL (239-931)
== END ==
PROVIDERS: Family Provider Internal Medicine; PCP Internal Medicine; Referring Provider Internal Medicine; Visit Provider Internal Medicine
DX: K31.5 Obstruction of duodenum (principal); Z86.2 Personal history of diseases of the blood and blood-forming organs and certain disorders involving the immune mechanism; M79.7 Fibromyalgia; R42 Dizziness and giddiness; E53.8 Deficiency of other specified B group vitamins
CPT/HCPCS: 36415; 80053; 82607; 82728; 83540; 83550; 84443; 85027

== ENCOUNTER → 2023-01-10 19:42 | Outpatient (CLI) | payer MEDICARE, SELFPAY ==
[2019-03-28 12:26] VITALS: BMI 29.0
--- NOTE | 2023-01-10 19:45 | DI.MRI.S_ITS ---
PROCEDURE: MR LUMBAR SPINE WO CON INDICATIONS: Back pain due to sciatica TECHNIQUE: Noncontrast sagittal T1 spin echo and T2 fast echo, sagittal STIR, and T2 fast spin echo through the lumbar spine. In cases with scoliosis, additional coronal T2 fast spin echo may be performed. COMPARISON: [facility], CT, CT ABDOMEN PELVIS W CON, 08/17/2021, 3:58. FINDINGS: Image quality: Diagnostic Alignment and Curvature: There is normal bony alignment. Bone Marrow: Marrow is of normal overall signal. No acute vertebral body compression fractures. Spinal Cord: Conus medullaris terminates at the L1 level. Visualized cord demonstrates normal signal and size. Paraspinous Soft Tissues: No paravertebral masses. T12-L1: Normal appearance. L1-L2: Normal appearance. L2-L3: The disc height is well-preserved. Loss of disc signal is seen at this level. Mild generalized disc bulge is seen. Mild to moderate facet hypertrophy is seen. There is mild right-sided and no significant left-sided neural foraminal narrowing. Mild central canal narrowing is seen. L3-L4: The disc height is well-preserved. Loss of disc signal is seen at this level. Mild generalized disc bulge is seen. Moderate facet joint hypertrophy is seen. Associated hypertrophy of the ligamentum flavum can be seen. No significant neural foraminal narrowing can be seen. Minimal central canal narrowing is seen. L4-L5: The disc height is well-preserved. Loss of disc signal is seen at this level. Mild to moderate disc bulge is seen, which is eccentric to the right. There is at least moderate right-sided and moderate left-sided facet hypertrophy. Mild bilateral neural foraminal narrowing is seen. Mild central canal narrowing is seen. L5-S1: The disc height and disk signal are relatively well-preserved. Mild generalized disc bulge is seen. Mild facet joint hypertrophy is seen. No significant neural foraminal or central canal narrowing can be seen. IMPRESSION: Multiple levels of mild overall lumbar spine degenerative change can be seen. Dictated by: Trent Loomis M.D. on 01/11/2023 at 12:37 Approved by: Trent Loomis M.D. on 01/11/2023 at 12:40
== END ==
PROVIDERS: Family Provider Internal Medicine; PCP Internal Medicine; Referring Provider Internal Medicine; Visit Provider Internal Medicine
DX: M54.41 Lumbago with sciatica, right side (principal); M54.42 Lumbago with sciatica, left side; M47.816 Spondylosis without myelopathy or radiculopathy, lumbar region; M47.817 Spondylosis without myelopathy or radiculopathy, lumbosacral region
CPT/HCPCS: 72148

== ENCOUNTER → 2023-02-09 14:44 | Outpatient (CLI) | payer MEDICARE, SELFPAY ==
[2019-03-28 12:26] VITALS: BMI 29.0
--- NOTE | 2023-02-09 | DI.RAD.S_ITS ---
PROCEDURE: XR ABDOMEN 1V INDICATIONS: DUODENAL ANASTOMOTIC STRICTURE TECHNIQUE: One view of the abdomen acquired. COMPARISON: None. FINDINGS: Surgical changes and devices: Central suture lines and vascular clips noted in the abdomen and pelvis. Bowel: Moderate fecal debris in the colon. No obstruction Soft tissues: No suspicious abdominal calcifications. Visualized solid organ contours appear normal in size. Bones: No suspicious bony lesions. IMPRESSION: Moderate fecal debris in the colon. No obstruction. Approved by: Washington Bettencourt M.D. on 02/09/2023 at 18:42
== END ==
PROVIDERS: Family Provider Internal Medicine; PCP Internal Medicine; Visit Provider Internal Medicine Gastroenterology
DX: K92.9 Disease of digestive system, unspecified (principal); K31.5 Obstruction of duodenum
CPT/HCPCS: 74018

== ENCOUNTER → 2023-07-12 16:16 | Outpatient (CLI) | payer MEDICARE, SELFPAY ==
[2019-03-28 12:26] VITALS: BMI 29.0
--- NOTE | 2023-07-12 16:20 | DI.RAD.S_ITS ---
PROCEDURE: XR HIP W PEL IF DONE RT 2V INDICATIONS: hip pain, right TECHNIQUE: AP pelvis with lateral view(s) of the right hip(s). COMPARISON: [facility], , XR HIP W PEL IF DONE RT 2V, 02/10/2018, 10:19. FINDINGS: Bones: No fractures or dislocations. Pelvic ring appears intact. No suspicious bony lesions. Nonuniform joint space narrowing with osteophytosis and subchondral cystic change. Early bony deformity is probable, within the humeral head. Soft tissues: The visualized bowel gas pattern is normal. No suspicious soft tissue calcifications. 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 Dictated by: Van Jean Baptiste M.D. on 07/12/2023 at 17:04 Approved by: Van Jean Baptiste M.D. on 07/12/2023 at 17:13
== END ==
LOC: RAD 16:19
PROVIDERS: Family Provider Internal Medicine; PCP Internal Medicine; Referring Provider Internal Medicine; Visit Provider Internal Medicine
DX: M16.11 Unilateral primary osteoarthritis, right hip (principal); M25.551 Pain in right hip
CPT/HCPCS: 73502

== ENCOUNTER 2023-08-29 12:09 | Emergency (ER) | payer MEDICARE, SELFPAY ==
[2019-03-28 12:26] VITALS: BMI 29.0
[2023-08-29] VITALS (9 sets, daily range): BP systolic 127–174; BP diastolic 59–76; PULSE 65–86; RESP 18; TEMP 36.8; O2SAT 92–97; BMI 29.2
--- NOTE | 2023-08-29 12:45 | PC.NURSE ---
IV attempt w/ US by this RN x 1 and failed, called for another to complete.
[2023-08-29 12:55] LABS: Add Manual Diff / Slide Review NO; Basophils Absolute Auto 100 /uL (0-100); Basophils Percent Auto 0.5 % (0-2); Eosinophils Absolute Auto 200 /uL (0-450); Hematocrit 39.3 % (36-46); Hemoglobin 13.1 g/dL (12.0-16.0); Lymphocytes Absolute Auto 2300 /uL (1100-4500); Mean Corpuscular HGB Conc 33.3 % (30-36); Mean Corpuscular Hemoglobin 28.7 PG (26-34); Mean Corpuscular Volume 86.4 fL (80-100); Monocytes Absolute Auto 600 /uL (0-900); Monocytes Percent Auto 5.2 % (3-14); Neutrophils Absolute Auto 8700 /uL (1500-7000); Neutrophils Percent Auto 73.3 % (50-75); Platelet Count 278 X10^3/uL (150-400); Red Blood Cell Count 4.55 X10^6/uL (4.0-5.2); Red Cell Distribution Width 14.1 % (11.6-14.8); White Blood Cell Count 11.8 X10^3/uL (4.5-11.0)
--- NOTE | 2023-08-29 13:11 | DI.CT.S_ITS ---
PROCEDURE: CT ABDOMEN PELVIS W CON INDICATIONS: LLQ abdominal pain TECHNIQUE: After the administration of intravenous contrast, axial sections acquired from the lung bases to the pubic symphysis. Coronal and sagittal reformats were performed. For radiation dose reduction, the following was used: automated exposure control, adjustment of mA and/or kV according to patient size. COMPARISON: [facility], CT, CT ABDOMEN PELVIS W CON, 08/17/2021, 3:58. FINDINGS: Image quality: Diagnostic. Lower Chest: No significant findings. ABDOMEN: Liver: No solid mass. Gallbladder: Surgically absent Biliary ducts: No biliary dilation. Pancreas: No ductal dilation. Spleen: Size is within normal limits. Adrenal Glands: No adrenal nodules. Kidneys and Ureters: No hydronephrosis. No solid mass. No complex renal cystic lesion which requires follow up. Stomach and Bowel: Gastrojejunostomy has been performed. Stent at the proximal anastomosis is present, as before. Multiple fluid-filled small bowel loops are present predominantly within the pelvis. Appendix is not seen. No evidence of appendicitis. Colon is grossly unremarkable. Peritoneum: No abnormal intraperitoneal fluid. No free air. Ventral Wall: No significant ventral hernia. Abdominal Nodes: No retroperitoneal or mesenteric adenopathy by size criteria. Vessels: Aorta and inferior vena cava are normal in size. PELVIS: Pelvic Organs: Unremarkable. Bladder: No bladder wall thickening, accounting for underdistention. Pelvic Nodes: No enlarged lymph nodes. Miscellaneous: No inguinal hernias are seen. Bones: No aggressive osseous abnormality. IMPRESSION: 1. Findings suggestive of gastroenteritis. 2. Postsurgical sequelae. Dictated by: Maria C Hough M.D. on 08/29/2023 at 14:00 Approved by: Maria C Hough M.D. on 08/29/2023 at 14:10
--- NOTE | 2023-08-29 13:17 | ED.GENADULT ---
HPI - General Adult General Chief complaint: Abdominal Pain Stated complaint: abd pain Time Seen by Provider: 08/29/23 12:21 Source: patient Mode of arrival: Ambulatory History of Present Illness HPI narrative: 78-year-old woman with a history of fibromyalgia, abdominal pain with worsening left lower quadrant pain for the last number of months, chronic constipation for which she uses Dulcolax and magnesium, irritable bowel syndrome, history of peptic ulcer disease and has a duodenal stent that she states is typically replaced every 6 months by her stereoptician in [place]. She presents today with worsening left lower quadrant pain. She states that she has been diligent about using stool softeners, describes normal bowel movement this morning but is finding that the pain was just too intense for her to continue. It is worse when she is up and moving better if she is lying in her recliner and not moving. She does not describe any fevers, nausea vomiting, palpitation, chest pain, recent falls. Related Data Home Medications Medication Instructions Recorded Confirmed cholecalciferol (vitamin D3) 50 1 tab PO DAILY ##0 12/16/16 07/12/23 mcg (2,000 unit) tablet (Vitamin D3) melatonin 5 mg tablet 5 mg PO BEDTIME PRN Sleep 11/08/18 07/12/23 multivitamin 1 tab PO DAILY 11/08/18 07/12/23 Vitamin E 1 cap PO DAILY 02/06/19 07/12/23 cyanocobalamin (vitamin B-12) 2,500 mcg PO DAILY 02/06/19 07/12/23 2,500 mcg tablet loratadine 10 mg tablet (Claritin) 10 mg PO DAILY PRN Allergy Symptoms 02/06/19 07/12/23 [id number] 250 1 dose PO PRN PRN pain 02/20/19 07/12/23 mg-250 mg-65 mg tablet (Excedrin Extra Strength) lidocaine HCl 4 %-menthol 1 % 1 patch topical DAILY PRN 01/17/20 07/12/23 topical patch omeprazole 20 mg capsule,delayed 20 mg PO DAILY 02/07/20 07/12/23 release metoclopramide HCl 5 mg tablet 5 mg PO QACHS PRN nausea and 03/03/21 07/12/23 vomiting omega-3 fatty acids 1,000 mg 1,000 mg PO DAILY 03/03/21 07/12/23 capsule (Fish Oil Concentrate) CBD Hemp 1 tab PO DAILY PRN anxiety 04/14/21 07/12/23 diltiazem HCl 180 mg 180 mg PO DAILY 02/04/22 07/12/23 capsule,extended release 24 hr magnesium oxide 800 mg PO DAILY 11/17/22 07/12/23 gabapentin 100 mg capsule 100 mg PO BEDTIME 01/06/23 07/12/23 magnesium salicylate 580 mg PO Q12H PRN 07/12/23 07/12/23 Allergies Allergy/AdvReac Type Severity Reaction Status Date / Time aspirin [ASPIRIN] AdvReac Severe bleeding Verified 08/29/23 12:21 stomach codeine [CODEINE] AdvReac Severe Hallucinati Verified 08/29/23 12:21 ons fluconazole [From Diflucan] AdvReac Severe I threw Verified 08/29/23 12:21 up all night long. morphine [MORPHINE] AdvReac Severe Hallucinati Verified 08/29/23 12:21 ons oxycodone [OXYCODONE] AdvReac Severe Hallucinations Verified 08/29/23 12:21 and itchy skin prednisone [PREDNISONE] AdvReac Severe Feels Verified 08/29/23 12:21 high and gets very angry zolpidem [ZOLPIDEM] AdvReac Severe turned me Verified 08/29/23 12:21 into a night walker and felt really high. Review of Systems Review of Systems Narrative: Pertinent positive and negative findings as per HPI Patient History Medical History Anemia, iron deficiency Paroxysmal atrial fibrillation Osteoarthritis Legg-Perthes disease IBS (irritable bowel syndrome) Duodenal stenosis Perforated ulcer Cutaneous lupus erythematosus Iron deficiency anemia Allergic rhinitis (1959) Generalized headaches Migraines Foot pain (2000) Fractures (1999) Shoulder pain Fibromyalgia (~1989) Chronic back pain Rheumatic fever (1966) Cataracts, bilateral (2010) Tinnitus of both ears (2005) Vertigo (2010) Peptic ulcer disease (1979) Fibroids Heavy menstrual period Ovarian cyst Painful menstrual periods Surgical History S/P BSO (bilateral salpingo-oophorectomy) History of surgery on arm Hx of appendectomy (1958) Hx of abdominal surgery (~1985) Status post cholecystectomy Status post hysterectomy (1988) Family History Father Cancer Mother Diabetes mellitus Osteoarthritis Grandfather No problems noted. Grandmother No problems noted. Social History household members: children Smoking Status: Former smoker Tobacco: How many years used: 30 second hand exposure: No alcohol intake: never substance use type: other Smoking Status: Former smoker alcohol intake frequency: holidays/special occasions only Substance Use Type: does not use Exam Initial Vital Signs Initial Vital Signs: Vital Signs Pulse Rate 86 08/29/23 12:14 Blood Pressure 174/76 H 08/29/23 12:14 Pulse Oximetry 95 08/29/23 12:14 General: Older appearing woman in no acute distress. Able to give a complete and coherent history. Well-nourished well-developed HEENT: Moist mucous membranes, normal sclera with reactive pupils, Respiratory: Lungs are clear to auscultation, no wheezing no rales no rhonchi. Full and symmetrical air movement Cardiac: Regular rate and rhythm no murmurs no bruits Abdomen: Soft, binder tenderness to deep palpation in the left lower quadrant, good bowel tones, no flank pain. Rectal exam is unremarkable with no masses and good sphincter tone. Soft brown stool appreciated Skin: Warm and dry, no rashes Neurologic: Grossly neurologically intact with no obvious asymmetries or abnormalities Extremities: No trauma, well perfused Psych: Cooperative, appropriate insight and affect Course Orders Ordered: ED Orders 08/29/23 12:22 EKG-12 Lead Stat 08/29/23 12:45 Complete Blood Count AUTO DIFF Stat Comprehensive Metabolic Panel Stat Lipase Stat 08/29/23 13:11 CT abdomen pelvis w con Stat Hydromorphone HCl (Hydromorphone 0.5 Mg Inj) 0.5 mg IV Q15MIN PRN PRN Reason: Pain, Ondansetron HCl (Ondansetron 4 Mg/2 Ml Inj) 4 mg IV NOW PRN PRN Reason: Nausea And Vomiting Discontinued Medications Sodium Chloride (Normal Saline 0.9%) 1,000 mls @ 1,000 mls/hr IV BOLUS ONE Stop: 08/29/23 14:10 Last Admin: 08/29/23 13:22 Dose: 1,000 mls/hr Documented By: KADY Vital Signs Vital signs: Vital Signs - 8 hr 08/29/23 12:14 08/29/23 12:14 08/29/23 12:17 Temperature 98.2 F Pulse Rate 86 82 Respiratory Rate 18 Blood Pressure 174/76 H 174/76 H Pulse Oximetry 95 95 Oxygen Delivery Method Room Air 08/29/23 13:52 08/29/23 13:54 08/29/23 13:54 Temperature Pulse Rate 66 65 Respiratory Rate Blood Pressure 139/65 Pulse Oximetry 94 97 Oxygen Delivery Method 08/29/23 14:00 08/29/23 14:00 08/29/23 14:32 Temperature Pulse Rate 65 80 Respiratory Rate Blood Pressure 127/63 Pulse Oximetry 97 94 Oxygen Delivery Method 08/29/23 14:40 08/29/23 14:40 08/29/23 15:00 Temperature Pulse Rate 68 Respiratory Rate Blood Pressure 133/63 130/63 Pulse Oximetry 96 Oxygen Delivery Method 08/29/23 15:00 Temperature Pulse Rate 65 Respiratory Rate Blood Pressure Pulse Oximetry 92 Oxygen Delivery Method Medical Decision Making Lab Data 08/29/23 12:45 08/29/23 12:45 Labs: Lab Results 08/29/23 Range/Units 12:45 WBC 11.8 H (4.5-11.0) X10^3/uL RBC 4.55 (4.0-5.2) X10^6/uL Hgb 13.1 (12.0-16.0) g/dL Hct 39.3 (36-46) % MCV 86.4 (80-100) fL MCH 28.7 (26-34) PG MCHC 33.3 (30-36) % RDW 14.1 (11.6-14.8) % Plt Count 278 (150-400) X10^3/uL Neut % (Auto) 73.3 (50-75) % Lymph % (Auto) 19.0 L (25-40) % Hardy % (Auto) 5.2 (3-14) % Eos % (Auto) 2.0 (2-4) % Baso % (Auto) 0.5 (0-2) % Neut # (Auto) 8700 H (9384-4961) /uL Lymph # (Auto) 2300 (4544-9048) /uL Hardy # (Auto) 600 (0-900) /uL Eos # (Auto) 200 (0-450) /uL Baso # (Auto) 100 (0-100) /uL Sodium 136 L (137-145) mmol/L Potassium 3.8 (3.4-5.1) mmol/L Chloride 101 (98-107) mmol/L Carbon Dioxide 25 (22-32) mmol/L BUN 18 H (7-17) mg/dL Creatinine 0.63 (0.52-1.04) mg/dL Estimated GFR > 60 (>60) mL/min BUN/Creatinine Ratio 28.6 H (6-22) Glucose 196 H (80-110) mg/dL Calcium 9.6 (8.4-10.2) mg/dL Total Bilirubin 0.5 (0.2-1.3) mg/dL AST 27 (14-36) IU/L ALT 22 (<35) IU/L Alkaline Phosphatase 144 H (38-126) U/L Total Protein 7.7 (6.3-8.2) g/dL Albumin 4.3 (3.5-5.0) g/dL Globulin 3.4 (1.7-4.1) g/dL Albumin/Globulin Ratio 1.3 (1.0-2.8) Lipase 67 (23-300) U/L Urine Dip Bedside Urine Glucose 1000 mg/dl Bedside Urine Bilirubin + 1 Bedside Urine Ketone +/- 5 Urine Specific [place] 1.030 Bedside Urine Occult Blood - Negative Bedside Urine pH 6.0 Bedside Urine Protein - Negative Bedside Urine Urobilinogen - Negative Bedside Urine Nitrite - Negative Bedside Urine Leukocytes - Negative Esterase Point of care testing: Urine Dip Bedside Urine Glucose 1000 mg/dl Bedside Urine Bilirubin + 1 Bedside Urine Ketone +/- 5 Urine Specific [place] 1.030 Bedside Urine Occult Blood - Negative Bedside Urine pH 6.0 Bedside Urine Protein - Negative Bedside Urine Urobilinogen - Negative Bedside Urine Nitrite - Negative Bedside Urine Leukocytes - Negative Esterase Imaging Data CT scan - abdomen/pelvis: Radiologist's Impression: PROCEDURE: CT ABDOMEN PELVIS W CON INDICATIONS: LLQ abdominal pain TECHNIQUE: After the administration of intravenous contrast, axial sections acquired from the lung bases to the pubic symphysis. Coronal and sagittal reformats were performed. For radiation dose reduction, the following was used: automated exposure control, adjustment of mA and/or kV according to patient size. COMPARISON: [facility], CT, CT ABDOMEN PELVIS W CON, 08/17/2021, 3:58. FINDINGS: Image quality: Diagnostic. Lower Chest: No significant findings. ABDOMEN: Liver: No solid mass. Gallbladder: Surgically absent Biliary ducts: No biliary dilation. Pancreas: No ductal dilation. Spleen: Size is within normal limits. Adrenal Glands: No adrenal nodules. Kidneys and Ureters: No hydronephrosis. No solid mass. No complex renal cystic lesion which requires follow up. Stomach and Bowel: Gastrojejunostomy has been performed. Stent at the proximal anastomosis is present, as before. Multiple fluid-filled small bowel loops are present predominantly within the pelvis. Appendix is not seen. No evidence of appendicitis. Colon is grossly unremarkable. Peritoneum: No abnormal intraperitoneal fluid. No free air. Ventral Wall: No significant ventral hernia. Abdominal Nodes: No retroperitoneal or mesenteric adenopathy by size criteria. Vessels: Aorta and inferior vena cava are normal in size. PELVIS: Pelvic Organs: Unremarkable. Bladder: No bladder wall thickening, accounting for underdistention. Pelvic Nodes: No enlarged lymph nodes. Miscellaneous: No inguinal hernias are seen. Bones: No aggressive osseous abnormality. IMPRESSION: 1. Findings suggestive of gastroenteritis. 2. Postsurgical sequelae. Dictated by: Maria C Hough M.D. on 08/29/2023 at 14:00 [facility] Narrative Medical decision making narrative: CC: Left lower quadrant pain present for months worsening over the last day to 2 Complicating co-morbidities: History of peptic ulcers disease with duodenal stent, chronic constipation Data collected from: patient Medical records reviewed: Primary care notes from July of this year in January of last year are reviewed Differential considered: Colon cancer, other obstruction, diverticulitis, colon stricture, constipation Exam documented above, pertinent findings include: 78-year-old woman who actually seems to be in fairly good health. Minor tenderness with deep palpation of the left lower quadrant without significant tenderness otherwise. Rectal exam does not reveal any obvious masses Lab Test results independently reviewed as above. Pertinent findings: CBC shows mild leukocytosis at 11.8, no evidence of acute anemia Independently reviewed EKG: Sinus rhythm at a rate of 78, occasional PAC. No acute ischemia Imaging studies independently reviewed: CT scan has significant amount of gas, dilated bowel loops no obvious masses. Radiology interpretation suggests gastroenteritis which is clinically consistent with her presentation. Consultations: Dr Silva, general surgeon. We reviewed the CT scan and real-time. He agreed with radiology reading felt that there was no surgical urgency or emergency and recommended follow up with her Gastroenterology group given her complex prior abdominal surgeries. Treatments: 1 L of fluid Discussion: 78-year-old woman with a complex abdominal surgical history with 4 months of abdominal pain increasing over the last number of days. She has been having bowel movements and takes magnesium and Dulcolax make sure that she has regular bowel movements. Her CT scan shows significant surgical changes, significant mount of air throughout the bowels, distended small bowel with fluid but no bowel obstruction, masses or acute surgical findings. Lab work is reassuring. Care is reviewed with General surgery. [place] that follow-up with her Gastroenterology group would be appropriate into that and her CT scan was electronically transmitted to the [facility] system and [place] for review in follow-up appointment. Patient will call to let her stereoptician know that she was seen in the emergency department she is having increasing pain, her next scheduled appointment for endoscopy is in october and will see if she might be able to be seen sooner. She is safe for discharge at this time Discharge Plan Departure Patient Disposition: Home Clinical Impression: Abdominal pain Instructions: DI for Abdominal Pain-Adult Activity Restrictions/Additional Instructions: Thank you for coming in today Your blood work was reassuring. Your CT scan shows all of your chronic surgical changes but no acute obstructions, masses or cancers. I did discuss your CT scan with our general surgeon. Given the fact that this is chronic and the multiple surgeries you have had he felt that follow up with your stereoptician who has been helping with stenting and endoscopies would be most appropriate. I did send the actual CT scan to [facility] for your doctor to review Please call your stereoptician, let them know that you have had increasing pain, you were seen in the emergency department and see if they are able to see you sooner than mid October. If you find that you are getting worse or develop any new symptoms, please feel free to return to the emergency department for further evaluation. Prescriptions: No Action cholecalciferol (vitamin D3) [Vitamin D3] 2,000 UNIT tablet 1 tab PO DAILY Qty: 0 Patient Comments: takes when she can keep it down per daughter multivitamin tablet 1 tab PO DAILY melatonin 5 mg tablet 5 mg PO BEDTIME PRN (Reason: Sleep) cyanocobalamin (vitamin B-12) 2,500 mcg tablet 2,500 mcg PO DAILY Patient Comments: takes when she can keep it down per daughter Vitamin E 1 cap PO DAILY Patient Comments: patient states vitamin E level is fine so not currently taking. wants left on profile. 02/20/19 loratadine [Claritin] 10 mg tablet 10 mg PO DAILY PRN (Reason: Allergy Symptoms) CBD Hemp 20 mg 1 tab PO DAILY PRN (Reason: anxiety) omeprazole 20 mg capsule,delayed release(DR/EC) 20 mg PO DAILY Rx Instructions: Take one capsule by mouth once a day. omega-3 fatty acids [Fish Oil Concentrate] 1,000 mg capsule 1,000 mg PO DAILY metoclopramide HCl 5 mg tablet 5 mg PO QACHS PRN (Reason: nausea and vomiting) diltiazem HCl 180 mg capsule,extended release 24hr 180 mg PO DAILY gabapentin 100 mg capsule 100 mg PO BEDTIME magnesium oxide 400 mg magnesium tablet 800 mg PO DAILY magnesium salicylate 580 (467) mg tablet 580 mg PO Q12H PRN Excedrin Extra Strength 250-250-65 mg Tablet 1 dose PO PRN PRN (Reason: pain) lidocaine HCl-menthol 4-1 % adhesive patch,medicated 1 patch topical DAILY PRN Referrals: Blake Oliver MD [Primary Care Provider] - Stand Alone Forms: Patient Portal/API
[2023-08-29] MEDS: SODIUM CHLORIDE 0.9% 1,000 ML 1000 ML IV (13:22)
[2023-08-29 13:26] LABS: Alanine Aminotransferase 22 IU/L (<35); Albumin 4.3 g/dL (3.5-5.0); Albumin Globulin Ratio 1.3 (1.0-2.8); Alkaline Phosphatase 144 U/L (38-126); Aspartate Aminotransferase 27 IU/L (14-36); BUN Creatinine Ratio 28.6 (6-22); Bilirubin Total 0.5 mg/dL (0.2-1.3); Blood Urea Nitrogen 18 mg/dL (7-17); Calcium 9.6 mg/dL (8.4-10.2); Carbon Dioxide 25 mmol/L (22-32); Chloride 101 mmol/L (98-107); Estimated Glomerular Filt Rate > 60 mL/min (>60); Globulin 3.4 g/dL (1.7-4.1); Glucose 196 mg/dL (80-110); HEMOLYSIS < 15 (0-50); Lipase 67 U/L (23-300); Potassium 3.8 mmol/L (3.4-5.1); Sodium 136 mmol/L (137-145); Total Protein 7.7 g/dL (6.3-8.2)
== END 2023-08-29 15:43 | disposition home or self-care (01) ==
PROVIDERS: Emergency Provider Emergency Medicine; Family Provider Internal Medicine; PCP Internal Medicine
DX: R10.32 Left lower quadrant pain (principal)
CPT/HCPCS: 36415; 74177; 80053; 81003; 83690; 85025; 93005; 96360; 99284; Q9967

== ENCOUNTER → 2024-04-30 12:40 | Outpatient (CLI) | payer MEDICARE, SELFPAY ==
[2019-03-28 12:26] VITALS: BMI 29.0
== END ==
PROVIDERS: Family Provider Internal Medicine; PCP Internal Medicine; Visit Provider Nurse Practitioner Family
DX: N94.89 Other specified conditions associated with female genital organs and menstrual cycle (principal); R30.0 Dysuria
CPT/HCPCS: 87086; 87210